=== PATIENT | female | born 1985 | race Caucasian/White ===

== ENCOUNTER 2016-04-20 10:10 | Emergency (ER) | payer MEDICAID ==
[~2016-04-20] VITALS: Ht 170.2 cm; Wt 119.3 kg
[~2016-04-20 10:10] MED LIST: ALBU8.5H2 IH; HYDR-3583 PO; HYDR-3714 PO; LRT10T PO; NAPR250T34 PO; SLMFT1E INH; SULF1TAB35 PO; [UNRECOGNIZED DRUG - REMARK]
[2016-04-20] MEDS ORDERED: GUAI120L56 PO (10:34)
[2016-04-20] MEDS ORDERED: PRD20T PO ×2 (10:34→14:11)
--- NOTE | 2016-04-20 11:41 | ED Back Pain ---
General Chief Complaint: Back Problems Stated Complaint: BACK PAIN Nursing Triage Note: PT TO RM 10 BY [facility] FROM [facility] WITH CC OF BACK PAIN. PT STATES SHE WALKED TO HER TRUCK THIS A.M. TO PUT HER BOOTS ON AND FELT HER BACK GO OUT AND LEGS WENT NUMB. PT WENT TO [facility] TO BE SEEN AND WAS UNABLE TO STAND ON THE SCALE, PT STATES STAFF THERE GOT RUDE AND THE PT COLLAPSED WHEN SHE TRIED TO STAND. STATES THIS HAPPENED ABOUT 6-7 YRS AGO. Nursing Sepsis Screen: No Definite Risk Source of Information: Patient Exam Limitations: No Limitations History of Present Illness Time Seen by Provider: 11:40 Initial Comments 31 yo female patient presents to the ED via [facility] with complaints of low back pain beginning this a.m. Patient states she got in her truck and was putting on her boots when she felt something "go out in her back." Patient now complains of pain and numbness radiating down the bilateral legs. States she is unable to stand. "I can't even move my toes!" Reports [facility] staff had gotten rude with her and she collapsed. When asked if she has had any bowel or bladder incontinence, patient states "I feel like I peed myself". Patient was asked again if she has HAD any bowel or bladder incontinence, she states "No I haven't." Location: Lumbar Spine, Paraspinous Muscles Timing/Duration: 1-3 Hours Pain/Injury Location: Back Radiation: Buttocks, Feet, Lower Legs, Upper Legs Method of Injury: Unknown Modifying Factors: Improves With Immobilization, Worse With Jarring, Worse With Movement Associated Symptoms: muscle spasmsNo fever, No weakness, numbness in legs/ feet sensory/motor loss lower back painNo loss of bladder control, No loss of bowel control Allergies and Home Medications Allergies Coded Allergies: No Known Drug Allergies (Unverified , 03/05/12) Home Medications Albuterol 8.5 Gm Hfa.aer.ad 8.5 GM IH Q4H (Reported) 2 PUFFS Cyclobenzaprine HCl 10 Mg Tablet #10 10 MG PO Q8H PRN PRN SPASMS Prescribed by: ROLANDO JARRELL on 04/20/16 1411 Guaifenesin/Codeine Phosphate 120 Ml Liquid 120 ML PO (Reported) Naproxen 500 Mg Tablet #20 500 MG PO BID PRN PRN PAIN Prescribed by: ROLANDO JARRELL on 04/20/16 141 Prednisone 20 Mg Tab 40 MG PO DAILY (Reported) Prednisone 20 Mg Tab #10 40 MG PO DAILY Prescribed by: ROLANDO JARRELL on 04/20/16 141 Tramadol HCl 50 Mg Tablet #14 50 MG PO Q4H PRN PRN PAIN Prescribed by: ROLANDO JARRELL on 04/20/16 141 Constitutional: no symptoms reported Respiratory: no symptoms reported Cardiovascular: no symptoms reported Gastrointestinal: no symptoms reported Genitourinary: no symptoms reported Musculoskeletal: see HPI back pain joint pain muscle painNo neck pain Skin: no symptoms reported Psychiatric/Neurological: See HPIDenies Headache, NumbnessDenies Seizure, TinglingDenies Weakness All Other Systems Reviewed Negative Unless Noted: Yes (Negative excepted noted.) Past Aoammde-Pauzfg-Nfjpio Hx Patient Social History Alcohol Use: Occasionally Uses Recreational Drug Use: Yes (METH) Smoking Status: Former Smoker Recent Foreign Travel: No Contact w/Someone Who Travel: No Recent Infectious Disease Expo: No Recent Hopitalizations: No Physical Abuse Screen: No Sexual Abuse: No Seasonal Allergies Seasonal Allergies: No Surgeries HX Surgeries: Yes (LT KNEE BI LAT CARPAL TUNNEL, LT ANKLE) Surgeries: Orthopedic Respiratory Hx Respiratory Disorders: Yes Respiratory Disorders: Asthma Cardiovascular Hx Cardiac Disorders: No Neurological Hx Neurological Disorders: No 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 System : No Genitourinary Hx Genitourinary Disorders: No Gastrointestinal Hx Gastrointestinal Disorders: No Gastrointestinal Disorders: Hepatitis Musculoskeletal Hx Musculoskeletal Disorders: Yes Musculoskeletal Disorders: Chronic Back Pain Endocrine Hx Endocrine Disorders: No HEENT HX ENT Disorders: No Cancer Hx Cancer: No Psychosocial Hx Psychiatric Problems: No Behavioral Health Disorders: Depression Integumentary HX Skin/Integumentary Disorder: No Skin/Integumentary Disorders: Psoriasis Blood Transfusions Hx Blood Disorders: No Reviewed Nursing Assessment Reviewed/Agree w Nursing PMH: Yes Family Medical History Significant Family History: No Pertinent Family Hx Physical Exam Vital Signs Vital Sign - Last 12Hours 04/20/16 10:23 Temp 97.6 Pulse 95 Resp 22 B/P 124/93 Pulse Ox 98 O2 Delivery Room Air Capillary Refill : Less Than 3 Seconds General Appearance: No Apparent Distress WD/WN Obese Cardiovascular: Regular Rate, Rhythm No Edema No Murmur Normal Peripheral Pulses Respiratory: Lungs Clear Normal Breath Sounds No Respiratory Distress Peripheral Pulses: 2+ Dorsalis Pedis (R), 2+ Left Dors-Pedis (L), 2+ Radial Pulses (R), 2+ Radial Pulses (L) Gastrointestinal: Normal Bowel Sounds No Organomegaly Non Tender SoftNo Distended Back: Normal Inspection Decreased Range of Motion Vertebral Tenderness Other ( patient is extremely dramatic. With sitting up in the exam bed patient is screaming and crying out. Crying without tears. Patient noted to be moving toes and legs voluntarily.) Extremity: Normal Capillary Refill Normal Inspection No Pedal Edema Other ( Generalized BLE soft tissue tenderness. patient is extremely dramatic. With sitting up in the exam bed patient is screaming and crying out. Crying without tears. Patient noted to be moving toes and legs voluntarily.) Neurologic/Psychiatric: Alert Oriented x3 No Motor/Sensory Deficits Other ( patient is extremely dramatic. With sitting up in the exam bed patient is screaming and crying out. Crying without tears. ) Skin: Normal Color Warm/Dry Progress/Results/Core Measures Results/Orders Lab Results Laboratory Tests Test 04/20/16 12:35 Range/Units Alanine Aminotransferase (ALT/SGPT) 25 0-55 U/L Albumin 4.1 3.2-4.5 G/DL Alkaline Phosphatase 84 40-136 U/L Anion Gap 10 5-14 MMOL/L Aspartate Amino Transf (AST/SGOT) 15 5-34 U/L BUN/Creatinine Ratio 12 Basophils # (Auto) 0.0 0.0-0.1 10^3/uL Basophils (%) (Auto) 0 0-10 % Blood Urea Nitrogen 8 7-18 MG/DL Calcium Level 9.1 8.5-10.1 MG/DL Carbon Dioxide Level 24 21-32 MMOL/L Chloride Level 105 98-107 MMOL/L Creatinine 0.66 0.60-1.30 MG/DL Eosinophils # (Auto) 0.1 0.0-0.3 10^3/uL Eosinophils (%) (Auto) 1 0-10 % Estimat Glomerular Filtration Rate > 60 Glucose Level 90 70-105 MG/DL Hematocrit 41 35-52 % Hemoglobin 13.3 11.5-16.0 G/DL Lymphocytes # (Auto) 2.2 1.0-4.0 X 10^3 Lymphocytes (%) (Auto) 30 12-44 % Mean Corpuscular Hemoglobin 28 25-34 PG Mean Corpuscular Hemoglobin Concent 33 32-36 G/DL Mean Corpuscular Volume 87 80-99 FL Mean Platelet Volume 9.7 7.4-10.4 FL Monocytes # (Auto) 0.8 0.0-1.0 X 10^3 Monocytes (%) (Auto) 11 0-12 % Neutrophils # (Auto) 4.3 1.8-7.8 X 10^3 Neutrophils (%) (Auto) 58 42-75 % Platelet Count 326 130-400 10^3/uL Potassium Level 3.7 3.6-5.0 MMOL/L Red Blood Count 4.69 4.35-5.85 10^6/uL Red Cell Distribution Width 14.2 10.0-14.5 % Serum Test, Qualitative NEGATIVE NEGATIVE Sodium Level 139 135-145 MMOL/L Total Bilirubin 0.6 0.1-1.0 MG/DL Total Protein 7.3 6.4-8.2 G/DL White Blood Count 7.5 4.3-11.0 10^3/uL My Orders Orders-ROLANDO JARRELL Ct Lumbar Spine Wo (04/20/16 12:07) Ketorolac Injection (Toradol Injection) (04/20/16 12:07) Orphenadrine Injection (Norflex Injectio (04/20/16 12:07) Hcg,Qualitative Serum (04/20/16 12:28) Oxycodone/Apap 5/325mg Tablet (Percocet (04/20/16 13:57) Vital Signs/I&O Vital Sign - Last 12Hours 04/20/16 04/20/16 10:23 14:35 Temp 97.6 97.6 Pulse 95 88 Resp 22 20 B/P 124/93 Pulse Ox 98 98 O2 Delivery Room Air Room Air Blood Pressure Mean: 103 Diagnostic Imaging Diagonstic Imaging: CT Plain Films/CT/US/NM/MRI: other (lumbar spine) Comments INDICATION: Acute back pain and numbness after patient felt a pop when he bent over. Patient is unable to walk. FINDINGS: The alignment of the posterior spinal line is satisfactory. The there is a minimal focal depression along the upper endplate of L1 vertebral body with mild sclerosis seen likely related to a Schmorl's node, probably old. No acute compression fracture or depressed endplate fracture is identified. The pars interarticularis appear intact with no fracture or defect seen. There is a disc herniation at L4/5 that is probably associated with mild degree of spinal canal stenosis and is associated with mild ligamentum flavum hypertrophy. The other levels demonstrate no definite evidence of spinal canal stenosis with only mild disc bulge at L5/S1. Better assessment with MRI of the spinal canal structures, however can be obtained if needed. IMPRESSION: 1. Mild focal depression at L1 vertebral body superior endplate is likely related to an old Schmorl's node. No acute compression fracture. 2. Prominent disc bulge at L4/5 level, appears to be associated with mild spinal canal stenosis. There is mild disc bulge at the L5/S1 also seen. Dictated on workstation # [id number] Reviewed: Reviewed by Me (radiology report reviewed by me.) Departure Communication Progress Notes Diagnostic findings discussed with the patient. Patient reports mild improvement with Toradol and Norflex. Patient given Percocet by mouth times one dose. Plan for discharge to home. All return precautions were discussed with the patient as described in the discharge instructions of this report. Patient voices understanding and agrees with the treatment plan. Impression Impression: Primary Impression: Lumbar radiculopathy Disposition: HOME, SELF-CARE Condition: Improved Departure-Patient Inst. Decision time for Depature: 14:05 Referrals: [facility] ([place]/Family) Primary Care Physician Patient Instructions: Radiculopathy (DC) Add. Discharge Instructions: All discharge instructions reviewed with patient and/or family. Voiced understanding. medications as instructed. Tylenol extra strength over-the- counter as directed for pain. No lifting, pushing, pulling, twisting, bending, climbing 7 days. Ice packs or heating pads as needed for pain. Follow-up with [facility] for recheck, call for appointment time today. return to the emergency department for increased numbness, bowel or bladder incontinence, fever, or any other concerns. Scripts Tramadol HCl 50 Mg [id number] Mg PO Q4H PRN PAIN #14 TAB Ref 0 Prov:ROLANDO JARRELL 04/20/16 Cyclobenzaprine HCl 10 Mg [id number] Mg PO Q8H PRN SPASMS #10 TAB Ref 0 Prov:ROLANDO JARRELL 04/20/16 Naproxen (Naprosyn)500 Mg [id number] Mg PO BID PRN PAIN #20 TAB Ref 0 Prov:ROLANDO JARRELL 04/20/16 Prednisone 20 Mg Tab40 Mg PO DAILY #10 TAB Ref 0 Prov:ROLANDO JARRELL 04/20/16 ROLANDO JARRELL Apr 20, 2016 11:41
[2016-04-20] MEDS ORDERED: KETOROLAC 60 MG/2 ML VIAL IM STA (12:07)
[2016-04-20] MEDS ORDERED: ORPHENADRINE 60 MG/2 ML (NORFLEX) AMP IM STA (12:07)
[2016-04-20 12:41] LABS: BASOPHILS % (AUTO) 0 % (0-10); EOSINOPHILS # (AUTO) 0.1 10^3/uL (0.0-0.3); EOSINOPHILS % (AUTO) 1 % (0-10); LYMPHOCYTES # (AUTO) 2.2 X 10^3 (1.0-4.0); LYMPHOCYTES % (AUTO) 30 % (12-44); MEAN CORPUSCULAR HEMOGLOBIN 28 PG (25-34); MEAN CORPUSCULAR HGB CONC 33 G/DL (32-36); MEAN CORPUSCULAR VOLUME 87 FL (80-99); MEAN PLATELET VOLUME 9.7 FL (7.4-10.4); MONOCYTES # (AUTO) 0.8 X 10^3 (0.0-1.0); MONOCYTES % (AUTO) 11 % (0-12); NEUTROPHILS # (AUTO) 4.3 X 10^3 (1.8-7.8); NEUTROPHILS % (AUTO) 58 % (42-75); PLATELET COUNT 326 10^3/uL (130-400); RED BLOOD COUNT 4.69 10^6/uL (4.35-5.85); RED CELL DISTRIBUTION WIDTH 14.2 % (10.0-14.5); WHITE BLOOD COUNT 7.5 10^3/uL (4.3-11.0)
[2016-04-20 13:00] LABS: ALANINE AMINOTRANSFERASE 25 U/L (0-55); ALBUMIN 4.1 G/DL (3.2-4.5); ANION GAP 10 MMOL/L (5-14); ASPARTATE AMINO TRANSFERASE 15 U/L (5-34); BILIRUBIN,TOTAL 0.6 MG/DL (0.1-1.0); BLOOD UREA NITROGEN 8 MG/DL (7-18); BUN/CREATININE RATIO 12; CALCIUM 9.1 MG/DL (8.5-10.1); CARBON DIOXIDE 24 MMOL/L (21-32); CHLORIDE 105 MMOL/L (98-107); CREATININE SERUM 0.66 MG/DL (0.60-1.30); GFR ESTIMATED > 60; GLUCOSE 90 MG/DL (70-105); POTASSIUM 3.7 MMOL/L (3.6-5.0); SODIUM 139 MMOL/L (135-145); TOTAL PROTEIN 7.3 G/DL (6.4-8.2)
[2016-04-20] MEDS ORDERED: oxyCODONE/APAP 5/325MG (PERCOCET 5) TABLET PO STA (13:57)
--- NOTE | 2016-04-20 13:58 | Diagnostic Imaging Report ---
PROCEDURE: CT lumbar spine without contrast. TECHNIQUE: Multiple contiguous axial images were obtained through the lumbar spine without the use of intravenous contrast. Sagittal and coronal reformations were then performed. INDICATION: Acute back pain and numbness after patient felt a pop when he bent over. Patient is unable to walk. FINDINGS: The alignment of the posterior spinal line is satisfactory. The there is a minimal focal depression along the upper endplate of L1 vertebral body with mild sclerosis seen likely related to a Schmorl's node, probably old. No acute compression fracture or depressed endplate fracture is identified. The pars interarticularis appear intact with no fracture or defect seen. There is a disc herniation at L4/5 that is probably associated with mild degree of spinal canal stenosis and is associated with mild ligamentum flavum hypertrophy. The other levels demonstrate no definite evidence of spinal canal stenosis with only mild disc bulge at L5/S1. Better assessment with MRI of the spinal canal structures, however can be obtained if needed. IMPRESSION: 1. Mild focal depression at L1 vertebral body superior endplate is likely related to an old Schmorl's node. No acute compression fracture. 2. Prominent disc bulge at L4/5 level, appears to be associated with mild spinal canal stenosis. There is mild disc bulge at the L5/S1 also seen. Dictated by: Dictated on workstation # [id number]
[2016-04-20] MEDS ORDERED: CYCL10TA9 PO (14:11)
[2016-04-20] MEDS ORDERED: NAPR500T PO (14:11)
[2016-04-20] MEDS ORDERED: TRAM50TA2 PO (14:11)
[2016-04-20 14:35] VITALS: BP 118/80
== END 2016-04-20 14:35 | disposition home or self-care (01) ==
LOC: EDUNIT# 10:10 → ER 10:11
DX: M54.16 Radiculopathy, lumbar region (principal)
CPT/HCPCS: 36415; 72131; 80053; 84703; 85025; 96372

== ENCOUNTER → 2016-04-28 | Outpatient (CLI) | payer MEDICAID ==
[~2016-04-28] MED LIST changes: +CYCL10TA9 PO; +GUAI120L56 PO; +NAPR500T PO; +PRD20T PO; +TRAM50TA2 PO
--- NOTE | 2016-04-28 12:57 | Diagnostic Imaging Report ---
PROCEDURE: MRI lumbar spine. TECHNIQUE: Multiplanar, multisequence MRI of the lumbar spine was performed without contrast. INDICATION: Low back pain, bilateral leg pain. FINDINGS: There is an old mild compression fracture of L1 vertebral body with minimal vertebral body height loss. Also minimal depression of the superior endplate of T12 is seen. No acute fracture is evident. The alignment of the posterior spinal line is satisfactory. There is disc desiccation at L4-L5 level without significant disc height loss. The cauda equina and conus medullaris appear grossly unremarkable. T12-L1: There is a no disc herniation, no spinal canal or foraminal stenosis. L1-L2: No disc herniation. There is mild facet hypertrophy. No central canal, lateral recess, or foraminal stenosis. L2-L3: No disc herniation. There is mild facet hypertrophy. No spinal canal or foraminal stenosis. L3-L4: There is no disc herniation. There is mild/ moderate facet hypertrophy. No central canal, lateral recess, or foraminal stenosis. L4-L5: There is a diffuse disc bulge with a focal central disc protrusion. Bilateral mild facet arthropathy seen. No significant central canal stenosis. There is mild narrowing of the right lateral recess. There is no significant narrowing of the left lateral recess. The foramina demonstrate mild stenosis on the right and no significant stenosis on the left. L5-S1: No disc herniation. There is mild facet hypertrophy. No central canal or lateral recess stenosis. There is mild narrowing of the medial aspect of each foramen bilaterally. IMPRESSION: There is mild/ moderate facet arthropathy in the lumbar spine most prominent at L3-L4 level. There is a disc bulge with superimposed central disc protrusion at L4-L5 level without central canal stenosis. There is mild right lateral recess stenosis and mild right foraminal stenosis at this level. Other findings as above. Dictated by: Dictated on workstation # [id number]
== END ==
LOC: RAD 11:28
PROVIDERS: ATTEND Nurse Practitioner Community Health
DX: M54.16 Radiculopathy, lumbar region (principal)
CPT/HCPCS: 72148

== ENCOUNTER 2016-08-01 08:01 | Emergency (ER) | payer MEDICAID ==
[~2016-08-01] VITALS: Ht 170.2 cm; Wt 131.1 kg
--- NOTE | 2016-08-01 08:33 | ED General ---
General Chief Complaint: General Problems/Pain Stated Complaint: BREAST PAIN/DISCHARGE Nursing Triage Note: PT C/O MISSING HER MENSTRUAL PERIOD X 2 MONTHS. SHE STATES SHE WENT TO [facility] AND HAD BLOOD WORK DONE, WITH NEGATIVE RESULTS. SHE STATES SHE IS NOW HAVING BREAST PAIN/DISCHARGE AND DIFFUSE ABD PAIN. SHE DENIES N/V OR FEVER. Nursing Sepsis Screen: No Definite Risk Source of Information: Patient Exam Limitations: No Limitations History of Present Illness Time Seen by Provider: 08:20 Initial Comments Here with report of missing her menstrual periods for the last 2 months and complains of 35 pound weight gain and breast discharge and really believes that she is . She went to the clinic 2 days ago and had negative testing per the patient. She feels like she is getting bigger in her belly specifically. Timing/Duration: 1 Week, Other (2 months) Severity: Moderate Associated Systoms: No Chest Pain, No Cough, No Fever/Chills, No Nausea/ Vomiting, No Shortness of Air, No Weakness Allergies and Home Medications Allergies Coded Allergies: No Known Drug Allergies (Unverified , 03/05/12) Home Medications Albuterol 8.5 Gm Hfa.aer.ad, 8.5 GM IH Q4H, (Reported) 2 PUFFS Cyclobenzaprine HCl 10 Mg Tablet, 10 MG PO Q8H PRN for SPASMS, #10 Ref 0 Prescribed by: ROLANDO JARRELL on 04/20/16 141 Guaifenesin/Codeine Phosphate 120 Ml Liquid, 120 ML PO, (Reported) Naproxen 500 Mg Tablet, 500 MG PO BID PRN for PAIN, #20 Ref 0 Prescribed by: ROLANDO JARRELL on 04/20/16 141 Prednisone 20 Mg Tab, 40 MG PO DAILY, (Reported) Prednisone 20 Mg Tab, 40 MG PO DAILY, #10 Ref 0 Prescribed by: ROLANDO JARRELL on 04/20/16 141 Tramadol HCl 50 Mg Tablet, 50 MG PO Q4H PRN for PAIN, #14 Ref 0 Prescribed by: ROLANDO JARRELL on 04/20/16 141 Constitutional: see HPI, No chills, No fever EENTM: no symptoms reported Respiratory: no symptoms reported Cardiovascular: no symptoms reported Gastrointestinal: see HPI, abdominal pain, nausea, No vomiting Genitourinary: No dysuria, No pain : No Musculoskeletal: No back pain, No muscle pain Skin: no symptoms reported Psychiatric/Neurological: See HPI, Anxiety Hematologic/Lymphatic: No Symptoms Reported Immunological/Allergic: see HPI All Other Systems Reviewed Negative Unless Noted: Yes Past Vrihlfc-Kdhdtx-Xmqjfn Hx Patient Social History Alcohol Use: Occasionally Uses Recreational Drug Use: No Smoking Status: Former Smoker Type Used: Cigarettes 2nd Hand Smoke Exposure: No Recent Foreign Travel: No Contact w/Someone Who Travel: No Recent Infectious Disease Expo: No Recent Hopitalizations: No Seasonal Allergies Seasonal Allergies: No Surgeries HX Surgeries: Yes (LT KNEE BILAT CARPAL TUNNEL, LT ANKLE, L KNEE) Surgeries: Orthopedic Respiratory Hx Respiratory Disorders: Yes Respiratory Disorders: Asthma Cardiovascular Hx Cardiac Disorders: No Neurological Hx Neurological Disorders: No Genitourinary Hx Genitourinary Disorders: No Gastrointestinal Hx Gastrointestinal Disorders: No Gastrointestinal Disorders: Hepatitis Musculoskeletal Hx Musculoskeletal Disorders: Yes Musculoskeletal Disorders: Chronic Back Pain Endocrine Hx Endocrine Disorders: No HEENT HX ENT Disorders: No Cancer Hx Cancer: No Psychosocial Hx Psychiatric Problems: No Behavioral Health Disorders: Depression Integumentary HX Skin/Integumentary Disorder: No Skin/Integumentary Disorders: Psoriasis Blood Transfusions Hx Blood Disorders: No Reviewed Nursing Assessment Reviewed/Agree w Nursing PMH: Yes Family Medical History Significant Family History: No Pertinent Family Hx Physical Exam Vital Signs Vital Sign - Last 12Hours 08/01/16 08:05 Temp 97.1 Pulse 96 Resp 20 B/P (MAP) 147/76 Pulse Ox 97 O2 Delivery Room Air Capillary Refill : Less Than 3 Seconds General Appearance: No Apparent Distress, WD/WN HEENT: PERRL/EOMI, Pharynx Normal Neck: Non Tender, Supple Respiratory: Lungs Clear, Normal Breath Sounds Cardiovascular: Regular Rate, Rhythm, No Murmur Gastrointestinal: Non Tender, Soft Back: Normal Inspection, No CVA Tenderness, No Vertebral Tenderness Extremity: Normal Range of Motion, Non Tender, No Calf Tenderness Neurologic/Psychiatric: Alert, Oriented x3 Skin: Normal Color, Warm/Dry Progress/Results/Core Measures Results/Orders Lab Results Laboratory Tests Test 08/01/16 08:13 08/01/16 08:30 Range/Units Urine Color YELLOW Urine Clarity SLIGHTLY CLOUDY Urine pH 6.5 5-9 Urine Specific [place] 1.010 L 1.016-1.022 Urine Protein NEGATIVE NEGATIVE Urine Glucose (UA) NEGATIVE NEGATIVE Urine Ketones NEGATIVE NEGATIVE Urine Nitrite NEGATIVE NEGATIVE Urine Bilirubin NEGATIVE NEGATIVE Urine Urobilinogen NORMAL NORMAL MG/DL Urine Leukocyte Esterase 2+ H NEGATIVE Urine RBC (Auto) NEGATIVE NEGATIVE Urine RBC NONE /HPF Urine WBC 5-10 H /HPF Urine Squamous Epithelial Cells >50 H /HPF Urine Crystals NONE /LPF Urine Bacteria TRACE /HPF Urine Casts NONE /LPF Urine Mucus NEGATIVE /LPF Urine Culture Indicated NO White Blood Count 4.8 4.3-11.0 10^3/uL Red Blood Count 4.38 4.35-5.85 10^6/uL Hemoglobin 12.4 11.5-16.0 G/DL Hematocrit 39 35-52 % Mean Corpuscular Volume 88 80-99 FL Mean Corpuscular Hemoglobin 28 25-34 PG Mean Corpuscular Hemoglobin Concent 32 32-36 G/DL Red Cell Distribution Width 15.0 H 10.0-14.5 % Platelet Count 317 130-400 10^3/uL Mean Platelet Volume 9.7 7.4-10.4 FL Neutrophils (%) (Auto) 47 42-75 % Lymphocytes (%) (Auto) 37 12-44 % Monocytes (%) (Auto) 13 H 0-12 % Eosinophils (%) (Auto) 3 0-10 % Basophils (%) (Auto) 0 0-10 % Neutrophils # (Auto) 2.3 1.8-7.8 X 10^3 Lymphocytes # (Auto) 1.8 1.0-4.0 X 10^3 Monocytes # (Auto) 0.6 0.0-1.0 X 10^3 Eosinophils # (Auto) 0.1 0.0-0.3 10^3/uL Basophils # (Auto) 0.0 0.0-0.1 10^3/uL Sodium Level 139 135-145 MMOL/L Potassium Level 3.8 3.6-5.0 MMOL/L Chloride Level 105 98-107 MMOL/L Carbon Dioxide Level 25 21-32 MMOL/L Anion Gap 9 5-14 MMOL/L Blood Urea Nitrogen 7 7-18 MG/DL Creatinine 0.65 0.60-1.30 MG/DL Estimat Glomerular Filtration Rate > 60 BUN/Creatinine Ratio 11 Glucose Level 96 70-105 MG/DL Calcium Level 8.5 8.5-10.1 MG/DL Total Bilirubin 0.3 0.1-1.0 MG/DL Aspartate Amino Transf (AST/SGOT) 11 5-34 U/L Alanine Aminotransferase (ALT/SGPT) 13 0-55 U/L Alkaline Phosphatase 83 40-136 U/L Total Protein 6.6 6.4-8.2 G/DL Albumin 3.7 3.2-4.5 G/DL Thyroid Stimulating Hormone (TSH) 1.22 0.35-4.94 UIU/ML Human Chorionic Gonadotropin, Quant < 5 <5 MIU/ML My Orders Orders - VINCE HOUSE MD Ua Culture If Indicated (08/01/16 08:17) Urine Bedside (08/01/16 08:17) Cbc With Automated Diff (08/01/16 08:29) Comprehensive Metabolic Panel (08/01/16 08:29) Hcg,Quantitative (08/01/16 08:29) Thyroid Stimulating Hormone (08/01/16 08:29) Saline Lock/Iv-Start (08/01/16 08:29) Ct Abdomen/Pelvis W (08/01/16 09:32) Iohexol Injection (Omnipaque 350 Mg/Ml 1 (08/01/16 09:45) Ns (Ivpb) (Sodium Chloride 0.9% Ivpb Bag (08/01/16 09:45) Medications Given in ED Current Medications Medications Dose Ordered Sig/Abena Route Start Time Stop Time Status Last Admin Dose Admin Iohexol 100 ml ONCE ONCE IV 08/01/16 09:45 08/01/16 09:46 DC 08/01/16 10:35 100 ML Sodium Chloride 100 ml ONCE ONCE IV 08/01/16 09:45 08/01/16 09:46 DC 08/01/16 10:35 80 ML Vital Signs/I&O Vital Sign - Last 12Hours 08/01/16 08:05 Temp 97.1 Pulse 96 Resp 20 B/P (MAP) 147/76 Pulse Ox 97 O2 Delivery Room Air Blood Pressure Mean: 99 Point of Care Testing Urine -Bedside: Negative Progress Note : Progress Note Seen and evaluated. UCG negative. IV, labs, UA ordered as patient is very concerned. No significant findings on physical exam. 1105: CT abdomen and pelvis was ordered due to persistence of concerns for symptoms. This was negative. No other acute findings noted. Patient informed that she'll need to follow-up with clinic to further evaluate her condition. Patient is not . Discharged home with return precautions. Patient verbalize understanding instructions and agreement with plan. Diagnostic Imaging Diagonstic Imaging: CT Plain Films/CT/US/NM/MRI: abdomen, pelvis Comments NAME: EMMETT JENNINGS [facility] REC#: [id number] PT STATUS: REG ER : 1985 PHYSICIAN: VINCE HOUSE MD ADMIT DATE: 08/01/16/ER Signed Date of Exam: 08/01/16 CT ABDOMEN/PELVIS W PROCEDURE: CT abdomen and pelvis with contrast. TECHNIQUE: Multiple contiguous axial images were obtained through the abdomen and pelvis after administration of intravenous contrast. INDICATION: Pain. No priors. FINDINGS: The appendix visualized and normal. Right adnexal cysts the larger posterior measuring 4.3 cm with a small 1.5 cm cyst anteriorly. The uterus and left adnexa appeared normal. There is small subcentimeter follicle on the left noted. The urinary bladder appeared normal. The appendix normal. There is no diverticulitis. There is no hydronephrosis. The liver, gallbladder, bile ducts, spleen, adrenals, and pancreas normal. The aortoiliac and mesenteric vessels nonaneurysmal. IMPRESSION: Right adnexal cyst, normal left ovary and uterus. Normal appendix. Unobstructed urinary tracts. No acute abnormality. No ascites, obstructive phenomena or inflammatory processes. Dictated by: Dictated on workstation # [id number] Dict: 08/01/16 1047 Trans: 08/01/16 1056 Interpreted by: JONO MOSER Electronically signed by: JONO MOSER 08/01/16 1056 Reviewed: Reviewed by Ny Departure Impression Impression: Primary Impression: Right ovarian cyst Disposition: HOME, SELF-CARE Condition: Stable Departure-Patient Inst. Decision time for Depature: 11:13 Referrals: [facility] (PCP/Family) Primary Care Physician Patient Instructions: Ovarian Cyst (DC) Add. Discharge Instructions: All discharge instructions reviewed with patient and/or family. Voiced understanding. Follow up in clinic within one week for recheck and further evaluation to discuss the symptoms that you're having including the breast leakage and abdominal discomfort. Return for worse pain, fever, vomiting, weakness, breathing problems or other concerns as needed. Eat a normal diet and drink adequate amount of fluids. Copy Copies To 1: SHIRA YIN MD, TIMOTHY D MD Aug 01, 2016 08:33
[2016-08-01 08:38] LABS: BILIRUBIN,URINE NEGATIVE (NEGATIVE); KETONES,URINE NEGATIVE (NEGATIVE); LEUKOCYTE ESTERASE ,URINE 2+ (NEGATIVE); NITRITE,URINE NEGATIVE (NEGATIVE); PH,URINE 6.5 (5-9); PROTEIN,URINE NEGATIVE (NEGATIVE); UROBILINOGEN,URINE NORMAL (NORMAL)
[2016-08-01 08:39] LABS: BASOPHILS % (AUTO) 0 % (0-10); EOSINOPHILS # (AUTO) 0.1 10^3/uL (0.0-0.3); EOSINOPHILS % (AUTO) 3 % (0-10); LYMPHOCYTES # (AUTO) 1.8 X 10^3 (1.0-4.0); LYMPHOCYTES % (AUTO) 37 % (12-44); MEAN CORPUSCULAR HEMOGLOBIN 28 PG (25-34); MEAN CORPUSCULAR HGB CONC 32 G/DL (32-36); MEAN CORPUSCULAR VOLUME 88 FL (80-99); MEAN PLATELET VOLUME 9.7 FL (7.4-10.4); MONOCYTES # (AUTO) 0.6 X 10^3 (0.0-1.0); MONOCYTES % (AUTO) 13 % (0-12); NEUTROPHILS # (AUTO) 2.3 X 10^3 (1.8-7.8); NEUTROPHILS % (AUTO) 47 % (42-75); PLATELET COUNT 317 10^3/uL (130-400); RED BLOOD COUNT 4.38 10^6/uL (4.35-5.85); WHITE BLOOD COUNT 4.8 10^3/uL (4.3-11.0)
[2016-08-01 08:39] LABS: SQUAMOUS EPITHELIAL CELL,UR >50 /HPF
[2016-08-01 08:58] LABS: ALANINE AMINOTRANSFERASE 13 U/L (0-55); ALBUMIN 3.7 G/DL (3.2-4.5); ANION GAP 9 MMOL/L (5-14); ASPARTATE AMINO TRANSFERASE 11 U/L (5-34); BILIRUBIN,TOTAL 0.3 MG/DL (0.1-1.0); BLOOD UREA NITROGEN 7 MG/DL (7-18); BUN/CREATININE RATIO 11; CALCIUM 8.5 MG/DL (8.5-10.1); CARBON DIOXIDE 25 MMOL/L (21-32); CHLORIDE 105 MMOL/L (98-107); CREATININE SERUM 0.65 MG/DL (0.60-1.30); GFR ESTIMATED > 60; GLUCOSE 96 MG/DL (70-105); POTASSIUM 3.8 MMOL/L (3.6-5.0); SODIUM 139 MMOL/L (135-145); TOTAL PROTEIN 6.6 G/DL (6.4-8.2)
[2016-08-01 09:18] LABS: THYROID STIMULATING HORMONE 1.22 UIU/ML (0.35-4.94)
[2016-08-01] MEDS ORDERED: IOHEXOL 350 MG/ML 100 ML (OMNIPAQUE 350) VIAL IV ONE (09:45)
[2016-08-01] MEDS ORDERED: NS 100 ML (IVPB) BAG IV ONE (09:45)
--- NOTE | 2016-08-01 10:54 | Diagnostic Imaging Report ---
PROCEDURE: CT abdomen and pelvis with contrast. TECHNIQUE: Multiple contiguous axial images were obtained through the abdomen and pelvis after administration of intravenous contrast. INDICATION: Pain. No priors. FINDINGS: The appendix visualized and normal. Right adnexal cysts the larger posterior measuring 4.3 cm with a small 1.5 cm cyst anteriorly. The uterus and left adnexa appeared normal. There is small subcentimeter follicle on the left noted. The urinary bladder appeared normal. The appendix normal. There is no diverticulitis. There is no hydronephrosis. The liver, gallbladder, bile ducts, spleen, adrenals, and pancreas normal. The aortoiliac and mesenteric vessels nonaneurysmal. IMPRESSION: Right adnexal cyst, normal left ovary and uterus. Normal appendix. Unobstructed urinary tracts. No acute abnormality. No ascites, obstructive phenomena or inflammatory processes. Dictated by: Dictated on workstation # [id number]
[2016-08-01 11:20] VITALS: BP 142/74
[2016-08-01] MEDS ORDERED: TRAM50TA2 PO (11:22)
== END 2016-08-01 11:20 | disposition home or self-care (01) ==
LOC: EDUNIT# 08:01 → ER 08:04
DX: N83.201 Unspecified ovarian cyst, right side (principal); N91.2 Amenorrhea, unspecified; N64.52 Nipple discharge; N64.4 Mastodynia
CPT/HCPCS: 36415; 74177; 80053; 81000; 84443; 84702; 84703; 85025

== ENCOUNTER → 2016-09-10 | Outpatient (CLI) | payer MEDICAID ==
--- NOTE | 2016-09-10 13:45 | Diagnostic Imaging Report ---
Transabdominal and transvaginal pelvic ultrasound. INDICATION: Right ovarian cysts. FINDINGS: The uterus is 6.5 x 4.7 x 5 cm. There is minimal heterogeneity in the myometrium with no discrete mass. The left adnexa is 5.9 x 4.8 x 4 cm. A 5.2 cm complex cystic lesion is seen with some septations anteriorly. No nodule or solid component is seen. There is blood flow in the surrounding tissue likely representing left ovary. The right ovary is not seen probably obscured by bowel gas. IMPRESSION: A 5.2 cm cystic mass in the left ovary with minimal complexity. It is persistent from CT of 08/01/2016 with no definitive change in size. 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 Report was faxed to office of Dr. Grayson by evi at 1:44 p.m. Dictated by: Dictated on workstation # [id number]
== END ==
LOC: RAD 10:40
PROVIDERS: ATTEND Obstetrics & Gynecology
DX: N83.201 Unspecified ovarian cyst, right side (principal); R93.5 Abnormal findings on diagnostic imaging of other abdominal regions, including retroperitoneum; R10.2 Pelvic and perineal pain
CPT/HCPCS: 76830; 76856

== ENCOUNTER 2016-10-20 12:53 | Outpatient (CLI) | payer MEDICAID ==
[~2016-10-20] VITALS: Ht 170.2 cm; Wt 132.6 kg
[2016-10-20] MEDS ORDERED: HYDR-3820 PO (13:07)
[2016-10-20] MEDS ORDERED: LORA10TA76 PO (13:07)
[2016-10-20] MEDS ORDERED: CLON0.5T PO (13:07)
[2016-10-20] MEDS ORDERED: MONT10TA21 PO (13:07)
[2016-10-20] MEDS ORDERED: ALBU0.63 IH (13:07)
[2016-10-20] MEDS ORDERED: SPIR50TA2 PO (13:07)
[2016-10-20 13:11] VITALS: BP 102/60
[2016-10-20] MEDS ORDERED: SPIR25TA PO (13:15)
[2016-10-20] MEDS ORDERED: IPRA4AER IH (13:16)
[2016-10-20 14:00] LABS: BASOPHILS % (AUTO) 0 % (0-10); EOSINOPHILS # (AUTO) 0.2 10^3/uL (0.0-0.3); EOSINOPHILS % (AUTO) 3 % (0-10); LYMPHOCYTES % (AUTO) 32 % (12-44); MEAN CORPUSCULAR HEMOGLOBIN 28 PG (25-34); MEAN CORPUSCULAR HGB CONC 32 G/DL (32-36); MEAN CORPUSCULAR VOLUME 87 FL (80-99); MEAN PLATELET VOLUME 10.4 FL (7.4-10.4); MONOCYTES # (AUTO) 0.8 X 10^3 (0.0-1.0); MONOCYTES % (AUTO) 12 % (0-12); NEUTROPHILS # (AUTO) 3.2 X 10^3 (1.8-7.8); NEUTROPHILS % (AUTO) 53 % (42-75); PLATELET COUNT 339 10^3/uL (130-400); RED BLOOD COUNT 4.51 10^6/uL (4.35-5.85); RED CELL DISTRIBUTION WIDTH 14.1 % (10.0-14.5); WHITE BLOOD COUNT 6.1 10^3/uL (4.3-11.0)
[2016-10-22] MEDS ORDERED: IBUP-1773 PO (10:08)
[2016-10-22] MEDS ORDERED: OXYC-471 PO (10:08)
== END 2016-10-20 14:30 ==
LOC: PREOP 12:53
PROVIDERS: ATTEND Obstetrics & Gynecology
DX: Z01.812 Encounter for preprocedural laboratory examination (principal); Z11.2 Encounter for screening for other bacterial diseases; N93.8 Other specified abnormal uterine and vaginal bleeding
CPT/HCPCS: 36415; 85025; 86850; 86900; 86901; 87081

== ENCOUNTER 2016-10-22 06:00 | Day surgery (SDC) | payer MEDICAID ==
[~2016-10-22] VITALS: Ht 170.2 cm; Wt 132.6 kg
[~2016-10-22 06:00] MED LIST changes: +ALBU0.63 IH; +CLON0.5T PO; +HYDR-3820 PO; +IPRA4AER IH; +LORA10TA76 PO; +MONT10TA21 PO; +SPIR25TA PO; +SPIR50TA2 PO
[2016-10-22] MEDS: LACTATED RINGERS 1,000 ML IV PRN ×3 (06:10→09:50)
[2016-10-22 06:15] VITALS: BP 115/58
[2016-10-22] MEDS ORDERED: MUPIROCIN 2% OINT 22 GM (BACTROBAN) TUBE ONE (06:42)
[2016-10-22] MEDS ORDERED: FUROSEMIDE 40 MG/4 ML INJ (LASIX) ONE (07:02)
--- NOTE | 2016-10-22 07:12 | Progress Note-Pre Operative ---
Pre-Operative Progress Note H&P Reviewed The H&P was reviewed, patient examined and no changes noted. Date Seen by Provider: Oct 22, 2016 Time Seen by Provider: 07:11 Date H&P Reviewed: Oct 22, 2016 Time H&P Reviewed: 07:05 Pre-Operative Diagnosis: Right complex ovarian cyst, CPP, AUB ANGELO ABARCA DO Oct 22, 2016 7:12 am
[2016-10-22] MEDS ORDERED: FUROSEMIDE 40 MG/4 ML INJ (LASIX) IVP ONE (07:15)
[2016-10-22] MEDS ORDERED: ceFAZolin 2 GM/NS 50 ML IV ONE (07:15)
[2016-10-22] MEDS ORDERED: CATHETER FLUSH 10 ML SYR IV PRN (07:15)
[2016-10-22] MEDS ORDERED: BUPIVACAINE 0.25% 30 ML (SENSORCAINE) VIAL ONE (07:46)
[2016-10-22] MEDS ORDERED: MIDAZOLAM 2 MG/2 ML (VERSED) VIAL ONE (07:46)
[2016-10-22] MEDS ORDERED: fentaNYL INJECTION 100 MCG/2 ML AMP ONE ×2 (07:46→09:39)
[2016-10-22] MEDS ORDERED: MUPIROCIN 2% OINT 22 GM (BACTROBAN) TUBE NSEACH SCH (09:00)
[2016-10-22] MEDS ORDERED: morphine INJ 10 MG/ML 1ML (SYR OR VIAL) ONE (09:26)
[2016-10-22] MEDS ORDERED: KETOROLAC 30 MG/ML VIAL ONE (09:27)
[2016-10-22] MEDS ORDERED: DEXAMETHASONE PF 10 MG/ML (DECADRON) VIAL ONE (09:41)
[2016-10-22] MEDS ORDERED: GLYCOPYRROLATE 0.2 MG/ML (ROBINUL) 2 ML VIAL ONE (09:41)
[2016-10-22] MEDS ORDERED: LIDOCAINE PF 2% 5 ML (XYLOCAINE) VIAL ONE (09:41)
[2016-10-22] MEDS ORDERED: NEOSTIGMINE (BLOXIVERZ ) 1 MG/1ML 10 ML VIAL ONE (09:41)
[2016-10-22] MEDS ORDERED: ONDANSETRON 4 MG/2 ML (SDV) Z0FRAN ONE (09:41)
[2016-10-22] MEDS ORDERED: ROCURONIUM 50 MG/5 ML (ZEMURON) VIAL IV ONE (09:41)
[2016-10-22] MEDS ORDERED: proPOfol 200 MG/20 ML (DIPRIVAN) VIAL IV ONE (09:41)
[2016-10-22] MEDS ORDERED: LACTATED RINGERS 2,000 ML IV ONE (09:41)
[2016-10-22] MEDS ORDERED: SEVOFLURANE (ULTANE) 15 ML INHAL SOLN ONE ×3 (09:43→09:51)
[2016-10-22] MEDS ORDERED: LABETALOL HCL 20 MG/4 ML VIAL ONE (09:43)
[2016-10-22] MEDS ORDERED: D5 LR IV SOLUTION 1,000 ML IV SCH (10:03)
--- NOTE | 2016-10-22 10:07 | Discharge Inst-Women's Service ---
Discharge Inst-Women's Serv Depart Medication/Instructions New, Converted or Re-Newed RX: RX on Chart Consults/Follow Up Additional Follow Up: Yes Orders/Referrals Dr. Freeman in 3 weeks Activity Activity: Activity as Tolerated Driving Instructions: You May Drive (do not drive while taking oxycodone) NO SMOKING: NO SMOKING Nothing Inside Vagina: No Douching, No Milaca, No Tampons Diet Discharge Diet: No Restrictions Symptoms to Report to : Bleeding Excessive, Pain Increased, Fever Over 101 Degrees F, Vaginal Bleeding Increase, Questions/Concerns For Any Problems or Questions: Contact Your Physician Skin/Wound Care Infection Signs and Symptoms: Increased Redness, Foul Odor of Wound, Increased Drainage, Skin Itchy or Has a Rash, Increased Swelling, Temperature Above 101 F Operative Area Clean and Dry: Keep Incision Clean/Dry Stitches/Wilfredo/Dermabond: Dermabond, Care of Stitches Bathing Instructions: ANGELO Garcia DO Oct 22, 2016 10:07 am
[2016-10-22] MEDS ORDERED: IBUP-1773 PO (10:08)
[2016-10-22] MEDS ORDERED: OXYC-471 PO (10:08)
[2016-10-22] MEDS ORDERED: HYDROmorphone (DILAUDID) 2 MG/ML VIAL IVP PRN (10:15)
[2016-10-22] MEDS ORDERED: oxyCODONE/APAP 5/325MG (PERCOCET 5) TABLET PO PRN (10:15)
[2016-10-22] MEDS ORDERED: ONDANSETRON 4 MG/2 ML (SDV) Z0FRAN IVP PRN ×2 (10:15)
[2016-10-22] MEDS ORDERED: KETOROLAC 30 MG/ML VIAL IVP ONE (10:15)
--- NOTE | 2016-10-22 10:22 | Progress Note-Post Operative ---
Post-Operative Progess Note Surgeon (s)/Explosives Worker (s) Surgeon ANGELO ABARCA DO Explosives Worker: Shannon Hamilton Pre-Operative Diagnosis Right complex ovarian cyst, CPP, AUB Post-Operative Diagnosis bilateral complex ovarian masses, left hydrosalpinx, extensive pelvic adhesions Procedure & Operative Findings Date of Procedure 10/22/16 Procedure Performed/Findings Laparoscopic bilateral oopherectomy, extensive MAULIK >30 min. Dilatation and curretage Anesthesia Type GETA Estimated Blood Loss Estimated blood loss (mL): 20 Specimens/Packing Specimens Removed Bilateral ovaries and fallopian tubes, right ovarian cyst aspirate ANGELO ABARCA DO Oct 22, 2016 10:22 am
[2016-10-22] MEDS: morphine INJ 10 MG/ML 1ML (SYR OR VIAL) IVP PRN ×2 (10:27→10:40)
[2016-10-22 11:10] VITALS: BP 112/51
[2016-10-22] MEDS ORDERED: oxyCODONE/APAP 5/325MG (PERCOCET 5) TABLET ONE (11:13)
[2016-10-22 11:40] VITALS: BP 118/48
[2016-10-22 11:55] VITALS: BP 118/48
[2016-10-22] MEDS ORDERED: IBUPROFEN 600 MG (MOTRIN) TAB PO SCH (12:00)
[2016-10-22 12:10] VITALS: BP 121/73
--- NOTE | 2016-10-23 16:30 | OPERATIVE REPORT ---
PROCEDURE PHYSICIAN: MINOR FREEMAN DATE OF PROCEDURE: 10/22/2016 PREOPERATIVE DIAGNOSES: 1. 31-year-old female with right complex ovarian cyst. 2. Chronic pelvic pain. 3. Abnormal uterine bleeding. 4. BMI of 45.8. POSTOPERATIVE DIAGNOSES: 1. 31-year-old female with right complex ovarian cyst. 2. Chronic pelvic pain. 3. Abnormal uterine bleeding. 4. BMI of 45.8. 5. Bilateral complex ovarian masses. 6. Left hydrosalpinx. 7. Extensive pelvic adhesions. PROCEDURE: 1. Laparoscopic bilateral salpingo-oophorectomy with extensive lysis of adhesions greater than 30 minutes. 2. Dilation and curettage. SURGEON: Dr. Minor Freeman. STERILE INSTRUMENT TECHNICIAN: Shannon Hamilton APRN. ANESTHESIA: General endotracheal. ESTIMATED BLOOD LOSS: 20 mL. URINE OUTPUT: 500 mL clear at the end of the procedure. FLUIDS: 2 liters of lactated ringer solution. FINDINGS: Normal appearing uterus with extensive filmy adhesions of the posterior cul-de-sac as well as extending to the left adnexa. The left fallopian tube is enlarged and suspicious for hydrosalpinx. It is adhesed to the left pelvic sidewall along with the left ovary. There are filmy adhesions of the right ovary to the right pelvic sidewall. SPECIMEN SENT: 1. Bilateral tube and ovary. 2. Right ovarian cyst aspirate. INDICATIONS FOR THE PROCEDURE: This 31-year-old female was a patient that was referred to me by my partner Dr. Grayson due to interval follow-up and she is leaving [facility]. She had the patient come see me for this issue. This patient has a history of chronic pelvic pain, as well as heavy painful periods. She had been diagnosed clinically with endometriosis in the past. On ultrasound there was a complex right ovarian cyst as well as having right pelvic pain for the last several months. She had been counseled extensively about performing hysterectomy at the time of surgery; however, after further research by the patient, she decided that she did not want this done as she found out in her research that it may affect her sexual function. I did discuss with the patient the long-term risks giving her BMI of 45 for endometrial carcinoma and discussed with her how removal of the uterus at the time of surgery would definitely be warranted; however, the patient did not want to do this at that time. She agreed to D\T\C and collecting endometrial sampling due to her abnormal bleeding and the patient's elevated BMI as well as removal of the ovarian pelvic masses. I did described with her prior to surgery, the possibly of removing both ovarian masses. The patient is not a candidate for hormone replacement therapy due to her history of hepatitis, concerns for liver function long-term as well as her obesity and the fact the patient is a smoker. The risks of the procedure were discussed with the patient in detail including risk of bleeding, infection, damaging any of the surrounding structures and bleeding but not limited to the bowel, bladder, ureter, kidneys, postoperative complications including thromboembolic events and risks from anesthesia were all discussed. After all the patient's questions were answered, consent was obtained. The patient was taken to the operating room. OPERATIVE REPORT IN DETAIL: Once in the operating room, general anesthesia was found to be adequate. She was placed in dorsal lithotomy position, prepped and draped in normal sterile fashion. She was first examined under anesthesia. The uterus is not enlarged and freely mobile. It is difficult to assess due to patient's body habitus. I placed a weighted speculum in the patient's vagina. Right angle retractor was used to visualize the cervix. It was grasped at the 12 o'clock position using the long Allis clamp. I then gently dilate the cervix using Hegar dilators after sounding the uterine cavity depth of 7 cm. I then perform a curettage using a medium sized uterine curette collecting endometrial tissue and sending this as endometrial curettings. I then place a kroner uterine manipulator into the endometrial cavity and deploy the balloon. Remove all of the instruments from the patient's vagina. Place a Childers using sterile technique. I then take attention to the abdomen after a change of gloves is performed and infraumbilically infiltrate this area using 0.25% Marcaine make a 5 mm incision and direct a Veress needle through this incision until intraperitoneal placement is confirmed using the saline drop test. I then proceed with insufflation using CO2 gas, opening pressure of 8 mmHg is noted. I proceed to maximum pressure of 15 mmHg at which point I remove the Veress needle, introduce a 5 mm blunt trocar. Once this is in place I am able to confirm excellent placement using the laparoscope. I then had the patient placed in steep Trendelenburg and I am able to visualize the pelvic anatomy as described in my findings above. I place a second trocar site, this suprapubic and 12 mm in order to remove the specimen through this site. Incision was made the knife and the trocars directed under direct visualization of the laparoscope. In the lower quadrant I also placed a 3rd trocar, this is a 5 mm trocar and it is placed under direct visualization of the laparoscope in a similar fashion. Once this is in place, I have adequate instrumentation to perform the procedures following. I take down the filmy adhesions of the left pelvic side wall and the omentum to the left hydrosalpinx. I then, using the LigaSure, bipolar cauterize the utero-ovarian ligament and the fallopian tube and transect it using the LigaSure. I take this down the margin of the mesosalpinx to its distal connection point lateral sidewall. This allows me to isolate the infundibulopelvic ligament and the uterine vessels coming up from the lateral pelvic sidewall. Once they are isolated, I bipolar cauterize and transect them using the vessel sealer. I then carefully take off the remaining adhesions on the left pelvic sidewall which frees up this left complex adnexal mass. It is then removed through the 12 mm trocar site. Incidental rupture occurs and my dissection. Clear fluid is noted from this left ovarian complex cystic structure. Once that is removed from the suprapubic trocar site, I then perform a similar dissection on the right side; however, this ovarian mass is adhesed to the ovarian fossa. It is approached using Endo Erick to take down the filmy adhesion and separate away from the surrounding omentum and sigmoid colon. I then am able to isolate the infundibulopelvic ligament. I grasped it using the LigaSure and transect it using the LigaSure. I take this down the margin of the mesosalpinx, amputating all the way to the more proximal connection point at the utero-ovarian ligament, bipolar cauterizing this and transecting it using the LigaSure. Once the right ovary and tube are liberated I remove them using a second Endopouch through the suprapubic trocar site as well. I do end up aspirating the cyst once it is brought through the abdominal wall using a Veress needle. This is sent as the right ovarian cyst aspirate. Once this is removed, I copiously irrigate the pelvis using normal saline. There is no active bleeding noted from any my dissection planes. I then remove the 5 mm trocars under direct visualization of the laparoscope. The suprapubic trocar is left in place to release insufflation and to introduce 10 mL Marcaine. Once this is done, I remove this trocar as well. The skin is closed using 4-0 Monocryl in an interrupted subcuticular stitches. Dermabond is applied to the incisions. Band-Aids are placed over these. Childers catheter is removed. 2 grams of Ancef given preoperatively for infection prophylaxis. The patient tolerated the procedure well and was taken to recovery area in stable condition. Lap and sponge counts were correct at the end of the procedure. Instrument counts correct as well. Job ID: [id number] Dictated Date: 10/22/2016 10:59:20 Campaign Coordinator Date: 10/23/2016 15:39:52 / jonelle
== END 2016-10-22 12:10 | disposition home or self-care (01) ==
LOC: SDC 06:00
PROVIDERS: ATTEND Obstetrics & Gynecology
DX: N93.8 Other specified abnormal uterine and vaginal bleeding (principal); N83.291 Other ovarian cyst, right side; N83.292 Other ovarian cyst, left side; N83.01 Follicular cyst of right ovary; N83.02 Follicular cyst of left ovary; R10.2 Pelvic and perineal pain; N70.11 Chronic salpingitis; N73.6 Female pelvic peritoneal adhesions (postinfective); J45.909 Unspecified asthma, uncomplicated; B19.20 Unspecified viral hepatitis C without hepatic coma; E66.01 Morbid (severe) obesity due to excess calories; Z68.42 Body mass index [BMI] 45.0-49.9, adult; Z79.899 Other long term (current) drug therapy
CPT/HCPCS: 36415; 80306; 84703; 88112; 88305; 94664

== ENCOUNTER 2016-10-30 20:33 | Emergency (ER) | payer MEDICAID ==
[~2016-10-30] VITALS: Ht 170.2 cm; Wt 136.1 kg
[~2016-10-30 20:33] MED LIST changes: +IBUP-1773 PO; +OXYC-471 PO
[2016-10-30] MEDS ORDERED: KETOROLAC 30 MG/ML VIAL IVP ONE (22:00)
[2016-10-30] MEDS ORDERED: ORPHENADRINE 60 MG/2 ML (NORFLEX) AMP IV ONE (22:00)
--- NOTE | 2016-10-30 22:00 | ED Abdominal Pain ---
General Chief Complaint: Abdominal/GI Problems Stated Complaint: OVARY REMOVAL INCISION SITE PAIN Nursing Triage Note: reports having surgery 8 days ago to remove bilateral ovaries. patient reports moved bunk beds today and developed bilateral lower abdomen pain Sepsis Screen: No Definite Risk Source of Information: Patient Exam Limitations: No Limitations History of Present Illness Time Seen By Provider: 21:59 Initial Comments To ER with reports of lower abdominal pain and states "I feel like my insides are going to full out". Patient states this began suddenly just a few hours prior to arrival after moving bunk beds in her house. Prior to this she been feeling well. She states that she is scared urinating because she feels as though her insides are going to fall out. She had laparoscopic bilateral salpingo-oophorectomy 8 days ago done here by Dr. ABARCA for a right complex cystic ovarian mass and left hydrosalpinx. She denies fevers or chills. Timing/Duration: 1-2 Days Severity/Quality: Moderate Location: Suprapubic Radiation: No Radiation Allergies and Home Medications Allergies Coded Allergies: No Known Drug Allergies (Unverified , 10/20/16) Home Medications Albuterol Sulfate 0.63 Mg/3 Ml Vial.neb, 0.63 MG IH PRN, (Reported) Albuterol/Ipratropium 4 Gm Aero, 2 PUFF IH TID, (Reported) Clonazepam 0.5 Mg Tablet, 0.5 MG PO BID, (Reported) Ibuprofen 600 Mg Tablet, 600 MG PO Q6HR, #80 Prescribed by: ANGELO ABARCA on 10/22/16 1008 Loratadine 10 Mg Tablet, 10 MG PO DAILY, (Reported) Montelukast Sodium 10 Mg Tablet, 10 MG PO DAILY, (Reported) Oxycodone HCl/Acetaminophen 1 Each Tablet, 2 TAB PO Q4H PRN for PAIN-MODERATE, # 50 Prescribed by: ANGELO ABARCA on 10/22/16 1008 Oxycodone HCl/Acetaminophen 1 Each Tablet, 1 EACH PO Q4H PRN for PAIN-SEVERE, # 10 Prescribed by: PEARL OBRIEN on 10/30/16 2250 Spironolactone 25 Mg Tablet, 25 MG PO DAILY, (Reported) Review of Systems Constitutional: see HPI EENTM: No Symptoms Reported Respiratory: No Symptoms Reported Cardiovascular: No Symptoms Reported Gastrointestinal: See HPI, Abdominal Pain Genitourinary: No Symptoms Reported Musculoskeletal: no symptoms reported Skin: no symptoms reported Psychiatric/Neurological: No Symptoms Reported Endocrine: No Symptoms Reported Past Yleftxw-Xzjjxr-Pspasy Hx Patient Social History Alcohol Use: Past History Recreational Drug Use: No Smoking Status: Former Smoker Type Used: Cigarettes 2nd Hand Smoke Exposure: No Recent Foreign Travel: No Contact w/Someone Who Travel: No Recent Infectious Disease Expo: No Recent Hopitalizations: No Seasonal Allergies Seasonal Allergies: Yes Surgeries HX Surgeries: Yes (LT KNEE, BILAT CARPAL TUNNEL, LT ANKLE) Surgeries: Orthopedic Respiratory Hx Respiratory Disorders: Yes Respiratory Disorders: Asthma Cardiovascular Hx Cardiac Disorders: No Neurological Hx Neurological Disorders: No 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 System Hx 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 Disorders: Yes (R ADNEXAL MASS/COMPLEX, AUB) Sexually Transmitted Disease: No HIV/AIDS: No Genitourinary Hx Genitourinary Disorders: No Gastrointestinal Hx Gastrointestinal Disorders: Yes (HX HEP C) Gastrointestinal Disorders: Hepatitis Musculoskeletal Hx Musculoskeletal Disorders: Yes (BULGING DISC L4-5) Musculoskeletal Disorders: Chronic Back Pain Endocrine Hx Endocrine Disorders: No HEENT HX ENT Disorders: Yes (GLASSES) Loss of Vision: Bilateral Cancer Hx Cancer: No Psychosocial Hx Psychiatric Problems: Yes Behavioral Health Disorders: Anxiety, Bipolar Integumentary HX Skin/Integumentary Disorder: Yes Skin/Integumentary Disorders: Psoriasis Blood Transfusions Hx Blood Disorders: No Adverse Reaction to a Blood Tr: No (N/A) Family Medical History Significant Family History: No Pertinent Family Hx Physical Exam Vital Signs VS - Last 72 Hours, by Label 10/30/16 21:51 Temp 98.2 Pulse 92 Resp 18 B/P (MAP) 155/81 Pulse Ox 97 Capillary Refill : Less Than 3 Seconds General Appearance: WD/WN, no apparent distress, obese HEENT: PERRL/EOMI, normal ENT inspection Neck: non-tender, full range of motion Respiratory: no respiratory distress, no accessory muscle use Cardiovascular: regular rate, rhythm, no murmur Gastrointestinal: normal bowel sounds, soft, tenderness (suprapubic tenderness. Incision sites are clean dry and intact.) Extremities: normal range of motion, non-tender Neurologic/Psychiatric: alert, normal mood/affect, oriented x 3 Skin: normal color, warm/dry Progress/Results/Core Measures Results/Orders Lab Results Laboratory Tests Test 10/30/16 21:27 10/30/16 22:00 Range/Units Urine Color YELLOW Urine Clarity CLEAR Urine pH 5 5-9 Urine Specific [place] 1.025 H 1.016-1.022 Urine Protein 1+ H NEGATIVE Urine Glucose (UA) NEGATIVE NEGATIVE Urine Ketones NEGATIVE NEGATIVE Urine Nitrite NEGATIVE NEGATIVE Urine Bilirubin NEGATIVE NEGATIVE Urine Urobilinogen NORMAL NORMAL MG/DL Urine Leukocyte Esterase 2+ H NEGATIVE Urine RBC (Auto) 1+ H NEGATIVE Urine RBC RARE /HPF Urine WBC 0-2 /HPF Urine Squamous Epithelial Cells 10-25 H /HPF Urine Crystals NONE /LPF Urine Bacteria TRACE /HPF Urine Casts NONE /LPF Urine Mucus NEGATIVE /LPF Urine Culture Indicated NO White Blood Count 8.5 4.3-11.0 10^3/uL Red Blood Count 4.40 4.35-5.85 10^6/uL Hemoglobin 12.6 11.5-16.0 G/DL Hematocrit 39 35-52 % Mean Corpuscular Volume 88 80-99 FL Mean Corpuscular Hemoglobin 29 25-34 PG Mean Corpuscular Hemoglobin Concent 33 32-36 G/DL Red Cell Distribution Width 13.8 10.0-14.5 % Platelet Count 299 130-400 10^3/uL Mean Platelet Volume 10.3 7.4-10.4 FL Neutrophils (%) (Auto) 58 42-75 % Lymphocytes (%) (Auto) 29 12-44 % Monocytes (%) (Auto) 11 0-12 % Eosinophils (%) (Auto) 2 0-10 % Basophils (%) (Auto) 0 0-10 % Neutrophils # (Auto) 5.0 1.8-7.8 X 10^3 Lymphocytes # (Auto) 2.5 1.0-4.0 X 10^3 Monocytes # (Auto) 0.9 0.0-1.0 X 10^3 Eosinophils # (Auto) 0.1 0.0-0.3 10^3/uL Basophils # (Auto) 0.0 0.0-0.1 10^3/uL My Orders Orders - PEARL OBRIEN APRN Saline Lock/Iv-Start (10/30/16 21:57) Cbc With Automated Diff (10/30/16 21:57) Urinalysis (10/30/16 21:57) Ketorolac Injection (Toradol Injection) (10/30/16 22:00) Orphenadrine Injection (Norflex Injectio (10/30/16 22:00) Medications Given in ED Current Medications Medications Dose Ordered Sig/Abena Route Start Time Stop Time Status Last Admin Dose Admin Ketorolac Tromethamine 30 mg ONCE ONCE IVP 10/30/16 22:00 10/30/16 22:01 DC 10/30/16 22:10 30 MG Orphenadrine Citrate 60 mg ONCE ONCE IV 10/30/16 22:00 10/30/16 22:01 DC 10/30/16 22:10 60 MG Vital Signs/I&O Vital Sign - Last 12Hours 10/30/16 21:51 Temp 98.2 Pulse 92 Resp 18 B/P (MAP) 155/81 Pulse Ox 97 Blood Pressure Mean: 105 Departure Communication Progress Notes [id number] her normal labs and vital signs and history of moving bunkbeds that immediately preceded this pain, I feel that imaging would be of low yield and the cost and risk of additional radiation would be mostly risk and no benefit. I advised her however if she has any change in her symptoms, fevers chills or worsening/intolerable pain she should return to the emergency room at that point we may pursue imaging. However this point I feel its premature. Impression Impression: Primary Impression: Abdominal wall muscle strain Additional Impression: Postoperative pain Disposition: HOME, SELF-CARE Condition: Stable Departure-Patient Inst. Decision time for Depature: 22:50 Referrals: NICHOLAS MONTALVO DO (PCP) Primary Care Physician GAGE VALLES (Family) Primary Care Physician Patient Instructions: No Instuctions Given Add. Discharge Instructions: 1. Follow-up with your doctor next week 2. Return to ER for any concerns 3. All discharge instructions reviewed with patient and/or family. Voiced understanding. Scripts Oxycodone HCl/Acetaminophen (Oxycodone-Acetaminophen 5-325) 1 Each Tablet 1 EACH PO Q4H Y for PAIN-SEVERE, #10 TAB Prov: PEARL OBRIEN APRN 10/30/16 PEARL OBRIEN APRN Oct 30, 2016 22:00
[2016-10-30 22:11] LABS: BASOPHILS % (AUTO) 0 % (0-10); EOSINOPHILS # (AUTO) 0.1 10^3/uL (0.0-0.3); EOSINOPHILS % (AUTO) 2 % (0-10); LYMPHOCYTES # (AUTO) 2.5 X 10^3 (1.0-4.0); LYMPHOCYTES % (AUTO) 29 % (12-44); MEAN CORPUSCULAR HEMOGLOBIN 29 PG (25-34); MEAN CORPUSCULAR HGB CONC 33 G/DL (32-36); MEAN CORPUSCULAR VOLUME 88 FL (80-99); MEAN PLATELET VOLUME 10.3 FL (7.4-10.4); MONOCYTES # (AUTO) 0.9 X 10^3 (0.0-1.0); MONOCYTES % (AUTO) 11 % (0-12); NEUTROPHILS % (AUTO) 58 % (42-75); PLATELET COUNT 299 10^3/uL (130-400); RED CELL DISTRIBUTION WIDTH 13.8 % (10.0-14.5); WHITE BLOOD COUNT 8.5 10^3/uL (4.3-11.0)
[2016-10-30 22:33] LABS: BILIRUBIN,URINE NEGATIVE (NEGATIVE); KETONES,URINE NEGATIVE (NEGATIVE); LEUKOCYTE ESTERASE ,URINE 2+ (NEGATIVE); NITRITE,URINE NEGATIVE (NEGATIVE); PH,URINE 5 (5-9); PROTEIN,URINE 1+ (NEGATIVE); UROBILINOGEN,URINE NORMAL (NORMAL)
[2016-10-30 22:41] LABS: WBC,URINE 0-2 /HPF
[2016-10-30] MEDS ORDERED: OXYC-471 PO (22:50)
[2016-10-30 22:58] VITALS: BP 134/82
== END 2016-10-30 22:58 | disposition home or self-care (01) ==
LOC: EDUNIT# 20:33 → ER 20:36
DX: S39.011A Strain of muscle, fascia and tendon of abdomen, initial encounter (principal); G89.18 Other acute postprocedural pain; J45.909 Unspecified asthma, uncomplicated; B19.20 Unspecified viral hepatitis C without hepatic coma; F41.9 Anxiety disorder, unspecified; F31.9 Bipolar disorder, unspecified; Z90.722 Acquired absence of ovaries, bilateral; Z87.891 Personal history of nicotine dependence; X58.XXXA Exposure to other specified factors, initial encounter
CPT/HCPCS: 36415; 81000; 85025; 96374; 96375

== ENCOUNTER 2017-01-25 23:10 | Emergency (ER) | payer MEDICAID ==
[~2017-01-25] VITALS: Ht 170.2 cm; Wt 144.7 kg
--- NOTE | 2017-01-25 23:39 | ED General ---
General Chief Complaint: Allergic Reaction Stated Complaint: ALLERGIC RXN,THROAT SWELLING,THRUSH Nursing Triage Note: PT TO ED 4 W/ C/O "THROAT DISCOMFORT" ONSET OVER PAST FEW DAYS SINCE BEING GIVEN PREDNISONE AT [facility]. PT ALSO REPORTS SHE WAS TOLD TODAY AT THE CLINIC SHE HAS THRUSH. PT C/O TIGHTNESS IN THROAT, APPEARS ANXIOUS, LUNGS CTA, SKIN PINK, WARM ET DRY. NO OTHER DISTRESS OR DISCOMFORT NOTED Nursing Sepsis Screen: No Definite Risk Source of Information: Patient, Other Exam Limitations: No Limitations History of Present Illness Time Seen by Provider: 23:26 Initial Comments Patient presents to the ER by private conveyance with chief complaint that she is having difficulty breathing. She's things this is related to her recent use of steroids. She says about 3 or 4 days ago she went to a doctor at [place] because she was having some numbness in her hands and feet and he put her on prednisone which she has taken multiple times in the past. This started to cause her to have nausea and vomiting as well as hives so she took some Benadryl and then went to the walk-in clinic today where they told her she had a thrush infection in her mouth and put her on nystatin mouthwash. Tonight she is afraid that her throat is closing off and she cannot breathe and she has a history of asthma. She has not taken any albuterol the last 2 or 3 days. She is not on a controller medicine. She has no cough. She says she is short of breath without nausea, vomiting, diarrhea, chest pain, headache. She says her mouth hurts and has difficulty swallowing food or drink. Allergies and Home Medications Allergies Coded Allergies: No Known Drug Allergies (Unverified , 10/20/16) Home Medications Albuterol Sulfate 0.63 Mg/3 Ml Vial.neb, 0.63 MG IH PRN, (Reported) Albuterol/Ipratropium 4 Gm Aero, 2 PUFF IH TID, (Reported) Clonazepam 0.5 Mg Tablet, 0.5 MG PO BID, (Reported) Ibuprofen 600 Mg Tablet, 600 MG PO Q6HR, #80 Prescribed by: ANGELO ABARCA on 10/22/16 1008 Loratadine 10 Mg Tablet, 10 MG PO DAILY, (Reported) Montelukast Sodium 10 Mg Tablet, 10 MG PO DAILY, (Reported) Oxycodone HCl/Acetaminophen 1 Each Tablet, 2 TAB PO Q4H PRN for PAIN-MODERATE, # 50 Prescribed by: ANGELO ABARCA on 10/22/16 1008 Oxycodone HCl/Acetaminophen 1 Each Tablet, 1 EACH PO Q4H PRN for PAIN-SEVERE, # 10 Prescribed by: PEARL OBRIEN on 10/30/16 2250 Spironolactone 25 Mg Tablet, 25 MG PO DAILY, (Reported) Constitutional: No chills, No fever, No malaise EENTM: No ear discharge, No ear pain Respiratory: No cough, No hemoptysis, No orthopnea, No phlegm, short of breath , No stridor, No wheezing Cardiovascular: No chest pain, No palpitations Gastrointestinal: No abdominal pain, No constipation, No nausea, No vomiting Genitourinary: No discharge, No dysuria : No Musculoskeletal: No back pain, No joint pain Skin: No pruritus, No rash Psychiatric/Neurological: Denies Headache, Denies Numbness, Denies Paresthesia Immunological/Allergic: denies HIV/AIDS, denies transplant Past Sfkppvd-Kwyybw-Fzxcng Hx Patient Social History Alcohol Use: Denies Use Number of Drinks Today: BB Alcohol Beverage of Choice: Beer, [place] Recreational Drug Use: No Smoking Status: Former Smoker Type Used: Cigarettes Former Smoker, Quit: Apr 12, 2012 2nd Hand Smoke Exposure: No Recent Foreign Travel: No Contact w/Someone Who Travel: No Recent Infectious Disease Expo: No Recent Hopitalizations: No Physical Abuse: No Sexual Abuse: No Mistreated: No Fear: No Seasonal Allergies Seasonal Allergies: Yes Surgeries History of Surgeries: Yes (LT KNEE, BILAT CARPAL TUNNEL, LT ANKLE) Surgeries: Orthopedic Respiratory History of Respiratory Disorde: Yes Respiratory Disorders: Asthma Cardiovascular History of Cardiac Disorders: No Neurological History of Neurological Disord: No 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 System Hx 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 Disorders: Yes (R ADNEXAL MASS/COMPLEX, AUB) Sexually Transmitted Disease: No HIV/AIDS: No Gastrointestinal History of Gastrointestinal Di: Yes (HX HEP C) Gastrointestinal Disorders: Hepatitis Musculoskeletal History of Musculoskeletal Dis: Yes (BULGING DISC L4-5) Musculoskeletal Disorders: Chronic Back Pain Endocrine History of Endocrine Disorders: No HEENT Loss of Vision: Bilateral Cancer History of Cancer: No Psychosocial History of Psychiatric Problem: Yes Behavioral Health Disorders: Anxiety, Bipolar Suicide Risk Score: 0 Integumentary History of Skin or Integumenta: Yes Skin/Integumentary Disorders: Psoriasis Blood Transfusions History of Blood Disorders: No Adverse Reaction to a Blood Tr: No (N/A) Family Medical History Significant Family History: No Pertinent Family Hx Physical Exam Vital Signs Vital Sign - Last 12Hours 01/25/17 23:16 Temp 98.1 Pulse 88 Resp 24 B/P (MAP) 134/77 Pulse Ox 97 O2 Delivery Room Air Capillary Refill : Less Than 3 Seconds General Appearance: WD/WN, Anxious Eyes: Bilateral Eye Normal Inspection, Bilateral Eye PERRL, Bilateral Eye EOMI HEENT: PERRL/EOMI, TMs Normal, Normal ENT Inspection, Pharynx Normal Neck: Full Range of Motion, Normal Inspection, Non Tender, Supple Respiratory: Chest Non Tender, Lungs Clear, Normal Breath Sounds Cardiovascular: Regular Rate, Rhythm, No Edema, No Murmur, Normal Peripheral Pulses Gastrointestinal: Normal Bowel Sounds, Non Tender, Soft Neurologic/Psychiatric: Alert, Oriented x3 Progress/Results/Core Measures Results/Orders Vital Signs/I&O Vital Sign - Last 12Hours 01/25/17 23:16 Temp 98.1 Pulse 88 Resp 24 B/P (MAP) 134/77 Pulse Ox 97 O2 Delivery Room Air Blood Pressure Mean: 96 Progress Note : Time: 23:36 Progress Note Patient is satting 100% without any wheezing or stridor auscultated. She appears to be having a panic attack related to the pain she is expressing her mouth from the swelling caused by the thrush. She is on the appropriate nystatin rinse which she says she has gotten started. We'll also recommend some salt water gargles as well as Tylenol Motrin and advised her of a typical timeline for improvement. She's been given strict return precautions. Departure Impression Impression: Primary Impression: Thrush of mouth and esophagus Additional Impression: Panic attack Disposition: 01 HOME, SELF-CARE Condition: Stable Departure-Patient Inst. Decision time for Depature: 23:38 Referrals: NICHOLAS MONTALVO DO (PCP) Primary Care Physician GAGE VALLES (Family) Primary Care Physician Patient Instructions: Thrush (DC) Add. Discharge Instructions: Use salt water gargles every 4-6 hours as needed especially right before he plan to eat or drink. These will reduce the swelling in her mouth. You can also use Tylenol 1000 mg every 8 hours and ibuprofen 800 mg every 8 hours as needed to control the discomfort. Expect some improvement in 3-4 days with resolution in one to 2 weeks. If you feel your short of breath taken albuterol inhaled treatment All discharge instructions reviewed with patient and/or family. Voiced understanding. Copy Copies To 1: NICHOLAS MONTALVO TITUS J Jan 25, 2017 23:39
[2017-01-25 23:44] VITALS: BP 130/78
== END 2017-01-25 23:44 | disposition home or self-care (01) ==
LOC: EDUNIT# 23:10 → ER 23:13
DX: B37.0 Candidal stomatitis (principal); B37.81 Candidal esophagitis; F41.0 Panic disorder [episodic paroxysmal anxiety]; J45.909 Unspecified asthma, uncomplicated; B19.20 Unspecified viral hepatitis C without hepatic coma; F31.9 Bipolar disorder, unspecified; Z87.891 Personal history of nicotine dependence
CPT/HCPCS: 99282

== ENCOUNTER 2017-02-04 12:12 | Emergency (ER) | payer MEDICAID ==
[~2017-02-04] VITALS: Ht 170.2 cm; Wt 136.1 kg
[2017-02-04 13:04] LABS: BASOPHILS % (AUTO) 0 % (0-10); EOSINOPHILS % (AUTO) 0 % (0-10); LYMPHOCYTES # (AUTO) 1.7 X 10^3 (1.0-4.0); LYMPHOCYTES % (AUTO) 10 % (12-44); MEAN CORPUSCULAR HEMOGLOBIN 29 PG (25-34); MEAN CORPUSCULAR HGB CONC 33 G/DL (32-36); MEAN CORPUSCULAR VOLUME 87 FL (80-99); MONOCYTES # (AUTO) 1.4 X 10^3 (0.0-1.0); MONOCYTES % (AUTO) 8 % (0-12); NEUTROPHILS # (AUTO) 13.8 X 10^3 (1.8-7.8); NEUTROPHILS % (AUTO) 81 % (42-75); PLATELET COUNT 441 10^3/uL (130-400); RED CELL DISTRIBUTION WIDTH 14.8 % (10.0-14.5)
[2017-02-04 13:29] LABS: ALANINE AMINOTRANSFERASE 18 U/L (0-55); ALBUMIN 4.2 GM/DL (3.2-4.5); ANION GAP 9 MMOL/L (5-14); ASPARTATE AMINO TRANSFERASE 10 U/L (5-34); BILIRUBIN,TOTAL 0.3 MG/DL (0.1-1.0); BLOOD UREA NITROGEN 13 MG/DL (7-18); BUN/CREATININE RATIO 19; CALCIUM 9.5 MG/DL (8.5-10.1); CARBON DIOXIDE 25 MMOL/L (21-32); CHLORIDE 106 MMOL/L (98-107); GFR ESTIMATED > 60; GLUCOSE 125 MG/DL (70-105); POTASSIUM 3.8 MMOL/L (3.6-5.0); SODIUM 140 MMOL/L (135-145); TOTAL PROTEIN 7.7 GM/DL (6.4-8.2)
[2017-02-04 13:31] LABS: LYMPHOCYTES % (MANUAL) 11 %; NEUTROPHILS % (MANUAL) 79 %
[2017-02-04 13:34] LABS: BILIRUBIN,URINE NEGATIVE (NEGATIVE); KETONES,URINE 1+ (NEGATIVE); LEUKOCYTE ESTERASE ,URINE 3+ (NEGATIVE); NITRITE,URINE NEGATIVE (NEGATIVE); PH,URINE 5 (5-9); PROTEIN,URINE 1+ (NEGATIVE); UROBILINOGEN,URINE NORMAL (NORMAL)
[2017-02-04] MEDS ORDERED: DEXA6TAB PO (13:41)
[2017-02-04] MEDS ORDERED: ACYC400T PO (13:41)
--- NOTE | 2017-02-04 13:42 | ED General ---
General Chief Complaint: General Problems/Pain Stated Complaint: NUMBNESS IN MOUTH/SWOLLEN FACE Nursing Triage Note: PT AMBULATED TO ED 3 PT CO OF L SIDED FACIAL DROOPING PAIN IN L SIDE OF FACE, STATES SOME DIFFICULTY W EATING, STARTED YESTERDAY, WAS SEEN BY CARLTON VALLES [facility]. PT STATES WAS GIVEN A SHOT FOR STEROID, PT STATES HAS THRUSH IN THROAT. PT TEARFUL, STATES HAS BEEN TO [facility] SEVERAL TIMES OVER PAST FEW DAYS Nursing Sepsis Screen: No Definite Risk History of Present Illness Time Seen by Provider: 12:20 Initial Comments 31-year-old female reports she was treated with prednisone last week for acute back pain, she then developed thrush and was started on nystatin. She had pain in the left side of her facial yesterday and was given a steroid injection at [facility]. Today she noted drooping on her side and difficulty swallowing. She had Silveira's palsy approximately 6-7 years ago. Timing/Duration: 1-2 Days Severity: Moderate Associated Systoms: Denies Symptoms Allergies and Home Medications Allergies Coded Allergies: No Known Drug Allergies (Unverified , 10/20/16) Home Medications Acyclovir 400 Mg Tablet, 400 MG PO 5XD for 7 Days, #35 Ref 0 Prescribed by: FALLON SURESH on 02/04/17 1341 Albuterol Sulfate 0.63 Mg/3 Ml Vial.neb, 0.63 MG IH PRN, (Reported) Albuterol/Ipratropium 4 Gm Aero, 2 PUFF IH TID, (Reported) Ciprofloxacin HCl 500 Mg Tablet, 500 MG PO BID, #6 Ref 0 Prescribed by: FALLON SURESH on 02/04/17 1358 Clonazepam 0.5 Mg Tablet, 0.5 MG PO BID, (Reported) Dexamethasone 6 Mg Tablet, 6 MG PO DAILY, #12 Ref 0 1 po bid for 4 days, then 1 po daily for 4 days Prescribed by: FALLON SURESH on 02/04/17 1341 Ibuprofen 600 Mg Tablet, 600 MG PO Q6HR, #80 Prescribed by: ANGELO ABARCA on 10/22/16 1008 Loratadine 10 Mg Tablet, 10 MG PO DAILY, (Reported) Montelukast Sodium 10 Mg Tablet, 10 MG PO DAILY, (Reported) Oxycodone HCl/Acetaminophen 1 Each Tablet, 2 TAB PO Q4H PRN for PAIN-MODERATE, # 50 Prescribed by: ANGELO ABARCA on 10/22/16 1008 Oxycodone HCl/Acetaminophen 1 Each Tablet, 1 EACH PO Q4H PRN for PAIN-SEVERE, # 10 Prescribed by: PEARL OBRIEN on 10/30/16 2250 Spironolactone 25 Mg Tablet, 25 MG PO DAILY, (Reported) Constitutional: no symptoms reported, see HPI EENTM: see HPI, eye pain, tearing, mouth pain, other (left-sided facial drooping) Respiratory: no symptoms reported, see HPI All Other Systems Reviewed Negative Unless Noted: Yes Past Nensxij-Xxsyjp-Nzyuzj Hx Patient Social History Alcohol Use: Rarely Uses Number of Drinks Today: BB Alcohol Beverage of Choice: Beer, [place] Recreational Drug Use: No Smoking Status: Former Smoker Type Used: Cigarettes Former Smoker, Quit: Apr 12, 2012 2nd Hand Smoke Exposure: No Recent Foreign Travel: No Contact w/Someone Who Travel: No Recent Infectious Disease Expo: No Recent Hopitalizations: No Physical Abuse: No Sexual Abuse: No Seasonal Allergies Seasonal Allergies: Yes Surgeries History of Surgeries: Yes (LT KNEE, BILAT CARPAL TUNNEL, LT ANKLE) Surgeries: Orthopedic Respiratory History of Respiratory Disorde: Yes Respiratory Disorders: Asthma Cardiovascular History of Cardiac Disorders: No Neurological History of Neurological Disord: No 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 System Hx 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 Disorders: Yes (R ADNEXAL MASS/COMPLEX, AUB) Sexually Transmitted Disease: No HIV/AIDS: No Gastrointestinal History of Gastrointestinal Di: Yes (HX HEP C) Gastrointestinal Disorders: Hepatitis Musculoskeletal History of Musculoskeletal Dis: Yes (BULGING DISC L4-5) Musculoskeletal Disorders: Chronic Back Pain Endocrine History of Endocrine Disorders: No HEENT Loss of Vision: Bilateral Cancer History of Cancer: No Psychosocial History of Psychiatric Problem: Yes Behavioral Health Disorders: Anxiety, Bipolar Suicide Risk Score: 0 Integumentary History of Skin or Integumenta: Yes Skin/Integumentary Disorders: Psoriasis Blood Transfusions History of Blood Disorders: No Adverse Reaction to a Blood Tr: No (N/A) Reviewed Nursing Assessment Reviewed/Agree w Nursing PMH: Yes Family Medical History Significant Family History: No Pertinent Family Hx Physical Exam Vital Signs Vital Sign - Last 12Hours 02/04/17 12:23 Temp 98.0 Pulse 119 Resp 18 B/P (MAP) 175/101 Pulse Ox 96 Capillary Refill : Less Than 3 Seconds General Appearance: No Apparent Distress, WD/WN HEENT: PERRL/EOMI, TMs Normal, Normal ENT Inspection, Pharynx Normal, Other ( no oral lesions or thrush noted.) Neck: Full Range of Motion, Normal Inspection, Non Tender, Supple Respiratory: Chest Non Tender, Lungs Clear Cardiovascular: Regular Rate, Rhythm, No Edema, No Murmur Gastrointestinal: Normal Bowel Sounds, No Organomegaly, No Pulsatile Mass, Non Tender, Soft Neurologic/Psychiatric: Alert, Oriented x3, Normal Mood/Affect (tearful from the pain in the left cheek.), 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 Left facial drooping noted at corner of mouth and eye. ) Skin: Normal Color, Warm/Dry Progress/Results/Core Measures Results/Orders Lab Results Laboratory Tests Test 02/04/17 12:56 02/04/17 13:25 Range/Units White Blood Count 17.0 H 4.3-11.0 10^3/uL Red Blood Count 4.60 4.35-5.85 10^6/uL Hemoglobin 13.4 11.5-16.0 G/DL Hematocrit 40 35-52 % Mean Corpuscular Volume 87 80-99 FL Mean Corpuscular Hemoglobin 29 25-34 PG Mean Corpuscular Hemoglobin Concent 33 32-36 G/DL Red Cell Distribution Width 14.8 H 10.0-14.5 % Platelet Count 441 H 130-400 10^3/uL Mean Platelet Volume 10.0 7.4-10.4 FL Neutrophils (%) (Auto) 81 H 42-75 % Lymphocytes (%) (Auto) 10 L 12-44 % Monocytes (%) (Auto) 8 0-12 % Eosinophils (%) (Auto) 0 0-10 % Basophils (%) (Auto) 0 0-10 % Neutrophils # (Auto) 13.8 H 1.8-7.8 X 10^3 Lymphocytes # (Auto) 1.7 1.0-4.0 X 10^3 Monocytes # (Auto) 1.4 H 0.0-1.0 X 10^3 Eosinophils # (Auto) 0.0 0.0-0.3 10^3/uL Basophils # (Auto) 0.0 0.0-0.1 10^3/uL Neutrophils % (Manual) 79 % Lymphocytes % (Manual) 11 % Monocytes % (Manual) 10 % Blood Morphology Comment NORMAL Sodium Level 140 135-145 MMOL/L Potassium Level 3.8 3.6-5.0 MMOL/L Chloride Level 106 98-107 MMOL/L Carbon Dioxide Level 25 21-32 MMOL/L Anion Gap 9 5-14 MMOL/L Blood Urea Nitrogen 13 7-18 MG/DL Creatinine 0.70 0.60-1.30 MG/DL Estimat Glomerular Filtration Rate > 60 BUN/Creatinine Ratio 19 Glucose Level 125 H 70-105 MG/DL Calcium Level 9.5 8.5-10.1 MG/DL Total Bilirubin 0.3 0.1-1.0 MG/DL Aspartate Amino Transf (AST/SGOT) 10 5-34 U/L Alanine Aminotransferase (ALT/SGPT) 18 0-55 U/L Alkaline Phosphatase 100 40-136 U/L Total Protein 7.7 6.4-8.2 GM/DL Albumin 4.2 3.2-4.5 GM/DL Urine Color YELLOW Urine Clarity SLIGHTLY CLOUDY Urine pH 5 5-9 Urine Specific Kinzers 1.025 H 1.016-1.022 Urine Protein 1+ H NEGATIVE Urine Glucose (UA) NEGATIVE NEGATIVE Urine Ketones 1+ H NEGATIVE Urine Nitrite NEGATIVE NEGATIVE Urine Bilirubin NEGATIVE NEGATIVE Urine Urobilinogen NORMAL NORMAL MG/DL Urine Leukocyte Esterase 3+ H NEGATIVE Urine RBC (Auto) 4+ H NEGATIVE Urine RBC 0-2 /HPF Urine WBC 10-25 H /HPF Urine Squamous Epithelial Cells >50 H /HPF Urine Crystals NONE /LPF Urine Bacteria MODERATE H /HPF Urine Casts NONE /LPF Urine Mucus NEGATIVE /LPF Urine Culture Indicated NO My Orders Orders - FALLON SURESH Cbc With Automated Diff (02/04/17 12:34) Comprehensive Metabolic Panel (02/04/17 12:34) Ua Culture If Indicated (02/04/17 12:34) Manual Differential (02/04/17 12:56) Vital Signs/I&O Vital Sign - Last 12Hours 02/04/17 02/04/17 12:23 14:12 Temp 98.0 98.0 Pulse 119 88 Resp 18 18 B/P (MAP) 175/101 Pulse Ox 96 96 Blood Pressure Mean: 125 Progress Note : Time: 12:20 Progress Note Initial evaluation completed, recommended CBC, CMP and UA. 1315 results of lab discussed with patient. UTI present as well. Empirically start treatment for Silveira's palsy and UTI. Reviewed discharge planning with the patient all questions answered. Departure Impression Impression: Primary Impression: Silveira's palsy Additional Impression: Urinary tract infection Qualified Codes: N30.01 - Acute cystitis with hematuria Disposition: HOME, SELF-CARE Condition: Stable Departure-Patient Inst. Decision time for Depature: 13:50 Referrals: NICHOLAS MONTALVO DO (PCP) Primary Care Physician GAGE VALLES (Family) Primary Care Physician Patient Instructions: Silveira's Palsy (DC), Urinary Tract Infection, Adult (DC) Add. Discharge Instructions: Thickened liquids and soft foods as tolerated, advance as tolerated. Take medication as prescribed. All up at [facility] in approximately one week, sooner if symptoms are not improving. Return to emergency department for worsening of symptoms, temperature greater than 101, or new problems. Tylenol 650 mg and ibuprofen 600 mg, alternate every 4 hours for pain or fever. Do not take Tylenol if using hydrocodone. All discharge instructions reviewed with patient and/or family. Voiced understanding. Scripts Ciprofloxacin HCl (Cipro) 500 Mg Tablet 500 MG PO BID, #6 TAB 0 Refills Prov: FALLON SURESH 02/04/17 Acyclovir (Acyclovir) 400 Mg Tablet 400 MG PO 5XD for 7 Days, #35 TAB 0 Refills Prov: FALLON SURESH 02/04/17 Dexamethasone (Dexamethasone) 6 Mg Tablet 6 MG PO DAILY, #12 TAB 0 Refills 1 po bid for 4 days, then 1 po daily for 4 days Prov: FALLON SURESH 02/04/17 Copy Copies To 1: BRENDA JUNG MD, AMY ARNP Feb 04, 2017 13:42
[2017-02-04 13:46] LABS: SQUAMOUS EPITHELIAL CELL,UR >50 /HPF
[2017-02-04] MEDS ORDERED: CIPR-225 PO (13:58)
[2017-02-04 14:12] VITALS: BP 145/88
== END 2017-02-04 14:11 | disposition home or self-care (01) ==
LOC: EDUNIT# 12:12 → ER 12:14
DX: G51.0 Bell's palsy (principal); N39.0 Urinary tract infection, site not specified; B19.20 Unspecified viral hepatitis C without hepatic coma; F41.9 Anxiety disorder, unspecified; F31.9 Bipolar disorder, unspecified; J45.909 Unspecified asthma, uncomplicated; Z87.891 Personal history of nicotine dependence
CPT/HCPCS: 36415; 80053; 81000; 85007; 85027; 99282

== ENCOUNTER 2017-08-31 20:24 | Emergency (ER) | payer MEDICAID ==
[~2017-08-31] VITALS: Ht 170.2 cm; Wt 132.6 kg
[~2017-08-31 20:24] MED LIST changes: +ACYC400T PO; +CIPR-225 PO; +DEXA6TAB PO; +NAPR-1071 PO; -NAPR500T PO
[2017-08-31] MEDS ORDERED: MOME15CR17 TP (20:44)
--- NOTE | 2017-08-31 20:44 | ED Integumentary General ---
General Chief Complaint: Skin/Wound Problems Stated Complaint: RASH Source: patient History of Present Illness Date Seen by Provider: August 31, 2017 Time Seen by Provider: 20:37 Initial Comments PT STATES " I THINK I GOT INTO SOMETHING" C/O ITCHY RASH TO INNER ASPECT OF BOTH ANKLES--NOTICED TODAY STATES SHE WAS WEARING TENNIS SHOES AND SOCKS ALL DAY--WEARING FLIP FLOPS NOW PT STATES SHE WAS CLEANING TRASH FROM THE HOUSE AND BASEMENT OF A RELATIVE, STATES "THE TRASH WAS 2 FEET THICK" AND SHE HAD TO "CANELO" THROUGH IT. DOES NOT HAVE THE RASH ANYWHERE ELSE ON HER BODY HAS NOT BATHED SINCE SHE WAS CLEANING HAS NOT TRIED TO PUT ANYTHING ON THE RASH OR TAKE ANYTHING TO EASE THE ITCHING PT DENIES ANY NEW DETERGENTS, SOAPS. SHAMPOOS, ETC. PT STATES SHE HAS HAD SIMILAR WHEN SHE GOT INTO [facility] [place], BUT DENIES BEING OUTSIDE FOR THE LAST FEW DAYS. PCP: [facility]JA[facility], MULUGETA VALLES Allergies and Home Medications Allergies Coded Allergies: prednisone (Verified Allergy, Intermediate, 02/17/17) Home Medications Acyclovir 400 Mg Tablet, 400 MG PO 5XD Prescribed by: FALLON SURESH on 02/04/17 1341 Albuterol Sulfate 0.63 Mg/3 Ml Vial.neb, 0.63 MG IH PRN, (Reported) Albuterol/Ipratropium 4 Gm Aero, 2 PUFF IH TID, (Reported) Ciprofloxacin HCl 500 Mg Tablet, 500 MG PO BID Prescribed by: FALLON SURESH on 02/04/17 1358 Clonazepam 0.5 Mg Tablet, 0.5 MG PO BID, (Reported) Dexamethasone 6 Mg Tablet, 6 MG PO DAILY 1 po bid for 4 days, then 1 po daily for 4 days Prescribed by: FALLON SURESH on 02/04/17 1341 Ibuprofen 600 Mg Tablet, 600 MG PO Q6HR Prescribed by: ANGELO ABRACA on 10/22/16 1008 Loratadine 10 Mg Tablet, 10 MG PO DAILY, (Reported) Mometasone Furoate 15 Gm Cream..g., 0 TP TID Prescribed by: YOSELYN HUYNH on 08/31/17 2044 Montelukast Sodium 10 Mg Tablet, 10 MG PO DAILY, (Reported) Oxycodone HCl/Acetaminophen 1 Each Tablet, 2 TAB PO Q4H PRN for PAIN-MODERATE Prescribed by: ANGELO ABARCA on 10/22/16 1008 Oxycodone HCl/Acetaminophen 1 Each Tablet, 1 EACH PO Q4H PRN for PAIN-SEVERE Prescribed by: PEARL OBRIEN on 10/30/16 2250 Spironolactone 25 Mg Tablet, 25 MG PO DAILY, (Reported) Patient Home Medication List Home Medication List Reviewed: Yes Constitutional: no symptoms reported EENTM: no symptoms reported Respiratory: no symptoms reported Musculoskeletal: no symptoms reported Skin: see HPI Psychiatric/Neurological: No Symptoms Reported Past Pbuysaz-Lqvwhi-Zsliha Hx Patient Social History Alcohol Use: Occasionally Uses (HEAVY AT TIMES) Alcohol Beverage of Choice: Beer, [place] Recreational Drug Use: Yes (METH) Smoking Status: Current Everyday Smoker Type Used: Cigarettes 2nd Hand Smoke Exposure: No Recent Foreign Travel: No Contact w/Someone Who Travel: No Recent Hopitalizations: No Seasonal Allergies Seasonal Allergies: Yes Past Medical History Surgeries: Yes (LT KNEE, BILAT CARPAL TUNNEL, LT ANKLE, BSO WITH MAULIK AND D&C 10/2016) Oophorectomy, Orthopedic Respiratory: Yes Asthma Cardiac: No Neurological: Yes (Silveira's palsy) 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 Disorders: Yes (R ADNEXAL MASS/COMPLEX-BILATERAL OVARIAN CYSTS, AUB, CHRONIC PELVIC PAIN, S/P BSO WITH MAULIK AND D&C) Female 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, Ovarian Cyst Sexually Transmitted Disease: No HIV/AIDS: No Genitourinary: No Gastrointestinal: Yes (HX HEPATITIS C--NO TREATMENT) Liver Disease/Jaundice, Hepatitis Musculoskeletal: Yes (BULGING DISC L4-5) Degenerate Disk Disease, Chronic Back Pain Endocrine: Yes (MORBID OBESITY) HEENT: No Loss of Vision: Bilateral Cancer: No Psychosocial: Yes Anxiety, Bipolar, Depression Integumentary: Yes Psoriasis Blood Disorders: No Adverse Reaction/Blood Tranf: No (N/A) Family Medical History No Pertinent Family Hx Physical Exam Vital Signs Vital Signs - First Documented 08/31/17 08/31/17 20:29 20:50 Temp 96.3 Pulse 98 Resp 15 B/P (MAP) 126/83 (97) Pulse Ox 97 O2 Delivery Room Air Capillary Refill : General Appearance: WD/WN, no apparent distress, obese Extremities: non-tender, no pedal edema, normal capillary refill Neurologic/Psychiatric: no motor/sensory deficits, alert, normal mood/affect, oriented x 3 Skin: normal color, warm/dry, rash (VERY MILD ERYTHEMATOUS PAPULAR RASH TO MEDIAL ASPECT OF BOTH ANKLES--LEFT > RIGHT. NO DRAINAGE OR STREAKS. NO SIGNS OF INFECTION. ) Progress/Results/Core Measures Results/Orders Vital Signs/I&O 08/31/17 08/31/17 20:29 20:50 Temp 96.3 96.3 Pulse 98 98 Resp 15 14 B/P (MAP) 126/83 (97) 126/83 Pulse Ox 97 O2 Delivery Room Air Room Air Departure Impression Primary Impression: DERMATITIS OF ANKLES Disposition: HOME, SELF-CARE Condition: Stable Departure-Patient Inst. Referrals: [facility]/JAIDA (PCP) Primary Care Physician GAGE VALLES (Family) Primary Care Physician Patient Instructions: Contact Dermatitis (DC), Dermatitis, Skin Rash (DC) Add. Discharge Instructions: GO HOME AND SHOWER AND RINSE SKIN THOROUGHLY FOLLOW UP WITH [facility] TOMORROW SCHEDULED BENADRYL EVERY 4 HOURS NEEDED FOR ITCHING All discharge instructions reviewed with patient and/or family. Voiced understanding. Scripts Mometasone Furoate (Elocon) 15 Gm Cream..g. 0 TP TID, #1 TUBE Prov: YOSELYN HUYNH DO 08/31/17 YOSELYN HUYNH DO August 31, 2017 20:44
[2017-08-31 20:50] VITALS: BP 126/83
== END 2017-08-31 20:50 | disposition home or self-care (01) ==
LOC: EDUNIT# 20:24 → ER 20:27
DX: L30.9 Dermatitis, unspecified (principal); J45.909 Unspecified asthma, uncomplicated; E66.01 Morbid (severe) obesity due to excess calories; F41.9 Anxiety disorder, unspecified; F31.9 Bipolar disorder, unspecified; F17.210 Nicotine dependence, cigarettes, uncomplicated; Z87.42 Personal history of other diseases of the female genital tract; Z87.19 Personal history of other diseases of the digestive system; Z68.42 Body mass index [BMI] 45.0-49.9, adult; Z88.8 Allergy status to other drugs, medicaments and biological substances
CPT/HCPCS: 99282

== ENCOUNTER → 2018-01-24 | Outpatient (CLI) | payer MEDICAID ==
[~2018-01-24] MED LIST changes: +MOME15CR17 TP; -SPIR50TA2 PO; +SPIR50TA4 PO
--- NOTE | 2018-01-24 18:21 | Diagnostic Imaging Report ---
INDICATION: Palpable abnormality in the left abdominal wall. FINDINGS: Focused ultrasonography is performed in the region of palpable abnormality. No underlying cystic or solid lesion is identified. There is no evidence of architectural distortion or shadowing lesion. IMPRESSION: No ultrasound evidence of lesion corresponding to patient's palpable abnormality. Lesion could blend into the fatty tissue. Dictated by: Dictated on workstation # [id number]
== END ==
LOC: RAD 14:52
PROVIDERS: ATTEND Physician Assistant
DX: D17.1 Benign lipomatous neoplasm of skin and subcutaneous tissue of trunk (principal)
CPT/HCPCS: 76999

== ENCOUNTER 2018-04-09 19:05 | Emergency (ER) | payer MEDICAID ==
[~2018-04-09] VITALS: Ht 170.2 cm; Wt 131.5 kg
[2018-04-09] MEDS ORDERED: D-ME118S33 PO (19:57)
--- NOTE | 2018-04-09 19:57 | ED Cough/URI ---
General Chief Complaint: Cough/Cold/Flu Symptoms Stated Complaint: CONGESTED,FEVER,NAUSEA Nursing Triage Note: pt ambulated to room 5 with complaint of cough, congestion, fever, headache. states she went to walk in clinic a week ago and was told she had a sinus infection and started on antibiotics. does not feel she is improving Source: patient Exam Limitations: no limitations History of Present Illness Date Seen by Provider: Apr 09, 2018 Time Seen by Provider: 19:55 Initial Comments To ER with reports of a one-week history of cough that was initially productive and no longer is productive, nasal congestion fever and headache. She saw the walk-in clinic a week ago and was given a prescription for Zithromax but failed to improve. Timing/Duration: constant Severity/Quality: moderate Associated Symptoms: cough, nasal congestion, sore throat Allergies and Home Medications Allergies Coded Allergies: prednisone (Verified Allergy, Intermediate, 02/17/17) Home Medications Acyclovir 400 Mg Tablet, 400 MG PO 5XD Prescribed by: FALLON SURESH on 02/04/17 1341 Albuterol Sulfate 0.63 Mg/3 Ml Vial.neb, 0.63 MG IH PRN, (Reported) Albuterol/Ipratropium 4 Gm Aero, 2 PUFF IH TID, (Reported) Ciprofloxacin HCl 500 Mg Tablet, 500 MG PO BID Prescribed by: FALLON SURESH on 02/04/17 1358 Clonazepam 0.5 Mg Tablet, 0.5 MG PO BID, (Reported) D-Methorphan Hb/P-Epd HCl/Bpm 118 Ml Syrup, 5 ML PO Q4H PRN for COUGH Prescribed by: PEARL OBRIEN on 04/09/181956 Dexamethasone 6 Mg Tablet, 6 MG PO DAILY 1 po bid for 4 days, then 1 po daily for 4 days Prescribed by: FALLON SURESH on 02/04/17 1341 Ibuprofen 600 Mg Tablet, 600 MG PO Q6HR Prescribed by: ANGELO ABARCA on 10/22/16 1008 Loratadine 10 Mg Tablet, 10 MG PO DAILY, (Reported) Mometasone Furoate 15 Gm Cream..g., 0 TP TID Prescribed by: YOSELYN HUYNH on 08/31/172043 Montelukast Sodium 10 Mg Tablet, 10 MG PO DAILY, (Reported) Oxycodone HCl/Acetaminophen 1 Each Tablet, 2 TAB PO Q4H PRN for PAIN-MODERATE Prescribed by: ANGELO ABARCA on 10/22/16 1008 Oxycodone HCl/Acetaminophen 1 Each Tablet, 1 EACH PO Q4H PRN for PAIN-SEVERE Prescribed by: PEARL OBRIEN on 10/30/16 2250 Spironolactone 25 Mg Tablet, 25 MG PO DAILY, (Reported) Patient Home Medication List Home Medication List Reviewed: Yes Review of Systems Review of Systems Constitutional: see HPI, chills, fever EENTM: see HPI, nose congestion Respiratory: see HPI, cough Cardiovascular: no symptoms reported Genitourinary: no symptoms reported Musculoskeletal: no symptoms reported Skin: no symptoms reported Psychiatric/Neurological: No Symptoms Reported Past Ouaevsu-Ndgjvt-Wyfkfh Hx Patient Social History Alcohol Use: Occasionally Uses Number of Drinks Today: BB Alcohol Beverage of Choice: Beer, [place] Recreational Drug Use: No Smoking Status: Former Smoker Type Used: Cigarettes Former Smoker, Quit: Feb 17, 2016 2nd Hand Smoke Exposure: No Recent Foreign Travel: No Contact w/Someone Who Travel: No Recent Infectious Disease Expo: No Recent Hopitalizations: No Seasonal Allergies Seasonal Allergies: Yes Past Medical History Surgeries: Yes (LT KNEE, BILAT CARPAL TUNNEL, LT ANKLE, BSO WITH MAULIK AND D&C 10/2016) 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, Oophorectomy, Orthopedic Respiratory: Yes Asthma Cardiac: No Neurological: Yes (Silveira's palsy) 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 Disorders: Yes Female 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, 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 Sexually Transmitted Disease: No HIV/AIDS: No Genitourinary: No Gastrointestinal: Yes (HX HEPATITIS C--NO TREATMENT) Liver Disease/Jaundice, Hepatitis Musculoskeletal: Yes (BULGING DISC L4-5) Degenerate Disk Disease, Chronic Back Pain Endocrine: Yes (MORBID OBESITY) HEENT: No Loss of Vision: Bilateral Cancer: No Psychosocial: Yes Anxiety, Bipolar, Depression Integumentary: Yes Psoriasis Blood Disorders: No Adverse Reaction/Blood Tranf: No (N/A) Family Medical History No Pertinent Family Hx Physical Exam Vital Signs - First Documented 04/09/18 19:26 Temp 97.5 Pulse 89 Resp 20 B/P (MAP) 120/77 (91) Pulse Ox 97 O2 Delivery Room Air Capillary Refill : Less Than 3 Seconds Height: 5'7.00" Weight: 290lbs. 7.0oz. 131.954903ej; 45.8 BMI Method:Stated General Appearance: WD/WN, no apparent distress Eyes: Bilateral Eye Normal Inspection, Bilateral Eye PERRL, Bilateral Eye EOMI HEENT: PERRL/EOMI, normal ENT inspection, TMs normal Neck: non-tender, full range of motion Respiratory: no respiratory distress, no accessory muscle use Cardiovascular: regular rate, rhythm, no murmur Gastrointestinal: normal bowel sounds, non tender, soft Neurologic/Psychiatric: alert, normal mood/affect, oriented x 3 Skin: normal color, warm/dry Progress/Results/Core Measures Suspected Sepsis Recent Fever Within 48 Hours: No Infection Criteria Present: None New/Unexplained Altered Menta: No Sepsis Screen: No Definite Risk SIRS Temperature:97.5 Pulse: 89 Respiratory Rate: 20 Blood Pressure 120 /77 Mean: 91 Results/Orders My Orders Orders - PEARL OBRIEN APRN Chest Pa/Lat (2 View) (04/09/18 19:54) Dexamethasone Injection (Decadron Inject (04/09/18 20:00) Promethazine/ Codeine Syrup (Phenergan W (04/09/18 20:00) Medications Given in ED Current Medications Medications Dose Ordered Sig/Abena Route Start Time Stop Time Status Last Admin Dose Admin Dexamethasone Sodium Phosphate 10 mg ONCE ONCE IM 04/09/18 20:00 04/09/18 20:01 DC 04/09/18 20:08 10 MG Promethazine HCl/ Codeine 5 ml ONCE ONCE PO 04/09/18 20:00 04/09/18 20:01 DC 04/09/18 20:08 5 ML Vital Signs/I&O 04/09/18 19:26 Temp 97.5 Pulse 89 Resp 20 B/P (MAP) 120/77 (91) Pulse Ox 97 O2 Delivery Room Air Capillary Refill : Less Than 3 Seconds Blood Pressure Mean: 91 Departure Impression Primary Impression: Bronchitis Disposition: 01 HOME, SELF-CARE Condition: Stable Departure-Patient Inst. Decision time for Depature: 19:56 Referrals: APOORVA GOYAL (PCP) Primary Care Physician [facility] (Family) Primary Care Physician Patient Instructions: Acute Bronchitis, Adult (DC) Add. Discharge Instructions: You have bronchitis which is caused by a virus. This is why antibiotics did not help. Take the cough/decongestant medication as directed. Return to ER for any concerns. All discharge instructions reviewed with patient and/or family. Voiced understanding. Scripts D-Methorphan Hb/P-Epd HCl/Bpm (Bromfed Dm Cough Syrup) 118 Ml Syrup 5 ML PO Q4H PRN for COUGH, #120 ML Prov: PEARL OBRIEN APRN 04/09/18 Work/School Note: Work Release Form Date Seen in the Emergency Department: Apr 09, 2018 Return to Work: Apr 11, 2018 PEARL OBRIEN APRN Apr 09, 2018 19:57
[2018-04-09] MEDS ORDERED: DEXAMETHASONE 10 MG/ML (DECADRON) 1 ML VIAL IM ONE (20:00)
[2018-04-09] MEDS ORDERED: PROMETHAZINE/ CODEINE SYRUP 5 ML UDC PO ONE (20:00)
--- NOTE | 2018-04-09 20:16 | Diagnostic Imaging Report ---
INDICATION: Cough, congestion, fever, headache.. TECHNIQUE: Two view chest 8:25 PM CORRELATION STUDY: None FINDINGS: The heart size, mediastinal configuration and pulmonary vasculature are within normal limits. The lungs are clear with no consolidating infiltrate. There is no significant pleural effusion or pneumothorax. Visualized osseous structures are unremarkable. IMPRESSION: 1. Negative appearing portable chest. Dictated by: Dictated on workstation # [id number]
[2018-04-09 20:23] VITALS: BP 120/77
== END 2018-04-09 20:23 | disposition home or self-care (01) ==
LOC: EDUNIT# 19:05 → ER 19:07
DX: J40 Bronchitis, not specified as acute or chronic (principal); G51.0 Bell's palsy; E66.01 Morbid (severe) obesity due to excess calories; F41.9 Anxiety disorder, unspecified; F31.9 Bipolar disorder, unspecified; Z68.42 Body mass index [BMI] 45.0-49.9, adult; Z87.19 Personal history of other diseases of the digestive system; Z79.52 Long term (current) use of systemic steroids; Z79.51 Long term (current) use of inhaled steroids; Z87.891 Personal history of nicotine dependence; Z98.890 Other specified postprocedural states; Z90.710 Acquired absence of both cervix and uterus; Z87.448 Personal history of other diseases of urinary system
CPT/HCPCS: 71046; 96372

== ENCOUNTER → 2018-04-29 | Outpatient (CLI) | payer MEDICAID ==
[~2018-04-29] MED LIST changes: +D-ME118S33 PO
== END ==
LOC: RAD 13:46
PROVIDERS: ATTEND Nurse Practitioner Community Health
DX: M54.32 Sciatica, left side (principal); Z53.8 Procedure and treatment not carried out for other reasons

== ENCOUNTER 2018-11-26 15:42 | Emergency (ER) | payer MEDICAID ==
[~2018-11-26] VITALS: Ht 170.2 cm; Wt 136.1 kg
[2018-11-26] MEDS ORDERED: IBUPROFEN 800 MG (MOTRIN) TAB PO STA (16:15)
--- NOTE | 2018-11-26 16:44 | Diagnostic Imaging Report ---
INDICATION: Injury with pain. FINDINGS: Nonaggressive, well-demarcated sclerotic focus distal neck fourth metatarsals, likely a bone island or healed fibrous cortical defect. Fracture or dislocation is not identified and no acute appearing periosteal reaction. Ossicle proximal to the navicular noted incidentally. IMPRESSION: No acute-appearing abnormality. Dictated by: Dictated on workstation # [id number]
--- NOTE | 2018-11-26 16:45 | Diagnostic Imaging Report ---
INDICATION: Pain. Three views were obtained. FINDINGS: The alignment is normal. The plafonds and talar dome are intact. Ankle mortise is symmetric. No fracture or dislocation. IMPRESSION: No acute fracture or dislocation. Dictated by: Dictated on workstation # [id number]
--- NOTE | 2018-11-26 16:53 | ED Lower Extremity ---
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 Nursing Sepsis Screen: No Definite Risk History of Present Illness Date Seen by Provider: Nov 26, 2018 Time Seen by Provider: 15:55 Initial Comments 33-year-old female reports that she stepped through a board on her porch at home. She sustained an injury to her left ankle when it twisted. She's had previous left ankle injuries and a surgery. Ninth any additional injuries. She took no medicine prior to arrival. Onset: just prior to arrival Pain/Injury Location: left foot (lateral), left ankle Method of Injury: twisted Allergies and Home Medications Allergies Coded Allergies: prednisone (Verified Allergy, Intermediate, 02/17/17) Home Medications Acyclovir 400 Mg Tablet, 400 MG PO 5XD Prescribed by: FALLON SURESH on 02/04/17 1341 Albuterol Sulfate 0.63 Mg/3 Ml Vial.neb, 0.63 MG IH PRN, (Reported) Albuterol/Ipratropium 4 Gm Aero, 2 PUFF IH TID, (Reported) Ciprofloxacin HCl 500 Mg Tablet, 500 MG PO BID Prescribed by: FALLON SURESH on 02/04/17 1358 Clonazepam 0.5 Mg Tablet, 0.5 MG PO BID, (Reported) D-Methorphan Hb/P-Epd HCl/Bpm 118 Ml Syrup, 5 ML PO Q4H PRN for COUGH Prescribed by: PEARL OBRIEN on 04/09/181956 Dexamethasone 6 Mg Tablet, 6 MG PO DAILY 1 po bid for 4 days, then 1 po daily for 4 days Prescribed by: FALLON SURESH on 02/04/17 1341 Ibuprofen 600 Mg Tablet, 600 MG PO Q6HR Prescribed by: ANGELO ABARCA on 10/22/16 1008 Loratadine 10 Mg Tablet, 10 MG PO DAILY, (Reported) Mometasone Furoate 15 Gm Cream..g., 0 TP TID Prescribed by: YOSELYN HUYNH on 08/31/172043 Montelukast Sodium 10 Mg Tablet, 10 MG PO DAILY, (Reported) Oxycodone HCl/Acetaminophen 1 Each Tablet, 2 TAB PO Q4H PRN for PAIN-MODERATE Prescribed by: ANGELO ABARCA on 10/22/16 1008 Oxycodone HCl/Acetaminophen 1 Each Tablet, 1 EACH PO Q4H PRN for PAIN-SEVERE Prescribed by: PEARL OBRIEN on 10/30/16 2250 Spironolactone 25 Mg Tablet, 25 MG PO DAILY, (Reported) Patient Home Medication List Home Medication List Reviewed: Yes Review of Systems Constitutional: no symptoms reported, see HPI Musculoskeletal: see HPI, joint pain (left ankle and foot) All Other Systems Reviewed Negative Unless Noted: Yes Past Mdxpywu-Fczqhq-Mlwphk Hx Past Med/Social Hx: Reviewed Nursing Past Med/Soc Hx Patient Social History Alcohol Beverage of Choice: Beer, [place] Type Used: Cigarettes Former Smoker, Quit: Feb 17, 2016 2nd Hand Smoke Exposure: No Recent Foreign Travel: No Contact w/Someone Who Travel: No Recent Infectious Disease Expo: No Recent Hopitalizations: No Seasonal Allergies Seasonal Allergies: Yes Past Medical History Surgeries: Yes (LT KNEE, BILAT CARPAL TUNNEL, LT ANKLE, BSO WITH MAULIK AND D&C 10/2016) 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, Oophorectomy, Orthopedic Respiratory: Yes Asthma Cardiac: No Neurological: Yes (Silveira's palsy) 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 Disorders: Yes Female 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, 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 Sexually Transmitted Disease: No HIV/AIDS: No Genitourinary: No Gastrointestinal: Yes (HX HEPATITIS C--NO TREATMENT) Liver Disease/Jaundice, Hepatitis Musculoskeletal: Yes (BULGING DISC L4-5) Degenerate Disk Disease, Chronic Back Pain Endocrine: Yes (MORBID OBESITY) HEENT: No Loss of Vision: Bilateral Cancer: No Psychosocial: Yes Anxiety, Bipolar, Depression Integumentary: Yes Psoriasis Blood Disorders: No Adverse Reaction/Blood Tranf: No (N/A) Family Medical History No Pertinent Family Hx Physical Exam Vital Signs Vital Signs - First Documented 11/26/18 15:49 Temp 99.0 Pulse 91 Resp 18 B/P (MAP) 117/71 (86) Pulse Ox 97 O2 Delivery Room Air Capillary Refill : Less Than 3 Seconds Height, Weight, BMI Height: 5'7.00" Weight: 300lbs. 7.0oz. 136.008462wt; 45.8 BMI Method:Stated General Appearance: WD/WN, no apparent distress Cardiovascular: normal peripheral pulses, regular rate, rhythm, no edema Respiratory: chest non-tender, lungs clear, normal breath sounds Ankles: left ankle normal inspection, left ankle normal range of motion, left ankle no evidence of injury, left ankle bone tenderness (distal fibula and proximal fifth metatarsal), left ankle soft tissue tenderness (lateral) Neurologic/Tendon: normal sensation, normal motor functions, normal tendon functions Neurologic/Psychiatric: no motor/sensory deficits, alert, normal mood/affect, oriented x 3 Skin: normal color, warm/dry Lymphatic: no adenopathy Progress/Results/Core Measures Results/Orders My Orders Orders - FALLON SURESH Foot, Left, 3 Views (11/26/18 16:15) Ankle, Left, 3 Views (11/26/18 16:15) Ibuprofen Tablet (Motrin Tablet) (11/26/18 16:15) Vital Signs/I&O 11/26/18 15:49 Temp 99.0 Pulse 91 Resp 18 B/P (MAP) 117/71 (86) Pulse Ox 97 O2 Delivery Room Air Blood Pressure Mean: 86 Diagnostic Imaging Diagonstic Imaging: Xray Plain Films/CT/US/NM/MRI: ankle Comments NAME: EMMETT CAST [facility] REC#: [id number] PT STATUS: REG ER : 1985 PHYSICIAN: FALLON SURESH ADMIT DATE: 11/26/18/ER Draft Date of Exam:11/26/18 ANKLE, LEFT, 3 VIEWS INDICATION: Pain. Three views were obtained. FINDINGS: The alignment is normal. The plafonds and talar dome are intact. Ankle mortise is symmetric. No fracture or dislocation. IMPRESSION: No acute fracture or dislocation. Dictated on workstation # [id number] Dict: 11/26/18 1635 Trans: 11/26/18 1644 KB [id number] Interpreted by: REBEKAH SILVEIRA MD Electronically signed by: Reviewed: Reviewed by Me Diagonstic Imaging: Xray Plain Films/CT/US/NM/MRI: other (foot) Comments NAME: SEGUNEMMETT Plummer [facility] REC#: [id number] PHYSICIAN: FALLON SURESH CC: JONO MOSER; FALLON SURESH Page 1 of 1 RADIOLOGY REPORT [facility] [place], [place] CC: JONO MOSER; FALLON SURESH Page 1 of 1 RADIOLOGY REPORT NAME: EMMETT CAST [facility] REC#: [id number] PT STATUS: REG ER : 1985 PHYSICIAN: FALLON SURESH ADMIT DATE: 11/26/18/ER Signed Date of Exam: 11/26/18 FOOT, LEFT, 3 VIEWS INDICATION: Injury with pain. FINDINGS: Nonaggressive, well-demarcated sclerotic focus distal neck fourth metatarsals, likely a bone island or healed fibrous cortical defect. Fracture or dislocation is not identified and no acute appearing periosteal reaction. [place]ss[place] proximal to the navicular noted incidentally. IMPRESSION: No acute-appearing abnormality. Dictated by: Dictated on workstation # [id number] Dict: 11/26/18 1635 Trans: 11/26/18 1645 Interpreted by: JONO MOSER Electronically signed by: JONO MOSER 11/26/18 1645 Reviewed: Reviewed by La Departure Impression Primary Impression: Left ankle sprain Qualified Codes: S93.492A - Sprain of other ligament of left ankle, initial encounter Disposition: 01 HOME, SELF-CARE Condition: Improved Departure-Patient Inst. Decision time for Depature: 16:45 Referrals: [facility] [place] (PCP) Primary Care Physician GAGE VALLES (Family) Primary Care Physician Patient Instructions: Ankle Sprain (DC) Add. Discharge Instructions: Ice and elevate left ankle, 20 min every 2 hours Use the boot that you have born in the past for urinary ankle injuries. Follow-up with orthopedics. Alternate between ibuprofen 600 mg and Tylenol 650 mg every 4 hours. You may use crutches if ambulation is difficult. Return to emergency department for new, urgent health care needs. All discharge instructions reviewed with patient and/or family. Voiced understanding. Copy Copies To 1: APOORVA GOYAL AMY ARNP Nov 26, 2018 16:53
[2018-11-26 17:05] VITALS: BP 0/0
== END 2018-11-26 17:05 | disposition home or self-care (01) ==
LOC: EDUNIT# 15:42 → ER 15:43
DX: S93.492A Sprain of other ligament of left ankle, initial encounter (principal); J45.909 Unspecified asthma, uncomplicated; B19.20 Unspecified viral hepatitis C without hepatic coma; E66.01 Morbid (severe) obesity due to excess calories; F31.9 Bipolar disorder, unspecified; F41.9 Anxiety disorder, unspecified; Z90.710 Acquired absence of both cervix and uterus; Z87.891 Personal history of nicotine dependence; Z88.8 Allergy status to other drugs, medicaments and biological substances; Z68.42 Body mass index [BMI] 45.0-49.9, adult; W17.89XA Other fall from one level to another, initial encounter
CPT/HCPCS: 73610; 73630

== ENCOUNTER 2018-11-29 21:10 | Emergency (ER) | payer MEDICAID ==
[~2018-11-29] VITALS: Ht 170.2 cm; Wt 136.1 kg
[2018-11-29] MEDS ORDERED: KETOROLAC 30 MG/ML VIAL IVP ONE (21:30)
--- NOTE | 2018-11-29 21:31 | ED Back Pain ---
General Chief Complaint: General Problems/Pain Stated Complaint: BILAT LEG NUMBNESS/TINGLING Nursing Triage Note: Pt presents to ED RM 7 via [facility] with complaints of lower back pain and bilat tingling in LE since 1529 today. Pt reports falling off a porch 11/26/18 and states that's what started the back pain. Pt has a history of chronic back pain, states she does not take meds for. Nursing Sepsis Screen: No Definite Risk Source of Information: Patient, EMS, Family (Ex- and brother) Exam Limitations: No Limitations History of Present Illness Date Seen by Provider: Nov 29, 2018 Time Seen by Provider: 21:19 Initial Comments The patient presents to ER by EMS from home with chief complaint that she's having some back spasms and pain that is progressively gotten worse today. She had a fall 3 days ago through her porch and cause a soft tissue injury to her left foot went back into a boot. She's had for the past 2 years some back pain with bulging disc at L4-L5. She's been going back and forth between the surgeons at and physical therapy but she does not feel physical therapy has been helping. She only has intermittent back pain. She was not hurting at the time of the fall and she was checked out in the ER. She's had CT of her back but no imaging of her back was done 3 days ago. She is not diabetic does not have any heart condition or acid reflux. She uses ibuprofen 2-3 times a day with her last use being this morning 400 mg. Allergies and Home Medications Allergies Coded Allergies: prednisone (Verified Allergy, Intermediate, 02/17/17) Home Medications Acyclovir 400 Mg Tablet, 400 MG PO 5XD Prescribed by: FALLON SURESH on 02/04/17 1341 Albuterol Sulfate 0.63 Mg/3 Ml Vial.neb, 0.63 MG IH PRN, (Reported) Albuterol/Ipratropium 4 Gm Aero, 2 PUFF IH TID, (Reported) Ciprofloxacin HCl 500 Mg Tablet, 500 MG PO BID Prescribed by: FALLON SURESH on 02/04/17 1358 Clonazepam 0.5 Mg Tablet, 0.5 MG PO BID, (Reported) Cyclobenzaprine HCl 10 Mg Tablet, 10 MG PO Q8H PRN for SPASMS Prescribed by: MIKE WAYNE on 11/30/1849 D-Methorphan Hb/P-Epd HCl/Bpm 118 Ml Syrup, 5 ML PO Q4H PRN for COUGH Prescribed by: PEARL OBRIEN on 04/09/181956 Dexamethasone 6 Mg Tablet, 6 MG PO DAILY 1 po bid for 4 days, then 1 po daily for 4 days Prescribed by: FALLON SURESH on 02/04/17 1341 Ibuprofen 600 Mg Tablet, 600 MG PO Q6HR Prescribed by: ANGELO ABRACA on 10/22/16 100 Loratadine 10 Mg Tablet, 10 MG PO DAILY, (Reported) Meloxicam 7.5 Mg Tablet, 7.5 MG PO BID Prescribed by: MIKE WAYNE on 11/30/1849 Methylprednisolone 4 Mg Tab, 4 MG PO UD as directed per dose pack Prescribed by: MIKE WAYNE on 11/30/1849 Mometasone Furoate 15 Gm Cream..g., 0 TP TID Prescribed by: YOSELYN HUYNH on 08/31/172043 Montelukast Sodium 10 Mg Tablet, 10 MG PO DAILY, (Reported) Oxycodone HCl/Acetaminophen 1 Each Tablet, 2 TAB PO Q4H PRN for PAIN-MODERATE Prescribed by: ANGELO ABARCA on 10/22/16 100 Oxycodone HCl/Acetaminophen 1 Each Tablet, 1 EACH PO Q4H PRN for PAIN-SEVERE Prescribed by: PEARL OBRIEN on 10/30/162249 Spironolactone 25 Mg Tablet, 25 MG PO DAILY, (Reported) Patient Home Medication List Home Medication List Reviewed: Yes Review of Systems Constitutional: No chills, No diaphoresis EENTM: No hearing loss, No ear pain Respiratory: No cough, No short of breath Cardiovascular: No chest pain, No palpitations Gastrointestinal: No abdominal pain, No constipation Genitourinary: No discharge, No dysuria : No Musculoskeletal: back pain, joint pain (l foot) Past Yklwtxx-Nbziyk-Jitmkx Hx Patient Social History Alcohol Use: Denies Use Number of Drinks Today: BB Alcohol Beverage of Choice: Beer, [place] Recreational Drug Use: No Smoking Status: Former Smoker Type Used: Cigarettes Former Smoker, Quit: Feb 17, 2016 2nd Hand Smoke Exposure: No Recent Foreign Travel: No Contact w/Someone Who Travel: No Recent Infectious Disease Expo: No Recent Hopitalizations: No Physical Abuse: No Sexual Abuse: No Mistreated: No Fear: No Seasonal Allergies Seasonal Allergies: Yes Past Medical History Surgeries: Yes (LT KNEE, BILAT CARPAL TUNNEL, LT ANKLE, BSO WITH MAULIK AND D&C 10/2016) 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, Oophorectomy, Orthopedic Respiratory: Yes Asthma Cardiac: No Neurological: Yes (Silveira's palsy) 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 Disorders: Yes Female 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, 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 Sexually Transmitted Disease: No HIV/AIDS: No Genitourinary: No Gastrointestinal: Yes (HX HEPATITIS C--NO TREATMENT) Liver Disease/Jaundice, Hepatitis Musculoskeletal: Yes (BULGING DISC L4-5) Degenerate Disk Disease, Chronic Back Pain Endocrine: Yes (MORBID OBESITY) HEENT: No Loss of Vision: Bilateral Cancer: No Psychosocial: Yes Anxiety, Bipolar, Depression Integumentary: Yes Psoriasis Blood Disorders: No Adverse Reaction/Blood Tranf: No (N/A) Family Medical History No Pertinent Family Hx Physical Exam Vital Signs Vital Signs - First Documented 11/29/18 21:17 Temp 99.1 Pulse 110 Resp 20 B/P (MAP) 135/70 (91) Pulse Ox 97 O2 Delivery Room Air Capillary Refill : Less Than 3 Seconds Height, Weight, BMI Height: 5'7.00" Weight: 300lbs. 7.0oz. [id number]; 45.8 BMI Method:Stated General Appearance: No Apparent Distress, WD/WN HEENT: PERRL/EOMI, TMs Normal, Normal ENT Inspection, Pharynx Normal, Moist Mucous Membranes Neck: Full Range of Motion, Normal Inspection, Non Tender Cardiovascular: Regular Rate, Rhythm, No Edema, Normal Peripheral Pulses Respiratory: Lungs Clear, Normal Breath Sounds, No Accessory Muscle Use, No Respiratory Distress Back: Vertebral Tenderness (thoracolumbar spine midline as well as bilateral) Extremity: Normal Capillary Refill, Normal Inspection, No Pedal Edema Neurologic/Psychiatric: Alert, Oriented x3 Skin: Normal Color, Warm/Dry Progress/Results/Core Measures Results/Orders Lab Results Laboratory Tests Test 11/29/18 21:33 11/29/18 21:38 11/29/18 22:13 Range/Units White Blood Count 7.0 4.3-11.0 10^3/uL Red Blood Count 4.61 4.35-5.85 10^6/uL Hemoglobin 13.5 11.5-16.0 G/DL Hematocrit 41 35-52 % Mean Corpuscular Volume 88 80-99 FL Mean Corpuscular Hemoglobin 29 25-34 PG Mean Corpuscular Hemoglobin Concent 33 32-36 G/DL Red Cell Distribution Width 14.6 H 10.0-14.5 % Platelet Count 382 130-400 10^3/uL Mean Platelet Volume 10.5 H 7.4-10.4 FL Neutrophils (%) (Auto) 52 42-75 % Lymphocytes (%) (Auto) 33 12-44 % Monocytes (%) (Auto) 13 H 0-12 % Eosinophils (%) (Auto) 2 0-10 % Basophils (%) (Auto) 0 0-10 % Neutrophils # (Auto) 3.6 1.8-7.8 X 10^3 Lymphocytes # (Auto) 2.3 1.0-4.0 X 10^3 Monocytes # (Auto) 0.9 0.0-1.0 X 10^3 Eosinophils # (Auto) 0.1 0.0-0.3 10^3/uL Basophils # (Auto) 0.0 0.0-0.1 10^3/uL Urine Color YELLOW Urine Clarity SLIGHTLY CLOUDY Urine pH 5 5-9 Urine Specific [place] 1.030 H 1.016-1.022 Urine Protein 1+ H NEGATIVE Urine Glucose (UA) NEGATIVE NEGATIVE Urine Ketones NEGATIVE NEGATIVE Urine Nitrite NEGATIVE NEGATIVE Urine Bilirubin NEGATIVE NEGATIVE Urine Urobilinogen 1 NORMAL MG/DL Urine Leukocyte Esterase 1+ H NEGATIVE Urine RBC (Auto) NEGATIVE NEGATIVE Urine RBC NONE /HPF Urine WBC 0-2 /HPF Urine Squamous Epithelial Cells 2-5 /HPF Urine Crystals NONE /LPF Urine Bacteria FEW H /HPF Urine Casts NONE /LPF Urine Mucus NEGATIVE /LPF Urine Culture Indicated NO Sodium Level 140 135-145 MMOL/L Potassium Level 4.0 3.6-5.0 MMOL/L Chloride Level 107 98-107 MMOL/L Carbon Dioxide Level 21 21-32 MMOL/L Anion Gap 12 5-14 MMOL/L Blood Urea Nitrogen 13 7-18 MG/DL Creatinine 0.81 0.60-1.30 MG/DL Estimat Glomerular Filtration Rate > 60 BUN/Creatinine Ratio 16 Glucose Level 101 70-105 MG/DL Calcium Level 9.1 8.5-10.1 MG/DL Corrected Calcium 9.0 8.5-10.1 MG/DL Total Bilirubin 0.4 0.1-1.0 MG/DL Aspartate Amino Transf (AST/SGOT) 16 5-34 U/L Alanine Aminotransferase (ALT/SGPT) 21 0-55 U/L Alkaline Phosphatase 98 40-136 U/L Total Protein 7.4 6.4-8.2 GM/DL Albumin 4.1 3.2-4.5 GM/DL My Orders Orders - MIKE WAYNE Cbc With Automated Diff (11/29/18 21:27) Comprehensive Metabolic Panel (11/29/18 21:27) Ua Culture If Indicated (11/29/18:) Urine Bedside (11/29/18 21:27) Ketorolac Injection (Toradol Injection) (11/29/18 21:30) Ct Thoracic/Lumbar Spine Wo (11/29/18 21:27) Ed Iv/Invasive Line Start (11/29/18 21:39) Methylprednisolone Acetate Inj (Depo-Med (11/30/18 01:00) Orphenadrine Injection (Norflex Injectio (11/30/18 01:00) Acetaminophen Tablet (Tylenol Tablet) (11/30/18 01:00) Medications Given in ED Current Medications Medications Dose Ordered Sig/Abena Route Start Time Stop Time Status Last Admin Dose Admin Acetaminophen 1,000 mg ONCE ONCE PO 11/30/18 01:00 11/30/18 01:01 DC 11/30/18 01:01 1,000 MG Ketorolac Tromethamine 30 mg ONCE ONCE IVP 11/29/18 21:30 11/29/18 21:31 DC 11/29/18 21:35 30 MG Methylprednisolone Acetate 40 mg ONCE ONCE IM 11/30/18 01:00 11/30/18 01:01 DC 11/30/18 01:01 40 MG Orphenadrine Citrate 60 mg ONCE ONCE IV 11/30/18 01:00 11/30/18 01:01 DC 11/30/18 01:00 60 MG Vital Signs/I&O 11/29/18 11/30/18 21:17 01:05 Temp 99.1 99.1 Pulse 110 85 Resp 20 18 B/P (MAP) 135/70 (91) 125/86 (99) Pulse Ox 97 98 O2 Delivery Room Air Room Air Blood Pressure Mean: 91 Progress Progress Note : Time: 00:33 Progress Note Urine and basic labs to make sure there is not an organic component to her back pain. CT since she's having radiation of the pain down bilateral legs to the feet. Toradol for her pain. She doesn't have diabetes or heart disease so we'll put her on some NSAIDs for couple weeks and steroids. Diagnostic Imaging Diagonstic Imaging: CT (Without IV contrast) Plain Films/CT/US/NM/MRI: other (Thoracolumbar spine) Comments Thoracic spine no fracture or malalignment. Lumbar spine no fracture or malalignment. Reviewed: Reviewed [place] Study, Reviewed by Me Departure Impression Primary Impression: Lumbago with sciatica Qualified Codes: M54.42 - Lumbago with sciatica, left side; M54.41 - Lumbago with sciatica, right side Additional Impression: Fall Qualified Codes: W19.XXXD - Unspecified fall, subsequent encounter Disposition: HOME, SELF-CARE Condition: Stable Departure-Patient Inst. Decision time for Depature: 00:36 Referrals: [facility]/ (PCP) Primary Care Physician GAGE VALLES (Family) Primary Care Physician Patient Instructions: Low Back Pain in Adults Add. Discharge Instructions: Obtain a back brace that he don't already have one and wear it on the days that it helps. Use topical creams such as Aspercreme, icy hot or Biofreeze. Continue to use Tylenol 1000 mg every 8 hours as needed for breakthrough pain. 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 Do not use ibuprofen or Aleve Naprosyn or other NSAIDs with this medicine. 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 Follow-up with primary care if not seeing some improvement in the next 2 weeks. All discharge instructions reviewed with patient and/or family. Voiced understanding. Scripts Cyclobenzaprine HCl (Cyclobenzaprine HCl) 10 Mg Tablet 10 MG PO Q8H PRN for SPASMS, #15 TAB 0 Refills Prov: MIKE WAYNE 11/30/18 Meloxicam (Meloxicam) 7.5 Mg Tablet 7.5 MG PO BID for 14 Days, #28 TAB 0 Refills Prov: MIKE WAYNE 11/30/18 Methylprednisolone (Medrol) 4 Mg Tab 4 MG PO UD for 6 Days, #21 TAB 0 Refills as directed per dose pack Prov: MIKE WAYNE 11/30/18 MIKE WAYNE Nov 29, 2018 21:30
[2018-11-29 21:46] LABS: BASOPHILS % (AUTO) 0 % (0-10); EOSINOPHILS # (AUTO) 0.1 10^3/uL (0.0-0.3); EOSINOPHILS % (AUTO) 2 % (0-10); HEMATOCRIT 41 % (35-52); HEMOGLOBIN 13.5 G/DL (11.5-16.0); LYMPHOCYTES # (AUTO) 2.3 X 10^3 (1.0-4.0); LYMPHOCYTES % (AUTO) 33 % (12-44); MEAN CORPUSCULAR HEMOGLOBIN 29 PG (25-34); MEAN CORPUSCULAR HGB CONC 33 G/DL (32-36); MEAN CORPUSCULAR VOLUME 88 FL (80-99); MEAN PLATELET VOLUME 10.5 FL (7.4-10.4); MONOCYTES # (AUTO) 0.9 X 10^3 (0.0-1.0); MONOCYTES % (AUTO) 13 % (0-12); NEUTROPHILS # (AUTO) 3.6 X 10^3 (1.8-7.8); NEUTROPHILS % (AUTO) 52 % (42-75); PLATELET COUNT 382 10^3/uL (130-400); RED CELL DISTRIBUTION WIDTH 14.6 % (10.0-14.5)
[2018-11-29 22:00] LABS: BILIRUBIN,URINE NEGATIVE (NEGATIVE); CLARITY,URINE SLIGHTLY CLOUDY; COLOR,URINE YELLOW; GLUCOSE, URINE (UA) NEGATIVE (NEGATIVE); KETONES,URINE NEGATIVE (NEGATIVE); LEUKOCYTE ESTERASE ,URINE 1+ (NEGATIVE); NITRITE,URINE NEGATIVE (NEGATIVE); PH,URINE 5 (5-9); PROTEIN,URINE 1+ (NEGATIVE); UROBILINOGEN,URINE 1 MG/DL (NORMAL)
[2018-11-29 22:37] LABS: BACTERIA,URINE FEW /HPF; WBC,URINE 0-2 /HPF
[2018-11-29 22:40] LABS: ALANINE AMINOTRANSFERASE 21 U/L (0-55); ALBUMIN 4.1 GM/DL (3.2-4.5); ALKALINE PHOSPHATASE 98 U/L (40-136); BILIRUBIN,TOTAL 0.4 MG/DL (0.1-1.0); BUN/CREATININE RATIO 16; CALCIUM 9.1 MG/DL (8.5-10.1); CARBON DIOXIDE 21 MMOL/L (21-32); CHLORIDE 107 MMOL/L (98-107); CREATININE SERUM 0.81 MG/DL (0.60-1.30); GFR ESTIMATED > 60; GLUCOSE 101 MG/DL (70-105); SODIUM 140 MMOL/L (135-145); TOTAL PROTEIN 7.4 GM/DL (6.4-8.2)
[2018-11-30] MEDS ORDERED: MELO7.5T46 PO ×2 (00:39→00:50)
[2018-11-30] MEDS ORDERED: NF-METHYLP PO ×2 (00:39→00:50)
[2018-11-30] MEDS ORDERED: CYCL10TA9 PO (00:50)
[2018-11-30] MEDS ORDERED: methylPREDNISolone 40 MG/ML (DEPO MEDROL) VIAL IM ONE (01:00)
[2018-11-30] MEDS ORDERED: ORPHENADRINE 60 MG/2 ML (NORFLEX) AMP IV ONE (01:00)
[2018-11-30] MEDS ORDERED: ACETAMINOPHEN 500 MG TAB (TYLENOL) PO ONE (01:00)
[2018-11-30 01:05] VITALS: BP 125/86
--- NOTE | 2018-11-30 06:24 | Diagnostic Imaging Report ---
PROCEDURE: CT thoracic and lumbar spine without contrast. TECHNIQUE: Multiple contiguous axial images were obtained through the thoracic and lumbar spine without the use of intravenous contrast. Sagittal and coronal reformations were then performed. INDICATION: Fall. Back pain. COMPARISON: None. FINDINGS: Normal alignment of the thoracic and lumbar spine. Vertebral body heights are preserved. No fractures. Mild scattered degenerative endplate changes. No high-grade spinal canal narrowing is evident on soft tissue windows. The visualized paravertebral soft tissues are unremarkable. IMPRESSION: No acute CT findings in the thoracic or lumbar spine. Dictated by: Dictated on workstation # [id number]
== END 2018-11-30 01:05 | disposition home or self-care (01) ==
LOC: EDUNIT# 21:10 → ER 21:11
DX: M54.41 Lumbago with sciatica, right side (principal); M54.42 Lumbago with sciatica, left side; J45.909 Unspecified asthma, uncomplicated; B19.20 Unspecified viral hepatitis C without hepatic coma; M51.36 Other intervertebral disc degeneration, lumbar region; E66.01 Morbid (severe) obesity due to excess calories; F31.9 Bipolar disorder, unspecified; F41.9 Anxiety disorder, unspecified; Z68.42 Body mass index [BMI] 45.0-49.9, adult; Z91.14 Patient's other noncompliance with medication regimen; Z79.52 Long term (current) use of systemic steroids; Z88.8 Allergy status to other drugs, medicaments and biological substances; Z87.891 Personal history of nicotine dependence; Z90.710 Acquired absence of both cervix and uterus; W17.89XA Other fall from one level to another, initial encounter
CPT/HCPCS: 36415; 72128; 72131; 80053; 81000; 84703; 85025

== ENCOUNTER 2019-01-30 14:03 | Emergency (ER) | payer MEDICAID ==
[~2019-01-30] VITALS: Ht 170.1 cm; Wt 87.7 kg
[~2019-01-30 14:03] MED LIST changes: +MELO7.5T46 PO; +NF-METHYLP PO
--- NOTE | 2019-01-30 14:28 | ED Back Pain ---
General Chief Complaint: Back Problems Stated Complaint: LWR BACK PAIN Nursing Triage Note: Patient sent over the the ED from [facility] with c/o back pain and bilateral leg numbness. States she started having back pain last night, decided to go to bed, and when she woke up this morning her legs felt like "jelly". She reports a history of back problems and recently seen a back specialist at on January 12, 2019. She was told that she had bulging disc but that it wasn't severe enough to need surgery. Nursing Sepsis Screen: No Definite Risk Source of Information: Patient Exam Limitations: No Limitations History of Present Illness Date Seen by Provider: Jan 30, 2019 Time Seen by Provider: 14:26 Initial Comments Patient has a history of chronic lower back pain. She is had a MRI. She was seen at [facility] and was not felt to be a surgical candidate. She was worse back pain since last night. It was severe when she woke up this morning. She is barely able walk due to pain. She denies incontinence. She denies fevers. She went to the clinic where they offered her Toradol shot but she said that would work so she was referred here. Allergies and Home Medications Allergies Coded Allergies: prednisone (Verified Allergy, Intermediate, 02/17/17) Home Medications Acyclovir 400 Mg Tablet, 400 MG PO 5XD Prescribed by: FALLON SURESH on 02/04/17 1341 Albuterol Sulfate 0.63 Mg/3 Ml Vial.neb, 0.63 MG IH PRN, (Reported) Albuterol/Ipratropium 4 Gm Aero, 2 PUFF IH TID, (Reported) Ciprofloxacin HCl 500 Mg Tablet, 500 MG PO BID Prescribed by: FALLON SURESH on 02/04/17 1358 Clonazepam 0.5 Mg Tablet, 0.5 MG PO BID, (Reported) Cyclobenzaprine HCl 10 Mg Tablet, 10 MG PO Q8H PRN for SPASMS Prescribed by: MIKE WAYNE on 11/30/18 0050 Cyclobenzaprine HCl 10 Mg Tablet, 10 MG PO TID Prescribed by: MECHE WORTHY on 01/30/19 1440 D-Methorphan Hb/P-Epd HCl/Bpm 118 Ml Syrup, 5 ML PO Q4H PRN for COUGH Prescribed by: PEARL OBRIEN on 04/09/181956 Dexamethasone 6 Mg Tablet, 6 MG PO DAILY 1 po bid for 4 days, then 1 po daily for 4 days Prescribed by: FALLON SURESH on 02/04/17 1341 Diclofenac Sodium 50 Mg Tablet.dr, 50 MG PO BID Prescribed by: MECHE WORTHY on 01/30/19 1440 Ibuprofen 600 Mg Tablet, 600 MG PO Q6HR Prescribed by: ANGELO ABARCA on 10/22/16 1008 Loratadine 10 Mg Tablet, 10 MG PO DAILY, (Reported) Meloxicam 7.5 Mg Tablet, 7.5 MG PO BID Prescribed by: MIKE WAYNE on 11/30/18 005 Methylprednisolone 4 Mg Tab, 4 MG PO UD as directed per dose pack Prescribed by: MIKE WAYNE on 11/30/18 005 Mometasone Furoate 15 Gm Cream..g., 0 TP TID Prescribed by: YOSELYN HUYNH on 08/31/172043 Montelukast Sodium 10 Mg Tablet, 10 MG PO DAILY, (Reported) Oxycodone HCl/Acetaminophen 1 Each Tablet, 2 TAB PO Q4H PRN for PAIN-MODERATE Prescribed by: ANGELO ABARCA on 10/22/16 1008 Oxycodone HCl/Acetaminophen 1 Each Tablet, 1 EACH PO Q4H PRN for PAIN-SEVERE Prescribed by: PEARL OBRIEN on 10/30/16 2250 Spironolactone 25 Mg Tablet, 25 MG PO DAILY, (Reported) Patient Home Medication List Home Medication List Reviewed: Yes Review of Systems Constitutional: no symptoms reported EENTM: no symptoms reported Respiratory: no symptoms reported Cardiovascular: no symptoms reported Genitourinary: No incontinence Musculoskeletal: back pain Psychiatric/Neurological: Paresthesia All Other Systems Reviewed Negative Unless Noted: Yes Past Qmgtdur-Oyiayp-Ailozg Hx Patient Social History Alcohol Use: Denies Use Number of Drinks Today: BB Alcohol Beverage of Choice: Beer, [place] Recreational Drug Use: No Type Used: Cigarettes Former Smoker, Quit: Feb 17, 2016 2nd Hand Smoke Exposure: No Recent Foreign Travel: No Contact w/Someone Who Travel: No Recent Infectious Disease Expo: No Recent Hopitalizations: No Physical Abuse: No Sexual Abuse: No Mistreated: No Fear: No Seasonal Allergies Seasonal Allergies: Yes Past Medical History Surgeries: Yes (LT KNEE, BILAT CARPAL TUNNEL, LT ANKLE, BSO WITH MAULIK AND D&C 10/2016) 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, Oophorectomy, Orthopedic Respiratory: Yes Asthma Cardiac: No Neurological: Yes (Silveira's palsy) : No 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 Disorders: Yes Female 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, 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: 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 Sexually Transmitted Disease: No HIV/AIDS: No Genitourinary: No Gastrointestinal: Yes (HX HEPATITIS C--NO TREATMENT) Liver Disease/Jaundice, Hepatitis Musculoskeletal: Yes (BULGING DISC L4-5) Degenerate Disk Disease, Chronic Back Pain Endocrine: Yes (MORBID OBESITY) HEENT: No Loss of Vision: Bilateral Cancer: No Psychosocial: Yes Anxiety, Bipolar, Depression Integumentary: Yes Psoriasis Blood Disorders: No Adverse Reaction/Blood Tranf: No (N/A) Family Medical History No Pertinent Family Hx Physical Exam Vital Signs Vital Signs - First Documented 01/30/19 14:10 Temp 36.5 Pulse 88 Resp 20 B/P (MAP) 132/80 (97) Pulse Ox 99 O2 Delivery Room Air Capillary Refill : Less Than 3 Seconds Height, Weight, BMI Height: 5'7.00" Weight: 300lbs. 7.0oz. 136.210564vv; 30.00 BMI Method:Stated General Appearance: No Apparent Distress, WD/WN, Obese Neck: Supple Cardiovascular: Regular Rate, Rhythm Respiratory: Lungs Clear Gastrointestinal: Soft Back: Normal Inspection, No Vertebral Tenderness (tenderness and spasm bilateral SI joint) Extremity: Normal Inspection, Normal Range of Motion Neurologic/Psychiatric: Alert, No Motor/Sensory Deficits, Normal Mood/Affect, Other (knee DTRs 2+ bilaterally) Skin: Normal Color, Warm/Dry Progress/Results/Core Measures Results/Orders My Orders Orders - MECHE WORTHY MD Ketorolac Injection (Toradol Injection) (01/30/19 14:30) Oxycodone/Apap 5/325mg Tablet (Percocet (01/30/19 14:30) Medications Given in ED Current Medications Medications Dose Ordered Sig/Abena Route Start Time Stop Time Status Last Admin Dose Admin Ketorolac Tromethamine 60 mg ONCE ONCE IM 01/30/19 14:30 01/30/19 14:31 DC 01/30/19 14:31 60 MG Oxycodone/ Acetaminophen 2 tab ONCE ONCE PO 01/30/19 14:30 01/30/19 14:31 DC 01/30/19 14:31 2 TAB Vital Signs/I&O 01/30/19 01/30/19 14:10 14:50 Temp 36.5 36.5 Pulse 88 88 Resp 20 20 B/P (MAP) 132/80 (97) 131/70 (97) Pulse Ox 99 99 O2 Delivery Room Air Blood Pressure Mean: 97 Departure Impression Primary Impression: Lower back pain Disposition: HOME, SELF-CARE Condition: Stable Departure-Patient Inst. Decision time for Depature: 14:37 Referrals: [facility] (PCP) Primary Care Physician GAGE VALLES (Family) Primary Care Physician Patient Instructions: Low Back Pain (DC) Add. Discharge Instructions: Heat and gentle massage to affected area. Follow-up with your back specialist this week. All discharge instructions reviewed with patient and/or family. Voiced understanding. Scripts Cyclobenzaprine HCl (Cyclobenzaprine HCl) 10 Mg Tablet 10 MG PO TID, #14 TAB Prov: MECHE WORTHY MD 01/30/19 Diclofenac Sodium (Diclofenac Sodium) 50 Mg Tablet. 50 MG PO BID, #10 TAB Prov: MECHE WORTHY MD 01/30/19 MECHE WORTHY MD Jan 30, 2019 14:28
[2019-01-30] MEDS ORDERED: KETOROLAC 60 MG/2 ML VIAL IM ONE (14:30)
[2019-01-30] MEDS ORDERED: oxyCODONE/APAP 5/325MG (PERCOCET 5) TABLET PO ONE (14:30)
[2019-01-30] MEDS ORDERED: DICL50TA6 PO (14:40)
[2019-01-30] MEDS ORDERED: CYCL10TA9 PO (14:40)
[2019-01-30 14:50] VITALS: BP 131/70
== END 2019-01-30 14:50 | disposition home or self-care (01) ==
LOC: EDUNIT# 14:03 → ER FS 14:05
DX: M54.5 Low back pain (principal); J45.909 Unspecified asthma, uncomplicated; G51.0 Bell's palsy; B19.20 Unspecified viral hepatitis C without hepatic coma; E66.01 Morbid (severe) obesity due to excess calories; F41.9 Anxiety disorder, unspecified; F31.9 Bipolar disorder, unspecified; Z88.8 Allergy status to other drugs, medicaments and biological substances; Z68.30 Body mass index [BMI] 30.0-30.9, adult; Z79.51 Long term (current) use of inhaled steroids; Z87.891 Personal history of nicotine dependence; Z90.710 Acquired absence of both cervix and uterus
CPT/HCPCS: 99284

== ENCOUNTER 2019-06-01 10:30 | Emergency (ER) | payer MEDICAID ==
[~2019-06-01] VITALS: Ht 170.1 cm; Wt 87.7 kg
[~2019-06-01 10:30] MED LIST changes: +DICL50TA6 PO; -TRAM50TA2 PO; +TRM50T PO
--- NOTE | 2019-06-01 10:43 | ED Lower Extremity ---
General Chief Complaint: Lower Extremity Stated Complaint: R KNEE INJ Source: patient Exam Limitations: no limitations History of Present Illness Date Seen by Provider: Jun 01, 2019 Time Seen by Provider: 10:41 Initial Comments ER with reports that she fell onto a flexed right knee, this occurred yesterday at her brother's house, history of torn meniscus in the right knee that was never operated on, has persistent pain today. Onset: just prior to arrival, yesterday Severity: moderate Pain/Injury Location: right knee Method of Injury: fell Modifying Factors: Worse With Movement Allergies and Home Medications Allergies Coded Allergies: prednisone (Verified Allergy, Intermediate, 02/17/17) Home Medications Acyclovir 400 Mg Tablet, 400 MG PO 5XD Prescribed by: FALLON SURESH on 02/04/17 1341 Albuterol Sulfate 0.63 Mg/3 Ml Vial.neb, 0.63 MG IH PRN, (Reported) Albuterol/Ipratropium 4 Gm Aero, 2 PUFF IH TID, (Reported) Ciprofloxacin HCl 500 Mg Tablet, 500 MG PO BID Prescribed by: FALLON SURESH on 02/04/17 1358 Clonazepam 0.5 Mg Tablet, 0.5 MG PO BID, (Reported) Cyclobenzaprine HCl 10 Mg Tablet, 10 MG PO Q8H PRN for SPASMS Prescribed by: MIKE WAYNE on 11/30/18 0050 Cyclobenzaprine HCl 10 Mg Tablet, 10 MG PO TID Prescribed by: MECHE WORTHY on 01/30/19 1440 D-Methorphan Hb/P-Epd HCl/Bpm 118 Ml Syrup, 5 ML PO Q4H PRN for COUGH Prescribed by: PEARL OBRIEN on 04/09/181956 Dexamethasone 6 Mg Tablet, 6 MG PO DAILY 1 po bid for 4 days, then 1 po daily for 4 days Prescribed by: FALLON SURESH on 02/04/17 1341 Diclofenac Sodium 50 Mg Tablet.dr, 50 MG PO BID Prescribed by: MECHE WORTHY on 01/30/19 1440 Ibuprofen 600 Mg Tablet, 600 MG PO Q6HR Prescribed by: ANGELO ABARCA on 10/22/16 1008 Loratadine 10 Mg Tablet, 10 MG PO DAILY, (Reported) Meloxicam 7.5 Mg Tablet, 7.5 MG PO BID Prescribed by: MIKE WAYNE on 11/30/18 0050 Methylprednisolone 4 Mg Tab, 4 MG PO UD as directed per dose pack Prescribed by: MIKE WAYNE on 11/30/18 005 Mometasone Furoate 15 Gm Cream..g., 0 TP TID Prescribed by: YOSELYN HUYNH on 08/31/172043 Montelukast Sodium 10 Mg Tablet, 10 MG PO DAILY, (Reported) Oxycodone HCl/Acetaminophen 1 Each Tablet, 2 TAB PO Q4H PRN for PAIN-MODERATE Prescribed by: ANGELO ABARCA on 10/22/16 1008 Oxycodone HCl/Acetaminophen 1 Each Tablet, 1 EACH PO Q4H PRN for PAIN-SEVERE Prescribed by: PEARL OBRIEN on 10/30/16 225 Spironolactone 25 Mg Tablet, 25 MG PO DAILY, (Reported) Patient Home Medication List Home Medication List Reviewed: Yes Review of Systems Constitutional: see HPI EENTM: see HPI Respiratory: no symptoms reported Cardiovascular: no symptoms reported Genitourinary: no symptoms reported Musculoskeletal: see HPI Skin: no symptoms reported Psychiatric/Neurological: No Symptoms Reported Past Sandwwq-Msgtys-Zeclit Hx Patient Social History Alcohol Beverage of Choice: Beer, [place] Type Used: Cigarettes Former Smoker, Quit: Feb 17, 2016 2nd Hand Smoke Exposure: No Recent Hopitalizations: No Seasonal Allergies Seasonal Allergies: Yes Past Medical History Surgeries: Yes (LT KNEE, BILAT CARPAL TUNNEL, LT ANKLE, BSO WITH MAULIK AND D&C 10/2016) 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, Oophorectomy, Orthopedic Respiratory: Yes Asthma Cardiac: No Neurological: Yes (Silveira's palsy) 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 Disorders: Yes Female 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, Ovarian Cyst BASE PLY HAND History: 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 Sexually Transmitted Disease: No HIV/AIDS: No Genitourinary: No Gastrointestinal: Yes (HX HEPATITIS C--NO TREATMENT) Liver Disease/Jaundice, Hepatitis Musculoskeletal: Yes (BULGING DISC L4-5) Degenerate Disk Disease, Chronic Back Pain Endocrine: Yes (MORBID OBESITY) HEENT: No Loss of Vision: Bilateral Cancer: No Psychosocial: Yes Anxiety, Bipolar, Depression Integumentary: Yes Psoriasis Blood Disorders: No Adverse Reaction/Blood Tranf: No (N/A) Family Medical History No Pertinent Family Hx Physical Exam Vital Signs Vital Signs - First Documented 06/01/19 10:39 Temp 36.7 Pulse 84 Resp 18 B/P (MAP) 136/85 (102) Pulse Ox 100 Capillary Refill : Height, Weight, BMI Height: 5'7.00" Weight: 300lbs. 7.0oz. [id number]; 30.00 BMI Method:Stated General Appearance: WD/WN, no apparent distress Neck: non-tender, full range of motion Respiratory: no respiratory distress, no accessory muscle use Hips: bilateral hip non-tender, bilateral hip normal inspection, bilateral hip normal range of motion Legs: bilateral leg non-tender, bilateral leg normal inspection, bilateral leg normal range of motion Knees: right knee pain, right knee soft tissue tenderness, right knee swelling Ankles: bilateral ankle non-tender, bilateral ankle normal inspection, bilateral ankle normal range of motion Feet: bilateral foot non-tender, bilateral foot normal inspection, bilateral foot normal range of motion Neurologic/Psychiatric: alert, normal mood/affect, oriented x 3 Skin: normal color, warm/dry Progress/Results/Core Measures Results/Orders My Orders Orders - PEARL OBRIEN APRN Knee, Right, 3 Views (06/01/19 10:41) Vital Signs/I&O 06/01/19 10:39 Temp 36.7 Pulse 84 Resp 18 B/P (MAP) 136/85 (102) Pulse Ox 100 Departure Impression Primary Impression: Internal derangement of right knee Disposition: 01 HOME, SELF-CARE Condition: Stable Departure-Patient Inst. Decision time for Depature: 10:47 Referrals: [facility] (PCP) Primary Care Physician GAGE VALLES (Family) Primary Care Physician Patient Instructions: Internal Derangement of the Knee Add. Discharge Instructions: All discharge instructions reviewed with patient and/or family. Voiced understanding. Scripts Naproxen (Naprosyn) 500 Mg Tablet 500 MG PO BID PRN for PAIN-MODERATE (5-7), #30 TAB 0 Refills Prov: PEARL OBRIEN APRN 06/01/19 PEARL OBRIEN APRN Jun 01, 2019 10:43
--- NOTE | 2019-06-01 11:45 | Diagnostic Imaging Report ---
Indication: Right knee injury from a fall 3 views of the right knee show no fracture or dislocation. IMPRESSION: Negative right knee Dictated by: Dictated on workstation # [id number]
[2019-06-01] MEDS ORDERED: NAPR-1071 PO (11:49)
[2019-06-01 12:00] VITALS: BP 136/85
== END 2019-06-01 12:10 | disposition home or self-care (01) ==
LOC: EDUNIT# 10:30 → ER 10:31
DX: M23.91 Unspecified internal derangement of right knee (principal); J45.909 Unspecified asthma, uncomplicated; F41.9 Anxiety disorder, unspecified; F32.9 Major depressive disorder, single episode, unspecified; Z87.891 Personal history of nicotine dependence; Z88.8 Allergy status to other drugs, medicaments and biological substances; Z79.51 Long term (current) use of inhaled steroids; W19.XXXA Unspecified fall, initial encounter; Y92.019 Unspecified place in single-family (private) house as the place of occurrence of the external cause
CPT/HCPCS: 73562

== ENCOUNTER → 2019-06-08 | Outpatient (CLI) | payer MEDICAID ==
[~2019-06-08] MED LIST changes: +ACHYD1T PO; -HYDR-3820 PO; -MOME15CR17 TP; +MOME15CR8 TP
--- NOTE | 2019-06-08 14:11 | Diagnostic Imaging Report ---
PROCEDURE: MRI right joint lower extremity without contrast. TECHNIQUE: Multiplanar, multisequence non contrast-enhanced MRI of the right lower extremity was accomplished. INDICATION: Fall, right knee pain. COMPARISON: Radiographs from 06/01/2019. FINDINGS: No acute fracture or dislocation is seen in the right knee. There is mild lateral subluxation of the patella, otherwise alignment appears normal. No significant joint effusion is seen. The articular cartilage in the patellofemoral compartment demonstrates mild heterogeneity with no full-thickness defects. The articular cartilage in the medial and lateral compartments demonstrate no full-thickness defects. There is increased signal in the posterior horn of the medial meniscus, which appears to extend to the superior articular surface (image 17, series 5). The lateral meniscus appears intact. The anterior and posterior cruciate ligaments are intact. The medial collateral ligament appears intact. The lateral collateral ligamentous complex is intact. The extensor mechanism is intact. There is moderate anterior subcutaneous edema. There are focal irregular areas of edema and contusion in the subcutaneous fat at the anteromedial aspect of the knee. There is hypointense signal in gradient imaging and this may represent old hematoma. There is also mild edema in the superolateral aspect of Hoffa's fat pad. IMPRESSION: 1. No acute osseous abnormality seen in the right knee. 2. Intrasubstance degeneration at the posterior horn of the medial meniscus, with questionable small tear. 3. Focal edema, possibly old small hematoma, in the subcutaneous fat of the anterior medial right knee. 4. Mild lateral patellar subluxation with edema in the superolateral Hoffa's fat pad, which can be seen with patellofemoral impingement. Dictated by: Dictated on workstation # [id number]
== END ==
LOC: RAD 09:45
PROVIDERS: ATTEND Nurse Practitioner Community Health
DX: M23.221 Derangement of posterior horn of medial meniscus due to old tear or injury, right knee (principal); S83.011A Lateral subluxation of right patella, initial encounter; W19.XXXA Unspecified fall, initial encounter
CPT/HCPCS: 73721

== ENCOUNTER 2019-07-29 21:10 | Emergency (ER) | payer MEDICAID ==
[~2019-07-29] VITALS: Ht 170 cm; Wt 87.7 kg
[2019-07-29 21:18] VITALS: BP 118/73
[2019-07-29] MEDS ORDERED: RX-CYCLOBENZAPRINE 10 MG (FLEXERIL) TAB PPK#3 PO STA (21:21)
--- NOTE | 2019-07-29 21:25 | ED General ---
General Stated Complaint: DOG BITE ON FACE Source of Information: Patient Exam Limitations: No Limitations History of Present Illness Date Seen by Provider: Jul 29, 2019 Time Seen by Provider: 21:22 Initial Comments To ER with reports of a dog bite to the left side of her face that occurred earlier this evening. It did not break the skin. She had minimal pain initially but now it's a bit sore in the muscles feel tight. Timing/Duration: 4-6 Hours Associated Systoms: Denies Symptoms Allergies and Home Medications Allergies Coded Allergies: prednisone (Verified Allergy, Intermediate, 02/17/17) Home Medications Acyclovir 400 Mg Tablet, 400 MG PO 5XD Prescribed by: FALLON SURESH on 02/04/17 1341 Albuterol Sulfate 0.63 Mg/3 Ml Vial.neb, 0.63 MG IH PRN, (Reported) Albuterol/Ipratropium 4 Gm Aero, 2 PUFF IH TID, (Reported) Ciprofloxacin HCl 500 Mg Tablet, 500 MG PO BID Prescribed by: FALLON SURESH on 02/04/17 1358 Clonazepam 0.5 Mg Tablet, 0.5 MG PO BID, (Reported) Cyclobenzaprine HCl 10 Mg Tablet, 10 MG PO Q8H PRN for SPASMS Prescribed by: MIKE WAYNE on 11/30/18 0050 Cyclobenzaprine HCl 10 Mg Tablet, 10 MG PO TID Prescribed by: MECHE WORTHY on 01/30/19 1440 D-Methorphan Hb/P-Epd HCl/Bpm 118 Ml Syrup, 5 ML PO Q4H PRN for COUGH Prescribed by: PEARL OBRIEN on 04/09/181956 Dexamethasone 6 Mg Tablet, 6 MG PO DAILY 1 po bid for 4 days, then 1 po daily for 4 days Prescribed by: FALLON SURESH on 02/04/17 1341 Diclofenac Sodium 50 Mg Tablet.dr, 50 MG PO BID Prescribed by: MECHE WORTHY on 01/30/19 1440 Ibuprofen 600 Mg Tablet, 600 MG PO Q6HR Prescribed by: ANGELO ABARCA on 10/22/16 1008 Loratadine 10 Mg Tablet, 10 MG PO DAILY, (Reported) Meloxicam 7.5 Mg Tablet, 7.5 MG PO BID Prescribed by: MIKE WAYNE on 11/30/18 005 Methylprednisolone 4 Mg Tab, 4 MG PO UD as directed per dose pack Prescribed by: MIKE WAYNE on 11/30/18 0050 Mometasone Furoate 15 Gm Cream..g., 0 TP TID Prescribed by: YOSELYN HUYNH on 08/31/172043 Montelukast Sodium 10 Mg Tablet, 10 MG PO DAILY, (Reported) Naproxen 500 Mg Tablet, 500 MG PO BID PRN for PAIN-MODERATE (5-7) Prescribed by: PEARL OBRIEN on 06/01/19 1149 Oxycodone HCl/Acetaminophen 1 Each Tablet, 2 TAB PO Q4H PRN for PAIN-MODERATE Prescribed by: ANGELO ABARCA on 10/22/16 1008 Oxycodone HCl/Acetaminophen 1 Each Tablet, 1 EACH PO Q4H PRN for PAIN-SEVERE Prescribed by: PEARL OBRIEN on 10/30/16 2250 Spironolactone 25 Mg Tablet, 25 MG PO DAILY, (Reported) Patient Home Medication List Home Medication List Reviewed: Yes Review of Systems Review of Systems Constitutional: see HPI EENTM: see HPI Respiratory: no symptoms reported Cardiovascular: no symptoms reported Genitourinary: no symptoms reported Musculoskeletal: no symptoms reported Skin: no symptoms reported Psychiatric/Neurological: No Symptoms Reported Hematologic/Lymphatic: No Symptoms Reported Past Dcemwin-Fxcpdp-Rraqwg Hx Patient Social History Alcohol Beverage of Choice: Beer, [place] Type Used: Cigarettes Former Smoker, Quit: Feb 17, 2016 2nd Hand Smoke Exposure: No Recent Foreign Travel: No Contact w/Someone Who Travel: No Recent Hopitalizations: No Seasonal Allergies Seasonal Allergies: Yes Past Medical History Surgeries: Yes (LT KNEE, BILAT CARPAL TUNNEL, LT ANKLE, BSO WITH MAULIK AND D&C 10/2016) 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, Oophorectomy, Orthopedic Respiratory: Yes Asthma Cardiac: No Neurological: Yes (Silveira's palsy) 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 Disorders: Yes Female 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, 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 7.0oz. 136.986589rn; 30.00 BMI Method:Stated General Appearance: No Apparent Distress, WD/WN Eyes: Bilateral Eye Normal Inspection, Bilateral Eye PERRL, Bilateral Eye EOMI HEENT: PERRL/EOMI, TMs Normal, Normal ENT Inspection, Other (Face is entirely normal in appearance without swelling or ecchymosis erythema abrasion laceration or evidence that she was bit by dog.) Neck: Full Range of Motion, Normal Inspection Respiratory: No Accessory Muscle Use, No Respiratory Distress Extremity: Normal Capillary Refill, Normal Inspection Neurologic/Psychiatric: Alert, Oriented x3 Skin: Normal Color, Warm/Dry Progress/Results/Core Measures Suspected Sepsis SIRS Temperature: Pulse: Respiratory Rate: Blood Pressure / Mean: Results/Orders My Orders Orders - PEARL OBRIEN APRN Rx-Cyclobenzaprine Tablet (Rx-Flexeril T (07/29/19 21:21) Vital Signs/I&O Capillary Refill : Departure Impression Primary Impression: Facial contusion Qualified Codes: S00.83XA - Contusion of other part of head, initial encounter Disposition: 01 HOME, SELF-CARE Condition: Stable Departure-Patient Inst. Decision time for Depature: 21:24 [place]: [facility] [place] Primary Care Physician GAGE VALLES (Family) Primary Care Physician Patient Instructions: Contusion (DC) Add. Discharge Instructions: 1. Ice pack to the face. 2. Return to ER for any concerns. PEARL OBRIEN APRN Jul 29, 2019 21:25
== END 2019-07-29 21:30 | disposition home or self-care (01) ==
LOC: EDUNIT# 21:10 → ER 21:12
DX: S00.83XA Contusion of other part of head, initial encounter (principal); J45.909 Unspecified asthma, uncomplicated; E66.01 Morbid (severe) obesity due to excess calories; M54.5 Low back pain; G89.29 Other chronic pain; F31.9 Bipolar disorder, unspecified; F41.9 Anxiety disorder, unspecified; Z68.30 Body mass index [BMI] 30.0-30.9, adult; Z87.891 Personal history of nicotine dependence; Z88.8 Allergy status to other drugs, medicaments and biological substances; Z90.710 Acquired absence of both cervix and uterus; W54.0XXA Bitten by dog, initial encounter
CPT/HCPCS: 99283

== ENCOUNTER 2019-09-11 19:44 | Emergency (ER) | payer MEDICAID ==
[~2019-09-11] VITALS: Ht 170.1 cm; Wt 140.9 kg
--- NOTE | 2019-09-11 19:54 | ED Upper Extremity ---
General Chief Complaint: Upper Extremity Stated Complaint: FELL,WRIST INJ Source: patient Exam Limitations: no limitations History of Present Illness Date Seen by Provider: Sep 11, 2019 Time Seen by Provider: 19:52 Initial Comments Patient is a pleasant obese 34-year-old female presents for evaluation of a left wrist injury. She states that she tripped over an of her children's toys and injured the wrist. She denies any other complaints. She states that she is quite sure that there is a fracture. She was able to drive herself to the emergency department she states because she had to. Eyes previous injury to the wrist. She is alert and oriented 4, appears very uncomfortable and anxious. Onset: just prior to arrival Severity: severe Pain/Injury Location: left wrist Method of Injury: fell Modifying Factors: Improves With Movement (makes it worse) Allergies and Home Medications Allergies Coded Allergies: prednisone (Verified Allergy, Intermediate, 02/17/17) Home Medications Acyclovir 400 Mg Tablet, 400 MG PO 5XD Prescribed by: FALLON SURESH on 02/04/17 1341 Albuterol Sulfate 0.63 Mg/3 Ml Vial.neb, 0.63 MG IH PRN, (Reported) Albuterol/Ipratropium 4 Gm Aero, 2 PUFF IH TID, (Reported) Ciprofloxacin HCl 500 Mg Tablet, 500 MG PO BID Prescribed by: FALLON SURESH on 02/04/17 1358 Clonazepam 0.5 Mg Tablet, 0.5 MG PO BID, (Reported) Cyclobenzaprine HCl 10 Mg Tablet, 10 MG PO Q8H PRN for SPASMS Prescribed by: MIKE WAYNE on 11/30/18 0050 Cyclobenzaprine HCl 10 Mg Tablet, 10 MG PO TID Prescribed by: MECHE WROTHY on 01/30/19 1440 D-Methorphan Hb/P-Epd HCl/Bpm 118 Ml Syrup, 5 ML PO Q4H PRN for COUGH Prescribed by: PEARL OBRIEN on 04/09/181956 Dexamethasone 6 Mg Tablet, 6 MG PO DAILY 1 po bid for 4 days, then 1 po daily for 4 days Prescribed by: FALLON SURESH on 02/04/17 1341 Diclofenac Sodium 50 Mg Tablet.dr, 50 MG PO BID Prescribed by: MECHE WORTHY on 01/30/19 1440 Hydrocodone/Acetaminophen 1 Each Tablet, 1 EACH PO Q4H Prescribed by: GLYNN BAIG on 09/11/192005 Ibuprofen 600 Mg Tablet, 600 MG PO Q6HR Prescribed by: ANGELO AABRCA on 10/22/16 100 Loratadine 10 Mg Tablet, 10 MG PO DAILY, (Reported) Meloxicam 7.5 Mg Tablet, 7.5 MG PO BID Prescribed by: MIKE WAYNE on 11/30/18 005 Methylprednisolone 4 Mg Tab, 4 MG PO UD as directed per dose pack Prescribed by: MIKE WAYNE on 11/30/1849 Mometasone Furoate 15 Gm Cream..g., 0 TP TID Prescribed by: YOSELYN HUYNH on 08/31/172043 Montelukast Sodium 10 Mg Tablet, 10 MG PO DAILY, (Reported) Naproxen 500 Mg Tablet, 500 MG PO BID PRN for PAIN-MODERATE (5-7) Prescribed by: PEARL OBRIEN on 06/01/19 1149 Oxycodone HCl/Acetaminophen 1 Each Tablet, 2 TAB PO Q4H PRN for PAIN-MODERATE Prescribed by: ANGELO ABARCA on 10/22/16 1008 Oxycodone HCl/Acetaminophen 1 Each Tablet, 1 EACH PO Q4H PRN for PAIN-SEVERE Prescribed by: PEARL OBRIEN on 10/30/16 2250 Spironolactone 25 Mg Tablet, 25 MG PO DAILY, (Reported) Patient Home Medication List Home Medication List Reviewed: Yes Review of Systems Constitutional: no symptoms reported EENTM: no symptoms reported Respiratory: no symptoms reported Cardiovascular: no symptoms reported Gastrointestinal: no symptoms reported Genitourinary: no symptoms reported Musculoskeletal: joint pain (left wrists injury) Skin: no symptoms reported Psychiatric/Neurological: No Symptoms Reported All Other Systems Reviewed Negative Unless Noted: Yes Past Edxolgn-Ncskrf-Aeshyk Hx Past Med/Social Hx: Reviewed Nursing Past Med/Soc Hx Patient Social History Alcohol Beverage of Choice: Beer, [place] Type Used: Cigarettes Former Smoker, Quit: Feb 17, 2016 2nd Hand Smoke Exposure: No Recent Foreign Travel: No Contact w/Someone Who Travel: No Recent Hopitalizations: No Immunizations Up To Date Tetanus Booster (TDap): Less than 5yrs Seasonal Allergies Seasonal Allergies: Yes Past Medical History Surgeries: Yes (LT KNEE, BILAT CARPAL TUNNEL, LT ANKLE, BSO WITH MAULIK AND D&C 10/2016) 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, Oophorectomy, Orthopedic Respiratory: Yes Asthma Cardiac: No Neurological: Yes (Silveira's palsy) 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 Disorders: Yes Female 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, 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 Transmitted Disease: No HIV/AIDS: No Genitourinary: No Gastrointestinal: Yes (HX HEPATITIS C--NO TREATMENT) Liver Disease/Jaundice, Hepatitis Musculoskeletal: Yes (BULGING DISC L4-5) Degenerate Disk Disease, Chronic Back Pain Endocrine: Yes (MORBID OBESITY) HEENT: No Loss of Vision: Bilateral Cancer: No Psychosocial: Yes Anxiety, Bipolar, Depression Integumentary: Yes Psoriasis Blood Disorders: No Adverse Reaction/Blood Tranf: No (N/A) Family Medical History No Pertinent Family Hx Physical Exam Vital Signs Vital Signs - First Documented 09/11/19 19:45 Temp 37.1 Pulse 118 Resp 20 B/P (MAP) 143/86 (105) Pulse Ox 96 O2 Delivery Room Air Capillary Refill : Height, Weight, BMI Height: 5'7.00" Weight: 300lbs. 7.0oz. 136.193556hl; 30.00 BMI Method:Stated General Appearance: WD/WN, moderate distress (due to pain), obese HEENT: PERRL/EOMI, pharynx normal Neck: full range of motion, normal inspection Cardiovascular: regular rate, rhythm, no edema, no JVD Respiratory: normal breath sounds, no respiratory distress, no accessory muscle use Elbow/Forearm: normal inspection, no evidence of injury Wrist: Yes bone tenderness (left wrist on radial side) Hand: normal inspection, non-tender, no evidence of injury Neurologic/Psychiatric: early interventionist II-XII nml as tested, no motor/sensory deficits, alert, normal mood/affect, oriented x 3 Skin: normal color, warm/dry Progress/Results/Core Measures Results/Orders My Orders Orders - GLYNN BAIG DO Wrist 3 View Left (09/11/19 19:49) Ice: Apply To Affected Area (09/11/19 19:50) Fentanyl Injection (Sublimaze Injection (09/11/19 20:00) Ortho Glass (09/11/19 20:08) Medications Given in ED Current Medications Medications Dose Ordered Sig/Abena Route Start Time Stop Time Status Last Admin Dose Admin Fentanyl Citrate 75 mcg Q1H PRN IM 09/11/19 20:00 09/11/19 19:59 75 MCG Vital Signs/I&O 09/11/19 19:45 Temp 37.1 Pulse 118 Resp 20 B/P (MAP) 143/86 (105) Pulse Ox 96 O2 Delivery Room Air Progress Progress Note : Progress Note @2026 - patient updated on imaging results which shows a distal impacted radius fracture and an ulnar styloid fracture. Advised the patient to follow-up with orthopedics in the next 1-2 days and to return to the emergency department immediately for new or worsening symptoms. She'll go home with a prescription for [place] to be used as needed for pain relief. She expresses verbal understand ing and agreement with the plan and is stable for discharge. Diagnostic Imaging Diagonstic Imaging: Xray Comments NAME: [facility] REC#: [id number] PT STATUS: REG ER : 1985 PHYSICIAN: GLYNN BAIG DO ADMIT DATE: 09/11/19/ER FS Draft Date of Exam:09/11/19 WRIST 3 VIEW LEFT INDICATION: Left wrist injury FINDINGS: Three views of the left wrist show an impacted fracture of the distal radius at the level of the growth plate scar. There is dorsal impaction. There appears to be longitudinal ___ to the radiocarpal joint. There is a nondisplaced fracture of the ulnar styloid. IMPRESSION: Comminuted dorsally impacted fracture of the distal radius with associated ulnar styloid fracture. Dictated on workstation # [id number] Dict: 09/11/192009 Trans: 09/11/19 2017 [facility] [id number] Interpreted by: VINCE JACKSON MD Electronically signed by: Departure Impression Primary Impression: Distal radius fracture, left Additional Impression: Fracture of ulnar styloid Disposition: HOME, SELF-CARE Condition: Stable Departure-Patient Inst. Decision time for Depature: 20:32 Referrals: JOSHUA SHIN MD Patient Instructions: Wrist Fracture (DC) Add. Discharge Instructions: Wear the splint provided until cleared by orthopedics. Follow-up with orthopedics next 2-3 days. Take the prescribed pain medicine as directed. Return to the emergency Department immediately for new or worsening symptoms. Scripts Hydrocodone/Acetaminophen (Hydrocodone-Acetamin 5-325 mg) 1 Each Tablet 1 EACH PO Q4H for Pain for 7 Days, #20 TAB Prov: GLYNN BAIG DO 09/11/19 GLYNN BAIG DO Sep 11, 2019 19:54
[2019-09-11] MEDS ORDERED: fentaNYL INJECTION 100 MCG/2 ML AMP IVP ONE (20:00)
[2019-09-11] MEDS ORDERED: fentaNYL INJECTION 100 MCG/2 ML AMP IM PRN (20:00)
[2019-09-11] MEDS ORDERED: HYDR-83 PO (20:06)
--- NOTE | 2019-09-11 20:18 | Diagnostic Imaging Report ---
INDICATION: Left wrist injury FINDINGS: Three views of the left wrist show an impacted fracture of the distal radius at the level of the growth plate scar. There is dorsal impaction. There appears to be longitudinal component extending to the to the radiocarpal joint. There is a nondisplaced fracture of the ulnar styloid. IMPRESSION: Comminuted dorsally impacted fracture of the distal radius with associated ulnar styloid fracture. Dictated by: Dictated on workstation # [id number]
[2019-09-11 20:27] VITALS: BP 143/86
== END 2019-09-11 20:35 | disposition home or self-care (01) ==
LOC: EDUNIT# 19:44 → ER FS 19:45
DX: S52.592A Other fractures of lower end of left radius, initial encounter for closed fracture (principal); S52.615A Nondisplaced fracture of left ulna styloid process, initial encounter for closed fracture; J45.909 Unspecified asthma, uncomplicated; F41.9 Anxiety disorder, unspecified; F31.9 Bipolar disorder, unspecified; E66.01 Morbid (severe) obesity due to excess calories; G51.0 Bell's palsy; Z88.8 Allergy status to other drugs, medicaments and biological substances; Z79.51 Long term (current) use of inhaled steroids; Z87.891 Personal history of nicotine dependence; W01.0XXA Fall on same level from slipping, tripping and stumbling without subsequent striking against object, initial encounter
CPT/HCPCS: 29105; 73110

== ENCOUNTER 2020-01-31 18:24 | Emergency (ER) | payer MEDICAID ==
[~2020-01-31 18:24] MED LIST changes: +ACHD5005 PO
--- NOTE | 2020-01-31 18:38 | ED General ---
General Stated Complaint: EAR PAIN,CHEST PAIN,CLAMY Source of Information: Patient, Old Records, RN/MD, RN Notes Reviewed Exam Limitations: No Limitations History of Present Illness Date Seen by Provider: Jan 31, 2020 Time Seen by Provider: 18:25 Initial Comments This patient is a 34 she'll female presents to the emerge department complaining of congestion and concerned she might be developing the upper respiratory infection. Patient was seen at [place] at a local urgent care for the same complains was discharged home with no new medications patient was to continue her home medications which include Singulair Claritin Pro Air puff inhaler and medications for anxiety. Patient states that she went home and went to sleep and woke up and is felt like she was sick. Patient appears to have normal vital signs patient is slightly tachycardic at 104 this is more of that is related to her anxiety. Patient had no significant congestion no fever normal exam normal lung exam does not appear to be acutely short of breath. Pulse ox is 98% on room air. I did discuss length with patient and offered full medical screening exam advised the patient that I believe that she's having significant anxiety issues. At that time patient became very upset and refused further evaluation. Again offered the patient full medical exam including chest x-ray that the patient declined. Patient left the emergency department Allergies and Home Medications Allergies Coded Allergies: prednisone (Verified Allergy, Intermediate, 02/17/17) Home Medications Acyclovir 400 Mg Tablet, 400 MG PO 5XD Prescribed by: FALLON SURESH on 02/04/17 1341 Albuterol Sulfate 0.63 Mg/3 Ml Vial.neb, 0.63 MG IH PRN, (Reported) Albuterol/Ipratropium 4 Gm Aero, 2 PUFF IH TID, (Reported) Ciprofloxacin HCl 500 Mg Tablet, 500 MG PO BID Prescribed by: FALLON SURESH on 02/04/17 1358 Clonazepam 0.5 Mg Tablet, 0.5 MG PO BID, (Reported) Cyclobenzaprine HCl 10 Mg Tablet, 10 MG PO Q8H PRN for SPASMS Prescribed by: MIKE WAYNE on 11/30/18 0050 Cyclobenzaprine HCl 10 Mg Tablet, 10 MG PO TID Prescribed by: MECHE WORTHY on 01/30/19 1440 D-Methorphan Hb/P-Epd HCl/Bpm 118 Ml Syrup, 5 ML PO Q4H PRN for COUGH Prescribed by: PEARL OBRIEN on 04/09/18 195 Dexamethasone 6 Mg Tablet, 6 MG PO DAILY 1 po bid for 4 days, then 1 po daily for 4 days Prescribed by: FALLON SURESH on 02/04/17 1341 Diclofenac Sodium 50 Mg Tablet.dr, 50 MG PO BID Prescribed by: MECHE WORTHY on 01/30/19 1440 Hydrocodone/Acetaminophen 1 Each Tablet, 1 EACH PO Q4H Prescribed by: GLYNN BAIG on 09/11/192005 Ibuprofen 600 Mg Tablet, 600 MG PO Q6HR Prescribed by: ANGELO ABARCA on 10/22/16 100 Loratadine 10 Mg Tablet, 10 MG PO DAILY, (Reported) Meloxicam 7.5 Mg Tablet, 7.5 MG PO BID Prescribed by: MIKE WAYNE on 11/30/18 005 Methylprednisolone 4 Mg Tab, 4 MG PO UD as directed per dose pack Prescribed by: MIKE WAYNE on 11/30/18 005 Mometasone Furoate 15 Gm Cream..g., 0 TP TID Prescribed by: YOSELYN HUYNH on 08/31/172043 Montelukast Sodium 10 Mg Tablet, 10 MG PO DAILY, (Reported) Naproxen 500 Mg Tablet, 500 MG PO BID PRN for PAIN-MODERATE (5-7) Prescribed by: PEARL OBRIEN on 06/01/19 1149 Oxycodone HCl/Acetaminophen 1 Each Tablet, 2 TAB PO Q4H PRN for PAIN-MODERATE Prescribed by: ANGELO ABARCA on 10/22/16 1008 Oxycodone HCl/Acetaminophen 1 Each Tablet, 1 EACH PO Q4H PRN for PAIN-SEVERE Prescribed by: PEARL OBRIEN on 10/30/16 2250 Spironolactone 25 Mg Tablet, 25 MG PO DAILY, (Reported) Patient Home Medication List Home Medication List Reviewed: Yes Review of Systems Review of Systems Constitutional: No no symptoms reported; see HPI; No chills, No diaphoresis, No dizziness, No fever, No malaise, No weakness, No weight gain, No weight loss, No other EENTM: nose congestion; No see HPI, No no symptoms reported, No ear discharge, No hearing loss, No ear pain, No blurred vision, No double vision, No eye pain, No tearing, No vision loss, No dental problems, No hoarseness, No mouth pain, No mouth swelling, No epistaxis, No nose pain, No throat pain, No throat swelling, No other Respiratory: No no symptoms reported, No see HPI; cough; No dyspnea on exertion, No hemoptysis, No orthopnea, No phlegm, No short of breath, No stridor, No wheezing, No other Cardiovascular: No no symptoms reported, No see HPI, No chest pain, No edema, No Hx of Intervention, No palpitations, No syncope, No vascular heart diseas, No other Gastrointestinal: No RUQ, No LUQ, No RLQ, No LLQ, No no symptoms reported, No see HPI, No abdominal pain, No constipation, No diarrhea, No dysphagia, No hematemesis, No heartburn, No jaundice, No loss of appetite, No melena, No nausea, No vomiting, No other Genitourinary: No no symptoms reported, No see HPI, No decreased output, No discharge, No dysuria, No frequency, No hematuria, No hesitancy, No incontinence, No nocturia, No pain, No other Musculoskeletal: No no symptoms reported, No see HPI, No back pain, No gout, No joint pain, No joint swelling, No muscle pain, No muscle stiffness, No muscle cramps, No muscle twitching, No muscle weakness, No neck pain, No other Skin: No no symptoms reported, No see HPI, No change in color, No change in hair/nails, No dryness, No hx of skin cancer, No lesions, No lumps, No pruritus, No rash, No other Psychiatric/Neurological: Denies No Symptoms Reported, Denies See HPI, Denies Anxiety, Denies Depressed, Denies Emotional Problems, Denies Headache, Denies Numbness, Denies Paresthesia, Denies Pre-Existing Deficit, Denies Seizure, Denies Tingling, Denies Tremors, Denies Weakness, Denies Other Hematologic/Lymphatic: Denies No Symptoms Reported, Denies See HPI, Denies Anemia, Denies Blood Clots, Denies Easy Bleeding, Denies Easy Bruising, Denies Swollen Glands, Denies Other Immunological/Allergic: denies no symptoms reported, denies see HPI, denies food allergy, denies grass allergy, denies mold allergy, denies pollen allergy, denies HIV/AIDS, denies transplant All Other Systems Reviewed Negative Unless Noted: Yes Past Hkyoplx-Pgttvj-Mgbsgt Hx Patient Social History Alcohol Beverage of Choice: Beer, [place] Type Used: Cigarettes Former Smoker, Quit: Feb 17, 2016 2nd Hand Smoke Exposure: No Recent Foreign Travel: No Contact w/Someone Who Travel: No Recent Hopitalizations: No Immunizations Up To Date Tetanus Booster (TDap): Less than 5yrs Seasonal Allergies Seasonal Allergies: Yes Past Medical History Surgeries: Yes (LT KNEE, BILAT CARPAL TUNNEL, LT ANKLE, BSO WITH MAULIK AND D&C 10/2016) 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, Oophorectomy, Orthopedic Respiratory: Yes Asthma Cardiac: No Neurological: Yes (Silveira's palsy) 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 Disorders: Yes Female 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, 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 7.0oz. 136.687950rz; 49.00 BMI Method:Stated General Appearance: No Apparent Distress, WD/WN HEENT: PERRL/EOMI, TMs Normal, Normal ENT Inspection, Pharynx Normal Respiratory: Chest Non Tender, Lungs Clear, Normal Breath Sounds, No Accessory Muscle Use, No Respiratory Distress Cardiovascular: Regular Rate, Rhythm, No Edema, No Gallop, No JVD, No Murmur, Normal Peripheral Pulses Gastrointestinal: Normal Bowel Sounds, No Organomegaly, No Pulsatile Mass, Non Tender, Soft Neurologic/Psychiatric: Alert, Oriented x3, No Motor/Sensory Deficits, Normal Mood/Affect Skin: Normal Color, Warm/Dry Progress/Results/Core Measures Suspected Sepsis SIRS Temperature: Pulse: Respiratory Rate: Blood Pressure / Mean: Results/Orders Vital Signs/I&O Capillary Refill : Progress Note : Time: 18:34 Progress Note Patient was seen this morning with complaints for an upper respiratory infection local urgent care in [place]. Patient had a negative exam and was discharged home. Patient was to continue all home medications. Patient was offered full me dical screening exam including chest x-ray to evaluate for upper respiratory infection. I did discuss at length with patient about my concerns of her having an anxiety issues. Patient takes meant couple medications for same patient also takes multiple medications for nasal congestion shortness of breath. Inhalers Singulair and Claritin. Patient is completely normal exam I did discuss at length with patient about her anxiety issues and I did offer full medical screening exam with patient became upset and left against medical advise. Patient refused any further evaluation. ECG Initial ECG Impression Date: Jan 31, 2020 Departure Impression Primary Impression: Left against medical advice Additional Impression: Anxiety Disposition: 01 HOME, SELF-CARE Condition: Stable Departure-Patient Inst. Decision time for Depature: 18:33 Referrals: [facility]IDA (PCP) Primary Care Physician GAGE VALLES (Family) Primary Care Physician FLORENCIO COLON MD Jan 31, 2020 18:38
== END 2020-01-31 18:49 | disposition home or self-care (01) ==
LOC: EDUNIT# 18:24 → ER FS 18:26
DX: F41.9 Anxiety disorder, unspecified (principal); E66.01 Morbid (severe) obesity due to excess calories; J45.909 Unspecified asthma, uncomplicated; G89.29 Other chronic pain; M54.9 Dorsalgia, unspecified; Z68.42 Body mass index [BMI] 45.0-49.9, adult; Z87.891 Personal history of nicotine dependence; Z88.8 Allergy status to other drugs, medicaments and biological substances; Z79.891 Long term (current) use of opiate analgesic; Z79.52 Long term (current) use of systemic steroids

== ENCOUNTER 2020-08-23 20:56 | Emergency (ER) | payer MEDICAID ==
[~2020-08-23] VITALS: Ht 170.2 cm; Wt 132.9 kg
[~2020-08-23 20:56] MED LIST changes: -ACYC400T PO; +ACYC400T21 PO; -OXYC-471 PO; +OXYC1TAB11 PO
--- NOTE | 2020-08-23 21:28 | Diagnostic Imaging Report ---
INDICATION: Status post fall weeks ago with the leg pain TECHNIQUE: AP and lateral views of the left tibia and fibula CORRELATION STUDY: None FINDINGS: The tibia and fibula are intact. There is no evidence for acute fracture. Limited visualized portions of the knee and ankle are unremarkable. Suggestion of slight soft tissue prominence along the anterior proximal leg. Could reflect a small area of hematoma and/or edema. IMPRESSION: 1.Negative for acute bony abnormality of the leg. Dictated by: Dictated on workstation # [id number]
--- NOTE | 2020-08-23 22:15 | ED Lower Extremity ---
General Chief Complaint: Lower Extremity Stated Complaint: LT CALF PAIN/DICOLORATION Nursing Triage Note: pt states she was intoxicated 2 weeks ago and fell. Pt co left anterior lower leg pain Nursing Sepsis Screen: No Definite Risk Source: patient History of Present Illness Date Seen by Provider: August 23, 2020 Time Seen by Provider: 20:00 Initial Comments Patient is a 35-year-old female presents with right leg pain. Patient states she banged her leg 2 weeks ago has had persistent right anterior proximal right anterior leg pain. Patient reports increased anterior leg pain and swelling over the past 2 days. Pain is described as moderate dull and worse with ambulation she has not had an x-ray to receive medical care. Denies extremity weakness or loss of sensation. No posterior calf pain. No chest pain shortness of breath. No other acute symptoms or complaints. Pain/Injury Location: right leg Method of Injury: fell Modifying Factors: Improves With Other Allergies and Home Medications Allergies Coded Allergies: prednisone (Verified Allergy, Intermediate, 02/17/17) Home Medications Acyclovir 400 Mg Tablet, 400 MG PO 5XD Prescribed by: FALLON SURESH on 02/04/17 1341 Albuterol Sulfate 0.63 Mg/3 Ml Vial.neb, 0.63 MG IH PRN, (Reported) Albuterol/Ipratropium 4 Gm Aero, 2 PUFF IH TID, (Reported) Ciprofloxacin HCl 500 Mg Tablet, 500 MG PO BID Prescribed by: FALLON SURESH on 02/04/17 1358 Clonazepam 0.5 Mg Tablet, 0.5 MG PO BID, (Reported) Cyclobenzaprine HCl 10 Mg Tablet, 10 MG PO Q8H PRN for SPASMS Prescribed by: MIKE WAYNE on 11/30/18 0050 Cyclobenzaprine HCl 10 Mg Tablet, 10 MG PO TID Prescribed by: MECHE WORTHY on 01/30/19 1440 D-Methorphan Hb/P-Epd HCl/Bpm 118 Ml Syrup, 5 ML PO Q4H PRN for COUGH Prescribed by: PEARL OBRIEN on 04/09/181956 Dexamethasone 6 Mg Tablet, 6 MG PO DAILY 1 po bid for 4 days, then 1 po daily for 4 days Prescribed by: FALLON SURESH on 02/04/17 1341 Diclofenac Sodium 50 Mg Tablet.dr, 50 MG PO BID Prescribed by: MECHE WORTHY on 01/30/19 1440 Hydrocodone/Acetaminophen 1 Each Tablet, 1 EACH PO Q4H Prescribed by: GLYNN BAIG on 09/11/192005 Ibuprofen 600 Mg Tablet, 600 MG PO Q6HR Prescribed by: ANGELO ABARCA on 10/22/16 1008 Loratadine 10 Mg Tablet, 10 MG PO DAILY, (Reported) Meloxicam 7.5 Mg Tablet, 7.5 MG PO BID Prescribed by: MIKE WAYNE on 11/30/18 005 Methylprednisolone 4 Mg Tab, 4 MG PO UD as directed per dose pack Prescribed by: MIKE WAYNE on 11/30/18 005 Mometasone Furoate 15 Gm Cream..g., 0 TP TID Prescribed by: YOSELYN HUYNH on 08/31/172043 Montelukast Sodium 10 Mg Tablet, 10 MG PO DAILY, (Reported) Naproxen 500 Mg Tablet, 500 MG PO BID PRN for PAIN-MODERATE (5-7) Prescribed by: PEARL OBRIEN on 06/01/19 1149 Oxycodone HCl/Acetaminophen 1 Each Tablet, 2 TAB PO Q4H PRN for PAIN-MODERATE Prescribed by: ANGELO ABARCA on 10/22/16 1008 Oxycodone HCl/Acetaminophen 1 Each Tablet, 1 EACH PO Q4H PRN for PAIN-SEVERE Prescribed by: PEARL OBRIEN on 10/30/16 2250 Spironolactone 25 Mg Tablet, 25 MG PO DAILY, (Reported) Patient Home Medication List Home Medication List Reviewed: Yes Review of Systems Constitutional: no symptoms reported EENTM: no symptoms reported Respiratory: see HPI Cardiovascular: see HPI Gastrointestinal: see HPI Genitourinary: see HPI Musculoskeletal: see HPI Past Ugalgza-Ewhzfp-Zsndni Hx Past Med/Social Hx: Reviewed Nursing Past Med/Soc Hx Patient Social History Alcohol Use: Occasionally Uses Number of Drinks Today: BB Alcohol Beverage of Choice: Beer, [place] Type Used: Cigarettes Former Smoker, Quit: Feb 17, 2016 2nd Hand Smoke Exposure: No Recent Infectious Disease Expo: No Recent Hopitalizations: No Immunizations Up To Date Tetanus Booster (TDap): Less than 5yrs Seasonal Allergies Seasonal Allergies: Yes Past Medical History Surgeries: Yes (LT KNEE, BILAT CARPAL TUNNEL, LT ANKLE, BSO WITH MAULIK AND D&C 10/2016) 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, Oophorectomy, Orthopedic Respiratory: Yes Asthma Cardiac: No Neurological: Yes (Silveira's palsy) 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 Disorders: Yes Female 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, 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 Sexually Transmitted Disease: No HIV/AIDS: No Genitourinary: No Gastrointestinal: Yes (HX HEPATITIS C--NO TREATMENT) Liver Disease/Jaundice, Hepatitis Musculoskeletal: Yes (BULGING DISC L4-5) Degenerate Disk Disease, Chronic Back Pain Endocrine: Yes (MORBID OBESITY) HEENT: No Loss of Vision: Bilateral Cancer: No Psychosocial: Yes Anxiety, Bipolar, Depression Integumentary: Yes Psoriasis Blood Disorders: No Adverse Reaction/Blood Tranf: No (N/A) Family Medical History No Pertinent Family Hx Physical Exam Vital Signs Vital Signs - First Documented 08/23/20 21:11 Temp 36.9 Pulse 100 Resp 18 B/P (MAP) 146/93 (110) Pulse Ox 100 O2 Delivery Room Air Capillary Refill : Less Than 3 Seconds Height, Weight, BMI Height: 5'7.00" Weight: 300lbs. 7.0oz. 136.120069du; 45.00 BMI Method:Stated General Appearance: WD/WN, no apparent distress Legs: right leg pain, right leg soft tissue tenderness, right leg swelling (Right anterior leg) Progress/Results/Core Measures Results/Orders My Orders Orders - OSEI BERNABE DO Tibia Fibula 2 View Left (08/23/20 21:12) Vital Signs/I&O 08/23/20 21:11 Temp 36.9 Pulse 100 Resp 18 B/P (MAP) 146/93 (110) Pulse Ox 100 O2 Delivery Room Air Blood Pressure Mean: 110 Departure Communication (Admissions) Left tib-fib: No acute bony abnormality. Patient with left leg contusion without evidence of fracture. No findings suggestive of compartment syndrome. Recommendations are for rice. Impression Primary Impression: Left leg pain Disposition: 01 HOME, SELF-CARE Condition: Stable Departure-Patient Inst. Decision time for Depature: 22:26 Referrals: [facility]/JAIDA (PCP) Primary Care Physician GAGE VALLES (Family) Primary Care Physician Patient Instructions: Contusion (DC) Add. Discharge Instructions: Please keep leg elevated at rest. Apply ice pack for 20 to 30 minutes every 2-3 hours. Take ibuprofen for pain and use crutches. Take tramadol as needed for additional relief. Follow-up with your PCP in 3 to 5 days for reevaluation. All discharge instructions reviewed with patient and/or family. Voiced understanding. Scripts Tramadol HCl (Tramadol HCl) 50 Mg Tablet 50 MG PO Q6H PRN for PAIN for 3 Days, #10 TAB 0 Refills Prov: OSEI BERNABE DO 08/23/20 OSEI BERNABE DO August 23, 2020 22:15
[2020-08-23] MEDS ORDERED: TRM50T PO (22:26)
[2020-08-23 22:39] VITALS: BP 146/93
== END 2020-08-23 22:39 | disposition home or self-care (01) ==
LOC: EDUNIT# 20:56 → ER FS 20:58
DX: S80.12XA Contusion of left lower leg, initial encounter (principal); M79.604 Pain in right leg; J45.909 Unspecified asthma, uncomplicated; G89.29 Other chronic pain; M54.9 Dorsalgia, unspecified; F41.9 Anxiety disorder, unspecified; F31.9 Bipolar disorder, unspecified; E66.01 Morbid (severe) obesity due to excess calories; Z68.42 Body mass index [BMI] 45.0-49.9, adult; Z77.22 Contact with and (suspected) exposure to environmental tobacco smoke (acute) (chronic); Z88.8 Allergy status to other drugs, medicaments and biological substances; Z79.899 Other long term (current) drug therapy; Z79.1 Long term (current) use of non-steroidal anti-inflammatories (NSAID); Z79.891 Long term (current) use of opiate analgesic; Z79.51 Long term (current) use of inhaled steroids; Z79.52 Long term (current) use of systemic steroids; W19.XXXA Unspecified fall, initial encounter
CPT/HCPCS: 73590

== ENCOUNTER 2021-01-14 20:31 | Emergency (ER) | payer MEDICAID ==
[~2021-01-14 20:31] MED LIST changes: -SULF1TAB35 PO; +SULF1TAB38 PO
--- NOTE | 2021-01-14 20:59 | ED Fall/Injury ---
General Stated Complaint: FELL, HIT HEAD, VOMITTING, RT ANKLE PAIN Source: patient Exam Limitations: no limitations History of Present Illness Date Seen by Provider: Jan 14, 2021 Time Seen by Provider: 20:43 Initial Comments Patient reports to the ER by private conveyance from the [place] where she was walking on some unstable rocks where she tripped, twisting her right knee and ankle causing some pain in her right foot laterally and dorsally. She also fell backwards striking the back of her head. There is no bleeding. She did not lose consciousness. After about half an hour she had one episode of vomiting. She still having some nausea now. She has not taken anything for the pain or nausea. No previous injuries. She is prediabetic. She follows with Dr. Adam for primary care. She rates her pain is about a 7.5 out of 10 in her foot. Patient is status post hysterectomy. Allergies and Home Medications Allergies Coded Allergies: prednisone (Verified Allergy, Intermediate, 02/17/17) Patient Home Medication List Home Medication List Reviewed: Yes Acyclovir (Acyclovir) 400 Mg Tablet, 400 MG PO 5XD Prescribed by: FALLON SURESH on 02/04/17 1341 Albuterol Sulfate (Albuterol Sulfate) 0.63 Mg/3 Ml Vial.neb, 0.63 MG IH PRN, (Reported) Entered as Reported by: MAURA SHEPARD on 10/20/16 1307 Albuterol/Ipratropium (Combivent Respimat Inhal [place]) 4 Gm Aero, 2 PUFF IH TID, (Reported) Entered as Reported by: MAURA SHEPARD on 10/20/16 1316 Ciprofloxacin HCl (Cipro) 500 Mg Tablet, 500 MG PO BID Prescribed by: FALLON SURESH on 02/04/17 1358 Clonazepam (Klonopin) 0.5 Mg Tablet, 0.5 MG PO BID, (Reported) Entered as Reported by: MAURA SHEPARD on 10/20/16 1307 Cyclobenzaprine HCl (Cyclobenzaprine HCl) 10 Mg Tablet, 10 MG PO Q8H PRN for SPASMS Prescribed by: MIKE WAYNE on 11/30/18 0050 Cyclobenzaprine HCl (Cyclobenzaprine HCl) 10 Mg Tablet, 10 MG PO TID Prescribed by: MECHE WORTHY on 01/30/19 1440 D-Methorphan Hb/P-Epd HCl/Bpm (Bromfed Dm Cough Syrup) 118 Ml Syrup, 5 ML PO Q4H PRN for COUGH Prescribed by: PEARL OBRIEN on 04/09/181956 Dexamethasone (Dexamethasone) 6 Mg Tablet, 6 MG PO DAILY Prescribed by: FALLON SURESH on 02/04/17 1341 Diclofenac Sodium (Diclofenac Sodium) 50 Mg Tablet.dr, 50 MG PO BID Prescribed by: MECHE WORTHY on 01/30/19 1440 Hydrocodone/Acetaminophen (Hydrocodone-Acetamin 5-325 mg) 1 Each Tablet, 1 EACH PO Q4H Prescribed by: GLYNN BAIG on 09/11/192005 Ibuprofen (Ibuprofen) 600 Mg Tablet, 600 MG PO Q6HR Prescribed by: ANGELO ABARCA on 10/22/16 100 Loratadine (Claritin) 10 Mg Tablet, 10 MG PO DAILY, (Reported) Entered as Reported by: MAURA SHEPARD on 10/20/16 130 Meloxicam (Meloxicam) 7.5 Mg Tablet, 7.5 MG PO BID Prescribed by: MIKE WAYNE on 11/30/18 005 Methylprednisolone (Medrol Dose pack) 4 Mg Tab, 4 MG PO UD Prescribed by: MIKE WAYNE on 11/30/18 005 Mometasone Furoate (Elocon) 15 Gm Cream..g., 0 TP TID Prescribed by: YOSELYN HUYNH on 08/31/172043 Montelukast Sodium (Singulair) 10 Mg Tablet, 10 MG PO DAILY, (Reported) Entered as Reported by: MAURA SHEPARD on 10/20/16 1307 Naproxen (Naprosyn) 500 Mg Tablet, 500 MG PO BID PRN for PAIN-MODERATE (5-7) Prescribed by: PEARL OBRIEN on 06/01/19 1149 Ondansetron (Ondansetron Odt) 4 Mg Tab.rapdis, 4 MG PO Q6H PRN for NAUSEA/VOMITING Prescribed by: MIKE WAYNE on 01/14/21 2100 Oxycodone HCl/Acetaminophen (Oxycodone-Acetaminophen 5-325) 1 Each Tablet, 2 TAB PO Q4H PRN for PAIN-MODERATE Prescribed by: ANGELO ABARCA on 10/22/16 1008 Oxycodone HCl/Acetaminophen (Oxycodone-Acetaminophen 5-325) 1 Each Tablet, 1 EACH PO Q4H PRN for PAIN-SEVERE Prescribed by: PEARL OBRIEN on 10/30/16 2250 Spironolactone (Aldactone) 25 Mg Tablet, 25 MG PO DAILY, (Reported) Entered as Reported by: MAURA SHEPARD on 10/20/16 1315 Tramadol HCl (Tramadol HCl) 50 Mg Tablet, 50 MG PO Q6H PRN for PAIN Prescribed by: OSEI BERNABE on 08/23/20 2226 Review of Systems Review of Systems Constitutional: No chills, No diaphoresis Eyes: Denies Blindness, Denies Drainage Ears, Nose, Mouth, Throat: denies ear pain, denies mouth pain Respiratory: No cough, No hemoptysis Cardiovascular: No chest pain, No edema Gastrointestinal: No abdominal pain; nausea, vomiting (X1) Genitourinary: No discharge, No dysuria Musculoskeletal: No back pain, No joint pain All Other Systems Reviewed Negative Unless Noted: Yes Past Hjyrqcc-Iprlxi-Eewmpr Hx Patient Social History Use of E-Cig and/or Vaping dev: No Substance use?: No Alcohol Use?: No Immunizations Up To Date Tetanus Booster (TDap): Less than 5yrs Seasonal Allergies Seasonal Allergies: Yes Past Medical History Surgeries: Yes (LT KNEE, BILAT CARPAL TUNNEL, LT ANKLE, BSO WITH MAULIK AND D&C 10/2016) 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, Oophorectomy, Orthopedic Respiratory: Yes Asthma Cardiac: No Neurological: Yes (Silveira's palsy) 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 Disorders: Yes Female 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, 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 History: 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 Sexually Transmitted Disease: No HIV/AIDS: No Genitourinary: No Gastrointestinal: Yes (HX HEPATITIS C--NO TREATMENT) Liver Disease/Jaundice, Hepatitis Musculoskeletal: Yes (BULGING DISC L4-5) Degenerate Disk Disease, Chronic Back Pain Endocrine: Yes (MORBID OBESITY) HEENT: No Loss of Vision: Bilateral Cancer: No Psychosocial: Yes Anxiety, Bipolar, Depression Integumentary: Yes Psoriasis Blood Disorders: No Adverse Reaction/Blood Tranf: No (N/A) Family Medical History No Pertinent Family Hx Physical Exam Vital Signs Capillary Refill : Height, Weight, BMI Height: 5'7.00" Weight: 300lbs. 7.0oz. 136.912762mo; 45.00 BMI Method:Stated General Appearance: WD/WN, no apparent distress HEENT: PERRL/EOMI, normal ENT inspection, TMs normal (Negative for hemotympanum, drake sign or raccoon eyes), pharynx normal, other (Mild tenderness over the occiput but no hematoma or laceration) Neck: non-tender, full range of motion, supple, normal inspection Cardiovascular: normal peripheral pulses, regular rate, rhythm Respiratory: lungs clear, normal breath sounds, no respiratory distress, no accessory muscle use Gastrointestinal: non tender, soft Extremities: other (Tenderness over the right fourth and fifth metatarsal proximally but none over the medial or lateral right malleoli. Knee full range of motion. Antalgic gait.) Neurologic/Psychiatric: alert, normal mood/affect, oriented x 3 Nick Coma Score Best Eye Response: (4) Open Spontaneously Best Verbal Response: (5) Oriented Best Motor Response: (6) Obeys Commands Ola Total: 15 Progress/Results/Core Measures Results/Orders My Orders Orders - MIKE WAYNE Ondansetron Injection (Zofran Injectio (01/14/21 21:00) Foot 2 View Right (01/14/21 20:52) Medications Given in ED Current Medications Medications Dose Ordered Sig/Abena Route Start Time Stop Time Status Last Admin Dose Admin Ondansetron HCl 4 mg ONCE ONCE IVP 01/14/21 21:00 01/14/21 21:01 DC 01/14/21 21:03 4 MG Progress Progress Note : Time: 20:56 Progress Note She is able to bear weight on her foot however she is having some tenderness over the proximal metatarsal laterally so we will get a plain film of the foot. Ice. She declined anything for pain. Zofran was offered sublingual versus IM and she would prefer IM. We did discuss the risks, benefits and alternatives to imaging versus observation and the patient states she lives here in town and will be staying at her home and will come back if anything gets worse. We will send her home with a take-home pack of Zofran. Using a clinically supported decision-making process she did elect not to do imaging at this time. Return precautions were discussed. Concussion management was discussed Diagnostic Imaging Diagonstic Imaging: Xray Plain Films/CT/US/NM/MRI: ankle (r) Comments NAME: [facility] REC#: [id number] PT STATUS: REG ER : 1985 PHYSICIAN: MIKE WAYNE MD ADMIT DATE: 01/14/21/ER FS Draft Date of Exam:01/14/21 FOOT 2 VIEW RIGHT INDICATION: Lateral foot pain FINDINGS: The 5th metatarsal and its base intact. The toes are held in flexion limiting their evaluation. No fracture or dislocation. There is plantar calcaneal spurring and an ossicle proximal to the medial tarsal navicular. No focal soft tissue swelling. No opaque foreign body and no gas. IMPRESSION: No acute appearing bony abnormality revealed at 2 view right foot. Dictated on workstation # [id number] Dict: 01/14/212115 Trans: 01/14/212123 [facility] [id number] Interpreted by: JONO MOSER Electronically signed by: Reviewed: Reviewed by Me Departure Impression Primary Impression: Fall Qualified Codes: W19.XXXA - Unspecified fall, initial encounter Additional Impressions: Right ankle pain Qualified Codes: M25.571 - Pain in right ankle and joints of right foot Concussion Qualified Codes: S06.0X0A - Concussion without loss of consciousness, initial encounter Disposition: 01 HOME, SELF-CARE Condition: Stable Departure-Patient Inst. Decision time for Depature: 21:27 Referrals: JASVIR ADAM MD (PCP/Family) Primary Care Physician Patient Instructions: Ankle Sprain ED, Knee Pain, Concussion, Adult (DC) Add. Discharge Instructions: Drink plenty of fluids. Tylenol 1000 mg every 8 hours necessary for pain. Ibuprofen 800 mg every 8 hours as necessary for pain. Ice 20 minutes on your ankle and knee as necessary for swelling or pain every 2 hours for the first 2 to 3 days. Elevate your ankle and knee above the level of your heart if you are having increased swelling and/or pain. Zofran 1 tablet under the tongue every 6 hours as necessary for nausea and/or vomiting. Expect to have headache, sleepiness and irritability as well as occasional n ausea with concussion. If your symptoms are out of control or you are having confusion or other worrisome symptoms then promptly return to the nearest ER. Scripts Ondansetron (Ondansetron Odt) 4 Mg Tab.rapdis 4 MG PO Q6H PRN for NAUSEA/VOMITING, #8 TAB 0 Refills Prov: MIKE WAYNE 01/14/21 MIKE WAYNE Jan 14, 2021 20:59
[2021-01-14] MEDS ORDERED: ONDA4TAB11 PO (21:00)
[2021-01-14] MEDS ORDERED: ONDANSETRON 4 MG/2 ML (SDV) Z0FRAN IVP ONE (21:00)
--- NOTE | 2021-01-14 21:25 | Diagnostic Imaging Report ---
INDICATION: Lateral foot pain FINDINGS: The 5th metatarsal and its base intact. The toes are held in flexion limiting their evaluation. No fracture or dislocation. There is plantar calcaneal spurring and an ossicle proximal to the medial tarsal navicular. No focal soft tissue swelling. No opaque foreign body and no gas. IMPRESSION: No acute appearing bony abnormality revealed at 2 view right foot. Dictated by: Dictated on workstation # [id number]
[2021-01-14] MEDS ORDERED: RX-ONDANSETRON 4 MG ODT (ZOFRAN) PPK #4 PO STA (21:27)
[2021-01-14 21:35] VITALS: BP 130/69
== END 2021-01-14 21:35 | disposition home or self-care (01) ==
LOC: EDUNIT# 20:31 → ER FS 20:32
DX: S06.0X0A Concussion without loss of consciousness, initial encounter (principal); M25.571 Pain in right ankle and joints of right foot; J45.909 Unspecified asthma, uncomplicated; E66.01 Morbid (severe) obesity due to excess calories; G89.29 Other chronic pain; M54.9 Dorsalgia, unspecified; F41.9 Anxiety disorder, unspecified; R40.2410 Glasgow coma scale score 13-15, unspecified time; Z68.42 Body mass index [BMI] 45.0-49.9, adult; Z79.891 Long term (current) use of opiate analgesic; Z79.899 Other long term (current) drug therapy; W22.8XXA Striking against or struck by other objects, initial encounter
CPT/HCPCS: 73620

== ENCOUNTER → 2021-03-24 | Outpatient (CLI) | payer MEDICAID ==
[~2021-03-24] MED LIST changes: +CYCL10TA25 PO; -CYCL10TA9 PO; +ONDA4TAB11 PO
--- NOTE | 2021-03-24 08:38 | Diagnostic Imaging Report ---
EXAMINATION: US Abdomen limited. TECHNIQUE: Multiple real-time grayscale images were obtained over the right upper quadrant in various projections. REASON FOR EXAM: Epigastric pain. COMPARISON: 08/01/2016. FINDINGS: The liver is normal in size and shape. Increased echogenicity is seen throughout the liver. There are no focal lesions. No intrahepatic biliary dilatation is present. The common bile duct is not dilated and measures 4 mm. The main portal vein is hepatopedal. No ascites is seen in the upper abdomen. There is no evidence of cholelithiasis, gallbladder wall thickening or pericholecystic fluid. Sonographic Garcia's sign is negative. The visualized portion of the head of the pancreas are within normal limits. The body and tail of the pancreas are not well visualized due to overlying bowel gas. The visualized portions of the IVC and aorta appear normal. The right kidney measures approximately 9.5 cm in length and has a normal appearance. IMPRESSION: 1. Hepatic steatosis. No focal hepatic lesions. 2. No evidence of cholelithiasis or acute cholecystitis. Dictated by: Dictated on workstation # [id number]
== END ==
LOC: RAD 08:00
PROVIDERS: ATTEND Surgery
DX: K76.0 Fatty (change of) liver, not elsewhere classified (principal)
CPT/HCPCS: 76705

== ENCOUNTER 2021-03-31 05:43 | Outpatient (CLI) | payer MEDICAID ==
[~2021-03-31] VITALS: Ht 170.2 cm; Wt 140.2 kg
[2021-03-31] MEDS ORDERED: FLUC150T2 PO (10:41)
[2021-03-31] MEDS ORDERED: NALT50TA PO (10:41)
[2021-03-31] MEDS ORDERED: BUPR100T15 PO (10:41)
[2021-03-31] MEDS ORDERED: NYST60PO TP (10:41)
[2021-03-31] MEDS ORDERED: BUSP15TA60 PO (10:41)
[2021-03-31] MEDS ORDERED: DULA1.5P2 SQ (10:41)
[2021-03-31] MEDS ORDERED: PANT40GR PO (10:41)
== END 2021-03-31 13:06 | disposition home or self-care (01) ==
LOC: PREOP 05:43
PROVIDERS: ATTEND Surgery
DX: Z01.818 Encounter for other preprocedural examination (principal)

== ENCOUNTER → 2021-04-03 | Outpatient (CLI) | payer MEDICAID ==
[~2021-04-03] MED LIST changes: +BUPR100T15 PO; +BUSP15TA60 PO; +CATHETER FLUSH 10 ML SYR IV PRN; +DULA1.5P2 SQ; +ESOM40CA52 PO; +FLUC150T2 PO; +NALT50TA PO; +NYST60PO TP; +ONDA-105 PO; +PANT40GR PO; +RT-ALBUINH INH
--- NOTE | 2021-04-03 18:19 | Diagnostic Imaging Report ---
INDICATION: Abdominal pain. TECHNIQUE: Patient was administered 4.9 mCi technetium 99m Choletec and imaging over the abdomen was performed. After one hour patient ingested 8 ounces of Ensure and the gallbladder ejection fraction was calculated. FINDINGS: There is homogeneous uptake of activity by the liver with prompt excretion of activity into the gallbladder and common duct. There is normal passage of activity into the small bowel. Gallbladder ejection fraction is abnormally low at 22%. Normal values are 35% or greater. IMPRESSION: 1. Patent common bile duct and cystic duct. 2. Low gallbladder ejection fraction of 22%. Dictated by: Dictated on workstation # [id number]
== END ==
LOC: CARD 12:00
PROVIDERS: ATTEND Family Medicine
DX: K21.9 Gastro-esophageal reflux disease without esophagitis (principal)
CPT/HCPCS: 78227; A9537

== ENCOUNTER 2021-04-07 08:27 | Day surgery (SDC) | payer MEDICAID ==
[~2021-04-07] VITALS: Ht 170.2 cm; Wt 140.2 kg
[~2021-04-07 08:27] MED LIST changes: -CATHETER FLUSH 10 ML SYR IV PRN; -ESOM40CA52 PO; -ONDA-105 PO; -RT-ALBUINH INH
[2021-04-07] MEDS ORDERED: LACTATED RINGERS 1,000 ML IV ONE (08:38)
[2021-04-07] MEDS ORDERED: LACTATED RINGERS 1,000 ML IV STA (08:40)
[2021-04-07] MEDS ORDERED: HURRICAINE EXT TUBE (BENZOCAINE) XX PRN (08:45)
[2021-04-07 08:50] VITALS: BP 128/69
--- NOTE | 2021-04-07 08:59 | Progress Note-Pre Operative ---
Pre-Operative Progress Note H&P Reviewed The H&P was reviewed, patient examined and no changes noted. Time Seen by Provider: 08:55 Date H&P Reviewed: Apr 07, 2021 Time H&P Reviewed: 08:55 Pre-Operative Diagnosis: Epigastric pain, GERD ANN MEJIA DO Apr 07, 2021 08:59
[2021-04-07] MEDS ORDERED: MIDAZOLAM 2 MG/2 ML (VERSED) VIAL ONE (09:53)
[2021-04-07] MEDS ORDERED: PROPOFOL INJECTION 50 ML IV ONE (09:53)
--- NOTE | 2021-04-07 10:14 | Progress Note-Post Operative ---
Post-Operative Progess Note Surgeon (s)/Palaeontologist (s) Surgeon ANN MEJIA DO Palaeontologist: none Pre-Operative Diagnosis Epigastric pain, GERD Post-Operative Diagnosis Gastritis Esophagitis hiatal hernia Procedure & Operative Findings Date of Procedure 04/07/21 Procedure Performed/Findings EGD with bx PROCEDURE NOTE: After informed consent was obtained, the patient was brought to the endoscopy suite, placed in bed in left lateral decubitus position. She was administered IV sedation by the NON DESTRUCTIVE TESTER who then monitored vitals the entire time, heart rate, blood pressure and pulse ox and the scope was inserted down the mouth through the esophagus into the stomach. On the way down took a picture of her vocal chords. Pushed into the stomach and saw some mild gastritis near the antrum. Pushed past the antrum into the duodenum; duodenum looked good. Pulled back and did a biopsy of antrum, then retroflexed the scope and saw a small hiatal hernia (could actually see GE jxn). Took a picture of this and then pulled the scope into the GE junction, took another picture of the hiatal hernia and then did a biopsy of the GE junction. Pushed the scope back into the stomach, suctioned all the air out of the stomach. At this point pulled the scope up the esophagus and out the mouth. The patient tolerated the procedure, and she recovered in endoscopy suite. Anesthesia Type IV sedation by NON DESTRUCTIVE TESTER Estimated Blood Loss Estimated blood loss (mL): scant Specimens/Packing Specimens Removed antral bx GE jxn bx ANN MEJIA DO Apr 07, 2021 10:14
--- NOTE | 2021-04-07 10:14 | Endoscopy Discharge Instruct ---
Endo Procedure/Findings Findings 1.: Gastritis 2.: Hiatal Hernia Discharge Instructions - Activity: You might feel a little sleepy until tomorrow. This is due to the medicine you received to relax you. Until tomorrow, you should: NOT drive a car, operate machinery or power tools. NOT drink any alcoholic beverages. NOT make any important decisions or sign importortant papers. Do not return to work until tomorrow, unless otherwise instructed. Resume previous activities tomorrow. Diet: Start by taking liquids. If you tolerate liquids, advance to solid food. 1.: EGD in 3 years Notify Physician - If you experience excessive bleeding, unusual abdominal pain, fever, or chest pain, contact your doctor immediately. ANN MEJIA DO Apr 07, 2021 10:14
[2021-04-07 10:15] VITALS: BP 110/71
[2021-04-07 10:20] VITALS: BP_SYST 110; BP_SYST 96; BP_DIAS 52; BP_DIAS 55
[2021-04-07 10:53] VITALS: BP 116/68
--- NOTE | 2021-04-07 11:41 | Anesthesia-General Post-Op ---
MAC Patient Condition Mental Status/LOC: Same as Preop Cardiovascular: Satisfactory Nausea/Vomiting: Absent Respiratory: Satisfactory Pain: Controlled Complications: Absent Post Op Complications Complications None Follow Up Care/Instructions Patient Instructions None needed. Anesthesiology Discharge Order Discharge Order Patient is doing well, no complaints, stable vital signs, no apparent adverse anesthesia problems. No complications reported per nursing. APOORVA BULL CRNA Apr 07, 2021 11:41
== END 2021-04-07 10:56 | disposition home or self-care (01) ==
LOC: ENDO 08:27
PROVIDERS: ATTEND Surgery
DX: K21.00 Gastro-esophageal reflux disease with esophagitis, without bleeding (principal); K29.70 Gastritis, unspecified, without bleeding; K44.9 Diaphragmatic hernia without obstruction or gangrene; E66.9 Obesity, unspecified; G62.9 Polyneuropathy, unspecified; F32.A Depression, unspecified; Z79.899 Other long term (current) drug therapy; Z87.891 Personal history of nicotine dependence; Z83.3 Family history of diabetes mellitus; Z80.8 Family history of malignant neoplasm of other organs or systems; Z80.42 Family history of malignant neoplasm of prostate
CPT/HCPCS: 88305

== ENCOUNTER 2021-04-08 16:32 | Inpatient (IN) | payer MEDICAID ==
[~2021-04-08] VITALS: Ht 170.2 cm; Wt 147.5 kg
[2021-04-08] MEDS ORDERED: KETOROLAC 30 MG/ML VIAL IVP STA (17:57)
[2021-04-08] MEDS ORDERED: ONDANSETRON 4 MG/2 ML (SDV) Z0FRAN IVP ONE (18:00)
[2021-04-08] MEDS ORDERED: LACTATED RINGERS 1,000 ML IV ONE (18:00)
[2021-04-08 18:04] LABS: ALBUMIN 3.9 GM/DL (3.2-4.5); BASOPHILS % (AUTO) 0 % (0-10); EOSINOPHILS # (AUTO) 0.1 10^3/uL (0.0-0.3); EOSINOPHILS % (AUTO) 2 % (0-10); HEMATOCRIT 42 % (35-52); HEMOGLOBIN 13.5 g/dL (11.5-16.0); LYMPHOCYTES # (AUTO) 1.9 10^3/uL (1.0-4.0); LYMPHOCYTES % (AUTO) 36 % (12-44); MEAN CORPUSCULAR HEMOGLOBIN 30 pg (25-34); MEAN CORPUSCULAR HGB CONC 33 g/dL (32-36); MEAN CORPUSCULAR VOLUME 91 fL (80-99); MEAN PLATELET VOLUME 10.2 fL (9.0-12.2); MONOCYTES # (AUTO) 0.5 10^3/uL (0.0-1.0); MONOCYTES % (AUTO) 10 % (0-12); NEUTROPHILS # (AUTO) 2.7 10^3/uL (1.8-7.8); NEUTROPHILS % (AUTO) 51 % (42-75); PLATELET COUNT 330 10^3/uL (130-400); WHITE BLOOD COUNT 5.3 10^3/uL (4.3-11.0)
[2021-04-08 18:05] LABS: AMYLASE 53 U/L (25-125); CHLORIDE 104 MMOL/L (98-107); POTASSIUM 3.5 MMOL/L (3.6-5.0); SODIUM 140 MMOL/L (135-145)
[2021-04-08 18:06] LABS: CALCIUM 8.9 MG/DL (8.5-10.1)
[2021-04-08 18:07] LABS: GLUCOSE 94 MG/DL (70-105); TOTAL PROTEIN 7.3 GM/DL (6.4-8.2)
[2021-04-08 18:08] LABS: CARBON DIOXIDE 26 MMOL/L (21-32)
[2021-04-08 18:09] LABS: BILIRUBIN,TOTAL 0.4 MG/DL (0.1-1.0)
[2021-04-08 18:10] LABS: ALKALINE PHOSPHATASE 89 U/L (40-136)
[2021-04-08 18:11] LABS: GFR ESTIMATED 94
[2021-04-08 18:12] LABS: BUN/CREATININE RATIO 13
[2021-04-08 18:14] LABS: ALANINE AMINOTRANSFERASE 27 U/L (0-55); LIPASE 48 U/L (8-78)
--- NOTE | 2021-04-08 18:16 | ED Abdominal Pain ---
General Chief Complaint: Abdominal/GI Problems Stated Complaint: GALLBLADDER ISSUES/PAIN Nursing Triage Note: PT AMB TO FT 2 W REPORTS OF RUQ PAIN THAT SHE BELIEVES IS D/T GALLBLADDER ISSUES. PT HAD US OF GB ON , HIDA SCAN ON , AND RECENT EGD. PT REPORTS SHE HAS AN APPT W DR. MEJIA ON 04/15/21 TO DISCUSS RESULTS BUT CALLED PCP TODAY D/T PAIN, PCP ADVISED PT TO COME TO ED FOR FURTHER EVALUATION AND POSS CHOLECYSTECTOMY. PT A&OX4. Source of Information: Patient History of Present Illness Date Seen by Provider: Apr 08, 2021 Time Seen by Provider: 17:53 Initial Comments PT ARRIVES VIA POV FROM HOME PT STATES "MY GALLBLADDER" ONGOING ABDOMINAL PAIN, NAUSEA AND VOMITING FOR AT LEAST 6 MONTHS PAIN IS IN RUQ AND RADIATES TO RIGHT FLANK HAS SEEN DR. MEJIA, SURGEON, FOR THIS PROBLEM PT HAS HAD GALLBLADDER ULTRASOUND ON 03/24/21, HIDA SCAN ON 04/03/21 WHICH SHOWED GB EF 22%, AND HAD EGD YESTERDAY BY DR. MEJIA PT STATES SHE IS SUPPOSED TO HAVE HER GALLBLADDER REMOVED, BUT HAS NOT HAD THIS SCHEDULED YET. HAS FOLLOW UP APPOINTMENT 04/15/[address] MEJIA C/O NAUSEA, NO VOMITING--TOOK 1 ZOFRAN THIS AM HAS NOT TAKEN ANYTHING FOR PAIN --HAS BEEN ON OXYCODONE ( PLUS NALTREXONE). PRESCRIBED HYDROCODONE 04/01/[address] HOWARD LATER STATES SHE TOOK 1 HYDROCODONE YESTERDAY OR THE DAY BEFORE ATE [facility] [employer] [facility] TODAY, AND JUST PRIOR TO ARRIVAL HAD A FEW CORN DOGS--THEN CAME HERE STATES PAIN IS WORSE WITH EATING NO DIARRHEA. HAD NORMAL BM LAST PM NO FEVER NO PAIN WITH URINATION LMP--HAS HAD HYSTERECTOMY PT HAS HEPATITIS C--NO TREATMENT CALLED DR. HOWARD TODAY, AND WAS TOLD TO COME HERE HAS NOT ATTEMPTED TO CONTACT DR. MEJIA TODAY STATES SHE WANTS HER GALLBLADDER TAKEN OUT NOW. "CAN'T WAIT" UNTIL SHE SEES DR. MEJIA NEXT WEEK PCP: MAO GARCIA SURGEON: DR. MEJIA Allergies and Home Medications Allergies Coded Allergies: prednisone (Verified Allergy, Intermediate, 02/17/17) Patient Home Medication List Home Medication List Reviewed: Yes Albuterol Sulfate (Albuterol Sulfate) 0.63 Mg/3 Ml Vial.neb, 0.63 MG IH PRN, (Reported) Entered as Reported by: MAURA SHEPARD on 10/20/16 1307 Albuterol/Ipratropium (Combivent Respimat Inhal [place]) 4 Gm Aero, 2 PUFF IH TID, (Reported) Entered as Reported by: MAURA SHEPARD on 10/20/16 1316 Bupropion HCl (Bupropion HCl) 100 Mg Tablet, 100 MG PO BID, (Reported) Entered as Reported by: FAUSTO MAGDALENO on 03/31/21 1041 Buspirone HCl (Buspirone HCl) 15 Mg Tablet, 15 MG PO BID, (Reported) Entered as Reported by: FAUSTO MAGDALENO on 03/31/21 1041 Dulaglutide (Trulicity) 1.5 Mg/0.5 Ml Pen.injctr, 1.5 MG SQ WEEKLY, (Reported) Entered as Reported by: FAUSTO MAGDALENO on 03/31/21 1041 Fluconazole (Fluconazole) 150 Mg Tablet, 150 MG PO BID, (Reported) Entered as Reported by: FAUSTO MAGDALENO on 03/31/21 104 Loratadine (Claritin) 10 Mg Tablet, 10 MG PO DAILY, (Reported) Entered as Reported by: MAURA SHEPARD on 10/20/16 1307 Naltrexone HCl (Naltrexone HCl) 50 Mg Tablet, 50 MG PO BID, (Reported) Entered as Reported by: FAUSTO MAGDALENO on 03/31/21 1041 Nystatin (Nystop) 60 Gm Powder, 100 GM TP PRN, (Reported) Entered as Reported by: FAUSTO MAGDALENO on 03/31/21 1041 Oxycodone HCl/Acetaminophen (Oxycodone-Acetaminophen 5-325) 1 Each Tablet, 2 TAB PO Q4H PRN for PAIN-MODERATE Prescribed by: ANGELO ABARCA on 10/22/16 1008 Pantoprazole Sodium (Pantoprazole Sodium) 40 Mg Granpkt.dr, 40 MG PO DAILY, (Reported) Entered as Reported by: FAUSTO MAGDALENO on 03/31/21 1041 Review of Systems Review of Systems Constitutional: no symptoms reported Respiratory: No Symptoms Reported Gastrointestinal: See HPI, Abdominal Pain; Denies Constipated, Denies Diarrhea; Nausea; Denies Vomiting Genitourinary: No Symptoms Reported Musculoskeletal: back pain Skin: no symptoms reported Psychiatric/Neurological: No Symptoms Reported Endocrine: No Symptoms Reported Hematologic/Lymphatic: No Symptoms Reported Past Xdjxbga-Cefool-Nydfhz Hx Patient Social History Tobacco Use?: Yes Use of E-Cig and/or Vaping dev: No Substance use?: Yes Alcohol Use?: Yes Alcohol Frequency: Once in a while Immunizations Up To Date Tetanus Booster (TDap): Less than 5yrs Influenza Vaccine Up-to-Date: No; Not Current First/Initial COVID19 Vaccinat: NOVEMBER 2020 Second COVID19 Vaccination Trell: 2020 COVID19 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: [employer] Seasonal Allergies Seasonal Allergies: Yes Past Medical History Surgeries: Yes (LT KNEE, BILAT CARPAL TUNNEL, LT ANKLE, BSO WITH MAULIK AND D&C 10/2016) 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, Oophorectomy, Orthopedic Respiratory: Yes Asthma Cardiac: No Neurological: Yes (Silveira's palsy) Headaches /Migraines 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 Disorders: Yes Female 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, 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 History: 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 Sexually Transmitted Disease: No HIV/AIDS: No Genitourinary: No Gastrointestinal: Yes (HX HEPATITIS C--NO TREATMENT; ) Liver Disease/Jaundice, Hepatitis, Gall Bladder Disease Musculoskeletal: Yes (BULGING DISC L4-5) Degenerate Disk Disease, Chronic Back Pain Endocrine: Yes (MORBID OBESITY) Diabetes, Non-Insulin dep HEENT: Yes Chronic Ear Infection Loss of Vision: Bilateral Cancer: No Psychosocial: Yes Anxiety, Bipolar, Depression Integumentary: Yes Psoriasis Blood Disorders: Yes (HEPATITIS C) Adverse Reaction/Blood Tranf: No (N/A) Family Medical History No Pertinent Family Hx SOCIAL HISTORY: -SMOKED 1/2 PPD, QUIT -ETOH--OCCASIONAL USE -DRUGS--HX OF IV METH USE Physical Exam Vital Signs Vital Signs - First Documented 04/08/21 17:10 Temp 36.9 Pulse 94 Resp 22 B/P (MAP) 185/106 (132) Pulse Ox 100 O2 Delivery Room Air Capillary Refill : Less Than 3 Seconds Height/Weight/BMI Height: 5'7.00" Weight: 300lbs. 7.0oz. 136.216658vn; 49.00 BMI Method:Stated General Appearance: WD/WN, no apparent distress, obese (MORBIDLY OBESE), other (LAYING ON LEFT SIDE, DOES NOT APPEAR TO BE IN ANY DISCOMFORT OR DISTRESS) HEENT: No scleral icterus (R), No scleral icterus (L), No pale conjunctivae (R), No pale conjunctivae (L) Neck: normal inspection Respiratory: normal breath sounds, no respiratory distress, no accessory muscle use Cardiovascular: regular rate, rhythm, no murmur Gastrointestinal: soft; No distended, No guarding, No rebound; tenderness (RIGHT UPPER QUADRANT) Extremities: normal inspection Back: CVA tenderness (R) Neurologic/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: 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, no motor/sensory deficits, alert, normal mood/affect, oriented x 3 Skin: normal color, warm/dry; No rash; tattoos/piercings Progress/Results/Core Measures Results/Orders Lab Results Laboratory Tests Test 04/08/21 17:20 04/08/21 18:41 Range/Units White Blood Count 5.3 4.3-11.0 10^3/uL Red Blood Count 4.58 3.80-5.11 10^6/uL Hemoglobin 13.5 11.5-16.0 g/dL Hematocrit 42 35-52 % Mean Corpuscular Volume 91 80-99 fL Mean Corpuscular Hemoglobin 30 25-34 pg Mean Corpuscular Hemoglobin Concent 33 32-36 g/dL Red Cell Distribution Width 13.7 10.0-14.5 % Platelet Count 330 130-400 10^3/uL Mean Platelet Volume 10.2 9.0-12.2 fL Immature Granulocyte % (Auto) 0 % Neutrophils (%) (Auto) 51 42-75 % Lymphocytes (%) (Auto) 36 12-44 % Monocytes (%) (Auto) 10 0-12 % Eosinophils (%) (Auto) 2 0-10 % Basophils (%) (Auto) 0 0-10 % Neutrophils # (Auto) 2.7 1.8-7.8 10^3/uL Lymphocytes # (Auto) 1.9 1.0-4.0 10^3/uL Monocytes # (Auto) 0.5 0.0-1.0 10^3/uL Eosinophils # (Auto) 0.1 0.0-0.3 10^3/uL Basophils # (Auto) 0.0 0.0-0.1 10^3/uL Immature Granulocyte # (Auto) 0.0 0.0-0.1 10^3/uL Sodium Level 140 135-145 MMOL/L Potassium Level 3.5 L 3.6-5.0 MMOL/L Chloride Level 104 98-107 MMOL/L Carbon Dioxide Level 26 21-32 MMOL/L Anion Gap 10 5-14 MMOL/L Blood Urea Nitrogen 9 7-18 MG/DL Creatinine 0.70 0.60-1.30 MG/DL Estimat Glomerular Filtration Rate 94 BUN/Creatinine Ratio 13 Glucose Level 94 70-105 MG/DL Calcium Level 8.9 8.5-10.1 MG/DL Corrected Calcium 9.0 8.5-10.1 MG/DL Total Bilirubin 0.4 0.1-1.0 MG/DL Aspartate Amino Transf (AST/SGOT) 17 5-34 U/L Alanine Aminotransferase (ALT/SGPT) 27 0-55 U/L Alkaline Phosphatase 89 40-136 U/L Total Protein 7.3 6.4-8.2 GM/DL Albumin 3.9 3.2-4.5 GM/DL Amylase Level 53 25-125 U/L Lipase 48 8-78 U/L Serum Alcohol < 10 <10 MG/DL Urine Color YELLOW Urine Clarity CLEAR Urine pH 6.0 5-9 Urine Specific Andreas 1.020 1.016-1.022 Urine Protein NEGATIVE NEGATIVE Urine Glucose (UA) NEGATIVE NEGATIVE Urine Ketones NEGATIVE NEGATIVE Urine Nitrite NEGATIVE NEGATIVE Urine Bilirubin NEGATIVE NEGATIVE Urine Urobilinogen 0.2 < = 1.0 MG/DL Urine Leukocyte Esterase NEGATIVE NEGATIVE Urine RBC (Auto) NEGATIVE NEGATIVE Urine RBC NONE /HPF Urine WBC 0-2 /HPF Urine Squamous Epithelial Cells 2-5 /HPF Urine Renal Epithelial Cells NONE /HPF Urine Crystals NONE /LPF Urine Bacteria NEGATIVE /HPF Urine Casts NONE /LPF Urine Mucus NEGATIVE /LPF Urine Culture Indicated NO Urine Opiates Screen NEGATIVE NEGATIVE Urine Oxycodone Screen NEGATIVE NEGATIVE Urine Methadone Screen NEGATIVE NEGATIVE Urine Propoxyphene Screen NEGATIVE NEGATIVE Urine Barbiturates Screen NEGATIVE NEGATIVE Ur Tricyclic Antidepressants Screen NEGATIVE NEGATIVE Urine Phencyclidine Screen NEGATIVE NEGATIVE Urine Amphetamines Screen NEGATIVE NEGATIVE Urine Methamphetamines Screen NEGATIVE NEGATIVE Urine Benzodiazepines Screen NEGATIVE NEGATIVE Urine Cocaine Screen NEGATIVE NEGATIVE Urine Cannabinoids Screen NEGATIVE NEGATIVE My Orders Orders - YOSELYN HUYNH DO Ed Iv/Invasive Line Start (04/08/21 17:57) Ed Iv/Invasive Line Start (04/08/21 17:57) Lactated Ringers (Lr 1000 Ml Iv Solution (12/28/21 18:00) Ondansetron Injection (Zofran Injectio (04/08/21 18:00) Ketorolac Injection (Toradol Injection) (04/08/21 17:57) Amylase (04/08/21 17:57) Cbc With Automated Diff (04/08/21 17:57) Comprehensive Metabolic Panel (04/08/21 17:57) Lipase (04/08/21 17:57) Alcohol (04/08/21 17:59) Drug Screen Stat (Urine) (04/08/21 18:34) Urinalysis (04/08/21 18:34) Fentanyl Inj (Sublimaze Injection) (04/08/21 19:15) Medications Given in ED Current Medications Medications Dose Ordered Sig/Abena Route Start Time Stop Time Status Last Admin Dose Admin Lactated Ringer's 1,000 ml @ 0 mls/hr Q0M ONCE IV 04/08/21 18:00 04/08/21 18:01 DC 04/08/21 18:06 0 MLS/HR Ondansetron HCl 4 mg ONCE ONCE IVP 04/08/21 18:00 04/08/21 18:01 DC 04/08/21 18:06 4 MG Vital Signs/I&O 04/08/21 17:10 Temp 36.9 Pulse 94 Resp 22 B/P (MAP) 185/106 (132) Pulse Ox 100 O2 Delivery Room Air Blood Pressure Mean: 132 Progress Progress Note : Progress Note GIVEN IV FLUIDS, ZOFRAN AND TORADOL Departure Communication (Admissions) 1907--SPOKE WITH DR. MEJIA, ACCEPTS PT FOR ADMIT Impression Primary Impression: Biliary colic Disposition: ADMITTED INPATIENT Condition: Stable Admissions Decision to Admit Reason: Admit from ER (General) Decision to Admit/Date: Apr 08, 2021 Time/Decision to Admit Time: 19:07 Departure-Patient Inst. Referrals: SELF,JASVIR BRADSHAW (PCP/Family) Primary Care Physician YOSELYN HUYNH DO Apr 08, 2021 18:16
[2021-04-08 18:47] LABS: BILIRUBIN,URINE NEGATIVE (NEGATIVE); CLARITY,URINE CLEAR; COLOR,URINE YELLOW; GLUCOSE, URINE (UA) NEGATIVE (NEGATIVE); KETONES,URINE NEGATIVE (NEGATIVE); LEUKOCYTE ESTERASE ,URINE NEGATIVE (NEGATIVE); NITRITE,URINE NEGATIVE (NEGATIVE); PROTEIN,URINE NEGATIVE (NEGATIVE)
[2021-04-08 18:53] LABS: BACTERIA,URINE NEGATIVE /HPF; WBC,URINE 0-2 /HPF
[2021-04-08 19:00] LABS: AMPHETAMINE SCREEN, URINE NEGATIVE (NEGATIVE); BARBITURATE SCREEN URINE NEGATIVE (NEGATIVE); BENZODIAZEPINES SCREEN URINE NEGATIVE (NEGATIVE); CANNABINOID SCREEN, URINE NEGATIVE (NEGATIVE); COCAINE SCREEN URINE NEGATIVE (NEGATIVE); METHADONE STAT NEGATIVE (NEGATIVE); METHAMPHETAMINE SCREEN URINE S NEGATIVE (NEGATIVE); OPIATE SCREEN URINE NEGATIVE (NEGATIVE); OXYCODONE STAT NEGATIVE (NEGATIVE); PROPOXYPHENE STAT NEGATIVE (NEGATIVE); TRICYCLIC ANTIDEPRESSANTS SCRE NEGATIVE (NEGATIVE)
[2021-04-08] MEDS ORDERED: fentaNYL INJ 100 MCG/2 ML AMP IVP ONE (19:15)
[2021-04-08 20:10] VITALS: BP 135/88
[2021-04-08] MEDS: ONDANSETRON 4 MG/2 ML (SDV) Z0FRAN IV PRN (22:58)
[2021-04-08] MEDS: fentaNYL INJ 100 MCG/2 ML AMP IV PRN (22:58)
[2021-04-08] MEDS: D5 1/2 NS W/KCL 20 MEQ/L 1,000 ML IV SCH (23:01)
[2021-04-08 23:40] VITALS: BP 125/75
[2021-04-09] VITALS (9 sets, daily range): BP systolic 120–183; BP diastolic 52–101
[2021-04-09] MEDS: D5 1/2 NS W/KCL 20 MEQ/L 1,000 ML IV SCH ×2 (05:26→12:27)
[2021-04-09] MEDS: ONDANSETRON 4 MG/2 ML (SDV) Z0FRAN IV PRN ×2 (05:29→18:06)
[2021-04-09] MEDS: fentaNYL INJ 100 MCG/2 ML AMP IV PRN ×2 (05:33→12:45)
--- NOTE | 2021-04-09 07:34 | Consultation - Surgery ---
BARISAMMIE MED STUDENT 04/09/21 0734: History of Present Illness History of Present Illness Patient Consulted On(alysha/time) 04/09/21 07:34 Date Seen by Provider: Apr 09, 2021 Time Seen by Provider: 07:10 Reason for Visit: Cholecystitis History of Present Illness Per ED: PT ARRIVES VIA POV FROM HOME PT STATES "MY GALLBLADDER" ONGOING ABDOMINAL PAIN, NAUSEA AND VOMITING FOR AT LEAST 6 MONTHS PAIN IS IN RUQ AND RADIATES TO RIGHT FLANK HAS SEEN DR. MEJIA, SURGEON, FOR THIS PROBLEM PT HAS HAD GALLBLADDER ULTRASOUND ON 03/24/21, HIDA SCAN ON 04/03/21 WHICH SHOWED GB EF 22%, AND HAD EGD YESTERDAY BY DR. MEJIA PT STATES SHE IS SUPPOSED TO HAVE HER GALLBLADDER REMOVED, BUT HAS NOT HAD THIS SCHEDULED YET. HAS FOLLOW UP APPOINTMENT 04/15/[address] MEJIA C/O NAUSEA, NO VOMITING--TOOK 1 ZOFRAN THIS AM HAS NOT TAKEN ANYTHING FOR PAIN --HAS BEEN ON OXYCODONE ( PLUS NALTREXONE). PRESCRIBED HYDROCODONE 04/01/[address] HOWARD LATER STATES SHE TOOK 1 HYDROCODONE YESTERDAY OR THE DAY BEFORE ATE [facility], [employer] [facility] [employer] [facility] TODAY, AND JUST PRIOR TO ARRIVAL HAD A FEW CORN DOGS--THEN CAME HERE STATES PAIN IS WORSE WITH EATING NO DIARRHEA. HAD NORMAL BM LAST PM NO FEVER NO PAIN WITH URINATION LMP--HAS HAD HYSTERECTOMY PT HAS HEPATITIS C--NO TREATMENT CALLED DR. HOWARD TODAY, AND WAS TOLD TO COME HERE HAS NOT ATTEMPTED TO CONTACT DR. MEJIA TODAY STATES SHE WANTS HER GALLBLADDER TAKEN OUT NOW. "CAN'T WAIT" UNTIL SHE SEES DR. MEJIA NEXT WEEK PCP: DR. HOWARD MARIBEL SURGEON: DR. MEJIA When I spoke with patient this morning she had just gotten out of the shower and did not appear too uncomfortable. She is having some pain but she states that the pain medication is helping. She has been NPO and she will be getting cholecystectomy today. She is urinating without problems, no BM since she got here. LBM wednesday, does have problems with constipation. She is walking without difficulty. Allergies and Home Medications Allergies Coded Allergies: prednisone (Verified Allergy, Intermediate, 02/17/17) Patient Home Medication List Albuterol Sulfate (Proventil Hfa) 6.7 Gm Hfa.aer.ad, 2 PUFF INH QID PRN for SHORTNESS OF BREATH, (Reported) Entered as Reported by: AMRIT MARINELLI on 04/09/211136 Last Action: Reviewed Bupropion HCl (Bupropion HCl) 100 Mg Tablet, 100 MG PO BID, (Reported) Entered as Reported by: FAUSTO MAGDALENO on 03/31/21 1041 Last Action: Reviewed Dulaglutide (Trulicity) 1.5 Mg/0.5 Ml Pen.injctr, 1.5 MG SQ MON, (Reported) Entered as Reported by: AMRIT MARINELLI on 04/09/211136 Last Action: Reviewed Esomeprazole Magnesium (Esomeprazole Magnesium) 40 Mg Capsule.dr, 40 MG PO DAILY, (Reported) Entered as Reported by: AMRIT MARINELLI on 04/09/211136 Last Action: Reviewed Hydrocodone/Acetaminophen (Hydrocodone-Acetamin 5-325 mg) 1 Each Tablet, 1 TAB PO Q8H PRN for PAIN-MODERATE (5-7), (Reported) Entered as Reported by: AMRIT MARINELLI on 04/09/211136 Last Action: Reviewed Naltrexone HCl (Naltrexone HCl) 50 Mg Tablet, 25 MG PO BID, (Reported) Entered as Reported by: AMRIT MARINELLI on 04/09/211136 Last Action: Reviewed Ondansetron HCl (Ondansetron HCl) 4 Mg Tablet, 4 MG PO Q8H PRN for NAUSEA/VOMITING-1ST LINE, (Reported) Entered as Reported by: AMRIT MARINELLI on 04/09/211136 Last Action: Reviewed Discontinued Medications Albuterol Sulfate (Albuterol Sulfate) 0.63 Mg/3 Ml Vial.neb, 0.63 MG IH PRN, (Reported) Discontinued Reason: No Longer Taking Entered as Reported by: MAURA SHEPARD on 10/20/16 1307 Last Action: Discontinued Albuterol/Ipratropium (Combivent Respimat Inhal [place]) 4 Gm Aero, 2 PUFF IH TID, (Reported) Discontinued Reason: No Longer Taking Entered as Reported by: MAURA SHEPARD on 10/20/16 1316 Last Action: Discontinued Buspirone HCl (Buspirone HCl) 15 Mg Tablet, 15 MG PO BID, (Reported) Discontinued Reason: No Longer Taking Entered as Reported by: FAUSTO MAGDALENO on 03/31/21 1041 Last Action: Discontinued Dulaglutide (Trulicity) 1.5 Mg/0.5 Ml Pen.injctr, 1.5 MG SQ WEEKLY, (Reported) Discontinued Reason: No Longer Taking Entered as Reported by: FAUSTO MAGDALENO on 03/31/21 1041 Last Action: Discontinued Fluconazole (Fluconazole) 150 Mg Tablet, 150 MG PO BID, (Reported) Discontinued Reason: No Longer Taking Entered as Reported by: FAUSTO MAGDALENO on 03/31/21 1041 Last Action: Discontinued Loratadine (Claritin) 10 Mg Tablet, 10 MG PO DAILY, (Reported) Discontinued Reason: No Longer Taking Entered as Reported by: MAURA SHEPARD on 10/20/16 1307 Last Action: Discontinued Naltrexone HCl (Naltrexone HCl) 50 Mg Tablet, 50 MG PO BID, (Reported) Discontinued Reason: No Longer Taking Entered as Reported by: FAUSTO MAGDALENO on 03/31/21 1041 Last Action: Discontinued Nystatin (Nystop) 60 Gm Powder, 100 GM TP PRN, (Reported) Discontinued Reason: No Longer Taking Entered as Reported by: FAUSTO MAGDALENO on 03/31/21 1041 Last Action: Discontinued Oxycodone HCl/Acetaminophen (Oxycodone-Acetaminophen 5-325) 1 Each Tablet, 2 TAB PO Q4H PRN for PAIN-MODERATE Discontinued Reason: No Longer Taking Prescribed by: ANGELO ABARCA on 10/22/16 1008 Last Action: Discontinued Pantoprazole Sodium (Pantoprazole Sodium) 40 Mg Granpkt.dr, 40 MG PO DAILY, (Reported) Discontinued Reason: No Longer Taking Entered as Reported by: FAUSTO MAGDALENO on 03/31/21 1041 Last Action: Discontinued Past Idbqxwz-Eqofpl-Cbvuuh Hx Patient Social History Smoking Status: Former Smoker (Smoked for 3 years) Former Smoker, Quit: Feb 17, 2016 Type Used: Cigarettes 2nd Hand Smoke Exposure: No Recent Hopitalizations: No Alcohol Use?: Yes Substance type: Amphetamines (Has been clean for a year) Have you traveled recently?: No Immunizations Up To Date Tetanus Booster (TDap): Less than 5yrs Seasonal Allergies Seasonal Allergies: Yes Surgeries History of Surgeries: Yes (LT KNEE, BILAT CARPAL TUNNEL, LT ANKLE, BSO WITH MAULIK AND D&C 10/2016) Surgeries: 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 (partial), Oophorectomy, Orthopedic Respiratory History of Respiratory Disorde: Yes Respiratory Disorders: Asthma Cardiovascular History of Cardiac Disorders: No Neurological History of Neurological Disord: Yes (Silveira's palsy) Neurological Disorders: Headaches /Migraines 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 System Hx 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 Disorders: Yes Sexually Transmitted Disease: No HIV/AIDS: No Female 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, Ovarian Cyst [employer]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 Genitourinary History of Genitourinary Disor: No Gastrointestinal History of Gastrointestinal Di: Yes (HX HEPATITIS C--NO TREATMENT; ) Gastrointestinal Disorders: Liver Disease/Jaundice, Hepatitis, Gall Bladder Disease Musculoskeletal History of Musculoskeletal Dis: Yes (BULGING DISC L4-5) Musculoskeletal Disorders: Degenerate Disk Disease, Chronic Back Pain Endocrine History of Endocrine Disorders: Yes (MORBID OBESITY) Endocrine Disorders: Diabetes, Non-Insulin dep HEENT History of HEENT Disorders: Yes HEENT Disorders: Chronic Ear Infection Loss of Vision: Bilateral Cancer History of Cancer: No Psychosocial History of Psychiatric Problem: Yes Behavioral Health Disorders: Anxiety, Bipolar, Depression Integumentary History of Skin or Integumenta: Yes Skin/Integumentary Disorders: Psoriasis Blood Transfusions History of Blood Disorders: Yes (HEPATITIS C) Adverse Reaction to a Blood Tr: No (N/A) Family Medical History Significant Family History: Heart Disease, Cancer (Brain in mother, prostate in father), Diabetes Review of Systems-General Constitutional: No chills, No dizziness, No fever EENTM: No hearing loss, No vision loss, No throat pain Respiratory: No cough, No dyspnea on exertion, No short of breath Cardiovascular: No chest pain, No palpitations Gastrointestinal: abdominal pain (RUQ); No constipation, No diarrhea, No melena; nausea; No vomiting Genitourinary: No dysuria, No frequency, No hematuria Musculoskeletal: other (Negative for leg or foot pain or swelling) Skin: No rash Psychiatric/Neurological: Denies Headache Physical Exam-General Problems Physical Exam Vital Signs Vital Signs - First Documented 04/08/21 17:10 Temp 36.9 Pulse 94 Resp 22 B/P (MAP) 185/106 (132) Pulse Ox 100 O2 Delivery Room Air Capillary Refill : Less Than 3 Seconds General Appearance: WD/WN, no apparent distress, obese HEENT: pharynx normal (moist) Respiratory: chest non-tender, lungs clear, normal breath sounds, no respiratory distress, no accessory muscle use Cardiovascular: regular rate, rhythm, no edema, no murmur Peripheral Pulses: 2+ Dorsalis Pedis (R), 2+ Left Dors-Pedis (L), 2+ Radial Pulses (R), 2+ Radial Pulses (L) Gastrointestinal: normal bowel sounds, soft, tenderness (RUQ), other (Positive sorto, negative mcburney. No lesions or bruising noted on abdomen) Extremities: non-tender, no pedal edema, no calf tenderness, normal capillary refill Neurologic/Psychiatric: alert, normal mood/affect, oriented x 3 Skin: normal color, warm/dry Data Review Labs Laboratory Tests 04/08/21 17:20: White Blood Count 5.3, Red Blood Count 4.58, Hemoglobin 13.5, Hematocrit 42, Mean Corpuscular Volume 91, Mean Corpuscular Hemoglobin 30, Mean Corpuscular Hemoglobin Concent 33, Red Cell Distribution Width 13.7, Platelet Count 330, Mean Platelet Volume 10.2, Immature Granulocyte % (Auto) 0, Neutrophils (%) (Auto) 51, Lymphocytes (%) (Auto) 36, Monocytes (%) (Auto) 10, Eosinophils (%) (Auto) 2, Basophils (%) (Auto) 0, Neutrophils # (Auto) 2.7, Lymphocytes # (Auto) 1.9, Monocytes # (Auto) 0.5, Eosinophils # (Auto) 0.1, Basophils # (Auto) 0.0, I mmature Granulocyte # (Auto) 0.0, Sodium Level 140, Potassium Level 3.5L, Chloride Level 104, Carbon Dioxide Level 26, Anion Gap 10, Blood Urea Nitrogen 9, Creatinine 0.70, Estimat Glomerular Filtration Rate 94, BUN/Creatinine Ratio 13, Glucose Level 94, Calcium Level 8.9, Corrected Calcium 9.0, Total Bilirubin 0.4, Aspartate Amino Transf (AST/SGOT) 17, Alanine Aminotransferase (ALT/SGPT) 27, Alkaline Phosphatase 89, Total Protein 7.3, Albumin 3.9, Amylase Level 53, Lipase 48, Serum Alcohol < 10 04/08/21 18:41: Urine Color YELLOW, Urine Clarity CLEAR, Urine pH 6.0, Urine Specific [place] 1. 020, Urine Protein NEGATIVE, Urine Glucose (UA) NEGATIVE, Urine Ketones NEGATIVE, Urine Nitrite NEGATIVE, Urine Bilirubin NEGATIVE, Urine Urobilinogen 0.2, Urine Leukocyte Esterase NEGATIVE, Urine RBC (Auto) NEGATIVE, Urine RBC NONE, Urine WBC 0-2, Urine Squamous Epithelial Cells 2-5, Urine Renal Epithelial Cells NONE, Urine Crystals NONE, Urine Bacteria NEGATIVE, Urine Casts NONE, Urine Mucus NEGATIVE, Urine Culture Indicated NO, Urine Opiates Screen NEGATIVE, Urine Oxycodone Screen NEGATIVE, Urine Methadone Screen NEGATIVE, Urine Propoxyphene Screen NEGATIVE, Urine Barbiturates Screen NEGATIVE, Ur Tricyclic Antidepressants Screen NEGATIVE, Urine Phencyclidine Screen NEGATIVE, Urine Amphetamines Screen NEGATIVE, Urine Methamphetamines Screen NEGATIVE, Urine Benzodiazepines Screen NEGATIVE, Urine Cocaine Screen NEGATIVE, Urine Cannabinoids Screen NEGATIVE Assessment/Plan Assessment/Plan Admission Diagonsis RUQ pain Assessment/Plan Cholelithiasis vs Cholecystitis Hypokalemia Reflux Prediabetes Pt will go to surgery today for Cholecystectomy. Afterwards she should be able to be discharged. Her pain is well managed so far on the medications she is on. Remain NPO until surgery. Her Potassium is being supplemented. She is getting her medication for reflux and she receives trulicity to manage prediabetes. ANN MEJIA DO 04/09/21 1414: History of Present Illness History of Present Illness Time Seen by Provider: 12:20 History of Present Illness Surgery called to admit pt regarding Biliary Colic and intractable pain. Pt is well known to me, I have been working her up for possible Cholecystectomy. She has been having RUQ pain and heartburn. She actually had an EGD on Wednesday and HIDA scan on 04/03 which showed an EF of 22%. She states her pain this afternoon was just as bad as it was last night, pain meds are barely holding it. She states the pain radiates to the right and under the shoulder blade. Allergies and Home Medications Allergies Coded Allergies: prednisone (Verified Allergy, Intermediate, 02/17/17) Patient Home Medication List Home Medication List Reviewed: Yes Albuterol Sulfate (Proventil Hfa) 6.7 Gm Hfa.aer.ad, 2 PUFF INH QID PRN for SHORTNESS OF BREATH, (Reported) Entered as Reported by: AMRIT MARINELLI on 04/09/21 1137 Last Action: Reviewed Bupropion HCl (Bupropion HCl) 100 Mg Tablet, 100 MG PO BID, (Reported) Entered as Reported by: FAUSTO MAGDALENO on 03/31/21 1041 Last Action: Reviewed Dulaglutide (Trulicity) 1.5 Mg/0.5 Ml Pen.injctr, 1.5 MG SQ MON, (Reported) Entered as Reported by: AMRIT MARINELLI on 04/09/211136 Last Action: Reviewed Esomeprazole Magnesium (Esomeprazole Magnesium) 40 Mg Capsule.dr, 40 MG PO DAILY, (Reported) Entered as Reported by: AMRIT MARINELLI on 04/09/211136 Last Action: Reviewed Hydrocodone/Acetaminophen (Hydrocodone-Acetamin 5-325 mg) 1 Each Tablet, 1 TAB PO Q8H PRN for PAIN-MODERATE (5-7), (Reported) Entered as Reported by: AMRIT MARINELLI on 04/09/211136 Last Action: Reviewed Naltrexone HCl (Naltrexone HCl) 50 Mg Tablet, 25 MG PO BID, (Reported) Entered as Reported by: AMRIT MARINELLI on 04/09/211136 Last Action: Reviewed Ondansetron HCl (Ondansetron HCl) 4 Mg Tablet, 4 MG PO Q8H PRN for NAUSEA/VOMITING-1ST LINE, (Reported) Entered as Reported by: AMRIT MARINELLI on 04/09/211136 Last Action: Reviewed Discontinued Medications Albuterol Sulfate (Albuterol Sulfate) 0.63 Mg/3 Ml Vial.neb, 0.63 MG IH PRN, (Reported) Discontinued Reason: No Longer Taking Entered as Reported by: MAURA SHEPARD on 10/20/16 1307 Last Action: Discontinued Albuterol/Ipratropium (Combivent Respimat Inhal [place]) 4 Gm Aero, 2 PUFF IH TID, (Reported) Discontinued Reason: No Longer Taking Entered as Reported by: MAURA SHEPARD on 10/20/16 1316 Last Action: Discontinued Buspirone HCl (Buspirone HCl) 15 Mg Tablet, 15 MG PO BID, (Reported) Discontinued Reason: No Longer Taking Entered as Reported by: FAUSTO MAGDALENO on 03/31/21 1041 Last Action: Discontinued Dulaglutide (Trulicity) 1.5 Mg/0.5 Ml Pen.injctr, 1.5 MG SQ WEEKLY, (Reported) Discontinued Reason: No Longer Taking Entered as Reported by: FAUSTO MAGDALENO on 03/31/21 1041 Last Action: Discontinued Fluconazole (Fluconazole) 150 Mg Tablet, 150 MG PO BID, (Reported) Discontinued Reason: No Longer Taking Entered as Reported by: FAUSTO MAGDALENO on 03/31/21 1041 Last Action: Discontinued Loratadine (Claritin) 10 Mg Tablet, 10 MG PO DAILY, (Reported) Discontinued Reason: No Longer Taking Entered as Reported by: MAURA SHEPARD on 10/20/16 1307 Last Action: Discontinued Naltrexone HCl (Naltrexone HCl) 50 Mg Tablet, 50 MG PO BID, (Reported) Discontinued Reason: No Longer Taking Entered as Reported by: FAUSTO MAGDALENO on 03/31/21 1041 Last Action: Discontinued Nystatin (Nystop) 60 Gm Powder, 100 GM TP PRN, (Reported) Discontinued Reason: No Longer Taking Entered as Reported by: FAUSTO MAGDALENO on 03/31/21 1041 Last Action: Discontinued Oxycodone HCl/Acetaminophen (Oxycodone-Acetaminophen 5-325) 1 Each Tablet, 2 TAB PO Q4H PRN for PAIN-MODERATE Discontinued Reason: No Longer Taking Prescribed by: ANGELO ABARCA on 10/22/16 1008 Last Action: Discontinued Pantoprazole Sodium (Pantoprazole Sodium) 40 Mg Granpkt.dr, 40 MG PO DAILY, (Reported) Discontinued Reason: No Longer Taking Entered as Reported by: FAUSTO MAGDALENO on 03/31/21 1041 Last Action: Discontinued Past Nbeizhc-Ladmzv-Jxluoc Hx Patient Social History Smoking Status: Former Smoker (Smoked for 3 years) Substance type: Amphetamines (Has been clean for a year) Surgeries History of Surgeries: Yes Surgeries: 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 (partial), Oophorectomy, Orthopedic Respiratory History of Respiratory Disorde: Yes Respiratory Disorders: Asthma Cardiovascular History of Cardiac Disorders: No Neurological History of Neurological Disord: No Genitourinary History of Genitourinary Disor: No Gastrointestinal History of Gastrointestinal Di: Yes Gastrointestinal Disorders: Gastroesophageal Reflux, Gall Bladder Disease Musculoskeletal History of Musculoskeletal Dis: No Endocrine History of Endocrine Disorders: Yes Endocrine Disorders: Diabetes, Non-Insulin dep HEENT History of HEENT Disorders: No Loss of Vision: Denies Hearing Impairment: Hard of Hearing Cancer History of Cancer: No Psychosocial History of Psychiatric Problem: Yes Behavioral Health Disorders: Anxiety, Depression Integumentary History of Skin or Integumenta: No Family Medical History Significant Family History: Heart Disease, Cancer (Brain in mother, prostate in father), Diabetes Review of Systems-General Constitutional: No chills, No dizziness, No fever EENTM: No hearing loss, No vision loss, No throat pain Respiratory: No cough, No dyspnea on exertion, No short of breath Cardiovascular: No chest pain, No palpitations Gastrointestinal: abdominal pain (RUQ); No constipation, No diarrhea, No melena; nausea; No vomiting Genitourinary: No dysuria, No frequency, No hematuria Musculoskeletal: other (Negative for leg or foot pain or swelling) Skin: No change in color, No change in hair/nails, No rash Psychiatric/Neurological: Anxiety, Depressed; Denies Headache, Denies Seizure Physical Exam-General Problems Physical Exam General Appearance: mild distress, obese (morbidly) Eyes: Bilateral Eye PERRL, Bilateral Eye EOMI HEENT: pharynx normal (moist); No scleral icterus (R), No scleral icterus (L) Neck: non-tender, supple Respiratory: lungs clear, normal breath sounds, no respiratory distress, no accessory muscle use Cardiovascular: regular rate, rhythm, no edema, no murmur Gastrointestinal: normal bowel sounds, soft, tenderness (RUQ), other (Positive sorto, negative mcburney. 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 TECHNIQUE: Patient was administered 4.9 mCi technetium 99m Choletec and imaging over the abdomen was performed. After one hour patient ingested 8 ounces of Ensure and the gallbladder ejection fraction was calculated. FINDINGS: There is homogeneous uptake of activity by the liver with prompt excretion of activity into the gallbladder and common duct. There is normal passage of activity into the small bowel. Gallbladder ejection fraction is abnormally low at 22%. Normal values are 35% or greater. IMPRESSION: 1. Patent common bile duct and cystic duct. 2. Low gallbladder ejection fraction of 22%. Dictated by: Dictated on workstation # [id number] Dict: 04/03/21 1443 Trans: 04/03/21 1535 [facility] [id number] Interpreted by: SUKHJINDER ANDREW MD Electronically signed by: SUKHJINDER ANDREW MD 04/03/21 1535 Assessment/Plan Assessment/Plan Assessment/Plan Biliary Colic secondary to Biliary Dyskinesia Intractable abdominal pain Morbid Obesity Hypokalemia Reflux Prediabetes I discussed the surgery with pt; risks and complications not limited to pain, bleeding, infection, scar, damage to bowel or bile duct and need for further procedure. I believe she will be helped by gallbladder removal, but did tell her that I couldn't guarantee it would take all her pain away. Pt will go to surgery today for Laparoscopy Cholecystectomy with intraoperative cholangiogram, possible open; will get consent. Afterwards she should be able to be discharged. Her pain is not worse so far on the medications she is on. Remain NPO until surgery. Her Potassium is being supplemented. She is getting her medication for reflux and she receives trulicity to manage prediabetes. Supervisory-Addendum Brief Verification & Attestation Participated in pt care: history, MDM, physical Personally performed: exam, history, MDM, supervision of care Care discussed with: Medical Student Procedures: n/a Verification and Attestation of Medical Student E/M Service A medical student performed and documented this service. I then reviewed and verified all information documented by the medical student and made mod ifications to such information, when appropriate. I personally performed a physical exam, medical decision making and then discussed any differences between the notes and made revisions as necessary to create one note. Ann Mejia , 04/09/21 , 14:23 SAMMIE CANDELARIA MED STUDENT Apr 09, 2021 07:34 ANN MEJIA DO Apr 09, 2021 14:14
[2021-04-09] MEDS ORDERED: PANTOPRAZOLE 40 MG (PROTONIX) VIAL IV SCH (09:00)
[2021-04-09] MEDS ORDERED: NALT50TA PO (11:37)
[2021-04-09] MEDS ORDERED: ONDA-105 PO (11:37)
[2021-04-09] MEDS ORDERED: DULA1.5P2 SQ (11:37)
[2021-04-09] MEDS ORDERED: ESOM40CA52 PO (11:37)
[2021-04-09] MEDS ORDERED: RT-ALBUINH INH (11:37)
[2021-04-09] MEDS ORDERED: ACHD5005 PO ×2 (11:37→16:38)
[2021-04-09] MEDS ORDERED: fentaNYL INJ 100 MCG/2 ML AMP ONE ×2 (14:06→15:47)
[2021-04-09] MEDS ORDERED: NEOSTIGMINE 3 MG/3 ML VIAL ONE (14:06)
[2021-04-09] MEDS ORDERED: LIDOCAINE PF 2% 5 ML (XYLOCAINE) VIAL ONE (14:06)
[2021-04-09] MEDS ORDERED: ONDANSETRON 4 MG/2 ML (SDV) Z0FRAN ONE (14:06)
[2021-04-09] MEDS ORDERED: MIDAZOLAM 2 MG/2 ML (VERSED) VIAL ONE (14:06)
[2021-04-09] MEDS ORDERED: GLYCOPYRROLATE 0.2 MG/ML (ROBINUL) 2 ML VIAL ONE (14:06)
[2021-04-09] MEDS ORDERED: proPOfol 200 MG/20 ML (DIPRIVAN) VIAL IV ONE (14:06)
[2021-04-09] MEDS: LACTATED RINGERS 1,000 ML IV PRN ×2 (15:05→16:30)
[2021-04-09] MEDS ORDERED: ceFAZolin 2 GM IV Premixed 50 ML IV NR (15:20)
[2021-04-09] MEDS ORDERED: ESMOLOL 100 MG/10 ML (BREVIBLOC) VIAL ONE (15:51)
[2021-04-09] MEDS ORDERED: LIDOCAINE/EPI 1%-1:200,000 (XYLOCAINE) 30 ML VIAL ONE (16:04)
[2021-04-09] MEDS ORDERED: ROCURONIUM 10 MG/ML 5 ML SYRINGE IV ONE (16:31)
--- NOTE | 2021-04-09 16:37 | Progress Note-Post Operative ---
Post-Operative Progess Note Surgeon (s)/Multifocal Button Grinder (s) Surgeon ANN MEJIA DO Multifocal Button Grinder: Finn Pre-Operative Diagnosis Biliary Colic, Intractable abd pain Post-Operative Diagnosis same Procedure & Operative Findings Date of Procedure 04/09/21 Procedure Performed/Findings PROCEDURE: Laparoscopic cholecystectomy with intraoperative cholangiogram. COMPLICATIONS: None. PROCEDURE: The patient was taken to the operating suite and was prepped and draped in sterile fashion. A surgical pause was performed. Just superior to the umbilicus, a 12 mm incision was made. Dissection was taken down to the fascia, which was then scored and grasped with a Di and the abdomen was then entered. Elected to do the fascial closure at the end of the case; because of deep dissection. A Kii trocar was placed and secured. Pneumoperitoneum was achieved. A 5mm tro[address] in the subxyphoid and 2 in the right upper quadrant. The gallbladder was then grasped and elevated. The cystic duct, and cystic artery were then dissected out. Clip was placed on the distal portion of the cystic duct which was then partially transected. An arrow catheter was inserted into the duct. The cholangiogram was then performed. No filing defects and contrast made its way into the duodenum; it was a very small ducts. Catheter removed. Clips were placed on proximal portion of the cystic duct and then the duct was then transected. Clips were placed along the proximal and distal portion of the cystic artery which was then transected. Hook cautery was used to dissect the gallbladder from the gallbladder fossa achieving hemostasis. The gallbladder was placed in an Endobag and removed through the 12 mm trocar site. The abdomen was then reinspected. Copious amounts of irrigation were used to irrigate the abdomen and there were no signs of active bleeding. Hemostasis had been achieved. The 12 mm fascial defect was then closed with an 0 Vicryl suture and Wai-Dusty under direct visualization with camera in abdomen. The abdomen was then desufflated, the trocars were removed. The abdomen was then washed and dried. The skin was then closed using 4-0 Monocryl in a subcuticular fashion. The abdomen was washed and dried and Skin Affix was place over incisions. Patient tolerated the procedure well without any complications and was taken to the recovery room in stable condition. Dr. Briseno assisted on this case helping to make incisions, close incisions, identify anatomy and hold anatomy out of the way. Anesthesia Type GET Estimated Blood Loss Estimated blood loss (mL): less than 10ml Specimens/Packing Specimens Removed GB and contents ANN MEJIA DO Apr 09, 2021 16:36
--- NOTE | 2021-04-09 16:40 | Discharge Inst-Surgical ---
Discharge Inst-Surgical Depart Medication/Instructions New, Converted or Re-Newed RX: Transmitted to Pharmacy Patient Instructions Follow up Appt: Make appointment for 1 week. [phone] Instructions: No lifting greater than 20 pounds. No strenuous activity. May shower in 24 hours, no tub bath or soaking. Use incentive spirometer at home as directed. No Smoking Skin/Wound Care: May remove bandages in am. You need to leave the Dermabond on incision it will fall off on it's own. Symptoms to Report: Appetite Changes, Extremity Discoloration, Numbness/Tingling, Swelling Increased, Bleeding Excessive, Eyesight Changes, Pain Increased, Urine Color Change, Constipation(Persistent), Fever over 101 degree F, Pain/Pressure in chest, Urinating Difficulty, Cough Up/Vomit Blood, Heart Beat Irreg/Pounding, Pain/Pressure in jaw, Cramps in feet or legs, Lightheadedness, Pain/Pressure in shoulder, Diarrhea(Persistent), Memory Changes Suddenly, Questions/Concerns, Weight gain consecutive days, Dizziness/Fainting, Nausea/Vomiting, Shortness of Breath, Weight gain over 2 pounds If questions or concerns contact your physician Or seek help at emergency department. Activity Activity as Tolerated: Yes Activity Instructions: Avoid Stress to Incision Driving Instructions: No Driving/Refer to Dr. Abel Discharge Diet: Avoid Fatty Foods, Low Fat/Low Cholesterol If Any Problems/Questions/Issu: Contact Your Physician, Go to Emergency Room Skin/Wound Care Infection Signs and Symptoms: Increased Redness, Foul Odor of Wound, Increased Drainage, Skin Itchy or Has a Rash, Increased Swelling, Temperature Above 101 F Wound Care Comment: heating pad to shoulder or neck tonight for pain Bathing Instructions: Shower Stitches/Wilfredo/Dermabond Dis: Dermabond Ice Pack: Ice On and Off Site ANN MEJIA DO Apr 09, 2021 16:40
[2021-04-09] MEDS ORDERED: SEVOFLURANE (ULTANE) 15 ML INHAL SOLN ONE (16:41)
--- NOTE | 2021-04-09 16:51 | Diagnostic Imaging Report ---
INDICATION: Cholecystectomy. FINDINGS: An intraoperative cholangiogram was performed in the Operating Room. Contrast injected via the cystic duct remnant opacifies nondilated extrahepatic bile ducts. Contrast passes into the duodenal lumen. There appears to be reflux into the pancreatic duct. IMPRESSION: No intraluminal filling defect to indicate retained calculus is identified. Dictated by: Dictated on workstation # [id number]
[2021-04-09] MEDS ORDERED: fentaNYL INJ 100 MCG/2 ML AMP IVP ONE (17:00)
[2021-04-09] MEDS ORDERED: PROMETHAZINE INJ 25 MG/ML (PHENERGAN) AMP IVP ONE (17:00)
[2021-04-09] MEDS ORDERED: LABETALOL HCL 20 MG/4 ML VIAL IV PRN (17:00)
[2021-04-09] MEDS ORDERED: ONDANSETRON 4 MG/2 ML (SDV) Z0FRAN IVP PRN (17:00)
[2021-04-09] MEDS ORDERED: MEPERIDINE (DEMEROL) INJ 50 MG/ML IVP ONE (17:00)
--- NOTE | 2021-04-10 11:40 | Anesthesia-General Post-Op ---
General Patient Condition Mental Status/LOC: Same as Preop Cardiovascular: Satisfactory Nausea/Vomiting: Absent Respiratory: Satisfactory Pain: Controlled Complications: Absent Post Op Complications Complications None Follow Up Care/Instructions Patient Instructions None needed. Anesthesia/Patient Condition Patient Condition Patient is doing well, no complaints, stable vital signs, no apparent adverse anesthesia problems. No complications reported per nursing. BRANDON COLVIN CRNA Apr 10, 2021 11:39
== END 2021-04-09 18:35 | disposition home or self-care (01) | DRG 418 ==
LOC: EDUNIT# 16:32 → ER 16:33 → 4TH 19:10
PROVIDERS: ADMIT Surgery; ATTEND Surgery
PROC: BF10YZZ Fluoroscopy of Bile Ducts using Other Contrast (ICD-10-PCS; 2021-04-09)
PROC: 0FT44ZZ Resection of Gallbladder, Percutaneous Endoscopic Approach (ICD-10-PCS; principal; 2021-04-09 15:18)
DX: K80.50 Calculus of bile duct without cholangitis or cholecystitis without obstruction (principal); Z68.42 Body mass index [BMI] 45.0-49.9, adult; G43.909 Migraine, unspecified, not intractable, without status migrainosus; G89.29 Other chronic pain; M54.9 Dorsalgia, unspecified; E66.01 Morbid (severe) obesity due to excess calories; E11.9 Type 2 diabetes mellitus without complications; F41.9 Anxiety disorder, unspecified; F31.9 Bipolar disorder, unspecified; J45.909 Unspecified asthma, uncomplicated; K82.8 Other specified diseases of gallbladder; R10.9 Unspecified abdominal pain; E87.6 Hypokalemia; K21.9 Gastro-esophageal reflux disease without esophagitis
CPT/HCPCS: 36415; 76000; 80053; 80306; 80320; 81000; 82150; 83690; 85025; 87081

== ENCOUNTER 2021-04-16 20:54 | Emergency (ER) | payer MEDICAID ==
[~2021-04-16] VITALS: Ht 167 cm; Wt 64.0 kg
[~2021-04-16 20:54] MED LIST changes: +ESOM40CA52 PO; +ONDA-105 PO; +RT-ALBUINH INH
[2021-04-16] MEDS ORDERED: morphine INJ 10 MG/ML 1ML (SYR OR VIAL) IVP STA (21:39)
[2021-04-16] MEDS ORDERED: CATHETER FLUSH 10 ML SYR IV PRN (21:45)
[2021-04-16] MEDS ORDERED: HOLD METFORMIN - RECEIVED CONTRAST 20 ML VIAL IV SCH (21:45)
[2021-04-16] MEDS ORDERED: ONDANSETRON 4 MG/2 ML (SDV) Z0FRAN IVP ONE (21:45)
[2021-04-16] MEDS ORDERED: IOHEXOL 350 MG/ML 100 ML (OMNIPAQUE 350) VIAL IV ONE (21:45)
[2021-04-16] MEDS ORDERED: NS 100 ML (IVPB) BAG IV ONE (21:45)
--- NOTE | 2021-04-16 21:47 | ED Abdominal Pain ---
General Chief Complaint: Abdominal/GI Problems Stated Complaint: ABD/BACK PAIN Source of Information: Patient Exam Limitations: No Limitations History of Present Illness Date Seen by Provider: Apr 16, 2021 Time Seen by Provider: 19:15 Initial Comments Patient is 36-year-old female who is 7 days status post cholecystectomy per Dr. Mejia at [facility] who presents with right lower quadrant pain rating to right lower flank. Pain started several hours ago and is rated moderate to severe. Pain is described as sharp continuous and worse with movement and is not relieved with rest. Patient took 2 hydrocodone prior to ED arrival with minimal relief. She reports chronic nausea secondary to reflux disease. Denies fever chills, sweats. Denies increased wound pain or tenderness. No urinary frequency urgency or dysuria. Previous hysterectomy. No additional abdominal surgeries. Timing/Duration: 12 Hours Severity/Quality: Moderate Location: RLQ Radiation: Other Activities at Onset: Other Modifying Factors: Improves With Other Associated Symptoms: Other Allergies and Home Medications Allergies Coded Allergies: prednisone (Verified Allergy, Intermediate, 02/17/17) Patient Home Medication List Home Medication List Reviewed: Yes Albuterol Sulfate (Proventil Hfa) 6.7 Gm Hfa.aer.ad, 2 PUFF INH QID PRN for SHORTNESS OF BREATH, (Reported) Entered as Reported by: AMRIT MARINELLI on 04/09/21 1137 Bupropion HCl (Bupropion HCl) 100 Mg Tablet, 100 MG PO BID, (Reported) Entered as Reported by: FAUSTO MAGDALENO on 03/31/21 1041 Dulaglutide (Trulicity) 1.5 Mg/0.5 Ml Pen.injctr, 1.5 MG SQ MON, (Reported) Entered as Reported by: AMRIT MARINELLI on 04/09/21 1137 Esomeprazole Magnesium (Esomeprazole Magnesium) 40 Mg Capsule.dr, 40 MG PO DAILY, (Reported) Entered as Reported by: AMRIT MARINELLI on 04/09/21 1137 Hydrocodone/Acetaminophen (Hydrocodone-Acetamin 5-325 mg) 1 Each Tablet, 1 TAB PO Q8H PRN for PAIN-MODERATE (5-7) Prescribed by: ANN MEJIA on 04/09/21 1639 Naltrexone HCl (Naltrexone HCl) 50 Mg Tablet, 25 MG PO BID, (Reported) Entered as Reported by: AMRIT MARINELLI on 04/09/21 113 Ondansetron HCl (Ondansetron HCl) 4 Mg Tablet, 4 MG PO Q8H PRN for NAUSEA/VOMITING-1ST LINE, (Reported) Entered as Reported by: AMRIT MARINELLI on 04/09/217 Review of Systems Review of Systems Constitutional: see HPI EENTM: See HPI Respiratory: See HPI Cardiovascular: See HPI Gastrointestinal: See HPI Genitourinary: See HPI Musculoskeletal: see HPI Skin: see HPI Psychiatric/Neurological: See HPI Endocrine: See HPI Hematologic/Lymphatic: See HPI All Other Systems Reviewed Negative Unless Noted: Yes Past Jwnxcwk-Xonihw-Jojpnb Hx Patient Social History Tobacco Use?: Yes Immunizations Up To Date Tetanus Booster (TDap): Less than 5yrs First/Initial COVID19 Vaccinat: 11/30 Second COVID19 Vaccination Trell: 12/31 Seasonal Allergies Seasonal Allergies: Yes Past Medical History Surgeries: Yes 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, Oophorectomy, Orthopedic Respiratory: Yes Asthma Cardiac: No Neurological: No Headaches /Migraines 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 Disorders: Yes Female 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, Ovarian Cyst [employer]EL [employer] History: 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 Sexually Transmitted Disease: No HIV/AIDS: No Genitourinary: No Gastrointestinal: Yes Gastroesophageal Reflux, Gall Bladder Disease Musculoskeletal: No Degenerate Disk Disease, Chronic Back Pain Endocrine: Yes Diabetes, Non-Insulin dep HEENT: No Chronic Ear Infection Loss of Vision: Denies Hearing Impairment: Hard of Hearing Cancer: No Psychosocial: Yes Anxiety, Depression Integumentary: No Psoriasis Blood Disorders: Yes (HEPATITIS C) Adverse Reaction/Blood Tranf: No (N/A) Family Medical History Heart Disease, Cancer, Diabetes SOCIAL HISTORY: -SMOKED 1/2 PPD, QUIT -ETOH--OCCASIONAL USE -DRUGS--HX OF IV METH USE Physical Exam Vital Signs Vital Signs - First Documented 04/16/21 21:05 Temp 36.7 Pulse 90 Resp 16 B/P (MAP) 154/79 (104) Pulse Ox 98 O2 Delivery Room Air Capillary Refill : Height/Weight/BMI Height: 5'7.00" Weight: 300lbs. 7.0oz. [id number]; 49.00 BMI Method:Stated General Appearance: mild distress HEENT: PERRL/EOMI, normal ENT inspection Neck: normal inspection Respiratory: lungs clear Cardiovascular: normal peripheral pulses Gastrointestinal: soft, tenderness (Right lower quadrant pain/tenderness.), other (Body habitus compromising exam) Back: normal inspection, no CVA tenderness Neurologic/Psychiatric: no motor/sensory deficits, alert Progress/Results/Core Measures Results/Orders Lab Results Laboratory Tests Test 04/16/21 21:28 04/16/21 23:30 Range/Units White Blood Count 6.6 4.3-11.0 10^3/uL Red Blood Count 4.65 3.80-5.11 10^6/uL Hemoglobin 13.7 11.5-16.0 g/dL Hematocrit 42 35-52 % Mean Corpuscular Volume 90 80-99 fL Mean Corpuscular Hemoglobin 29 25-34 pg Mean Corpuscular Hemoglobin Concent 33 32-36 g/dL Red Cell Distribution Width 13.2 10.0-14.5 % Platelet Count 337 130-400 10^3/uL Mean Platelet Volume 10.1 9.0-12.2 fL Neutrophils (%) (Auto) 51 42-75 % Lymphocytes (%) (Auto) 36 12-44 % Monocytes (%) (Auto) 11 0-12 % Eosinophils (%) (Auto) 2 0-10 % Basophils (%) (Auto) 0 0-10 % Neutrophils # (Auto) 3.3 1.8-7.8 X 10^3 Lymphocytes # (Auto) 2.4 1.0-4.0 X 10^3 Monocytes # (Auto) 0.7 0.0-1.0 X 10^3 Eosinophils # (Auto) 0.2 0.0-0.3 10^3/uL Basophils # (Auto) 0.0 0.0-0.1 10^3/uL Sodium Level 139 135-145 MMOL/L Potassium Level 4.0 3.6-5.0 MMOL/L Chloride Level 102 98-107 MMOL/L Carbon Dioxide Level 29 21-32 MMOL/L Anion Gap 8 5-14 MMOL/L Blood Urea Nitrogen 11 7-18 MG/DL Creatinine 0.73 0.60-1.30 MG/DL Estimat Glomerular Filtration Rate 89 BUN/Creatinine Ratio 15 Glucose Level 88 70-105 MG/DL Calcium Level 9.2 8.5-10.1 MG/DL Corrected Calcium 9.0 8.5-10.1 MG/DL Total Bilirubin 0.2 0.1-1.0 MG/DL Aspartate Amino Transf (AST/SGOT) 13 5-34 U/L Alanine Aminotransferase (ALT/SGPT) 20 0-55 U/L Alkaline Phosphatase 102 40-136 U/L Total Protein 7.7 6.4-8.2 GM/DL Albumin 4.3 3.2-4.5 GM/DL Lipase 58 8-78 U/L Urine Color YELLOW Urine Clarity CLEAR Urine pH 6.5 5-9 Urine Specific Junction <=1.005 1.016-1.022 Urine Protein NEGATIVE NEGATIVE Urine Glucose (UA) NEGATIVE NEGATIVE Urine Ketones NEGATIVE NEGATIVE Urine Nitrite NEGATIVE NEGATIVE Urine Bilirubin NEGATIVE NEGATIVE Urine Urobilinogen 0.2 < = 1.0 MG/DL Urine Leukocyte Esterase NEGATIVE NEGATIVE Urine RBC (Auto) NEGATIVE NEGATIVE Urine RBC NONE /HPF Urine WBC RARE /HPF Urine Squamous Epithelial Cells 0-2 /HPF Urine Crystals NONE /LPF Urine Bacteria TRACE /HPF Urine Casts PRESENT /LPF Urine Hyaline Casts RARE /LPF Urine Mucus SMALL H /LPF Urine Culture Indicated NO My Orders Orders - OSEI BERNABE DO Cbc With Automated Diff (04/16/21 21:38) Comprehensive Metabolic Panel (04/16/21 21:38) Lipase (04/16/21 21:38) Ua Culture If Indicated (04/16/21 21:38) Ct Abd/Pelv W (Appendicitis) (04/16/21 21:38) Morphine Injection (Morphine Injection (04/16/21 21:39) Ondansetron Injection (Zofran Injectio (04/16/21 21:45) Medications Given in ED Current Medications Medications Dose Ordered Sig/Abena Route Start Time Stop Time Status Last Admin Dose Admin Iohexol 100 ml ONCE ONCE IV 04/16/21 21:45 04/16/21 22:09 DC 04/16/21 22:15 100 ML Ondansetron HCl 4 mg ONCE ONCE IVP 04/16/21 21:45 04/16/21 21:46 DC 04/16/21 22:06 4 MG Sodium Chloride 10 ml NEEDED PRN IV 04/16/21 21:45 04/16/21 22:15 10 ML Sodium Chloride 100 ml ONCE ONCE IV 04/16/21 21:45 04/16/21 22:09 DC 04/16/21 22:15 80 ML Vital Signs/I&O 04/16/21 21:05 Temp 36.7 Pulse 90 Resp 16 B/P (MAP) 154/79 (104) Pulse Ox 98 O2 Delivery Room Air Departure Communication (Admissions) CT abdomen/pelvis: Postoperative findings. Labs, imaging studies reviewed. Pain improved with reevaluation. Exam is reassuring. Recommendations are supportive care watchful waiting and follow-up with general surgeon. Return precautions reviewed. Patient verbalizes understanding and agreement with discharge instructions prior to departure. Impression Primary Impression: Postoperative abdominal pain Disposition: HOME, SELF-CARE Condition: Stable Departure-Patient Inst. Decision time for Depature: 00:23 Referrals: JASVIR HOWARD MD (PCP/Family) Primary Care Physician Patient Instructions: Abdominal Pain, Adult ED Add. Discharge Instructions: You were evaluated in the emergency department for abdominal pain. Lab and imaging were performed and are nondiagnostic. The exact cause of your symptoms has not been determined but is likely related to postoperative abdominal wall strain. Please continue home medications as directed and if symptoms persist follow-up with your general surgeon in 2 to 3 days. Return to the ED if new or worsening symptoms. All discharge instructions reviewed with patient and/or family. Voiced understanding. OSEI BERNABE DO Apr 16, 2021 21:47
[2021-04-16 22:28] LABS: BASOPHILS % (AUTO) 0 % (0-10); EOSINOPHILS % (AUTO) 2 % (0-10); HEMATOCRIT 42 % (35-52); HEMOGLOBIN 13.7 g/dL (11.5-16.0); LYMPHOCYTES % (AUTO) 36 % (12-44); MEAN CORPUSCULAR HEMOGLOBIN 29 pg (25-34); MEAN CORPUSCULAR HGB CONC 33 g/dL (32-36); MEAN CORPUSCULAR VOLUME 90 fL (80-99); MEAN PLATELET VOLUME 10.1 fL (9.0-12.2); MONOCYTES % (AUTO) 11 % (0-12); NEUTROPHILS % (AUTO) 51 % (42-75); PLATELET COUNT 337 10^3/uL (130-400); WHITE BLOOD COUNT 6.6 10^3/uL (4.3-11.0)
[2021-04-16 22:29] LABS: EOSINOPHILS # (AUTO) 0.2 10^3/uL (0.0-0.3); LYMPHOCYTES # (AUTO) 2.4 X 10^3 (1.0-4.0); MONOCYTES # (AUTO) 0.7 X 10^3 (0.0-1.0); NEUTROPHILS # (AUTO) 3.3 X 10^3 (1.8-7.8)
[2021-04-16 22:40] LABS: BILIRUBIN,TOTAL 0.2 MG/DL (0.1-1.0); CALCIUM 9.2 MG/DL (8.5-10.1); CREATININE SERUM 0.73 MG/DL (0.60-1.30)
--- NOTE | 2021-04-16 22:40 | Diagnostic Imaging Report ---
CLINICAL INDICATIONS: Patient with right lower quadrant pain. Recent gallbladder removal. EXAM: Axial CT scan abdomen and pelvis with 100 mL of Omnipaque 350 IV contrast. Sagittal and coronal reformatted images are created. Auto Exposure Controls were utilized during the CT exam to meet ALARA standards for radiation dose reduction. COMPARISON: CT scan abdomen and pelvis with contrast dated 08/01/2016. Right upper quadrant ultrasound dated 03/24/2021. FINDINGS: There is minimal atelectasis involving the left lung base. Bones show no significant abnormality. The gallbladder has been removed in the interim. There is very minimal fat stranding in the gallbladder fossa region likely from recent postoperative changes. There is no fluid collection or abscess. The liver, spleen, pancreas, and adrenal glands are unremarkable. There is no evidence of dilated ducts. The right and left kidneys are unremarkable. No hydronephrosis, stones, or mass. Bladder is fluid-filled and unremarkable. The uterus and adnexal structures show no significant abnormality. There is a small to moderate amount of stool throughout the colon most pronounced in the right colon. The appendix is unremarkable. There is no intra-abdominal free air. There is no intestinal obstruction. There is no significant lymphadenopathy. Stable small high density area in the anterior lower abdominal region. There is small amount of fat stranding in the ill-defined appearance of the mid anterior abdominal wall region which may be from postoperative changes. There is no evidence of drainable fluid collection or abscess. IMPRESSION: 1: There is no CT evidence of acute abdominal pelvic process. There is no evidence of abscess or intra-abdominal free air. 2: Interval cholecystectomy changes. There is minimal fat stranding in the gallbladder fossa region, likely from postoperative changes. 3: There is fat stranding and ill-defined appearance of the anterior abdominal wall which may be from postop changes. There is no evidence of abscess or drainable fluid collection. 4: Remainder of this exam shows no other significant abnormality. Dictated by: Dictated on workstation # [id number]
[2021-04-16 22:41] LABS: ALBUMIN 4.3 GM/DL (3.2-4.5); TOTAL PROTEIN 7.7 GM/DL (6.4-8.2)
[2021-04-16 23:38] LABS: BILIRUBIN,URINE NEGATIVE (NEGATIVE); CLARITY,URINE CLEAR; COLOR,URINE YELLOW; GLUCOSE, URINE (UA) NEGATIVE (NEGATIVE); KETONES,URINE NEGATIVE (NEGATIVE); LEUKOCYTE ESTERASE ,URINE NEGATIVE (NEGATIVE); NITRITE,URINE NEGATIVE (NEGATIVE); PH,URINE 6.5 (5-9); PROTEIN,URINE NEGATIVE (NEGATIVE)
[2021-04-16 23:46] LABS: BACTERIA,URINE TRACE /HPF; HYALINE CASTS, URINE RARE /LPF; SQUAMOUS EPITHELIAL CELL,UR 0-2 /HPF; WBC,URINE RARE /HPF
[2021-04-17 00:33] VITALS: BP 122/66
== END 2021-04-17 00:33 | disposition home or self-care (01) ==
LOC: ER FS 20:54 → EDUNIT# 20:54 → ER FS 04-17 00:33
DX: G89.18 Other acute postprocedural pain (principal); R10.31 Right lower quadrant pain; J45.909 Unspecified asthma, uncomplicated; K21.9 Gastro-esophageal reflux disease without esophagitis; F32.9 Major depressive disorder, single episode, unspecified; G89.29 Other chronic pain; M54.9 Dorsalgia, unspecified; E11.9 Type 2 diabetes mellitus without complications; Z79.899 Other long term (current) drug therapy; Z79.891 Long term (current) use of opiate analgesic
CPT/HCPCS: 36415; 74177; 80053; 81000; 83690; 85025

== ENCOUNTER 2021-05-21 23:50 | Emergency (ER) | payer MEDICAID ==
[~2021-05-21] VITALS: Ht 170 cm; Wt 144.6 kg
[2021-05-22 00:03] VITALS: BP 153/92
[2021-05-22] MEDS ORDERED: KETOROLAC 30 MG/ML VIAL IVP STA (00:33)
--- NOTE | 2021-05-22 00:44 | ED General ---
General Chief Complaint: Respiratory Problems Stated Complaint: TREMOR/HEADACHE/SHAKY Nursing Triage Note: Arrives w/ c/o tremors, "shakes" and respiratory distress. States was dx w/ pneumonia earlier today. Source of Information: Patient History of Present Illness Date Seen by Provider: May 21, 2021 Time Seen by Provider: 23:57 Initial Comments 36-year-old female presenting with complaints of cough, respiratory distress, feeling like she was having tremors and shaking. She reports being seen by urgent care earlier today had been diagnosed with pneumonia. They gave her an inhaler but did not start her on any antibiotics. She denies having a COVID or flu swab today. She does have a person living in her house that just had their father from Covid on Wednesday. She has not had any pain with urination, abdominal pain, nausea, vomiting, diarrhea. She reports that she is supposed to be on several medicines but that she has not been taking any of them Timing/Duration: 1 Day Severity: Severe Modifying Factors: worse with Movement (activity makes her feel worse) Associated Systoms: Chest Pain, Cough; No Diaphoresis; Fever/Chills, Headaches; No Loss of Appetite; Malaise; No Nausea/Vomiting, No Rash, No Seizure; Shortness of Air; No Syncope, No Weakness Allergies and Home Medications Allergies Coded Allergies: prednisone (Verified Allergy, Intermediate, 02/17/17) Patient Home Medication List Home Medication List Reviewed: Yes Albuterol Sulfate (Proventil Hfa) 6.7 Gm Hfa.aer.ad, 2 PUFF INH QID PRN for SHORTNESS OF BREATH, (Reported) Entered as Reported by: AMRIT MARINELLI on 04/09/21 1137 Azithromycin (Azithromycin) 250 Mg Tablet, 250 MG PO DAILY Prescribed by: ASCENCION YANES on 05/22/21 0310 Bupropion HCl (Bupropion HCl) 100 Mg Tablet, 100 MG PO BID, (Reported) Entered as Reported by: FAUSTO MAGDALENO on 03/31/21 1041 Dulaglutide (Trulicity) 1.5 Mg/0.5 Ml Pen.injctr, 1.5 MG SQ MON, (Reported) Entered as Reported by: AMRIT MARINELLI on 04/09/21 1137 Esomeprazole Magnesium (Esomeprazole Magnesium) 40 Mg Capsule.dr, 40 MG PO DAILY, (Reported) Entered as Reported by: AMRIT MARINELLI on 04/09/21 1137 Guaifenesin (Mucinex) 1,200 Mg Tab.er.12h, 1,200 MG PO Q12H Prescribed by: ASCENCION YANES on 05/22/21 0218 Hydrocodone/Acetaminophen (Hydrocodone-Acetamin 5-325 mg) 1 Each Tablet, 1 TAB PO Q8H PRN for PAIN-MODERATE (5-7) Prescribed by: ANN MEJIA on 04/09/21 1639 Naltrexone HCl (Naltrexone HCl) 50 Mg Tablet, 25 MG PO BID, (Reported) Entered as Reported by: AMRIT MARINELLI on 04/09/21 1137 Ondansetron HCl (Ondansetron HCl) 4 Mg Tablet, 4 MG PO Q8H PRN for NAUSEA/VOMITING-1ST LINE, (Reported) Entered as Reported by: AMRIT MARINELLI on 04/09/21 1137 Review of Systems Review of Systems Constitutional: No chills, No fever EENTM: epistaxis, nose congestion Respiratory: cough; No hemoptysis; phlegm, short of breath; No stridor, No wheezing Cardiovascular: chest pain (tightness in chest) Gastrointestinal: No abdominal pain, No nausea, No vomiting Genitourinary: No dysuria, No frequency Musculoskeletal: muscle pain (generalized body aches and pains) Skin: No rash Psychiatric/Neurological: Anxiety Past Phovrxr-Rinuep-Wdgisx Hx Patient Social History Tobacco Use?: Yes Immunizations Up To Date Tetanus Booster (TDap): Less than 5yrs First/Initial COVID19 Vaccinat: 11/30 Second COVID19 Vaccination Trell: 12/31 Seasonal Allergies Seasonal Allergies: Yes Past Medical History Surgeries: Yes 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, Oophorectomy, Orthopedic Respiratory: Yes Asthma Cardiac: No Neurological: No Headaches /Migraines 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 Disorders: Yes Female 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, 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 Sexually Transmitted Disease: No HIV/AIDS: No Genitourinary: No Gastrointestinal: Yes Gastroesophageal Reflux, Gall Bladder Disease Musculoskeletal: No Degenerate Disk Disease, Chronic Back Pain Endocrine: Yes Diabetes, Non-Insulin dep HEENT: No Chronic Ear Infection Loss of Vision: Denies Hearing Impairment: Hard of Hearing Cancer: No Psychosocial: Yes Anxiety, Depression Integumentary: No Psoriasis Blood Disorders: Yes (HEPATITIS C) Adverse Reaction/Blood Tranf: No (N/A) Family Medical History Heart Disease, Cancer, Diabetes SOCIAL HISTORY: -SMOKED 1/2 PPD, QUIT -ETOH--OCCASIONAL USE -DRUGS--HX OF IV METH USE Physical Exam Vital Signs Vital Signs - First Documented 05/22/21 00:03 Temp 37.3 Pulse 114 Resp 24 B/P (MAP) 153/92 (112) Pulse Ox 97 O2 Delivery Room Air Capillary Refill : Less Than 3 Seconds Height, Weight, BMI Height: 5'7.00" Weight: 300lbs. 7.0oz. [id number]; 50.00 BMI Method:Stated General Appearance: Anxious, Mild Distress, Obese HEENT: PERRL/EOMI, Pharynx Normal Neck: Full Range of Motion, Normal Inspection, Non Tender, Supple Respiratory: Chest Non Tender, Lungs Clear, Normal Breath Sounds, No Accessory Muscle Use, No Respiratory Distress Cardiovascular: Regular Rate, Rhythm, Normal Peripheral Pulses Gastrointestinal: Normal Bowel Sounds, No Pulsatile Mass, Non Tender, Soft Rectal: Deferred Extremity: Normal Capillary Refill, Normal Inspection, No Pedal Edema Neurologic/Psychiatric: Alert, Oriented x3, harness placer II-XII Norm as Tested Skin: Normal Color, Warm/Dry Focused Exam Lactate Level 05/22/21 00:55: Lactic Acid Level 0.64 Lactic Acid Level Laboratory Tests Test 05/22/21 00:55 Lactic Acid Level 0.64 MMOL/L (0.50-2.00) Progress/Results/Core Measures Suspected Sepsis SIRS Temperature: Pulse: 114 Respiratory Rate: 24 Laboratory Tests 05/22/21 00:15: White Blood Count 5.7 Blood Pressure 153 /92 Mean: 112 05/22/21 00:55: Lactic Acid Level 0.64 Laboratory Tests 05/22/21 00:15: Creatinine 0.61, INR Comment 1.0, Platelet Count 215, Total Bilirubin 0.3 Results/Orders Lab Results Laboratory Tests Test 05/22/21 00:15 05/22/21 00:20 05/22/21 00:55 Range/Units White Blood Count 5.7 4.3-11.0 10^3/uL Red Blood Count 5.34 H 3.80-5.11 10^6/uL Hemoglobin 15.4 11.5-16.0 g/dL Hematocrit 47 35-52 % Mean Corpuscular Volume 88 80-99 fL Mean Corpuscular Hemoglobin 29 25-34 pg Mean Corpuscular Hemoglobin Concent 33 32-36 g/dL Red Cell Distribution Width 13.2 10.0-14.5 % Platelet Count 215 130-400 10^3/uL Mean Platelet Volume 9.9 9.0-12.2 fL Immature Granulocyte % (Auto) 0 % Neutrophils (%) (Auto) 68 42-75 % Lymphocytes (%) (Auto) 17 12-44 % Monocytes (%) (Auto) 13 H 0-12 % Eosinophils (%) (Auto) 1 0-10 % Basophils (%) (Auto) 0 0-10 % Neutrophils # (Auto) 3.9 1.8-7.8 10^3/uL Lymphocytes # (Auto) 1.0 1.0-4.0 10^3/uL Monocytes # (Auto) 0.8 0.0-1.0 10^3/uL Eosinophils # (Auto) 0.1 0.0-0.3 10^3/uL Basophils # (Auto) 0.0 0.0-0.1 10^3/uL Immature Granulocyte # (Auto) 0.0 0.0-0.1 10^3/uL Prothrombin Time 13.4 12.2-14.7 SEC INR Comment 1.0 0.8-1.4 Activated Partial Thromboplast Time 31 24-35 SEC Sodium Level 133 L 135-145 MMOL/L Potassium Level 3.9 3.6-5.0 MMOL/L Chloride Level 98 98-107 MMOL/L Carbon Dioxide Level 22 21-32 MMOL/L Anion Gap 13 5-14 MMOL/L Blood Urea Nitrogen 8 7-18 MG/DL Creatinine 0.61 0.60-1.30 MG/DL Estimat Glomerular Filtration Rate 117 BUN/Creatinine Ratio 13 Glucose Level 112 H 70-105 MG/DL Calcium Level 9.0 8.5-10.1 MG/DL Corrected Calcium 8.8 8.5-10.1 MG/DL Total Bilirubin 0.3 0.1-1.0 MG/DL Aspartate Amino Transf (AST/SGOT) 16 5-34 U/L Alanine Aminotransferase (ALT/SGPT) 19 0-55 U/L Alkaline Phosphatase 106 40-136 U/L Troponin I < 0.30 <0.30 NG/ML C-Reactive Protein 1.55 H <0.50 MG/DL Total Protein 7.3 6.4-8.2 GM/DL Albumin 4.3 3.2-4.5 GM/DL Serum Test, Qualitative NEGATIVE NEGATIVE Influenza Type A Antigen NEGATIVE NEGATIVE Influenza Type B Antigen NEGATIVE NEGATIVE Lactic Acid Level 0.64 0.50-2.00 MMOL/L My Orders Orders - ASCENCION YANES MD Monitor-Rhythm Ecg Trace Only (05/22/21:33) Ed Iv/Invasive Line Start (05/22/21:) Cbc With Automated Diff (05/22/21:) Comprehensive Metabolic Panel (05/22/21:) Crp Fs (05/22/21:) Troponin I Fs (05/22/21) Protime With Inr (05/22/21:) Partial Thromboplastin Time (05/22/21:) Ekg Tracing (05/22/21:) Ns Iv 1000 Ml (Sodium Chloride 0.9%) (05/22/21 00:45) Blood Culture (05/22/21:33) Influenza A & B Antigens (05/22/21:33) Chest 1 View Ap/Pa Only (05/22/21:) Hcg,Qualitative Serum (05/22/21:) Lactic Acid Analyzer (05/22/21:33) Isolation Central Supply Req (05/22/21:33) Ketorolac Injection (Toradol Injection) (05/22/21:33) Coronavirus Sars-Cov-2 So 2018 (05/22/21 00:20) Azithromycin Tablet (Zithromax Tablet) (05/22/21 02:01) Ceftriaxone 1 Gm Pre-Mix (Rocephin 1 Gm (05/22/21 02:01) Dexamethasone Injection (Decadron Inje (05/22/21 02:02) Vital Signs/I&O 05/22/21 00:03 Temp 37.3 Pulse 114 Resp 24 B/P (MAP) 153/92 (112) Pulse Ox 97 O2 Delivery Room Air Capillary Refill : Less Than 3 Seconds Blood Pressure Mean: 112 Progress Note #1: Progress Note Obtain basic labs and blood cultures with lactic acid, Covid swab, influenza swab, chest x-ray, cardiac enzymes. Give IV fluids 1 L normal saline for hydration. Toradol 30 mg IV for body aches and pain. Progress Note #2: Progress Note Labs appear stable without acute significant abnormality. She had mild elevation of her CRP. Her cardiac enzymes were negative. Her white blood cell count was normal. Her chest x-ray showed infiltrate along the left heart border on my review of the 1 view chest x-ray. Her electrocardiogram did not show acute ST elevation. Progress Note #3: Progress Note Updated patient about results and findings. She reported feeling improved after treatment. Will treat her with antibiotics and a dose of steroids here. Since she has diabetes will only give a single steroid dose and not send home with prescription. Advised that she could still have Covid and the results would be another 1 to 2 days to get back. She should quarantine until those results are known. She will be prescribed a Z-Barber for her pneumonia and she already has an inhaler. Also prescribe Mucinex to help break up the congestion and cough. ECG Initial ECG Impression Date: May 22, 2021 Initial ECG Impression Time: 01:11 Initial ECG Rate: 101 Initial ECG Rhythm: S.Tach Initial ECG Comparisson: No Previous ECG Available Comment Sinus tachycardia with a heart rate of 101 bpm. SD interval 147 ms. Low voltag e in the precordial leads. Artifact on the tracing. QT interval 329 ms with a QTc interval [address] elevation. No prior tracing available for comparison. Diagnostic Imaging Diagonstic Imaging: Xray Comments On my review of her 1 view chest x-ray she has infiltrate along the left heart border and decreased inspiration. Reviewed: Reviewed by Me Departure Impression Primary Impression: Pneumonia of left lower lobe due to infectious organism Additional Impression: Person under investigation for COVID-19 Disposition: 01 HOME, SELF-CARE Condition: Stable Departure-Patient Inst. Decision time for Depature: 02:10 Referrals: SELF,JASVIR BRADSHAW (PCP/Family) Primary Care Physician Patient Instructions: COVID-19 ED, Pneumonia, Adult ED, COVID-19 Tests Add. Discharge Instructions: Quarantine and isolate until you have negative Covid test result or until 10 days since your symptoms started if you are positive for Covid. Stay well hydrated and drink plenty of water and hydration. Take the full course of antibiotics to treat for infection. Use mucinex to help loosen cough and congestion Check with clinic if not improving or having continued symptoms. Use the inhaler that you got from urgent care Wednesday to help with cough and shortness of breath All discharge instructions reviewed with patient and/or family. Voiced understanding. Scripts Azithromycin (Azithromycin) 250 Mg Tablet 250 MG PO DAILY for pneumonia for 5 Days, #6 TAB 0 Refills Take 500 mg (2 tabs) by mouth day 1, then 250 mg daily for 4 more days Prov: ASCENCION YANES MD 05/22/21 Guaifenesin (Mucinex) 1,200 Mg Tab.er.12h 1200 MG PO Q12H for cough/congestion for 7 Days, #14 TAB 0 Refills Prov: ASCENCION YANES MD 05/22/21 ASCENCION YANES MD May 22, 2021 00:44
[2021-05-22 00:45] LABS: BASOPHILS % (AUTO) 0 % (0-10); EOSINOPHILS # (AUTO) 0.1 10^3/uL (0.0-0.3); EOSINOPHILS % (AUTO) 1 % (0-10); HEMATOCRIT 47 % (35-52); HEMOGLOBIN 15.4 g/dL (11.5-16.0); LYMPHOCYTES % (AUTO) 17 % (12-44); MEAN CORPUSCULAR HEMOGLOBIN 29 pg (25-34); MEAN CORPUSCULAR HGB CONC 33 g/dL (32-36); MEAN CORPUSCULAR VOLUME 88 fL (80-99); MEAN PLATELET VOLUME 9.9 fL (9.0-12.2); MONOCYTES # (AUTO) 0.8 10^3/uL (0.0-1.0); MONOCYTES % (AUTO) 13 % (0-12); NEUTROPHILS # (AUTO) 3.9 10^3/uL (1.8-7.8); NEUTROPHILS % (AUTO) 68 % (42-75); PLATELET COUNT 215 10^3/uL (130-400); WHITE BLOOD COUNT 5.7 10^3/uL (4.3-11.0)
[2021-05-22] MEDS ORDERED: NS IV 1000 ML 1,000 ML IV SCH (00:45)
[2021-05-22 01:07] LABS: ALANINE AMINOTRANSFERASE 19 U/L (0-55); ALBUMIN 4.3 GM/DL (3.2-4.5); ALKALINE PHOSPHATASE 106 U/L (40-136); BILIRUBIN,TOTAL 0.3 MG/DL (0.1-1.0); BUN/CREATININE RATIO 13; CARBON DIOXIDE 22 MMOL/L (21-32); CHLORIDE 98 MMOL/L (98-107); CREATININE SERUM 0.61 MG/DL (0.60-1.30); GFR ESTIMATED 117; GLUCOSE 112 MG/DL (70-105); POTASSIUM 3.9 MMOL/L (3.6-5.0); SODIUM 133 MMOL/L (135-145); TOTAL PROTEIN 7.3 GM/DL (6.4-8.2)
[2021-05-22 01:10] LABS: PROTHROMBIN TIME PATIENT 13.4 SEC (12.2-14.7)
[2021-05-22] MEDS ORDERED: cefTRIAXone 1 GM PRE-MIX 50 ML IV STA (02:01)
[2021-05-22] MEDS ORDERED: AZITHROMYCIN 250 MG TAB (ZITHROMAX) PO STA (02:01)
[2021-05-22] MEDS ORDERED: AZIT250T12 PO ×2 (02:17→03:10)
[2021-05-22] MEDS ORDERED: GUAI120013 PO (02:18)
--- NOTE | 2021-05-22 05:42 | Diagnostic Imaging Report ---
Indication: Cough and shortness of breath Portable chest 12:44 AM Heart size and pulmonary vascularity are normal. Lungs are clear. There are no effusions or pneumothoraces. IMPRESSION: Negative chest Dictated by: Dictated on workstation # [id number]
== END 2021-05-22 03:21 | disposition home or self-care (01) ==
LOC: EDUNIT# 23:50 → ER FS 23:53
DX: U07.1 COVID-19 (principal); J12.82 Pneumonia due to coronavirus disease 2019; E11.9 Type 2 diabetes mellitus without complications; K21.9 Gastro-esophageal reflux disease without esophagitis; F41.9 Anxiety disorder, unspecified; F32.9 Major depressive disorder, single episode, unspecified; L40.9 Psoriasis, unspecified; J45.909 Unspecified asthma, uncomplicated; F17.210 Nicotine dependence, cigarettes, uncomplicated; Z79.84 Long term (current) use of oral hypoglycemic drugs; Z79.899 Other long term (current) drug therapy; Z32.02 Encounter for pregnancy test, result negative
CPT/HCPCS: 36415; 71045; 80053; 83605; 84484; 84703; 85025; 85610; 85730; 86141; 87040; 87635; 87804; 93005

== ENCOUNTER 2021-05-25 23:33 | Emergency (ER) | payer MEDICAID ==
[~2021-05-25] VITALS: Ht 170.1 cm; Wt 144.6 kg
[~2021-05-25 23:33] MED LIST changes: +AZIT250T12 PO; +GUAI120013 PO
[2021-05-25 23:39] VITALS: BP 159/71
[2021-05-25] MEDS ORDERED: FLT22013 IH (23:57)
--- NOTE | 2021-05-25 23:57 | ED Cough/URI ---
General Chief Complaint: COVID19 Suspect/Confirmed Stated Complaint: SOB/COVID+ Nursing Triage Note: Patient states that she tested positive for Covid a few days ago. Patient was seen in the ER at that time and given 4 days of antibiotics. Patient states she finished the 4 days and she feels like they didn't do anything. Patient states she feels as though she has gotten worse over the last couple of days. Source: patient Exam Limitations: no limitations History of Present Illness Date Seen by Provider: May 25, 2021 Time Seen by Provider: 23:40 Initial Comments 36-year-old female with known COVID testing positive on May 22 coming in due to increasing cough and shortness of breath. She says she is concerned that she was started on antibiotics but is not feeling like she is getting better. No vomiting, diarrhea, chest pain, abdominal pain, weakness, numbness, rash, or any other concerns. She has had 2 COVID vaccines. Allergies and Home Medications Allergies Coded Allergies: prednisone (Verified Allergy, Intermediate, 02/17/17) Patient Home Medication List Home Medication List Reviewed: Yes Albuterol Sulfate (Proventil Hfa) 6.7 Gm Hfa.aer.ad, 2 PUFF INH QID PRN for SHORTNESS OF BREATH, (Reported) Entered as Reported by: AMRIT MARINELLI on 04/09/21 113 Azithromycin (Azithromycin) 250 Mg Tablet, 250 MG PO DAILY Prescribed by: ASCENCION YANES on 05/22/21 0310 Bupropion HCl (Bupropion HCl) 100 Mg Tablet, 100 MG PO BID, (Reported) Entered as Reported by: FAUSTO MAGDALENO on 03/31/21 1041 Dulaglutide (Trulicity) 1.5 Mg/0.5 Ml Pen.injctr, 1.5 MG SQ MON, (Reported) Entered as Reported by: AMRIT MARINELLI on 04/09/21 113 Esomeprazole Magnesium (Esomeprazole Magnesium) 40 Mg Capsule.dr, 40 MG PO DAILY, (Reported) Entered as Reported by: AMRIT MARINELLI on 04/09/21 113 Guaifenesin (Mucinex) 1,200 Mg Tab.er.12h, 1,200 MG PO Q12H Prescribed by: ASCENCION YANES on 05/22/21 0218 Hydrocodone/Acetaminophen (Hydrocodone-Acetamin 5-325 mg) 1 Each Tablet, 1 TAB PO Q8H PRN for PAIN-MODERATE (5-7) Prescribed by: ANN MEJIA on 04/09/21 1639 Naltrexone HCl (Naltrexone HCl) 50 Mg Tablet, 25 MG PO BID, (Reported) Entered as Reported by: AMRIT MARINELLI on 04/09/21 1137 Ondansetron HCl (Ondansetron HCl) 4 Mg Tablet, 4 MG PO Q8H PRN for NAUSEA/VOMITING-1ST LINE, (Reported) Entered as Reported by: AMRIT MARINELLI on 04/09/21 1137 Review of Systems Review of Systems Constitutional: No chills, No fever Respiratory: cough, short of breath Cardiovascular: No chest pain Gastrointestinal: No abdominal pain, No nausea, No vomiting Genitourinary: no symptoms reported Musculoskeletal: no symptoms reported Skin: no symptoms reported Psychiatric/Neurological: No Symptoms Reported Hematologic/Lymphatic: No Symptoms Reported Immunological/Allergic: no symptoms reported All Other Systems Reviewed Negative Unless Noted: Yes Past Fxvdtxu-Faisxm-Xrwsis Hx Patient Social History Tobacco Use?: No Substance use?: No Alcohol Use?: No Pt feels they are or have been: No Immunizations Up To Date Tetanus Booster (TDap): Less than 5yrs First/Initial COVID19 Vaccinat: 11/30 Second COVID19 Vaccination Trell: 12/31 COVID19 Vaccine Drafter Chief Design: Adal Seasonal Allergies Seasonal Allergies: Yes Past Medical History Surgeries: Yes 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, Oophorectomy, Orthopedic Respiratory: Yes Asthma Cardiac: No Neurological: No Headaches /Migraines 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 Disorders: Yes Female 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, 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 Sexually Transmitted Disease: No HIV/AIDS: No Genitourinary: No Gastrointestinal: Yes Gastroesophageal Reflux, Gall Bladder Disease Musculoskeletal: No Degenerate Disk Disease, Chronic Back Pain Endocrine: Yes Diabetes, Non-Insulin dep HEENT: No Chronic Ear Infection Loss of Vision: Denies Hearing Impairment: Hard of Hearing Cancer: No Psychosocial: Yes Anxiety, Depression Integumentary: No Psoriasis Blood Disorders: Yes (HEPATITIS C) Adverse Reaction/Blood Tranf: No (N/A) Family Medical History Heart Disease, Cancer, Diabetes SOCIAL HISTORY: -SMOKED 1/2 PPD, QUIT -ETOH--OCCASIONAL USE -DRUGS--HX OF IV METH USE Physical Exam Vital Signs - First Documented 05/25/21 23:39 Temp 36.5 Pulse 88 Resp 18 B/P (MAP) 159/71 (100) Pulse Ox 99 O2 Delivery Room Air Capillary Refill : Less Than 3 Seconds Height: 5'7.00" Weight: 300lbs. 7.0oz. [id number]; 49.00 BMI Method:Stated General Appearance: WD/WN, no apparent distress Eyes: Bilateral Eye Normal Inspection HEENT: PERRL/EOMI, normal ENT inspection, pharynx normal Neck: non-tender, full range of motion, supple, normal inspection Respiratory: chest non-tender, lungs clear, normal breath sounds, no respiratory distress, no accessory muscle use Cardiovascular: regular rate, rhythm, no edema, no murmur Gastrointestinal: normal bowel sounds, non tender, soft; No distended, No guarding, No rebound Extremities: normal range of motion, non-tender, normal inspection, no pedal edema, no calf tenderness, normal capillary refill Neurologic/Psychiatric: no motor/sensory deficits, alert, normal mood/affect Skin: normal color, warm/dry Lymphatic: no adenopathy Progress/Results/Core Measures Suspected Sepsis SIRS Temperature: Pulse: 88 Respiratory Rate: 18 Blood Pressure 159 /71 Mean: 100 Results/Orders My Orders Orders - LAN BLANKENSHIP MD Chest 1 View Ap/Pa Only (05/25/21 23:50) Vital Signs/I&O 05/25/21 23:39 Temp 36.5 Pulse 88 Resp 18 B/P (MAP) 159/71 (100) Pulse Ox 99 O2 Delivery Room Air Capillary Refill : Less Than 3 Seconds Blood Pressure Mean: 100 Progress Note : Progress Note 36-year-old female with above history coming in with known COVID and feeling short of breath. ABCs were intact and vitals were stable on presentation. The patient was satting around 100% even with ambulation around the room. Lungs are clear and she is well-appearing. She says she has asthma but is not wheezing on exam. I discussed with the patient the typical course of the virus, and that stronger antibiotics are not warranted as they will not be helpful to her. Repeat chest x-ray ordered and interpreted by me showing no focal infiltrate or pneumothorax. Cardiac silhouette stable. I believe the patient is stable for discharge with outpatient follow-up. She was sent home with strict return precautions. Departure Impression Primary Impression: COVID-19 Additional Impression: Dyspnea Qualified Codes: R06.00 - Dyspnea, unspecified Disposition: 01 HOME, SELF-CARE Condition: Stable Departure-Patient Inst. Decision time for Depature: 23:55 Referrals: JASVIR HOWARD MD (PCP/Family) Primary Care Physician Patient Instructions: COVID-19 Overview Add. Discharge Instructions: I sent a steroid inhaler to your pharmacy which can be helpful in relieving symptoms sooner with COVID. Ultimately, it will have to take its course and will take some time to get over it. Antibiotics will not speed up the process unfortunately. I recommend buying a pulse oximeter and checking your oxygen if you are feeling short of breath. If you are 89% or lower, I recommend taking some deep breaths, and if he cannot get it to at least 90% then I recommend coming back to the ER. Scripts Fluticasone Propionate (Flovent Hfa 220 mcg) 1 Ea Aero 1 EA IH Q8H for 14 Days, #1 EA Prov: LAN BLANKENSHIP MD 05/25/21 Work/School Note: Work Release Form Date Seen in the Emergency Department: May 26, 2021 Return to Work: May 28, 2021 Restrictions: Return-No Fever (24hrs) LAN BLANKENSHIP MD May 25, 2021 23:57
--- NOTE | 2021-05-26 06:43 | Diagnostic Imaging Report ---
EXAM: CHEST 1 VIEW AP/PA ONLY INDICATION: Shortness of air. COVID. COMPARISON: 05/22/2021. FINDINGS: Normal heart size and central pulmonary vascularity. No focal pulmonary opacity. No pleural effusion or pneumothorax. No acute osseous findings. No significant change. IMPRESSION: Negative chest. Dictated by: Dictated on workstation # [id number]
== END 2021-05-26 00:04 | disposition home or self-care (01) ==
LOC: EDUNIT# 23:33 → ER FS 23:36
DX: U07.1 COVID-19 (principal); R06.00 Dyspnea, unspecified; F32.9 Major depressive disorder, single episode, unspecified; K21.9 Gastro-esophageal reflux disease without esophagitis; E11.9 Type 2 diabetes mellitus without complications; G89.29 Other chronic pain; M54.9 Dorsalgia, unspecified; Z79.899 Other long term (current) drug therapy; Z79.891 Long term (current) use of opiate analgesic
CPT/HCPCS: 71045

== ENCOUNTER 2021-07-12 01:22 | Emergency (ER) | payer MEDICAID ==
[~2021-07-12] VITALS: Ht 170 cm; Wt 140.0 kg
[~2021-07-12 01:22] MED LIST changes: +FLT22013 IH; -FLUC150T2 PO; +FLUC150T41 PO
[2021-07-12 01:30] VITALS: BP 160/109
[2021-07-12] MEDS ORDERED: TETANUS,DIPTH,PERTUSS P/F (BOOSTRIX) 0.5 ML VIAL IM ONE (01:45)
[2021-07-12] MEDS ORDERED: AUGMENTIN 875 MG TAB (AMOXICILLIN/CLAVULANATE) PO STA (01:45)
[2021-07-12] MEDS ORDERED: LIDOCAINE 1% INJ 20 ML VIAL INJ STA (01:45)
--- NOTE | 2021-07-12 01:51 | ED Upper Extremity ---
General Chief Complaint: Bite-Animal/Human/Insect Stated Complaint: ANIMAL BITE Nursing Triage Note: Pt was bitten by a dog to right index finger x 10 mintues ago. Bleeding in controlled. Pt is crying upon arrival. 2+ radial pulses bilateral. Source: patient History of Present Illness Date Seen by Provider: Jul 12, 2021 Time Seen by Provider: 01:26 Initial Comments 36 yo female presents with complaint of pain to right index fingertip after being bitten by becky monahan dog. She had several people over to her house and they were all drinking tonight. The dog belongs to her niece and has been staying with them but has anxiety and is very nervous. He is not up to date on Rabies vaccine but is a house pet and able to be quarantined and monitored. She is unsure of last tetanus booster. She is complaining of severe pain in fingertip. She had gone to pet the dog while another family member was holding it and the dog bit her finger. She reports having to pull her finger from the dog's mouth. She had a lot of bleeding at home and complains of severe pain. Location Injury Occurred: home Onset: just prior to arrival Severity: severe Pain/Injury Location: right 2nd finger Method of Injury: other (dog bite) Modifying Factors: Worse With Movement Allergies and Home Medications Allergies Coded Allergies: prednisone (Verified Allergy, Intermediate, 02/17/17) Patient Home Medication List Home Medication List Reviewed: Yes Albuterol Sulfate (Proventil Hfa) 6.7 Gm Hfa.aer.ad, 2 PUFF INH QID PRN for SHORTNESS OF BREATH, (Reported) Entered as Reported by: AMRIT MARINELLI on 04/09/21 1137 Amoxicillin/Potassium Clav (Amox Tr-K Clv 875-125 mg Tab) 1 Each Tablet, 1 EACH PO BID Prescribed by: ASCENCION YANES on 07/12/21 0208 Azithromycin (Azithromycin) 250 Mg Tablet, 250 MG PO DAILY Prescribed by: ASCENCION YANES on 05/22/21 0310 Bupropion HCl (Bupropion HCl) 100 Mg Tablet, 100 MG PO BID, (Reported) Entered as Reported by: FAUSTO MAGDALENO on 03/31/21 1041 Dulaglutide (Trulicity) 1.5 Mg/0.5 Ml Pen.injctr, 1.5 MG SQ MON, (Reported) Entered as Reported by: AMRIT MARINELLI on 04/09/21 1137 Esomeprazole Magnesium (Esomeprazole Magnesium) 40 Mg Capsule.dr, 40 MG PO DAILY, (Reported) Entered as Reported by: AMRIT MARINELLI on 04/09/21 113 Fluticasone Propionate (Flovent Hfa 220 mcg) 1 Ea Aero, 1 EA IH Q8H Prescribed by: LAN BLANKENSHIP on 05/25/21 2357 Guaifenesin (Mucinex) 1,200 Mg Tab.er.12h, 1,200 MG PO Q12H Prescribed by: ASCENCION YANES on 05/22/21 0218 Hydrocodone/Acetaminophen (Hydrocodone-Acetamin 5-325 mg) 1 Each Tablet, 1 TAB PO Q8H PRN for PAIN-MODERATE (5-7) Prescribed by: ANN MEJIA on 04/09/21 1639 Hydrocodone/Acetaminophen (Hydrocodone-Acetamin 5-325 mg) 1 Each Tablet, 1 TAB PO Q6H PRN for PAIN-SEVERE (8-10) Prescribed by: ASCENCION YANES on 07/12/21 0209 Naltrexone HCl (Naltrexone HCl) 50 Mg Tablet, 25 MG PO BID, (Reported) Entered as Reported by: AMRIT MARINELLI on 04/09/21 113 Ondansetron HCl (Ondansetron HCl) 4 Mg Tablet, 4 MG PO Q8H PRN for NAUSEA/VOMITING-1ST LINE, (Reported) Entered as Reported by: AMRIT MARINELLI on 04/09/21 1137 Review of Systems Constitutional: no symptoms reported EENTM: no symptoms reported Respiratory: no symptoms reported Cardiovascular: no symptoms reported Gastrointestinal: no symptoms reported Genitourinary: no symptoms reported Musculoskeletal: see HPI Skin: see HPI, other (puncture wound to right index finger and flap laceration beside nail right index finger) Psychiatric/Neurological: Denies Numbness, Denies Paresthesia Past Mbtxhuj-Suerlf-Ogqnne Hx Patient Social History Tobacco Use?: No Use of E-Cig and/or Vaping dev: No Substance use?: No Alcohol Use?: Yes Pt feels they are or have been: No Immunizations Up To Date Tetanus Booster (TDap): Less than 5yrs Influenza Vaccine Up-to-Date: No; Not Current First/Initial COVID19 Vaccinat: 08/21 Second COVID19 Vaccination Trell: Adal Seasonal Allergies Seasonal Allergies: Yes Past Medical History Surgeries: Yes 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, Oophorectomy, Orthopedic Respiratory: Yes Asthma Cardiac: No Neurological: No Headaches /Migraines 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 Disorders: Yes Female 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, 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 Sexually Transmitted Disease: No HIV/AIDS: No Genitourinary: No Gastrointestinal: Yes Gastroesophageal Reflux, Gall Bladder Disease Musculoskeletal: No Degenerate Disk Disease, Chronic Back Pain Endocrine: Yes Diabetes, Non-Insulin dep HEENT: No Chronic Ear Infection Loss of Vision: Denies Hearing Impairment: Hard of Hearing Cancer: No Psychosocial: Yes Anxiety, Depression Integumentary: No Psoriasis Blood Disorders: Yes (HEPATITIS C) Adverse Reaction/Blood Tranf: No (N/A) Family Medical History Heart Disease, Cancer, Diabetes SOCIAL HISTORY: -SMOKED 1/2 PPD, QUIT -ETOH--OCCASIONAL USE -DRUGS--HX OF IV METH USE Physical Exam Vital Signs Vital Signs - First Documented 07/12/21 01:30 Temp 36.4 Pulse 125 Resp 20 B/P (MAP) 160/109 (126) Pulse Ox 96 O2 Delivery Room Air Capillary Refill : Less Than 3 Seconds Height, Weight, BMI Height: 5'7.00" Weight: 300lbs. 7.0oz. [id number]; 48.00 BMI Method:Stated General Appearance: severe distress, obese Cardiovascular: normal peripheral pulses Hand: laceration (6 mm flap laceration beside nail on right index finger), soft tissue tenderness (right index fingertip) Neurologic/Tendon: normal sensation, normal motor functions, normal tendon functions Neurologic/Psychiatric: alert, oriented x 3, other (anxious) Skin: warm/dry Progress/Results/Core Measures Results/Orders My Orders Orders - ASCENCION YANES MD Finger(S) (07/12/21 01:44) Dipht,Pertuss(Acell),Tet Adult (Boostrix (07/12/21 01:45) Lidocaine 1% Inj 20 Ml (Xylocaine 1% Inj (07/12/21 01:45) Amoxicillin/Clavulanate Tablet (Augmenti (07/12/21 01:45) Rx-Hydrocodone/Apap 5-325 Mg (Rx-Vicodin (07/12/21 02:15) Wound Dressing-Ed (07/12/21 02:07) Medications Given in ED Current Medications Medications Dose Ordered Sig/Abena Route Start Time Stop Time Status Last Admin Dose Admin Acetaminophen/ Hydrocodone Bitart 1 ea Q6H PRN PO 07/12/21 02:15 07/12/21 02:24 DC 07/12/21 02:13 1 EA Diphtheria/ Tetanus/Acell Pertussis 0.5 ml ONCE ONCE IM 07/12/21 01:45 07/12/21 01:46 DC 07/12/21 01:57 0.5 ML Vital Signs/I&O 07/12/21 01:30 Temp 36.4 Pulse 125 Resp 20 B/P (MAP) 160/109 (126) Pulse Ox 96 O2 Delivery Room Air Blood Pressure Mean: 126 Progress Progress Note #1: Progress Note clean wound with betadine and sterile water. Lidocaine used to anesthetize the index finger with a digital block. xrays to ensure there are no fractures. Progress Note #2: Progress Note On my review of the three-view films of the index finger she has no acute fracture or foreign body. The flap laceration does not move when being examined so will to tack it down with a Steri-Strip. Start on Augmentin and follow up with clinic for wound care. Counseled on follow up and return precautions. Diagnostic Imaging Diagonstic Imaging: Xray Plain Films/CT/US/NM/MRI: other (index finger) Comments No acute fracture or foreign body seen on my review of the three-view films of the right index finger Reviewed: Reviewed by Me Departure Impression Primary Impression: Open wound of right index finger due to dog bite Disposition: HOME, SELF-CARE Condition: Stable Departure-Patient Inst. Decision time for Depature: 02:07 Referrals: JASVIR HOWARD MD (PCP/Family) Primary Care Physician Patient Instructions: Animal Bites ED Add. Discharge Instructions: Keep wound clean with soap and water. Take antibiotic to prevent infection from dog bite. Follow up with clinic for continued concerns. All discharge instructions reviewed with patient and/or family. Voiced understanding. Scripts Hydrocodone/Acetaminophen (Hydrocodone-Acetamin 5-325 mg) 1 Each Tablet 1 TAB PO Q6H PRN for PAIN-SEVERE (8-10) for 3 Days, #12 TAB 0 Refills Prov: ASCENCION YANES MD 07/12/21 Amoxicillin/Potassium Clav (Amox Tr-K Clv 875-125 mg Tab) 1 Each Tablet 1 EACH PO BID for dog bite for 7 Days, #14 TAB 0 Refills Prov: ASCENCION YANES MD 07/12/21 ASCENCION YANES MD Jul 12, 2021 01:51
[2021-07-12] MEDS ORDERED: ACHD5005 PO (02:08)
[2021-07-12] MEDS ORDERED: AMOX1TAB12 PO (02:08)
--- NOTE | 2021-07-12 06:33 | Diagnostic Imaging Report ---
Indication: Right 2nd finger pain and swelling after dog bite injury. Comparison: None. Discussion: 3 coned-down views of the right 2nd finger were obtained. Soft tissue swelling is noted. No soft tissue gas or foreign body. No fracture or dislocation. Joint spaces are maintained. Alignment is anatomic. Impression: 1. Right 2nd finger soft tissue swelling. No fracture or foreign body. Dictated by: Dictated on workstation # [id number]
== END 2021-07-12 02:15 | disposition home or self-care (01) ==
LOC: EDUNIT# 01:22 → ER FS 01:25
DX: S61.250A Open bite of right index finger without damage to nail, initial encounter (principal); E66.9 Obesity, unspecified; Z68.42 Body mass index [BMI] 45.0-49.9, adult; Z23 Encounter for immunization; W54.0XXA Bitten by dog, initial encounter
CPT/HCPCS: 73140; 90715

== ENCOUNTER 2021-07-30 10:44 | Emergency (ER) | payer MEDICAID ==
[~2021-07-30] VITALS: Ht 170 cm; Wt 144.0 kg
[~2021-07-30 10:44] MED LIST changes: +AMOX1TAB12 PO
--- NOTE | 2021-07-30 10:49 | ED Back Pain ---
General Stated Complaint: BACK PAIN History of Present Illness Date Seen by Provider: Jul 30, 2021 Time Seen by Provider: 10:48 Initial Comments 36-year-old female with chronic back pain. Patient reports that she has no new injury but is been hurting for about a week. Patient reports that she called her primary care provider he is not in this week so they told her to come to the ER. Patient was seen yesterday by urgent care where they gave her a shot of Toradol to take ibuprofen and prescribed her Flexeril. She has not picked up her Flexeril prescription or taken any of it yet. Patient has no numbness or tingling. Patient reports that she took 2400 mg of ibuprofen last night but did not help. She reports that they checked her urine yesterday and that it was normal. That the pain is in the low back consistent with her previous pain and on both sides. Allergies and Home Medications Allergies Coded Allergies: prednisone (Verified Allergy, Intermediate, 02/17/17) Patient Home Medication List Home Medication List Reviewed: Yes Albuterol Sulfate (Proventil Hfa) 6.7 Gm Hfa.aer.ad, 2 PUFF INH QID PRN for SHORTNESS OF BREATH, (Reported) Entered as Reported by: AMRIT MARINELLI on 04/09/21 1137 Amoxicillin/Potassium Clav (Amox Tr-K Clv 875-125 mg Tab) 1 Each Tablet, 1 EACH PO BID Prescribed by: ASCENCION YANES on 07/12/21 0208 Azithromycin (Azithromycin) 250 Mg Tablet, 250 MG PO DAILY Prescribed by: ASCENCION YANES on 05/22/21 0310 Bupropion HCl (Bupropion HCl) 100 Mg Tablet, 100 MG PO BID, (Reported) Entered as Reported by: FAUSTO MAGDALENO on 03/31/21 1041 Dulaglutide (Trulicity) 1.5 Mg/0.5 Ml Pen.injctr, 1.5 MG SQ MON, (Reported) Entered as Reported by: AMRIT MARINELLI on 04/09/21 1137 Esomeprazole Magnesium (Esomeprazole Magnesium) 40 Mg Capsule.dr, 40 MG PO DAILY, (Reported) Entered as Reported by: AMRTI MARINELLI on 04/09/21 1137 Fluticasone Propionate (Flovent Hfa 220 mcg) 1 Ea Aero, 1 EA IH Q8H Prescribed by: LAN BLANKENSHIP on 05/25/21 2357 Guaifenesin (Mucinex) 1,200 Mg Tab.er.12h, 1,200 MG PO Q12H Prescribed by: ASCENCION YANES on 05/22/21 0218 Hydrocodone/Acetaminophen (Hydrocodone-Acetamin 5-325 mg) 1 Each Tablet, 1 TAB PO Q8H PRN for PAIN-MODERATE (5-7) Prescribed by: ANN MEJIA on 04/09/21 1639 Hydrocodone/Acetaminophen (Hydrocodone-Acetamin 5-325 mg) 1 Each Tablet, 1 TAB PO Q6H PRN for PAIN-SEVERE (8-10) Prescribed by: ASCENCION YANES on 07/12/21 0209 Naltrexone HCl (Naltrexone HCl) 50 Mg Tablet, 25 MG PO BID, (Reported) Entered as Reported by: AMRIT MARINELLI on 04/09/21 1137 Ondansetron HCl (Ondansetron HCl) 4 Mg Tablet, 4 MG PO Q8H PRN for NAUSEA/VOMITING-1ST LINE, (Reported) Entered as Reported by: AMRIT MARINELLI on 04/09/21 1137 Review of Systems Constitutional: No chills Respiratory: no symptoms reported Cardiovascular: no symptoms reported Gastrointestinal: no symptoms reported Genitourinary: no symptoms reported Musculoskeletal: back pain Skin: no symptoms reported Psychiatric/Neurological: No Symptoms Reported Past Fcljone-Dpkvey-Sqwpra Hx Immunizations Up To Date Tetanus Booster (TDap): Less than 5yrs First/Initial COVID19 Vaccinat: 11/30 Second COVID19 Vaccination Trell: Adal Seasonal Allergies Seasonal Allergies: Yes Past Medical History Surgeries: Yes 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, Oophorectomy, Orthopedic Respiratory: Yes Asthma Cardiac: No Neurological: No Headaches /Migraines 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 Disorders: Yes Female 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, 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 Sexually Transmitted Disease: No HIV/AIDS: No Genitourinary: No Gastrointestinal: Yes Gastroesophageal Reflux, Gall Bladder Disease Musculoskeletal: No Degenerate Disk Disease, Chronic Back Pain Endocrine: Yes Diabetes, Non-Insulin dep HEENT: No Chronic Ear Infection Loss of Vision: Denies Hearing Impairment: Hard of Hearing Cancer: No Psychosocial: Yes Anxiety, Depression Integumentary: No Psoriasis Blood Disorders: Yes (HEPATITIS C) Adverse Reaction/Blood Tranf: No (N/A) Family Medical History Heart Disease, Cancer, Diabetes SOCIAL HISTORY: -SMOKED 1/2 PPD, QUIT -ETOH--OCCASIONAL USE -DRUGS--HX OF IV METH USE Physical Exam Vital Signs Capillary Refill : Height, Weight, BMI Height: 5'7.00" Weight: 300lbs. 7.0oz. [id number]; 48.00 BMI Method:Stated General Appearance: No Apparent Distress, Obese Cardiovascular: Regular Rate, Rhythm, No Edema Respiratory: Lungs Clear, Normal Breath Sounds Gastrointestinal: Non Tender, Soft Back: No Vertebral Tenderness Extremity: Normal Capillary Refill, Normal Inspection, Normal Range of Motion Neurologic/Psychiatric: Alert, Oriented x3, No Motor/Sensory Deficits, Normal Mood/Affect, hearing aid specialist II-XII Norm as Tested Skin: Normal Color, Warm/Dry Progress/Results/Core Measures Results/Orders My Orders Orders - YOGI DAN DO Orphenadrine Inj (Ed Only) (Norflex Inje (07/30/21 10:57) Progress Progress Note : Progress Note Had a long discussion with patient instructing her to limit her ibuprofen to 800 mg 3 times daily potential kidney injury with overuse and that we will change her from ibuprofen to meloxicam due to concerns for potential kidney injury. Also discussed with patient that she needs to fill her Flexeril which that is appropriate medication is what I would have prescribed for her. Also discussed with patient that if she needs anything stronger she will need to follow-up with her primary care provider that this is chronic back pain and I will not prescribe narcotics or anything stronger. I will provide her a shot of Norflex to help with the initial pain while she feels her Flexeril prescription. I also had a long discussion with her about appropriate expectations, that we will try to make her pain more tolerable with Flexeril and meloxicam however she should not expect 0 pain especially in the setting of chronic back pain. That if it continues she should follow-up with her primary care provider and back specialist if they feel she would need a repeat MRI. Patient stable and discharged home Departure Impression Primary Impression: Chronic low back pain without sciatica Qualified Codes: M54.50 - Low back pain, unspecified; G89.29 - Other chronic pain Disposition: 01 HOME, SELF-CARE Condition: Stable Departure-Patient Inst. Referrals: SELF,JASVIR BRADSHAW (PCP) Primary Care Physician Patient Instructions: Chronic Pain (DC), Low Back Pain (DC) Add. Discharge Instructions: Warm moist heat for 20 minutes 3-4 times daily to low back Diclofenac/Voltaren cream use as directed on package to low back 4% topical lidocaine with menthol, cream, gel or patch use as directed on package to your lower back Please follow-up with your primary care provider if you need stronger med ications than that prescribed by us for further management and potential physical therapy consultation Please case picker your Flexeril prescribed by urgent care along with meloxicam prescribed in the ER. Do not take ibuprofen in addition to the meloxicam. Scripts Meloxicam, Submicronized (Meloxicam) 10 Mg Capsule 10 MG PO DAILY, #14 CAP Prov: YOGI DAN DO 07/30/21 YOGI DAN DO Jul 30, 2021 10:49
[2021-07-30] MEDS ORDERED: ORPHENADRINE 60 MG/2 ML (NORFLEX) AMP (ED ONLY) IM STA (10:57)
[2021-07-30] MEDS ORDERED: MELO10CA3 PO (11:05)
[2021-07-30 11:21] VITALS: BP 139/85
== END 2021-07-30 11:17 | disposition home or self-care (01) ==
LOC: EDUNIT# 10:44 → ER FS 10:47
DX: G89.29 Other chronic pain (principal); M54.50 Low back pain, unspecified; E11.9 Type 2 diabetes mellitus without complications; E66.9 Obesity, unspecified; Z68.42 Body mass index [BMI] 45.0-49.9, adult
CPT/HCPCS: 99284

== ENCOUNTER 2021-12-01 13:09 | Emergency (ER) | payer MEDICAID ==
[~2021-12-01] VITALS: Ht 170.2 cm; Wt 149.7 kg
[~2021-12-01 13:09] MED LIST changes: +MELO10CA3 PO
[2021-12-01 13:12] VITALS: BP 148/130
[2021-12-01] MEDS ORDERED: LORazepam 0.5 MG (ATIVAN) TABLET PO STA (13:14)
[2021-12-01] MEDS ORDERED: NS IV 1000 ML 1,000 ML IV SCH (13:15)
[2021-12-01 13:20] LABS: BASOPHILS % (AUTO) 0 % (0-10); EOSINOPHILS # (AUTO) 0.1 10^3/uL (0.0-0.3); EOSINOPHILS % (AUTO) 2 % (0-10); HEMATOCRIT 43 % (35-52); HEMOGLOBIN 14.6 g/dL (11.5-16.0); LYMPHOCYTES # (AUTO) 2.6 10^3/uL (1.0-4.0); LYMPHOCYTES % (AUTO) 40 % (12-44); MEAN CORPUSCULAR HEMOGLOBIN 30 pg (25-34); MEAN CORPUSCULAR HGB CONC 34 g/dL (32-36); MEAN CORPUSCULAR VOLUME 89 fL (80-99); MEAN PLATELET VOLUME 10.4 fL (9.0-12.2); MONOCYTES # (AUTO) 0.6 10^3/uL (0.0-1.0); MONOCYTES % (AUTO) 9 % (0-12); NEUTROPHILS # (AUTO) 3.1 10^3/uL (1.8-7.8); NEUTROPHILS % (AUTO) 48 % (42-75); PLATELET COUNT 308 10^3/uL (130-400); WHITE BLOOD COUNT 6.4 10^3/uL (4.3-11.0)
--- NOTE | 2021-12-01 13:21 | ED Psychosocial ---
General Chief Complaint: Overdose Stated Complaint: OVERDOSE/WITHDRAWAL Source: patient, EMS Exam Limitations: no limitations History of Present Illness Date Seen by Provider: Dec 01, 2021 Time Seen by Provider: 13:05 Initial Comments 36-year-old female with past medical history of methamphetamine use disorder coming in via EMS from home due to an overdose. The patient last used IV meth 4 days ago, and has been having significant withdrawal symptoms including body aches, and feeling like she is coming out of her skin. She says she has never had withdrawals like this, and it was consuming every thought that she had, and so she took an overdose of Tylenol. It was extra strength 500 mg Tylenol, and it was almost a full bottle. She is unsure of how many she took. She took them around noon today. She says she does not want to end her life right now, and just wanted to feel better. Denies taking any other coingestants. She is denying any other symptoms at this time including any chest pain, abdominal pain, nausea, vomiting, diarrhea, fever, chills, weakness, numbness, rash, headache, vision changes, or any other concerns. She is supposed to be on medicines, she is unsure what they are, and she has not been taking any other medicines lately. She has had a partial hysterectomy Allergies and Home Medications Allergies Coded Allergies: prednisone (Verified Allergy, Intermediate, 02/17/17) Patient Home Medication List Home Medication List Reviewed: Yes Albuterol Sulfate (Proventil Hfa) 6.7 Gm Hfa.aer.ad, 2 PUFF INH QID PRN for SHORTNESS OF BREATH, (Reported) Entered as Reported by: ARMIT MARINELLI on 04/09/21 1137 Amoxicillin/Potassium Clav (Amox Tr-K Clv 875-125 mg Tab) 1 Each Tablet, 1 EACH PO BID Prescribed by: ASCENCION YANES on 07/12/21 0208 Azithromycin (Azithromycin) 250 Mg Tablet, 250 MG PO DAILY Prescribed by: ASCENCION YANES on 05/22/21 0310 Bupropion HCl (Bupropion HCl) 100 Mg Tablet, 100 MG PO BID, (Reported) Entered as Reported by: FAUSTO MAGDALENO on 03/31/21 1041 Dulaglutide (Trulicity) 1.5 Mg/0.5 Ml Pen.injctr, 1.5 MG SQ MON, (Reported) Entered as Reported by: AMRIT MARINELLI on 04/09/21 1137 Esomeprazole Magnesium (Esomeprazole Magnesium) 40 Mg Capsule.dr, 40 MG PO DAILY, (Reported) Entered as Reported by: AMRIT MARINELLI on 04/09/21 113 Fluticasone Propionate (Flovent Hfa 220 mcg) 1 Ea Aero, 1 EA IH Q8H Prescribed by: LAN BLANKENSHIP on 05/25/21 2357 Guaifenesin (Mucinex) 1,200 Mg Tab.er.12h, 1,200 MG PO Q12H Prescribed by: ASCENCION YANES on 05/22/21 0218 Hydrocodone/Acetaminophen (Hydrocodone-Acetamin 5-325 mg) 1 Each Tablet, 1 TAB PO Q8H PRN for PAIN-MODERATE (5-7) Prescribed by: ANN MEJIA on 04/09/21 1639 Hydrocodone/Acetaminophen (Hydrocodone-Acetamin 5-325 mg) 1 Each Tablet, 1 TAB PO Q6H PRN for PAIN-SEVERE (8-10) Prescribed by: ASCENCION YANES on 07/12/21 0209 Meloxicam, Submicronized (Meloxicam) 10 Mg Capsule, 10 MG PO DAILY Prescribed by: YOGI DAN on 07/30/21 1105 Naltrexone HCl (Naltrexone HCl) 50 Mg Tablet, 25 MG PO BID, (Reported) Entered as Reported by: AMRIT MARINELLI on 04/09/21 113 Ondansetron HCl (Ondansetron HCl) 4 Mg Tablet, 4 MG PO Q8H PRN for NAUSEA/VOMITI NG-1ST LINE, (Reported) Entered as Reported by: AMRIT MARINELLI on 04/09/21 1137 Review of Systems Constitutional: No fever EENTM: No blurred vision Respiratory: No cough Cardiovascular: No chest pain Gastrointestinal: No abdominal pain Genitourinary: no symptoms reported Musculoskeletal: no symptoms reported Skin: no symptoms reported Psychiatric/Neurological: See HPI All Other Systems Reviewed Negative Unless Noted: Yes Past Txktvki-Bxpkir-Ydhbyq Hx Patient Social History Tobacco Use?: No Smoking Status: Never a Smoker Smokeless Tobacco Frequency: Never a User Use of E-Cig and/or Vaping dev: No Use of E-Cig and/or Vaping Trevon: Never a User Substance use?: Yes Substance type: Methamphetamine Substance frequency: Daily Alcohol Use?: No Pt feels they are or have been: No Immunizations Up To Date Tetanus Booster (TDap): Less than 5yrs First/Initial COVID19 Vaccinat: 11/30 Second COVID19 Vaccination Trell: Adal COVID19 Vaccine Quiller 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: MODERNA Seasonal Allergies Seasonal Allergies: Yes Past Medical History Surgeries: Yes 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, Oophorectomy, Orthopedic Respiratory: Yes Asthma Cardiac: No Neurological: No Headaches /Migraines 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 Disorders: Yes Female 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, 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 Sexually Transmitted Disease: No HIV/AIDS: No Genitourinary: No Gastrointestinal: Yes Gastroesophageal Reflux, Gall Bladder Disease Musculoskeletal: No Degenerate Disk Disease, Chronic Back Pain Endocrine: Yes Diabetes, Non-Insulin dep HEENT: No Chronic Ear Infection Loss of Vision: Denies Hearing Impairment: Hard of Hearing Cancer: No Psychosocial: Yes Anxiety, Depression Integumentary: No Psoriasis Blood Disorders: Yes (HEPATITIS C) Adverse Reaction/Blood Tranf: No (N/A) Family Medical History Heart Disease, Cancer, Diabetes SOCIAL HISTORY: -SMOKED 1/2 PPD, QUIT -ETOH--OCCASIONAL USE -DRUGS--HX OF IV METH USE Physical Exam Vital Signs - First Documented 12/01/21 13:12 Temp 36.5 Pulse 126 Resp 19 B/P (MAP) 148/130 (136) O2 Delivery Room Air Capillary Refill : Height, Weight, BMI Height: 5'7.00" Weight: 300lbs. 7.0oz. 136.041938gs; 49.00 BMI Method:Stated General Appearance: WD/WN, other (tearful) HEENT: PERRL/EOMI, normal ENT inspection, pharynx normal Neck: non-tender, full range of motion, supple, normal inspection Respiratory: chest non-tender, lungs clear, normal breath sounds, no respiratory distress, no accessory muscle use Cardiovascular: no edema, no murmur, tachycardia Gastrointestinal: normal bowel sounds, non tender, soft; No distended, No guarding, No rebound Extremities: normal range of motion, non-tender, normal inspection, no pedal edema, no calf tenderness, normal capillary refill Neurologic/Psychiatric: no motor/sensory deficits, alert, normal mood/affect, oriented x 3 Appearance/Memory: disheveled, other (tearful) Behavior/Eye Contact: cooperative Thoughts/Hallucinations: normal thought pattern, no apparent hallucination; No auditory hallucinations Skin: normal color, warm/dry Lymphatic: no adenopathy Suicide Risk Suicide Risk Suicide Risk Level / RN Screen: Low Low Suicide Risk Level []Suicidal Ideation WITHOUT method, intent, plan or behavior more than a month ago [x]]Modifiable risk factors and strong protective factors []No reported history of suicidal ideation or behavior []Patient reports/exhibits symptoms consistent with psychosis []Patient reports a plan that would be unrealistic/impossible to complete and intent [x]Suicide attempt prior to arrival (Indicates at LEAST Low Suicide Risk, consider other risk factors) Moderate Suicide Risk Level: []Suicidal ideation with method, WITHOUT plan, intent or behavior in the past month []Multiple risk factors and few protective factors []Patient reports intent to follow through on plan to end life if allowed to leave hospital, and has attempted to elope from the hospital High Suicide Risk Level: [] Suicidal ideation with intent or intent with a plan in the past month [] Patient has harmed self or attempted suicide while in the hospital [] Patient has hx of or current Command Auditory hallucinations to harm self or others that they follow without hesitation [] Patient refuses to disclose plan, and indicates intent to complete [] Patient reports plan that is possible to accomplish and/or has means to complete Risk factors supporting recommendation: [] Non-compliance with treatment (acute or chronic) [] Patient has access to or owns firearms and/or stockpiled medications [] Hx Impulsive behavior [] Pending incarceration or homelessness [] Sexual abuse [] Family history and/or exposure to suicide [] Adverse childhood experiences [] Exposure to violence or negative socio-political cultural, and economic forces [] Current or hx of substance use/abuse [] Chronic physical pain or other acute medical problem (AIDS, COPD, Cancer, etc) [] Perceived burden on family or others [] Patient has attempted to elope [] Unable to answer and/or unable to identify [] Refuses to agree to a safety plan Protective Factors supporting recommendation: [x] Identifies reasons for living [x] Future plans/goals [] Engaged in work or School [] Good family support network [] Good social support network [x] Responsibility to family [] Belief that suicide is immoral, against their mormonism beliefs [] High spirituality and involvement in jehovah's witness community [] Fear of or dying due to pain and suffering [] Established outpt psychiatric services [] Unable to answer and/or unable to identify Risk Assessment Tool Score: Low Progress/Results/Core Measures Results/Orders Lab Results Laboratory Tests Test 12/01/21 13:11 12/01/21 13:47 12/01/21 14:28 12/01/21 16:00 Range/Units White Blood Count 6.4 4.3-11.0 10^3/uL Red Blood Count 4.87 3.80-5.11 10^6/uL Hemoglobin 14.6 11.5-16.0 g/dL Hematocrit 43 35-52 % Mean Corpuscular Volume 89 80-99 fL Mean Corpuscular Hemoglobin 30 25-34 pg Mean Corpuscular Hemoglobin Concent 34 32-36 g/dL Red Cell Distribution Width 13.2 10.0-14.5 % Platelet Count 308 130-400 10^3/uL Mean Platelet Volume 10.4 9.0-12.2 fL Immature Granulocyte % (Auto) 0 % Neutrophils (%) (Auto) 48 42-75 % Lymphocytes (%) (Auto) 40 12-44 % Monocytes (%) (Auto) 9 0-12 % Eosinophils (%) (Auto) 2 0-10 % Basophils (%) (Auto) 0 0-10 % Neutrophils # (Auto) 3.1 1.8-7.8 10^3/uL Lymphocytes # (Auto) 2.6 1.0-4.0 10^3/uL Monocytes # (Auto) 0.6 0.0-1.0 10^3/uL Eosinophils # (Auto) 0.1 0.0-0.3 10^3/uL Basophils # (Auto) 0.0 0.0-0.1 10^3/uL Immature Granulocyte # (Auto) 0.0 0.0-0.1 10^3/uL Prothrombin Time 13.0 12.2-14.7 SEC INR Comment 0.9 0.8-1.4 Sodium Level 140 135-145 MMOL/L Potassium Level 4.0 3.6-5.0 MMOL/L Chloride Level 105 98-107 MMOL/L Carbon Dioxide Level 22 21-32 MMOL/L Anion Gap 13 5-14 MMOL/L Blood Urea Nitrogen 6 L 7-18 MG/DL Creatinine 0.67 0.60-1.30 MG/DL Estimat Glomerular Filtration Rate 115 BUN/Creatinine Ratio 9 Glucose Level 161 H 70-105 MG/DL Calcium Level 9.1 8.5-10.1 MG/DL Corrected Calcium 9.1 8.5-10.1 MG/DL Total Bilirubin 0.4 0.1-1.0 MG/DL Aspartate Amino Transf (AST/SGOT) 26 5-34 U/L Alanine Aminotransferase (ALT/SGPT) 33 0-55 U/L Alkaline Phosphatase 113 40-136 U/L Total Protein 7.1 6.4-8.2 GM/DL Albumin 4.0 3.2-4.5 GM/DL Salicylates Level < 0.3 L 5.0-20.0 MG/DL Acetaminophen Level < 10 L < 10 L 10-30 UG/ML Serum Alcohol 10 <10 MG/DL Influenza Type A (RT-PCR) Not Detected Not Detecte Influenza Type B (RT-PCR) Not Detected Not Detecte SARS-CoV-2 RNA (RT-PCR) Not Detected Not Detecte Urine Color YELLOW Urine Clarity CLEAR Urine pH 6.0 5-9 Urine Specific [place] 1.010 L 1.016-1.022 Urine Protein NEGATIVE NEGATIVE Urine Glucose (UA) NEGATIVE NEGATIVE Urine Ketones NEGATIVE NEGATIVE Urine Nitrite NEGATIVE NEGATIVE Urine Bilirubin NEGATIVE NEGATIVE Urine Urobilinogen 0.2 < = 1.0 MG/DL Urine Leukocyte Esterase 1+ H NEGATIVE Urine RBC (Auto) NEGATIVE NEGATIVE Urine RBC 0-2 /HPF Urine WBC 2-5 /HPF Urine Squamous Epithelial Cells 25-50 H /HPF Urine Crystals PRESENT H /LPF Urine Amorphous Sediment MOD SUMEET URATES H /LPF Urine Bacteria MODERATE H /HPF Urine Casts PRESENT /LPF Urine Hyaline Casts 5-10 H /LPF Urine Mucus MODERATE H /LPF Urine Culture Indicated NO Urine Opiates Screen NEGATIVE NEGATIVE Urine Oxycodone Screen NEGATIVE NEGATIVE Urine Methadone Screen NEGATIVE NEGATIVE Urine Propoxyphene Screen NEGATIVE NEGATIVE Urine Barbiturates Screen NEGATIVE NEGATIVE Ur Tricyclic Antidepressants Screen NEGATIVE NEGATIVE Urine Phencyclidine Screen NEGATIVE NEGATIVE Urine Amphetamines Screen POSITIVE H NEGATIVE Urine Methamphetamines Screen POSITIVE H NEGATIVE Urine Benzodiazepines Screen NEGATIVE NEGATIVE Urine Cocaine Screen NEGATIVE NEGATIVE Urine Cannabinoids Screen NEGATIVE NEGATIVE My Orders Orders - LAN BLANKENSHIP MD Ua Culture If Indicated (12/01/21 13:14) Cbc With Automated Diff (12/01/21 13:14) Comprehensive Metabolic Panel (12/01/21 13:14) Alcohol (12/01/21 13:14) Drug Screen Stat (Urine) (12/01/21 13:14) Acetaminophen (12/01/21 13:14) Salicylate (12/01/21 13:14) Ekg Tracing (12/01/21 13:14) Ed Iv/Invasive Line Start (12/01/21 13:14) Monitor-Rhythm Ecg Trace Only (12/01/21 13:14) Bh Status Checks/Observation O Q15M (12/01/21 13:14) Ed Iv/Invasive Line Start (12/01/21 13:14) Ns Iv 1000 Ml (Sodium Chloride 0.9%) (12/01/21 13:15) Acetaminophen (12/01/21 16:00) Protime With Inr (12/01/21 13:29) Covid 19 Inhouse Test (12/01/21 13:50) Influenza A And B By Pcr (12/01/21 13:50) Isolation Central Supply Req (12/01/21 13:50) Vital Signs/I&O 12/01/21 13:12 Temp 36.5 Pulse 126 Resp 19 B/P (MAP) 148/130 (136) O2 Delivery Room Air Progress Progress Note : Progress Note 36-year-old female with above history coming in withdrawing from methamphetamines and reportedly taking a large amount of Tylenol. ABCs were intact Melia stable on presentation. Initially she was tachycardic to the 100s, and came down to the 90s after resting, down to the 70s after liter of IV fluids. An IV was placed and basic labs obtained as well including aspirin and Tylenol levels. Initial Tylenol level is undetectable. 4-hour level is ordered and pending at this time. I contacted poison control and discussed the case with them. They also recommended just following up the 4-hour Tylenol level. EKG with no concerning findings. The 4-hour Tylenol level was drawn and is pending. At that time we were discussing if it was negative having a talk with mental health. The patient says she does not want to end her life right now, she wants to live, she wants to get clean from drugs. She says she is interested in doing a rehab treatment that she has been working through to try to get set up. She has not interested in doing a mental health screening here. She was not interested in waiting for her Tylenol level. I discussed if her Tylenol level is elevated she may need treatment to save her life. The patient is adamant that she needs to leave right now and go home and just rest. She said we can call with the results. The patient was signed out AGAINST MEDICAL ADVICE since her work-up has not been completed. I discussed that the results may be back even within a couple of minutes and I kindly asked if she would be willing to wait even those couple of minutes. At that time she changed back into her clothes and walked out. Update, repeat Tylenol level continues to be undetectable. This is not compatible with the patient stating that she took a bottle of Tylenol. Initial ECG Impression Date: Dec 01, 2021 Initial ECG Impression Time: 13:26 Initial ECG Rate: 92 Initial ECG Rhythm: Normal Sinus Comment Narrow QRS, normal axis, no significant ST changes, QTC 444 Departure Impression Primary Impression: Methamphetamine use Disposition: 07 AGAINST MEDICAL ADVICE Condition: Stable Admissions Decision to Admit Reason: Admit from ER (General) Departure-Patient Inst. Referrals: SELF,JASVIR BRADSHAW (PCP/Family) Primary Care Physician Patient Instructions: ALCOHOL AND SUBSTANCE ABUSE LAN BLANKENSHIP MD Dec 01, 2021 13:21
[2021-12-01 13:42] LABS: ALANINE AMINOTRANSFERASE 33 U/L (0-55); ALKALINE PHOSPHATASE 113 U/L (40-136); BILIRUBIN,TOTAL 0.4 MG/DL (0.1-1.0); BUN/CREATININE RATIO 9; CALCIUM 9.1 MG/DL (8.5-10.1); CARBON DIOXIDE 22 MMOL/L (21-32); CHLORIDE 105 MMOL/L (98-107); CREATININE SERUM 0.67 MG/DL (0.60-1.30); GFR ESTIMATED 115; GLUCOSE 161 MG/DL (70-105); SODIUM 140 MMOL/L (135-145); TOTAL PROTEIN 7.1 GM/DL (6.4-8.2)
[2021-12-01 13:43] LABS: ACETAMINOPHEN < 10 UG/ML (10-30); SALICYLATE < 0.3 MG/DL (5.0-20.0)
[2021-12-01 13:47] LABS: INR 0.9 (0.8-1.4)
[2021-12-01 14:33] LABS: BILIRUBIN,URINE NEGATIVE (NEGATIVE); CLARITY,URINE CLEAR; COLOR,URINE YELLOW; GLUCOSE, URINE (UA) NEGATIVE (NEGATIVE); KETONES,URINE NEGATIVE (NEGATIVE); LEUKOCYTE ESTERASE ,URINE 1+ (NEGATIVE); NITRITE,URINE NEGATIVE (NEGATIVE); PROTEIN,URINE NEGATIVE (NEGATIVE)
[2021-12-01 14:43] LABS: AMORPHOUS SEDIMENT,UR MOD AMOR URATES /LPF; BACTERIA,URINE MODERATE /HPF; RBC,URINE 0-2 /HPF; SQUAMOUS EPITHELIAL CELL,UR 25-50 /HPF
[2021-12-01 14:47] LABS: AMPHETAMINE SCREEN, URINE POSITIVE (NEGATIVE); BARBITURATE SCREEN URINE NEGATIVE (NEGATIVE); BENZODIAZEPINES SCREEN URINE NEGATIVE (NEGATIVE); CANNABINOID SCREEN, URINE NEGATIVE (NEGATIVE); COCAINE SCREEN URINE NEGATIVE (NEGATIVE); METHADONE STAT NEGATIVE (NEGATIVE); OPIATE SCREEN URINE NEGATIVE (NEGATIVE); OXYCODONE STAT NEGATIVE (NEGATIVE); PROPOXYPHENE STAT NEGATIVE (NEGATIVE); TRICYCLIC ANTIDEPRESSANTS SCRE NEGATIVE (NEGATIVE)
== END 2021-12-01 16:24 | disposition left against medical advice (07) ==
LOC: EDUNIT# 13:09 → ER FS 13:11
DX: F15.90 Other stimulant use, unspecified, uncomplicated (principal); Z20.822 Contact with and (suspected) exposure to COVID-19
CPT/HCPCS: 36415; 80053; 80306; 81000; 85025; 85610; 87636; 93005; 93041; 99284; G0480 ×3; 80320; 80329

== ENCOUNTER 2022-02-14 20:29 | Emergency (ER) | payer MEDICAID ==
[2022-02-14] MEDS ORDERED: CYCLOBENZAPRINE 10 MG (FLEXERIL) TAB PO STA (20:47)
[2022-02-14] MEDS ORDERED: GABA-486 PO (20:54)
[2022-02-14] MEDS ORDERED: CYCL10TA25 PO (20:54)
--- NOTE | 2022-02-14 20:54 | ED General ---
General Chief Complaint: Lower Extremity Stated Complaint: RT LOWER HIP PAIN Nursing Triage Note: Pt complaining of right hip pain that radiates down the side of her leg Source of Information: Patient Exam Limitations: No Limitations History of Present Illness Date Seen by Provider: Feb 14, 2022 Time Seen by Provider: 20:31 Initial Comments 36-year-old female with past medical history of chronic low back pain with sciatica coming in due to pain in her right lower back going down her right leg through to her foot. Started yesterday and worsening today. Feels similar to prior episodes. Denies any trauma or accidents with lifting anything. Has not had any falls. Denies any weakness or numbness. Has not tried anything for the pain as of yet. Is otherwise denying any other acute complaints. Denies any perennial numbness, bowel or bladder issues, or any other concerns Allergies and Home Medications Allergies Coded Allergies: prednisone (Verified Allergy, Intermediate, 02/17/17) Patient Home Medication List Home Medication List Reviewed: Yes Albuterol Sulfate (Proventil Hfa) 6.7 Gm Hfa.aer.ad, 2 PUFF INH QID PRN for SHORTNESS OF BREATH, (Reported) Entered as Reported by: AMRIT MARINELLI on 04/09/21 1137 Amoxicillin/Potassium Clav (Amox Tr-K Clv 875-125 mg Tab) 1 Each Tablet, 1 EACH PO BID Prescribed by: ASCENCION YANES on 07/12/21 0208 Azithromycin (Azithromycin) 250 Mg Tablet, 250 MG PO DAILY Prescribed by: ASCENCION YANES on 05/22/21 0310 Bupropion HCl (Bupropion HCl) 100 Mg Tablet, 100 MG PO BID, (Reported) Entered as Reported by: FAUSTO MAGDALENO on 03/31/21 1041 Dulaglutide (Trulicity) 1.5 Mg/0.5 Ml Pen.injctr, 1.5 MG SQ MON, (Reported) Entered as Reported by: AMRIT MARINELLI on 04/09/21 1137 Esomeprazole Magnesium (Esomeprazole Magnesium) 40 Mg Capsule.dr, 40 MG PO DAILY, (Reported) Entered as Reported by: AMRIT MARINELLI on 04/09/21 1137 Fluticasone Propionate (Flovent Hfa 220 mcg) 1 Ea Aero, 1 EA IH Q8H Prescribed by: LAN BLANKENSHIP on 05/25/21 2357 Guaifenesin (Mucinex) 1,200 Mg Tab.er.12h, 1,200 MG PO Q12H Prescribed by: ASCENCION YANES on 05/22/21 0218 Hydrocodone/Acetaminophen (Hydrocodone-Acetamin 5-325 mg) 1 Each Tablet, 1 TAB PO Q8H PRN for PAIN-MODERATE (5-7) Prescribed by: ANN MEJIA on 04/09/21 1639 Hydrocodone/Acetaminophen (Hydrocodone-Acetamin 5-325 mg) 1 Each Tablet, 1 TAB PO Q6H PRN for PAIN-SEVERE (8-10) Prescribed by: ASCENCION YANES on 07/12/21 0209 Meloxicam, Submicronized (Meloxicam) 10 Mg Capsule, 10 MG PO DAILY Prescribed by: YOGI DAN on 07/30/21 1105 Naltrexone HCl (Naltrexone HCl) 50 Mg Tablet, 25 MG PO BID, (Reported) Entered as Reported by: AMRIT MARINELLI on 04/09/21 1137 Ondansetron HCl (Ondansetron HCl) 4 Mg Tablet, 4 MG PO Q8H PRN for NAUSEA/VOMITING-1ST LINE, (Reported) Entered as Reported by: AMRIT MARINELLI on 04/09/21 1137 Review of Systems Review of Systems Constitutional: No fever EENTM: no symptoms reported Respiratory: no symptoms reported Cardiovascular: no symptoms reported Gastrointestinal: no symptoms reported Genitourinary: no symptoms reported Musculoskeletal: back pain Skin: no symptoms reported Psychiatric/Neurological: No Symptoms Reported Hematologic/Lymphatic: No Symptoms Reported Immunological/Allergic: no symptoms reported All Other Systems Reviewed Negative Unless Noted: Yes Past Cwweyil-Gusqii-Gqqbiy Hx Patient Social History Tobacco Use?: No Use of E-Cig and/or Vaping dev: No Substance use?: No Alcohol Use?: No Pt feels they are or have been: No Immunizations Up To Date Tetanus Booster (TDap): Less than 5yrs First/Initial COVID19 Vaccinat: 11/30 Second COVID19 Vaccination Trell: Adal Seasonal Allergies Seasonal Allergies: Yes Past Medical History Surgeries: Yes 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, Oophorectomy, Orthopedic Respiratory: Yes Asthma Cardiac: No Neurological: No Headaches /Migraines 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 Disorders: Yes Female 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, 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 Sexually Transmitted Disease: No HIV/AIDS: No Genitourinary: No Gastrointestinal: Yes Gastroesophageal Reflux, Gall Bladder Disease Musculoskeletal: No Degenerate Disk Disease, Chronic Back Pain Endocrine: Yes Diabetes, Non-Insulin dep HEENT: No Chronic Ear Infection Loss of Vision: Denies Hearing Impairment: Hard of Hearing Cancer: No Psychosocial: Yes Anxiety, Depression Integumentary: No Psoriasis Blood Disorders: Yes (HEPATITIS C) Adverse Reaction/Blood Tranf: No (N/A) Family Medical History Heart Disease, Cancer, Diabetes SOCIAL HISTORY: -SMOKED 1/2 PPD, QUIT -ETOH--OCCASIONAL USE -DRUGS--HX OF IV METH USE Physical Exam Vital Signs Vital Signs - First Documented 02/14/22 20:33 Pulse 114 Resp 20 B/P (MAP) 153/101 (118) Pulse Ox 96 O2 Delivery Room Air Capillary Refill : Less Than 3 Seconds Height, Weight, BMI Height: 5'7.00" Weight: 300lbs. 7.0oz. 136.159069af; 51.00 BMI Method:Stated General Appearance: No Apparent Distress, WD/WN Eyes: Bilateral Eye Normal Inspection HEENT: PERRL/EOMI, Normal ENT Inspection, Pharynx Normal Neck: Full Range of Motion, Normal Inspection, Non Tender, Supple Respiratory: Chest Non Tender, Lungs Clear, Normal Breath Sounds, No Accessory Muscle Use, No Respiratory Distress Cardiovascular: Regular Rate, Rhythm, No Edema, Normal Peripheral Pulses Gastrointestinal: Normal Bowel Sounds, Non Tender, Soft; No Distended, No Guarding Back: Normal Inspection, No CVA Tenderness, No Vertebral Tenderness, Other (Paravertebral tenderness on the right, positive straight leg test) Extremity: Normal Capillary Refill, Normal Inspection, Normal Range of Motion, Non Tender, No Calf Tenderness, No Pedal Edema Neurologic/Psychiatric: Alert, No Motor/Sensory Deficits, Normal Mood/Affect, Other (Antalgic gait, 5 out of 5 strength with foot dorsiflexion, plantar flexion, knee extension, knee flexion, hip extension, hip flexion) Skin: Normal Color, Warm/Dry Lymphatic: No Adenopathy Progress/Results/Core Measures Suspected Sepsis SIRS Temperature: Pulse: 114 Respiratory Rate: 20 Blood Pressure 153 /101 Mean: 118 Results/Orders My Orders Orders - LAN BLANKENSHIP MD Ketorolac Injection (Toradol Injection) (02/14/22 21:00) Cyclobenzaprine Tablet (Flexeril Tablet) (02/14/22 20:47) Gabapentin Capsule/Tablet (Neurontin Cap (02/14/22 21:00) Vital Signs/I&O 02/14/22 20:33 Pulse 114 Resp 20 B/P (MAP) 153/101 (118) Pulse Ox 96 O2 Delivery Room Air Capillary Refill : Less Than 3 Seconds Blood Pressure Mean: 118 Progress Note : Progress Note 28-year-old female with above history coming in due to low back pain radiating down her right leg. ABCs were intact and vitals were stable on presentation. Physical exam reassuring and seems consistent with sciatica including a positive straight leg test. In the absence of trauma, we will forego imaging at this time. We will treat her symptomatically and have her follow-up with Ortho as an outpatient Departure Impression Primary Impression: Low back pain Qualified Codes: M54.41 - Lumbago with sciatica, right side Additional Impression: Sciatic leg pain Disposition: HOME, SELF-CARE Condition: Stable Departure-Patient Inst. Decision time for Depature: 21:00 Referrals: JESSICA QUIROGA MAXWELL MD (PCP/Family) Primary Care Physician Patient Instructions: Low Back Pain (DC) Add. Discharge Instructions: [facility] Most low back pain gets better in a couple weeks. If is not better in a couple weeks then I recommend following up with Luis Eduardo Quiroga here in [facility]. I recommend doing stretching at home and also taking [id number] ibuprofen and/or Tylenol. Scripts Gabapentin (Gabapentin) 100 Mg Capsule 100 MG PO Q8H for Neuropathic pain for 14 Days, #42 CAP Prov: LAN BLANKENSHIP MD 02/14/22 Cyclobenzaprine HCl (Cyclobenzaprine HCl) 10 Mg Tablet 10 MG PO Q8H PRN for SPASMS for 5 Days, #15 TAB Prov: LAN BLANKENSHIP MD 02/14/22 Work/School Note: Work Release Form Date Seen in the Emergency Department: Feb 14, 2022 Return to Work: Feb 16, 2022 Restrictions: No Restrictions LAN BLANKENSHIP MD Feb 14, 2022 20:54
[2022-02-14 20:57] VITALS: BP 153/101
[2022-02-14] MEDS ORDERED: GABAPENTIN 100 MG (NEURONTIN) CAP PO ONE (21:00)
[2022-02-14] MEDS ORDERED: KETOROLAC 30 MG/ML VIAL IM ONE (21:00)
== END 2022-02-14 20:57 | disposition home or self-care (01) ==
LOC: EDUNIT# 20:29 → ER FS 20:32
DX: M54.41 Lumbago with sciatica, right side (principal); Z28.310 Unvaccinated for COVID-19
CPT/HCPCS: 99284

== ENCOUNTER 2022-05-04 10:53 | Emergency (ER) | payer MEDICAID ==
[~2022-05-04 10:53] MED LIST changes: +GABA-486 PO
--- NOTE | 2022-05-04 11:04 | ED Lower Extremity ---
General Chief Complaint: Lower Extremity Stated Complaint: LT ANKLE INJ History of Present Illness Date Seen by Provider: May 04, 2022 Time Seen by Provider: 11:04 Initial Comments 37-year-old female with PMH of left ankle surgery many years ago for a tendon repair, is here with complaints of rolling her ankle 2 days ago, and then rolling it again yesterday. Yesterday patient was able to walk on her ankle, although with pain. Today morning her ankle pain has increased and she is limping from the pain. Patient is concerned that she may have sprained the same ligament as before. Denies sensory loss, fall, LOC. Allergies and Home Medications Allergies Coded Allergies: prednisone (Verified Allergy, Intermediate, 02/17/17) Patient Home Medication List Home Medication List Reviewed: Yes Albuterol Sulfate (Proventil Hfa) 6.7 Gm Hfa.aer.ad, 2 PUFF INH QID PRN for SHORTNESS OF BREATH, (Reported) Entered as Reported by: AMRIT MARINELLI on 04/09/21 1137 Amoxicillin/Potassium Clav (Amox Tr-K Clv 875-125 mg Tab) 1 Each Tablet, 1 EACH PO BID Prescribed by: ASCENCION YANES on 07/12/21 0208 Azithromycin (Azithromycin) 250 Mg Tablet, 250 MG PO DAILY Prescribed by: ASCENCION YANES on 05/22/21 0310 Bupropion HCl (Bupropion HCl) 100 Mg Tablet, 100 MG PO BID, (Reported) Entered as Reported by: FAUSTO MAGDALENO on 03/31/21 1041 Cyclobenzaprine HCl (Cyclobenzaprine HCl) 10 Mg Tablet, 10 MG PO Q8H PRN for SPASMS Prescribed by: LAN BLANKENSHIP on 02/14/222053 Dulaglutide (Trulicity) 1.5 Mg/0.5 Ml Pen.injctr, 1.5 MG SQ MON, (Reported) Entered as Reported by: AMRIT MARINELLI on 04/09/21 113 Esomeprazole Magnesium (Esomeprazole Magnesium) 40 Mg Capsule.dr, 40 MG PO DAILY, (Reported) Entered as Reported by: AMRIT MARINELLI on 04/09/21 113 Fluticasone Propionate (Flovent Hfa 220 mcg) 1 Ea Aero, 1 EA IH Q8H Prescribed by: LAN BLANKENSHIP on 05/25/21 5531 Gabapentin (Gabapentin) 100 Mg Capsule, 100 MG PO Q8H Prescribed by: LAN BLANKENSHIP on 02/14/222053 Guaifenesin (Mucinex) 1,200 Mg Tab.er.12h, 1,200 MG PO Q12H Prescribed by: ASCENCION YANES on 05/22/21 0218 Hydrocodone/Acetaminophen (Hydrocodone-Acetamin 5-325 mg) 1 Each Tablet, 1 TAB PO Q8H PRN for PAIN-MODERATE (5-7) Prescribed by: ANN MEJIA on 04/09/21 1639 Hydrocodone/Acetaminophen (Hydrocodone-Acetamin 5-325 mg) 1 Each Tablet, 1 TAB PO Q6H PRN for PAIN-SEVERE (8-10) Prescribed by: ASCENCION YANES on 07/12/21 0209 Meloxicam, Submicronized (Meloxicam) 10 Mg Capsule, 10 MG PO DAILY Prescribed by: YOGI DAN on 07/30/21 1105 Naltrexone HCl (Naltrexone HCl) 50 Mg Tablet, 25 MG PO BID, (Reported) Entered as Reported by: AMRIT MARINELLI on 04/09/21 1137 Ondansetron HCl (Ondansetron HCl) 4 Mg Tablet, 4 MG PO Q8H PRN for NAUSEA/VOMITING-1ST LINE, (Reported) Entered as Reported by: AMRIT MARINELLI on 04/09/21 1137 Review of Systems Constitutional: no symptoms reported EENTM: no symptoms reported Respiratory: no symptoms reported Cardiovascular: no symptoms reported Gastrointestinal: no symptoms reported Genitourinary: no symptoms reported Musculoskeletal: joint pain Skin: no symptoms reported Psychiatric/Neurological: No Symptoms Reported Past Fncogny-Stippp-Ecxmvj Hx Immunizations Up To Date Tetanus Booster (TDap): Less than 5yrs First/Initial COVID19 Vaccinat: 11/30 Second COVID19 Vaccination Trell: Moderna Seasonal Allergies Seasonal Allergies: Yes Past Medical History Surgeries: Yes 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, Oophorectomy, Orthopedic Respiratory: Yes Asthma Cardiac: No Neurological: No Headaches /Migraines 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 Disorders: Yes Female 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, Ovarian Cyst [employer] History: 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 Sexually Transmitted Disease: No HIV/AIDS: No Genitourinary: No Gastrointestinal: Yes Gastroesophageal Reflux, Gall Bladder Disease Musculoskeletal: No Degenerate Disk Disease, Chronic Back Pain Endocrine: Yes Diabetes, Non-Insulin dep HEENT: No Chronic Ear Infection Loss of Vision: Denies Hearing Impairment: Hard of Hearing Cancer: No Psychosocial: Yes Anxiety, Depression Integumentary: No Psoriasis Blood Disorders: Yes (HEPATITIS C) Adverse Reaction/Blood Tranf: No (N/A) Family Medical History Heart Disease, Cancer, Diabetes SOCIAL HISTORY: -SMOKED 1/2 PPD, QUIT -ETOH--OCCASIONAL USE -DRUGS--HX OF IV METH USE Physical Exam Vital Signs Vital Signs - First Documented 05/04/22 11:00 Temp 36.3 Pulse 85 Resp 16 B/P (MAP) 125/54 (77) Pulse Ox 98 O2 Delivery Room Air Capillary Refill : Height, Weight, BMI Height: 5'7.00" Weight: 300lbs. 7.0oz. [id number]; 51.00 BMI Method:Stated General Appearance: WD/WN, no apparent distress HEENT: PERRL/EOMI Neck: non-tender, full range of motion Hips: bilateral hip non-tender, bilateral hip normal inspection, bilateral hip normal range of motion, bilateral hip no evidence of injury Legs: bilateral leg non-tender, bilateral leg normal inspection, bilateral leg normal range of motion, bilateral leg no evidence of injury Knees: bilateral knee non-tender, bilateral knee normal inspection, bilateral knee normal range of motion, bilateral knee no evidence of injury Ankles: left ankle normal inspection, left ankle no evidence of injury, left ankle soft tissue tenderness, left ankle swelling Feet: bilateral foot non-tender, bilateral foot normal inspection, bilateral foot normal range of motion, bilateral foot no evidence of injury Neurologic/Psychiatric: no motor/sensory deficits, alert, oriented x 3 Skin: normal color Progress/Results/Core Measures Results/Orders My Orders Orders - MICHELLE MARAVILLA MD Ankle 3 View Left (05/04/22 11:10) Vital Signs/I&O 05/04/22 11:00 Temp 36.3 Pulse 85 Resp 16 B/P (MAP) 125/54 (77) Pulse Ox 98 O2 Delivery Room Air Progress Progress Note : Progress Note 1. LEFT ANKLE SPRAIN: - XR LEFT ANKLE: no acute findings -Fracture and dislocation was ruled out. - Ankle boot and crutches given - Advised ibuprofen as needed for pain, and also advised ice application in 20- minute increments or as tolerated for the next 48 -Follow-up with Ortho clinic for further assessment and management within the next 3 to 7 days -The patient was seen in the ED, and treated appropriately to presentation at a specific point in time. Patient is informed that there is a possibility that disease and illness can evolve and change in acuity rapidly or slowly after patient is discharged from the ER. Precautionary advice given to the patient for immediate return to ER if symptoms worsen or do not resolve, and to seek emerge ncy care sooner rather than later. Pt also advised on the importance of PCP follow up and compliance with management and follow up plan with PCP and/or specialist, as this is part of the management plan. Pt verbally expressed understanding. Diagnostic Imaging Diagonstic Imaging: Xray Plain Films/CT/US/NM/MRI: ankle Comments [facility] [place], [place] NAME: [facility] REC#: [id number] PT STATUS: REG ER : 1985 PHYSICIAN: MICHELLE MARAVILLA MD ADMIT DATE: 05/04/22/ER FS Draft Date of Exam:05/04/22 ANKLE 3 VIEW LEFT INDICATION: Left ankle injury. TECHNIQUE: AP, oblique, and lateral views of the left ankle were obtained. FINDINGS: No acute fracture or dislocation is identified. No abnormal lytic or sclerotic focus is seen. There is no radiopaque foreign body. IMPRESSION: No acute abnormality. Dictated on workstation # [id number] Dict: 05/04/22 1122 Trans: 05/04/22 1124 [id number] Interpreted by: JONO GAUTAM MD Electronically signed by: Departure Impression Primary Impression: Left ankle sprain Qualified Codes: S93.402A - Sprain of unspecified ligament of left ankle, initial encounter Disposition: HOME, SELF-CARE Condition: Stable Departure-Patient Inst. Referrals: SELFJASVIR MD (PCP) Primary Care Physician Patient Instructions: Using Cold for Pain, Ankle Sprain ED Add. Discharge Instructions: - Ankle boot and crutches given - Advised ibuprofen as needed for pain, and also advised ice application in 20- minute increments or as tolerated for the next 48 -Follow-up with Ortho clinic for further assessment and management within the next 3 to 7 days All discharge instructions reviewed with patient and/or family. Voiced understanding. MICHELLE MARAVILLA MD May 04, 2022 11:04
--- NOTE | 2022-05-04 11:25 | Diagnostic Imaging Report ---
INDICATION: Left ankle injury. TECHNIQUE: AP, oblique, and lateral views of the left ankle were obtained. FINDINGS: No acute fracture or dislocation is identified. No abnormal lytic or sclerotic focus is seen. There is no radiopaque foreign body. IMPRESSION: No acute abnormality. Dictated by: Dictated on workstation # [id number]
[2022-05-04 11:43] VITALS: BP 125/54
== END 2022-05-04 11:44 | disposition home or self-care (01) ==
LOC: EDUNIT# 10:53 → ER FS 10:55
DX: S93.402A Sprain of unspecified ligament of left ankle, initial encounter (principal); Z87.891 Personal history of nicotine dependence; X50.1XXA Overexertion from prolonged static or awkward postures, initial encounter
CPT/HCPCS: 73610

== ENCOUNTER 2022-09-18 00:03 | Emergency (ER) | payer MEDICAID ==
[~2022-09-18] VITALS: Ht 170 cm; Wt 142.8 kg
[~2022-09-18 00:03] MED LIST changes: +MONT-47 PO; -MONT10TA21 PO
[2022-09-18 00:12] VITALS: BP 130/96
--- NOTE | 2022-09-18 00:23 | ED Lower Extremity ---
General Chief Complaint: Lower Extremity Stated Complaint: FELL,L ANKLE/LEG PAIN History of Present Illness Date Seen by Provider: Sep 18, 2022 Time Seen by Provider: 00:21 Initial Comments 37-year-old female presents for with left ankle pain and pain in the back of her leg. Patient reports that she had a misstep and fell. She reports she has had previous surgery and injury to her left ankle. This happened around 7 PM on 09/17/2022. Allergies and Home Medications Allergies Coded Allergies: prednisone (Verified Allergy, Intermediate, 02/17/17) Patient Home Medication List Home Medication List Reviewed: Yes Albuterol Sulfate (Proventil Hfa) 6.7 Gm Hfa.aer.ad, 2 PUFF INH QID PRN for SHORTNESS OF BREATH, (Reported) Entered as Reported by: AMRIT MARINELLI on 04/09/21 113 Amoxicillin/Potassium Clav (Amox Tr-K Clv 875-125 mg Tab) 1 Each Tablet, 1 EACH PO BID Prescribed by: ASCENCION YANES on 07/12/21 0208 Azithromycin (Azithromycin) 250 Mg Tablet, 250 MG PO DAILY Prescribed by: ASCENCION YANES on 05/22/21 0310 Bupropion HCl (Bupropion HCl) 100 Mg Tablet, 100 MG PO BID, (Reported) Entered as Reported by: FAUSTO MAGDALENO on 03/31/21 1041 Cyclobenzaprine HCl (Cyclobenzaprine HCl) 10 Mg Tablet, 10 MG PO Q8H PRN for SPASMS Prescribed by: LAN BLANKENSHIP on 02/14/222053 Dulaglutide (Trulicity) 1.5 Mg/0.5 Ml Pen.injctr, 1.5 MG SQ MON, (Reported) Entered as Reported by: AMRIT MARINELLI on 04/09/21 113 Esomeprazole Magnesium (Esomeprazole Magnesium) 40 Mg Capsule.dr, 40 MG PO DAILY, (Reported) Entered as Reported by: AMRIT MARINELLI on 04/09/21 113 Fluticasone Propionate (Flovent Hfa 220 mcg) 1 Ea Aero, 1 EA IH Q8H Prescribed by: LAN BLANKENSHIP on 05/25/212356 Gabapentin (Gabapentin) 100 Mg Capsule, 100 MG PO Q8H Prescribed by: LAN BLANKENSHIP on 02/14/222053 Guaifenesin (Mucinex) 1,200 Mg Tab.er.12h, 1,200 MG PO Q12H Prescribed by: ASCENCION YANES on 05/22/21 0218 Hydrocodone/Acetaminophen (Hydrocodone-Acetamin 5-325 mg) 1 Each Tablet, 1 TAB PO Q8H PRN for PAIN-MODERATE (5-7) Prescribed by: ANN MEJIA on 04/09/21 1639 Hydrocodone/Acetaminophen (Hydrocodone-Acetamin 5-325 mg) 1 Each Tablet, 1 TAB PO Q6H PRN for PAIN-SEVERE (8-10) Prescribed by: ASCENCION CORDERORT on 07/12/21 0209 Meloxicam, Submicronized (Meloxicam) 10 Mg Capsule, 10 MG PO DAILY Prescribed by: YOGI DAN on 07/30/21 1105 Naltrexone HCl (Naltrexone HCl) 50 Mg Tablet, 25 MG PO BID, (Reported) Entered as Reported by: AMRIT MARINELLI on 04/09/21 1137 Ondansetron HCl (Ondansetron HCl) 4 Mg Tablet, 4 MG PO Q8H PRN for NAUSEA/VOMITING-1ST LINE, (Reported) Entered as Reported by: AMRIT MARINELLI on 04/09/21 1137 Review of Systems Constitutional: No chills, No fever Respiratory: no symptoms reported Cardiovascular: no symptoms reported Gastrointestinal: no symptoms reported Musculoskeletal: see HPI Skin: no symptoms reported Psychiatric/Neurological: No Symptoms Reported Past Uhfhlgs-Gimcrh-Kioyoe Hx Immunizations Up To Date Tetanus Booster (TDap): Less than 5yrs First/Initial COVID19 Vaccinat: Moderna Second COVID19 Vaccination Trell: Moderna Third COVID19 Vaccination Date: Seasonal Allergies Seasonal Allergies: Yes Past Medical History Surgeries: Yes 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, Oophorectomy, Orthopedic Respiratory: Yes Asthma Cardiac: No Neurological: No Headaches /Migraines 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 Disorders: Yes Female 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, Ovarian Cyst [employer] A[employer] History: 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 Sexually Transmitted Disease: No HIV/AIDS: No Genitourinary: No Gastrointestinal: Yes Gastroesophageal Reflux, Gall Bladder Disease Musculoskeletal: No Degenerate Disk Disease, Chronic Back Pain Endocrine: Yes Diabetes, Non-Insulin dep HEENT: No Chronic Ear Infection Loss of Vision: Denies Hearing Impairment: Hard of Hearing Cancer: No Psychosocial: Yes Anxiety, Depression Integumentary: No Psoriasis Blood Disorders: Yes (HEPATITIS C) Adverse Reaction/Blood Tranf: No (N/A) Family Medical History Heart Disease, Cancer, Diabetes SOCIAL HISTORY: -SMOKED 1/2 PPD, QUIT -ETOH--OCCASIONAL USE -DRUGS--HX OF IV METH USE Physical Exam Vital Signs Vital Signs - First Documented 09/18/22 00:12 Temp 35.7 Pulse 114 Resp 20 B/P (MAP) 130/96 (107) Pulse Ox 97 O2 Delivery Room Air Capillary Refill : Height, Weight, BMI Height: 5'7.00" Weight: 300lbs. 7.0oz. 136.491926yy; 51.00 BMI Method:Stated General Appearance: no apparent distress, obese HEENT: PERRL/EOMI Neck: full range of motion, supple Cardiovascular: normal peripheral pulses, regular rate, rhythm Respiratory: lungs clear, normal breath sounds Hips: bilateral hip non-tender Legs: bilateral leg normal range of motion; left leg other (Mild tenderness posterior left lower leg) Knees: bilateral knee non-tender Ankles: left ankle soft tissue tenderness, left ankle swelling Neurologic/Psychiatric: alert, normal mood/affect, oriented x 3 Skin: normal color, warm/dry Progress/Results/Core Measures Results/Orders My Orders Orders - YOGI DAN DO Ankle 3 View Left (09/18/22 00:23) Tibia Fibula 2 View Left (09/18/22 00:23) Gel Ankle Brace (09/18/22 00:45) Ketorolac Injection (Toradol Injection) (09/18/22 00:45) Vital Signs/I&O 09/18/22 00:12 Temp 35.7 Pulse 114 Resp 20 B/P (MAP) 130/96 (107) Pulse Ox 97 O2 Delivery Room Air Progress Progress Note : Progress Note Patient's x-ray of ankle and tib-fib were ordered reviewed with initial interpretation negative by me. Patient placed in an air stirrup and given a Toradol shot. Patient's x-ray final interpretation will be from radiology report. Patient will be notified if any discrepancy in finding. Patient was stable and discharged home. Departure Impression Primary Impression: Sprain and strain of ankle Additional Impression: Left leg pain Disposition: 01 HOME, SELF-CARE Condition: Stable Departure-Patient Inst. Referrals: SELFJASVIR MD (PCP/Family) Primary Care Physician Patient Instructions: Ankle Sprain (DC) Add. Discharge Instructions: Follow-up with your primary care provider or residential specialist in 7 to 10 days if symptoms not improving or continue to worsen for further evaluation. Tylenol ibuprofen as needed for discomfort. Ice to left lower extremity for the next 36 hours every 3-4 hours for 10 to 15 minutes at a time. Please wear ankle brace for the next week then as needed. All discharge instructions reviewed with patient and/or family. Voiced understanding. YOGI DAN DO Sep 18, 2022 00:23
[2022-09-18] MEDS ORDERED: KETOROLAC 30 MG/ML VIAL IM STA (00:45)
--- NOTE | 2022-09-18 05:24 | Diagnostic Imaging Report ---
INDICATION: Pain post fall TECHNIQUE: AP and lateral views of the left tibia and fibula CORRELATION STUDY: 08/23/2020 FINDINGS: The tibia and fibula are intact. There is no evidence for acute fracture. Limited visualized portions of the knee and ankle are unremarkable. Soft tissues are unremarkable. IMPRESSION: 1.Negative for acute bony abnormality of the leg. Dictated by: Dictated on workstation # [id number]
--- NOTE | 2022-09-18 05:24 | Diagnostic Imaging Report ---
INDICATION: Pain post fall TECHNIQUE: Three views of the left ankle CORRELATION STUDY: None FINDINGS: The bony alignment is anatomic. The talar dome is intact. The ankle mortise is maintained. Small plantar calcaneal spur. There is no acute fracture or dislocation. Soft tissues are unremarkable. IMPRESSION: Negative for acute bony abnormality of the ankle. Dictated by: Dictated on workstation # [id number]
== END 2022-09-18 01:00 | disposition home or self-care (01) ==
LOC: EDUNIT# 00:03 → ER FS 00:04
DX: S93.402A Sprain of unspecified ligament of left ankle, initial encounter (principal); S96.912A Strain of unspecified muscle and tendon at ankle and foot level, left foot, initial encounter; Z87.891 Personal history of nicotine dependence; W10.9XXA Fall (on) (from) unspecified stairs and steps, initial encounter
CPT/HCPCS: 73590; 73610

== ENCOUNTER 2022-09-29 16:10 | Emergency (ER) | payer MEDICAID ==
[~2022-09-29] VITALS: Ht 170 cm; Wt 136.0 kg
--- NOTE | 2022-09-29 17:09 | ED Lower Extremity ---
General Chief Complaint: Lower Extremity Stated Complaint: LEFT ANKLE/LEG PAIN Nursing Triage Note: PT PRESENTS TO ED VIA POV FROM HOME WITH COMPLAINTS OF L ANKLE/L CALF PAIN SINCE INJURYING HER LEG 11 DAYS AGO. PT REPORTS SHE WAS SEEN IN [facility] ER AFTER THE INJURY AND TOLD THERE WAS NO FRACTURE. PT REPORTS CONTINUED PAIN AND INABILITY TO BEAR WEIGHT IN THE LEG. PT ALSO REPORTS TAKING TRAMADOL PRESCRIPTION WITH NO RELIEF. Source: patient Exam Limitations: no limitations (LAN HARVEY) History of Present Illness Date Seen by Provider: Sep 29, 2022 Time Seen by Provider: 17:05 Initial Comments Is a 37-year-old female presents ED with left ankle pain. Patient states she injured her left ankle 11 days ago. Patient Was seen in the ER at [facility] had negative x-rays. She was given a gel cast but she states the gel broke. She did have a boot at home from a previous injury to that left ankle that required surgery but states the boot was too heavy to wear. She does have crutches. Increasing pain since the injury and hurts worse when she bears weight. She noted bruising around that foot and ankle. Denies of any foot pain. shooting pain up into the calf. Patient denies any calf Swelling or bruising. Patient was given tramadol and has been taking ibuprofen at home without much improvement. She follow-up with her primary care physician and had a follow-up 1 week after injury and is scheduled to follow-up with orthopedic. History of previous ligament injury that required surgery. She denies fever, chills, chest pain, shortness of breath, headache, dizziness. (LAN HARVEY) Allergies and Home Medications Allergies Coded Allergies: prednisone (Verified Allergy, Intermediate, 02/17/17) Patient Home Medication List Home Medication List Reviewed: Yes (LAN HARVEY) Albuterol Sulfate (Proventil Hfa) 6.7 Gm Hfa.aer.ad, 2 PUFF INH QID PRN for SHORTNESS OF BREATH, (Reported) Entered as Reported by: AMRIT MARINELLI on 04/09/21 1137 Amoxicillin/Potassium Clav (Amox Tr-K Clv 875-125 mg Tab) 1 Each Tablet, 1 EACH PO BID Prescribed by: ASCENCION YANES on 07/12/21 0208 Azithromycin (Azithromycin) 250 Mg Tablet, 250 MG PO DAILY Prescribed by: ASCENCION YANES on 05/22/21 0310 Bupropion HCl (Bupropion HCl) 100 Mg Tablet, 100 MG PO BID, (Reported) Entered as Reported by: FAUSTO MAGDALENO on 03/31/21 1041 Cyclobenzaprine HCl (Cyclobenzaprine HCl) 10 Mg Tablet, 10 MG PO Q8H PRN for SPASMS Prescribed by: LAN BLANKENSHIP on 02/14/222053 Dulaglutide (Trulicity) 1.5 Mg/0.5 Ml Pen.injctr, 1.5 MG SQ MON, (Reported) Entered as Reported by: AMRIT MARINELLI on 04/09/21 113 Esomeprazole Magnesium (Esomeprazole Magnesium) 40 Mg Capsule.dr, 40 MG PO DAILY, (Reported) Entered as Reported by: AMRIT MARINELLI on 04/09/21 113 Fluticasone Propionate (Flovent Hfa 220 mcg) 1 Ea Aero, 1 EA IH Q8H Prescribed by: LAN BLANKENSHIP on 05/25/212356 Gabapentin (Gabapentin) 100 Mg Capsule, 100 MG PO Q8H Prescribed by: LAN BLANKENSHIP on 02/14/222053 Guaifenesin (Mucinex) 1,200 Mg Tab.er.12h, 1,200 MG PO Q12H Prescribed by: ASCENCION YANES on 05/22/21 0218 Hydrocodone/Acetaminophen (Hydrocodone-Acetamin 5-325 mg) 1 Each Tablet, 1 TAB PO Q8H PRN for PAIN-MODERATE (5-7) Prescribed by: ANN MEJIA on 04/09/21 1639 Hydrocodone/Acetaminophen (Hydrocodone-Acetamin 5-325 mg) 1 Each Tablet, 1 TAB PO Q6H PRN for PAIN-SEVERE (8-10) Prescribed by: ASCENCION YANES on 07/12/21 0209 Hydrocodone/Acetaminophen (Hydrocodone-Acetamin 5-325 mg) 5 Mg-325 Mg Tablet, 1 TAB PO Q4H PRN for PAIN-MODERATE (5-7) Prescribed by: BERKLEY COLEMAN on 09/29/22 1741 Meloxicam, Submicronized (Meloxicam) 10 Mg Capsule, 10 MG PO DAILY Prescribed by: YOGI DAN on 07/30/21 1105 Naltrexone HCl (Naltrexone HCl) 50 Mg Tablet, 25 MG PO BID, (Reported) Entered as Reported by: AMRIT MARINELLI on 04/09/21 1137 Ondansetron HCl (Ondansetron HCl) 4 Mg Tablet, 4 MG PO Q8H PRN for NAUSEA/VOMITING-1ST LINE, (Reported) Entered as Reported by: AMRIT MARINELLI on 04/09/21 1137 Review of Systems Constitutional: No chills, No diaphoresis EENTM: No ear pain, No blurred vision, No double vision Respiratory: No cough, No dyspnea on exertion Cardiovascular: No chest pain Gastrointestinal: No abdominal pain, No diarrhea, No nausea, No vomiting Genitourinary: No decreased output, No discharge Musculoskeletal: No back pain; joint pain, joint swelling, muscle pain Skin: change in color (LAN HARVEY) All Other Systems Reviewed Negative Unless Noted: Yes (LAN HARVEY) Past Kjkq[facility]-[place]-[facility]w Hx Patient Social History Tobacco Use?: No Substance use?: No Alcohol Use?: No Pt feels they are or have been: No (LAN HARVEY) Immunizations Up To Date Tetanus Booster (TDap): Less than 5yrs First/Initial COVID19 Vaccinat: Moderna Second COVID19 Vaccination Trell: Moderna Third COVID19 Vaccination Date: (LAN HARVEY) Seasonal Allergies Seasonal Allergies: Yes (LAN HARVEY) Past Medical History Surgery/Hospitalization HX: ASTHMA Surgeries: Yes 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, Oophorectomy, Orthopedic Respiratory: Yes Asthma Cardiac: No Neurological: No Headaches /Migraines 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 Disorders: Yes Female 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, 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 Sexually Transmitted Disease: No HIV/AIDS: No Genitourinary: No Gastrointestinal: Yes Gastroesophageal Reflux, Gall Bladder Disease Musculoskeletal: No Degenerate Disk Disease, Chronic Back Pain Endocrine: Yes Diabetes, Non-Insulin dep HEENT: No Chronic Ear Infection Loss of Vision: Denies Hearing Impairment: Hard of Hearing Cancer: No Psychosocial: Yes Anxiety, Depression Integumentary: No Psoriasis Blood Disorders: Yes (HEPATITIS C) Adverse Reaction/Blood Tranf: No (N/A) (LAN HARVEY) Family Medical History Heart Disease, Cancer, Diabetes SOCIAL HISTORY: -SMOKED 1/2 PPD, QUIT -ETOH--OCCASIONAL USE -DRUGS--HX OF IV METH USE (LAN HARVEY) Physical Exam Vital Signs Vital Signs - First Documented 09/29/22 16:30 Temp 36.0 Pulse 118 Resp 16 B/P (MAP) 136/81 (99) Pulse Ox 97 (MARLYN WARD MD) Vital Signs Capillary Refill : Less Than 3 Seconds (LAN HARVEY) Height, Weight, BMI Height: 5'7.00" Weight: 300lbs. 7.0oz. 136.676615du; 47.00 BMI Method:Stated General Appearance: WD/WN, no apparent distress HEENT: PERRL/EOMI, normal ENT inspection, TMs normal, pharynx normal Neck: non-tender, full range of motion, supple, normal inspection Cardiovascular: regular rate, rhythm, no edema, no gallop Respiratory: chest non-tender, lungs clear, normal breath sounds, no respiratory distress, no accessory muscle use Gastrointestinal: normal bowel sounds, non tender, soft Back: normal inspection, no CVA tenderness Hips: bilateral hip non-tender, bilateral hip normal inspection, bilateral hip normal range of motion Knees: bilateral knee non-tender, bilateral knee normal inspection, bilateral knee normal range of motion Ankles: left ankle soft tissue tenderness, left ankle swelling, left ankle other (Left lateral ankle swelling, tenderness, bruising. Left medial ankle tenderness and bruising. 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 Patient was seen on September 18 had x-ray of the left ankle negative for fracture. Continued pain with swelling and bruising. Pain radiating up into the calf sharp when she stands. On exam she has no calf tenderness swelling or bruising. Bruising along the left lateral ankle. Previous surgery to the left ankle. Rule out occult fracture, x-ray was ordered which was negative. Neurovascular intact. She received 1 dose of hydrocodone. Ice was applied. She is requesting Aircast. She states she has a boot at home which would help relieve some of the pain and stress from the ankle. Crutches as needed. Orthopedic outpatient follow-up. If if developing pain or swelling of the calf to return back to ED. She had no calf tenderness or pain on palpation suggesting DVT. Return precaution were discussed. Orthopedic outpatient follow-up. Would likely need further imaging as she has a history of ligament tear. She has no foot tenderness. (LAN HARVEY) Impression Primary Impression: Left ankle sprain Disposition: HOME, SELF-CARE Condition: Stable Departure-Patient Inst. Decision time for Depature: 17:40 (LAN HARVEY) Referrals: ARMOND CRENSHAW MD SELF,JASVIR BRADSHAW (PCP/Family) Primary Care Physician Patient Instructions: Ankle sprain Add. Discharge Instructions: Recommend follow-up with orthopedic. Aircast for support. Crutches as needed. Ice and elevate. Continue with anti-inflammatories for pain. If developing swelling or pain or bruising to the left calf to return back to ED All discharge instructions reviewed with patient and/or family. Voiced understanding. Scripts Hydrocodone/Acetaminophen (Hydrocodone-Acetamin 5-325 mg) 5 Mg-325 Mg Tablet 1 TAB PO Q4H PRN for PAIN-MODERATE (5-7), #8 TAB Prov: LAN HARVEY 09/29/22 ATTENDING PHYSICIAN NOTE: I was physically present in the Emergency Department during the evaluation and care of this patient as attending physician, and I was available for consultation and assistance. I did not personally interview or examine this patient, nor was I otherwise directly involved in the care or decision making for this patient. (MARLYN WARD MD) LAN HARVEY Sep 29, 2022 17:09 MARLYN WARD MD Sep 30, 2022 08:46
--- NOTE | 2022-09-29 17:16 | Diagnostic Imaging Report ---
INDICATION: Lateral ankle pain TECHNIQUE: Three views of the left ankle CORRELATION STUDY: None FINDINGS: The bony alignment is anatomic. The talar dome is intact. The ankle mortise is maintained. There is no acute fracture or dislocation. Mild prominent plantar calcaneal spur. Mild soft tissue edema. IMPRESSION: Negative for acute bony abnormality of the ankle. Dictated by: Dictated on workstation # [id number]
[2022-09-29] MEDS ORDERED: HYDROcodone/APAP 5 MG/325 MG (LORTAB) TAB PO ONE (17:30)
[2022-09-29] MEDS ORDERED: ACHD5005 PO (17:41)
[2022-09-29 17:46] VITALS: BP 136/81
== END 2022-09-29 17:46 | disposition home or self-care (01) ==
LOC: EDUNIT# 16:10 → ER 16:11
DX: S93.402A Sprain of unspecified ligament of left ankle, initial encounter (principal); Z87.891 Personal history of nicotine dependence; X58.XXXA Exposure to other specified factors, initial encounter
CPT/HCPCS: 73610

== ENCOUNTER → 2023-02-26 | Outpatient (CLI) | payer MEDICAID ==
[~2023-02-26] MED LIST changes: +BROM118S61 PO; -D-ME118S33 PO
--- NOTE | 2023-02-26 17:56 | Diagnostic Imaging Report ---
EXAMINATION: Magnetic resonance imaging of the right wrist without contrast DATE: February 26, 2023. COMPARISON: None. HISTORY: 37-year-old female, fall 3 months ago. Right wrist injury and pain. TECHNIQUE: Magnetic Resonance Imaging sequences were performed of the wrist without contrast. FINDINGS: TRIANGULAR FIBROCARTILAGE COMPLEX: The triangular fibrocartilage complex is grossly intact. INTRINSIC LIGAMENTS: There is a complete tear of the scapholunate ligament involving the central membranous portion and dorsal band of the scapholunate ligament. There is mild widening of the scapholunate interval. The lunotriquetral ligament is grossly intact. JOINTS: The radiocarpal, intercarpal, and distal radioulnar joints are intact. There is no joint effusion. CARPAL TUNNEL: The flexor retinaculum is unremarkable. The flexor digitorum superficialis and profundus are intact. The median nerve is unremarkable. FLEXOR TENDONS: The flexor carpi ulnaris, flexor pollicis longus and carpi radialis are intact. EXTENSOR TENDONS: Radial side extensor tendons are intact including: extensor pollicis longus, extensor carpi radialis brevis, extensor carpi radialis longus, extensor pollicis brevis and abductor pollicis longus. The extensor carpi ulnaris, extensor digitorum, extensor digiti minimi and extensor indicis tendons are intact. BONE: There is low-level edema in the scaphoid and lunate adjacent to the attachment sites of the scapholunate ligament compatible with areas of bone contusion. There is no acute fracture. The additional bone marrow signal is unremarkable. BURSAE AND SOFT TISSUES: The bursae and soft tissues surrounding the wrist are within normal limits. IMPRESSION: 1. Complete tear involving at least the central membranous portion and dorsal band of the scapholunate ligament with mild widening of the scapholunate interval. Low level edema at the attachment sites of the scapholunate ligament compatible with bone contusions of the scaphoid and lunate. 2. No current proximal migration of the capitate. 3. Intact tendons. Dictated by: Dictated on workstation # [id number]
== END ==
LOC: RAD 12:12
DX: S63.591A Other specified sprain of right wrist, initial encounter (principal); X58.XXXA Exposure to other specified factors, initial encounter
CPT/HCPCS: 73221